=== PATIENT | female | born 1935 | race Two or more races ===

== ENCOUNTER 2019-10-18 23:26 | Inpatient (IN) | payer MEDICARE, MEDICAID ==
[~2019-10-18] VITALS: Ht 162.6 cm; Wt 63.2 kg
[2019-10-18 23:45] VITALS: BP 70/42
[2019-10-18] MEDS ORDERED: Sodium Chloride 1,400 ML IVLG ONE (23:45)
[2019-10-18] MEDS ORDERED: Atropine Inj 1mg/10ml Syr IVP ONE (23:45)
--- NOTE | 2019-10-18 23:45 | NUR ---
ED Nurse Note: Patient was BIBA from [facility] due to hypotension, hypoglycemia, and bradycardia. Patient's BP 70/32, BS 67, HR 32 at bed side. Patient presented unresponsive, with flat affect, AAO x0, VS unstable. ER MD at bed side.
[2019-10-18] MEDS ORDERED: Atropine Inj 1mg/10ml Syr ONE (23:47)
[2019-10-18 23:58] LABS: HEMATOCRIT 34.3 % (37.0-47.0); HEMOGLOBIN 11.5 G/DL (12.0-16.0); MEAN CORPUSCULAR VOLUME 87 FL (80-99); PLATELET COUNT 442 K/UL (150-450); RED BLOOD COUNT 3.94 M/UL (4.20-5.40); RED CELL DISTRIBUTION WIDTH 13.4 % (11.6-14.8)
[2019-10-19] VITALS (48 sets, daily range): BP systolic 65–120; BP diastolic 26–94
[2019-10-19 00:13] LABS: WHITE BLOOD COUNT 23.9 K/UL (4.8-10.8)
--- NOTE | 2019-10-19 00:31 | Diagnostic Imaging Report ---
EXAM: CT Head Without Intravenous Contrast CLINICAL HISTORY: AMS TECHNIQUE: Axial computed tomography images of the head/brain without intravenous contrast. CTDI is 53 mGy and DLP is 1179 mGy-cm. One or more of the following dose reduction techniques were used: automated exposure control, adjustment of the mA and/or kV according to patient size, use of iterative reconstruction technique. COMPARISON: No relevant prior studies available. FINDINGS: Limitations: Limited due to metallic artifact. Brain: No acute intracranial hemorrhage or cortical ischemia. Chronic small vessel ischemic changes. Cannot exclude [id number] ischemia on CT. Followup as clinically indicated. Ventricles: Unremarkable. Bones/joints: Unremarkable. No acute fracture. Soft tissues: See above. Sinuses: Unremarkable as visualized. Mastoid air cells: Unremarkable as visualized. IMPRESSION: No acute intracranial hemorrhage or cortical ischemia. Chronic small vessel ischemic changes. Cannot exclude [id number] ischemia on CT. Followup as clinically indicated.
[2019-10-19 00:36] LABS: APPEARANCE,URINE CLOUDY; BILIRUBIN, URINE NEGATIVE (NEGATIVE); GLUCOSE, URINE (UA) NEGATIVE (NEGATIVE); KETONES,URINE NEGATIVE (NEGATIVE); LEUKOCYTE ESTERASE ,URINE 3+ (NEGATIVE); NITRITE,URINE NEGATIVE (NEGATIVE); PH,URINE 8 (4.5-8.0); PROTEIN,URINE 3+ (NEGATIVE); UROBILINOGEN,URINE NORMAL MG/DL (0.0-1.0)
[2019-10-19 00:37] LABS: COLOR,URINE YELLOW
[2019-10-19] MEDS ORDERED: Cefepime HCl 1 GM in D5W 55 ML IVPB ONE (00:45)
[2019-10-19] MEDS ORDERED: Sodium Bicarbonate 50ml Carp IV ONE (00:45)
[2019-10-19] MEDS ORDERED: Insulin Human Regular 100units/ml 3ml IV ONE (00:45)
[2019-10-19] MEDS ORDERED: Calcium Gluconate 1gm/10ml vial IVP ONE (00:45)
[2019-10-19] MEDS ORDERED: Sodium Bicarbonate 50ml Carp ONE (02:39)
[2019-10-19] MEDS ORDERED: Levophed 4mg/4mL Inj IV ONE ×2 (02:40→02:43)
[2019-10-19 05:57] LABS: ALANINE AMINOTRANSFERASE 26 U/L (12-78); ALBUMIN 1.9 G/DL (3.4-5.0); ALBUMIN/GLOBULIN RATIO 0.6 (1.0-2.7); ALKALINE PHOSPHATASE 150 U/L (46-116); ANION GAP 6 mmol/L (5-15); ASPARTATE AMINO TRANSFERASE 90 U/L (15-37); BILIRUBIN,TOTAL 0.3 MG/DL (0.2-1.0); BLOOD UREA NITROGEN 69 mg/dL (7-18); CALCIUM 8.3 MG/DL (8.5-10.1); CARBON DIOXIDE 26 MMOL/L (21-32); CHLORIDE 94 MMOL/L (98-107); CKMB 1.1 NG/ML (0.0-3.6); CREATINE KINASE 130 U/L (26-308); CREATININE 1.4 MG/DL (0.55-1.30); SODIUM 127 MMOL/L (136-145)
[2019-10-19 05:58] LABS: POTASSIUM 7.1 MMOL/L (3.5-5.1)
[2019-10-19 06:19] LABS: ALANINE AMINOTRANSFERASE 22 U/L (12-78); ALBUMIN 1.6 G/DL (3.4-5.0); ALBUMIN/GLOBULIN RATIO 0.6 (1.0-2.7); ALKALINE PHOSPHATASE 128 U/L (46-116); ANION GAP 6 mmol/L (5-15); ASPARTATE AMINO TRANSFERASE 61 U/L (15-37); BILIRUBIN,TOTAL 0.3 MG/DL (0.2-1.0); BLOOD UREA NITROGEN 63 mg/dL (7-18); CALCIUM 7.3 MG/DL (8.5-10.1); CARBON DIOXIDE 27 MMOL/L (21-32); CHLORIDE 102 MMOL/L (98-107); CREATININE 1.1 MG/DL (0.55-1.30); POTASSIUM 4.7 MMOL/L (3.5-5.1); SODIUM 135 MMOL/L (136-145)
[2019-10-19] MEDS ORDERED: LOVENOX10 M4 SUBQ (06:31)
[2019-10-19] MEDS ORDERED: MORPHINE S10 MG/0.5 PO (06:31)
[2019-10-19] MEDS ORDERED: HYDRALAZINE HCL10 MG GT (06:31)
[2019-10-19] MEDS ORDERED: HUMALOG100 UNIT/4 SUBQ (06:31)
[2019-10-19] MEDS ORDERED: DESYREL50 MG GT (06:31)
[2019-10-19] MEDS ORDERED: GABAPENTIN300 MG GT (06:31)
[2019-10-19] MEDS ORDERED: FAMOTIDINE20 MG GT (06:31)
[2019-10-19] MEDS ORDERED: PRINIVIL10 MG ORAL (06:31)
--- NOTE | 2019-10-19 06:41 | NUR ---
ED Nurse Note: Patient was admited to ICU due to septic shok. Patient was transfered to the unit via gurney, by ACLS protocol. Patient was transfered with Levafed running at rate 16 mcg.
--- NOTE | 2019-10-19 07:00 | NUR ---
NURSE NOTES: Pt received from [facility] [employer]. Pt is awake in bed, opens eyes spontaneously, pupils are equal and round 2mm and sluggish to light reaction. Pt is SR to cardiac/vascular sonographer, afebrile. radial pulses palpable 2+ bilaterally and dorsalis pedis pulses 1+ bilaterally. cap refill< 3 sec, extremities cool to touch. Pt noted with non-rebreather mask at 100% FiO2 15 L.Bilateral upper lungs and right lower lung noted with expiratory rhonchi. Left lower lung noted diminished upon auscultation. GT noted with dry and intact dressing, clamped. Abd is round, soft, with active bowel sounds to all quadrants. Weiner from [facility] noted draining yellow urine. Skin alterations noted. Pt has right femoral TLC running levophed at 16 mcg/min (from ER). VS noted stable at this time and charted. Bilat lower extremities noted contracted. Per Merly, overlay mattress has been ordered from central supply, awaiting mattress. Pt also has a RFA 20g and LFA 18g IV saline locked. Bed in lowest position, alarm on, side rails up x 2 , call light within reach, will continue to monitor.
--- NOTE | 2019-10-19 07:01 | Emergency Room Report ---
History of Present Illness General Chief Complaint: Dyspnea/Respdistress Source: Medical Record, EMS Present Illness HPI This is an 84-year-old female from a custodial. She has a history of CVA, hypertension, diabetes and sepsis. She presents with altered mental status with hypotension. Supposedly onset was tonight. Said that custodial called because she was unresponsive and she was hypotensive. Heart rate was in the 30s. Any history from the patient because of her condition. On arrival, she was unresponsive. She was moaning to painful stimuli. Blood pressure was systolic in the 60s. Heart rate was in the 30s. She was also hypoxic. Allergies: Coded Allergies: No Known Allergies (Unverified , 10/18/19) Patient History Past Medical History: see triage record, old chart reviewed, DM, HTN Past Surgical History: other Pertinent Family History: none Social History: Denies: smoking Now: No Immunizations: other Reviewed Nursing Documentation: PMH: Agreed; PSxH: Agreed Nursing Documentation-PMH Hx Hypertension: Yes Hx Diabetes: Yes - TYPE 2 Hx Neurological Problems: Yes - DEMENTIA Review of Systems All Other Systems: limited - Secondary to her condition Physical Exam Vital Signs Date Time Temp Pulse Resp B/P (MAP) Pulse Ox O2 Delivery O2 Flow Rate FiO2 10/18/19 23:31 96.1 150 26 75/59 (64) 94 Non-Rebreather 15.0 Vitals with bradycardia, not tachycardia Sp02 EP Interpretation: abnormal General Appearance: severe distress, Chronically Ill, Stupor Head: normocephalic, atraumatic Eyes: bilateral eye PERRL ENT: dry mucus membranes Neck: full range of motion, supple, no meningismus Respiratory: chest non-tender, decreased breath sounds, accessory muscle use Cardiovascular #1: no murmur, bradycardia Gastrointestinal: normal bowel sounds, non tender, no mass, no organomegaly, no bruit, non-distended, other - gtube Rectal: other - Sacral ulcer, large Musculoskeletal: no lower extremity edema Neurologic: other - Contracted Lymphatic: no adenopathy Procedures Critical Care Time Critical Care Time Critical care is mandated in this patient who presented with severe bradycardia , hyperkalemia, septic shock. Patient require my urgent intervention to attenuate the risks of metabolic collapse which may lead to cardiovascular collapse and . Critical care time is 75 minutes excluding any reportable procedure. Critical care time included evaluation, multiple reevaluation, looking at old charts, interpreting laboratory and diagnostic data, discussing case with patient and family and consultants, and charting. Central Line Central Line : Consent: Emergent Central Line Lumen: triple Maximal Sterile Barrier Tech: yes cap, yes mask, yes sterile gown, yes sterile gloves, yes large sterile sheet, yes hand hygiene, yes chlorhexidine prep Central Line Postion: femoral (R) Anesthesia: Lidocaine cc's of anesthesia: 5 Complications: none Central Line Post Position: sutured, good blood return Attempts: One Patient Tolerated: Well Complications: None Progress Initially I attempted to do a left IJ central line because she is so contracted and looking toward the right side. Even with the ultrasound machine, her vein was very small and it would not give blood back. Because of this, I switch it to the right femoral vein. Central line was placed without any difficulty with ultrasound guidance. Medical Decision Making Diagnostic Impression: Primary Impression: Septic shock Additional Impressions: UTI (urinary tract infection) Qualified Codes: N30.00 - Acute cystitis without hematuria Hyperkalemia ODALYS (acute kidney injury) Anemia Qualified Codes: D64.9 - Anemia, unspecified Proteinuria Qualified Codes: R80.9 - Proteinuria, unspecified Toxic metabolic encephalopathy ER Course Patient presents with altered mental status. Initially she was very bradycardic and hypotensive. I gave her a dose of atropine and heart rate went up to the 50s and 60s. She actually became more responsive. She open her eyes when I call her name. She also open her eyes when asked to open it. She was protecting her airway so I did not intubate her. Her hypoxia resolved when her heart rate and blood pressure improved. I suspect that this is more metabolic response with poor perfusion rather than a pulmonary issue. Her bradycardia is also probably second to her hyperkalemia. I gave her medication to treat her hyperkalemia and heart rate actually improved. Is been staying in the 70 to the 80s. Blood pressure improved with Levophed. Her mental status improved. Blood pressure improved. Wide spectrum antibiotic started. Because of her insurance with [employer], I discussed the case with the [facility] doctor initially. He approved patient for admission here. I then discussed the case with Dr. Grayson accepted the patient for admission. Lab Results Impression Labs with severe leukocytosis EKG Diagnostic Results Rate: normal Rhythm: NSR ST Segments: other - NSST changes Rhythm Strip Diag. Results EP Interpretation: yes Rate: 70 Rhythm: NSR, no PVC's Chest X-Ray Diagnostic Results Chest X-Ray Diagnostic Results : Chest X-Ray Ordered: Yes # of Views/Limited/Complete: 1 View Indication: Shortness of Breath Interpretation: no effusion, no pneumothorax, other - Elevated right hemidiaphragm with lung volume loss. Atelectasis with questionable infiltrate. Impression: Other - Elevated right hemidiaphragm with volume loss and atelectasis Electronically Signed by: Alex Correa MD CT/MRI/US Diagnostic Results CT/MRI/US Diagnostic Results : Imaging Test Ordered: CT head Impression Read by radiologist. Atrophy. Negative. Last Vital Signs Date Time Temp Pulse Resp B/P (MAP) Pulse Ox O2 Delivery O2 Flow Rate FiO2 10/18/19 23:31 96.1 150 26 75/59 (64) 94 Non-Rebreather 15.0 Status: improved Disposition: ADMITTED INPATIENT Condition: Critical Referrals: Opal Patton MD (PCP) Alex Correa MD Oct 19, 2019 07:01
--- NOTE | 2019-10-19 07:13 | Emergency Room Report ---
Sepsis Event Note Evaluation Current Stage of Sepsis: Septic Shock Possible Source: Genitourinary Focused Exam Allergies: Coded Allergies: No Known Allergies (Unverified , 10/18/19) Date Exam Occurred: Oct 19, 2019 Time Exam Occurred: 07:13 Laboratory Studies Laboratory Tests Test 10/18/19 23:40 10/19/19 00:25 10/19/19 00:37 10/19/19 02:55 White Blood Count 23.9 K/UL (4.8-10.8) *H Red Blood Count 3.94 M/UL (4.20-5.40) L Hemoglobin 11.5 G/DL (12.0-16.0) L Hematocrit 34.3 % (37.0-47.0) L Mean Corpuscular Volume 87 FL (80-99) Mean Corpuscular Hemoglobin 29.1 PG (27.0-31.0) Mean Corpuscular Hemoglobin Concent 33.5 G/DL (32.0-36.0) Red Cell Distribution Width 13.4 % (11.6-14.8) Platelet Count 442 K/UL (150-450) Mean Platelet Volume 7.3 FL (6.5-10.1) Neutrophils (%) (Auto) % (45.0-75.0) Lymphocytes (%) (Auto) % (20.0-45.0) Monocytes (%) (Auto) % (1.0-10.0) Eosinophils (%) (Auto) % (0.0-3.0) Basophils (%) (Auto) % (0.0-2.0) Differential Total Cells Counted 100 Neutrophils % (Manual) 86 % (45-75) H Lymphocytes % (Manual) 9 % (20-45) L Monocytes % (Manual) 4 % (1-10) Eosinophils % (Manual) 1 % (0-3) Basophils % (Manual) 0 % (0-2) Band Neutrophils 0 % (0-8) Platelet Estimate Adequate Platelet Morphology Normal Prothrombin Time 10.8 SEC (9.30-11.50) Prothromb Time International Ratio 1.0 (0.9-1.1) Activated Partial Thromboplast Time 31 SEC (23-33) Lactic Acid Level 5.60 mmol/L (0.4-2.0) H 2.40 mmol/L (0.66-2.22) H Troponin I 0.000 ng/mL (0.000-0.056) Urine Color Yellow Urine Appearance Cloudy Urine pH 8 (4.5-8.0) Urine Specific [place] 1.010 (1.005-1.035) Urine Protein 3+ (NEGATIVE) H Urine Glucose (UA) Negative (NEGATIVE) Urine Ketones Negative (NEGATIVE) Urine Blood 4+ (NEGATIVE) H Urine Nitrite Negative (NEGATIVE) Urine Bilirubin Negative (NEGATIVE) Urine Urobilinogen Normal MG/DL (0.0-1.0) Urine Leukocyte Esterase 3+ (NEGATIVE) H Urine RBC 20-30 /HPF (0 - 2) H Urine WBC Tntc /HPF (0 - 2) H Urine Squamous Epithelial Cells Few /LPF (NONE/OCC) Urine Amorphous Sediment Moderate /LPF (NONE) H Urine Bacteria Many /HPF (NONE) H Urine Yeast Moderate /HPF (NONE) H Sodium Level 127 MMOL/L (136-145) L 135 MMOL/L (136-145) L Potassium Level 7.1 MMOL/L (3.5-5.1) *H 4.7 MMOL/L (3.5-5.1) Chloride Level 94 MMOL/L (98-107) L 102 MMOL/L (98-107) Carbon Dioxide Level 26 MMOL/L (21-32) 27 MMOL/L (21-32) Anion Gap 6 mmol/L (5-15) 6 mmol/L (5-15) Blood Urea Nitrogen 69 mg/dL (7-18) H 63 mg/dL (7-18) H Creatinine 1.4 MG/DL (0.55-1.30) H 1.1 MG/DL (0.55-1.30) Estimat Glomerular Filtration Rate 35.9 mL/min (>60) 47.4 mL/min (>60) Glucose Level 201 MG/DL (74-106) H 182 MG/DL (74-106) H Calcium Level 8.3 MG/DL (8.5-10.1) L 7.3 MG/DL (8.5-10.1) L Total Bilirubin 0.3 MG/DL (0.2-1.0) 0.3 MG/DL (0.2-1.0) Aspartate Amino Transf (AST/SGOT) 90 U/L (15-37) H 61 U/L (15-37) H Alanine Aminotransferase (ALT/SGPT) 26 U/L (12-78) 22 U/L (12-78) Alkaline Phosphatase 150 U/L (46-116) H 128 U/L (46-116) H Total Creatine Kinase 130 U/L (26-308) Creatine Kinase MB 1.1 NG/ML (0.0-3.6) Creatine Kinase MB Relative Index 0.8 Total Protein 5.2 G/DL (6.4-8.2) L 4.3 G/DL (6.4-8.2) L Albumin 1.9 G/DL (3.4-5.0) L 1.6 G/DL (3.4-5.0) L Globulin 3.3 g/dL 2.7 g/dL Albumin/Globulin Ratio 0.6 (1.0-2.7) L 0.6 (1.0-2.7) L Vital Signs Last 24 Hour Vital Signs Date Time Temp Pulse Resp B/P (MAP) Pulse Ox O2 Delivery O2 Flow Rate FiO2 10/18/19 23:45 96.1 32 34 70/42 94 Non-Rebreather 15.0 10/18/19 23:45 150 26 Non-Rebreather 15.0 10/18/19 23:31 96.1 150 26 75/59 (64) 94 Non-Rebreather 15.0 Respiratory Exam: No Rales Cardiovascular Exam: RRR Capillary Refill: Less Than 2 Seconds Peripheral Pulse: Strong Pulse Location: Radial Skin Exam: Normal Turgor Alex Main MD Oct 19, 2019 07:13
[2019-10-19] MEDS ORDERED: AMLODIPINE BESYL5 MG GT (07:45)
[2019-10-19] MEDS ORDERED: ASPIRIN EC81 MG GT (07:45)
[2019-10-19] MEDS ORDERED: DONEPEZIL HCL10 MG GT (07:45)
[2019-10-19] MEDS ORDERED: CARVEDILOL12.5 MG GT (07:45)
[2019-10-19] MEDS ORDERED: ATORVASTATIN CA40 MG GT (07:45)
--- NOTE | 2019-10-19 07:58 | NUR ---
NURSE NOTES: Left message for Dr Grayson for admission orders. Awaiting call back.
--- NOTE | 2019-10-19 08:00 | NUR ---
NURSE NOTES: Levophed remains at 16 mcg/mi at this time per ER until call back from Dr Grayson is received for orders.
--- NOTE | 2019-10-19 08:19 | NUR ---
NURSE NOTES: Charge nurse (Vasquez Briceno) received call back from Dr Grayson for Levophed order. Per Candace, Dr Grayson will come see pt in [address] additional orders.
--- NOTE | 2019-10-19 09:30 | NUR ---
NURSE NOTES: Dr Grayson at bedside assessing pt and placing orders. Pt's family at bedside at this time. Advance directive provided and copied into chart.
--- NOTE | 2019-10-19 10:00 | NUR ---
NURSE NOTES: Pt repositioned, oral care provided, no acute distress noted.
[2019-10-19] MEDS ORDERED: Heparin 5000 units/ml inj SUBQ SCH (11:00)
[2019-10-19] MEDS ORDERED: Ertapenem 1 GM in NS 55 ML IVPB SCH (11:15)
[2019-10-19] MEDS ORDERED: NovoLOG Insulin Flexpen SUBQ SCH (11:30)
[2019-10-19 11:41] LABS: CHOLESTEROL 78 MG/DL (< 200); HDL CHOLESTEROL 34 MG/DL (40-60); PHOSPHORUS 3.6 MG/DL (2.5-4.9); TRIGLYCERIDES 47 MG/DL (30-150)
[2019-10-19] MEDS ORDERED: D5NS 1,000 ML IV SCH (11:46)
[2019-10-19] MEDS ORDERED: Ertapenem 0.5 GM in NS 55 ML IVPB SCH ×6 (12:00)
[2019-10-19] MEDS ORDERED: Atropine Inj 1mg/10ml Syr ONE (12:29)
[2019-10-19] MEDS ORDERED: Amikacin Rx to dose MISC PRN (12:45)
[2019-10-19] MEDS ORDERED: Albuterol/Ipratropium 3ml neb HHN PRN (12:45)
--- NOTE | 2019-10-19 12:46 | Infectious Diseases Prog Note ---
Assessment/Plan Assessment/Plan Full consult dictated: A) 1) sepsis, shock, uti, leukocytosis, ? pna, ? sacral wound infection, leukocytosis, hypothermia, sob, hypoxia 2) pmh noted 3) allergies - nkda 4) hx esbl P) 1) vancomycin, meropenem, amikacin 2) check cultures, labs and chest x-ray 3) wound care per protocol, consider surgery evaluation of wound 4) critical condition 5) thank you Subjective Allergies: Coded Allergies: No Known Allergies (Unverified , 10/18/19) Objective Vital Signs Last 24 Hour Vital Signs Date Time Temp Pulse Resp B/P (MAP) Pulse Ox O2 Delivery O2 Flow Rate FiO2 10/19/19 11:30 73 15 105/34 (57) 100 10/19/19 11:00 105/34 10/19/19 11:00 73 14 107/32 (57) 100 10/19/19 10:30 73 20 108/35 (59) 100 10/19/19 10:00 107/46 10/19/19 10:00 76 20 113/40 (64) 99 10/19/19 09:45 78 14 111/42 (65) 100 10/19/19 09:30 77 15 118/40 (66) 100 10/19/19 09:00 77 23 120/41 (67) 100 10/19/19 09:00 100/74 10/19/19 09:00 15.0 10/19/19 08:54 75 20 100/74 (83) 100 10/19/19 08:51 80/38 10/19/19 08:45 75 20 80/38 (52) 100 10/19/19 08:30 74 19 84/31 (48) 100 10/19/19 08:17 72 19 98/32 (54) 100 10/19/19 08:08 75 21 113/94 (100) 100 10/19/19 08:06 75 20 90/71 (77) 99 10/19/19 08:05 76 21 74/54 (61) 100 10/19/19 08:00 76 10/19/19 08:00 Non-Rebreather 15.0 Non-Rebreather 15.0 Non-Rebreather 15.0 10/19/19 08:00 76 20 109/84 (92) 100 10/19/19 07:45 75 17 101/44 (63) 100 10/19/19 07:30 73 14 94/34 (54) 100 10/19/19 07:15 73 11 95/31 (52) 10/19/19 07:06 70 12 90/31 (50) 100 10/19/19 07:00 98.1 73 14 90/32 (51) 100 10/19/19 07:00 76 10/19/19 07:00 Non-Rebreather 15.0 Non-Rebreather 15.0 Non-Rebreather 15.0 10/19/19 06:41 97.9 70 20 89/49 100 Non-Rebreather 10.0 10/19/19 06:41 98.1 7 18 114/56 100 Non-Rebreather 5.0 10/19/19 04:40 97.9 70 20 89/49 100 Non-Rebreather 10.0 10/19/19 03:05 96.1 50 20 105/36 94 Non-Rebreather 15.0 10/19/19 01:45 97.2 47 24 65/26 94 Non-Rebreather 15.0 10/18/19 23:45 96.1 32 34 70/42 94 Non-Rebreather 15.0 10/18/19 23:45 150 26 Non-Rebreather 15.0 10/18/19 23:31 96.1 150 26 75/59 (64) 94 Non-Rebreather 15.0 Height (Feet): 5 Height (Inches): 4.00 Weight (Pounds): 105 Laboratory Tests Test 10/18/19 23:40 10/19/19 00:25 10/19/19 00:37 10/19/19 02:55 White Blood Count 23.9 K/UL (4.8-10.8) *H Red Blood Count 3.94 M/UL (4.20-5.40) L Hemoglobin 11.5 G/DL (12.0-16.0) L Hematocrit 34.3 % (37.0-47.0) L Mean Corpuscular Volume 87 FL (80-99) Mean Corpuscular Hemoglobin 29.1 PG (27.0-31.0) Mean Corpuscular Hemoglobin Concent 33.5 G/DL (32.0-36.0) Red Cell Distribution Width 13.4 % (11.6-14.8) Platelet Count 442 K/UL (150-450) Mean Platelet Volume 7.3 FL (6.5-10.1) Neutrophils (%) (Auto) % (45.0-75.0) Lymphocytes (%) (Auto) % (20.0-45.0) Monocytes (%) (Auto) % (1.0-10.0) Eosinophils (%) (Auto) % (0.0-3.0) Basophils (%) (Auto) % (0.0-2.0) Differential Total Cells Counted 100 Neutrophils % (Manual) 86 % (45-75) H Lymphocytes % (Manual) 9 % (20-45) L Monocytes % (Manual) 4 % (1-10) Eosinophils % (Manual) 1 % (0-3) Basophils % (Manual) 0 % (0-2) Band Neutrophils 0 % (0-8) Platelet Estimate Adequate Platelet Morphology Normal Prothrombin Time 10.8 SEC (9.30-11.50) Prothromb Time International Ratio 1.0 (0.9-1.1) Activated Partial Thromboplast Time 31 SEC (23-33) Lactic Acid Level 5.60 mmol/L (0.4-2.0) H 2.40 mmol/L (0.66-2.22) H Troponin I 0.000 ng/mL (0.000-0.056) Urine Color Yellow Urine Appearance Cloudy Urine pH 8 (4.5-8.0) Urine Specific [place] 1.010 (1.005-1.035) Urine Protein 3+ (NEGATIVE) H Urine Glucose (UA) Negative (NEGATIVE) Urine Ketones Negative (NEGATIVE) Urine Blood 4+ (NEGATIVE) H Urine Nitrite Negative (NEGATIVE) Urine Bilirubin Negative (NEGATIVE) Urine Urobilinogen Normal MG/DL (0.0-1.0) Urine Leukocyte Esterase 3+ (NEGATIVE) H Urine RBC 20-30 /HPF (0 - 2) H Urine WBC Tntc /HPF (0 - 2) H Urine Squamous Epithelial Cells Few /LPF (NONE/OCC) Urine Amorphous Sediment Moderate /LPF (NONE) H Urine Bacteria Many /HPF (NONE) H Urine Yeast Moderate /HPF (NONE) H Sodium Level 127 MMOL/L (136-145) L 135 MMOL/L (136-145) L Potassium Level 7.1 MMOL/L (3.5-5.1) *H 4.7 MMOL/L (3.5-5.1) Chloride Level 94 MMOL/L (98-107) L 102 MMOL/L (98-107) Carbon Dioxide Level 26 MMOL/L (21-32) 27 MMOL/L (21-32) Anion Gap 6 mmol/L (5-15) 6 mmol/L (5-15) Blood Urea Nitrogen 69 mg/dL (7-18) H 63 mg/dL (7-18) H Creatinine 1.4 MG/DL (0.55-1.30) H 1.1 MG/DL (0.55-1.30) Estimat Glomerular Filtration Rate 35.9 mL/min (>60) 47.4 mL/min (>60) Glucose Level 201 MG/DL (74-106) H 182 MG/DL (74-106) H Calcium Level 8.3 MG/DL (8.5-10.1) L 7.3 MG/DL (8.5-10.1) L Total Bilirubin 0.3 MG/DL (0.2-1.0) 0.3 MG/DL (0.2-1.0) Aspartate Amino Transf (AST/SGOT) 90 U/L (15-37) H 61 U/L (15-37) H Alanine Aminotransferase (ALT/SGPT) 26 U/L (12-78) 22 U/L (12-78) Alkaline Phosphatase 150 U/L (46-116) H 128 U/L (46-116) H Total Creatine Kinase 130 U/L (26-308) Creatine Kinase MB 1.1 NG/ML (0.0-3.6) Creatine Kinase MB Relative Index 0.8 Total Protein 5.2 G/DL (6.4-8.2) L 4.3 G/DL (6.4-8.2) L Albumin 1.9 G/DL (3.4-5.0) L 1.6 G/DL (3.4-5.0) L Globulin 3.3 g/dL 2.7 g/dL Albumin/Globulin Ratio 0.6 (1.0-2.7) L 0.6 (1.0-2.7) L Test 10/19/19 09:00 Osmolality 308 mOsm/kg (297-317) Lactic Acid Level 1.70 mmol/L (0.4-2.0) Phosphorus Level 3.6 MG/DL (2.5-4.9) Magnesium Level 2.5 MG/DL (1.8-2.4) H Triglycerides Level 47 MG/DL (30-150) Cholesterol Level 78 MG/DL (< 200) LDL Cholesterol 39 mg/dL (<100) HDL Cholesterol 34 MG/DL (40-60) L Cholesterol/HDL Ratio 2.3 (3.3-4.4) L Thyroid Stimulating Hormone (TSH) 2.520 uiU/mL (0.358-3.740) Current Medications Medications (Trade) Dose Ordered Sig/Nitish Route PRN Reason Start Time Stop Time Status Last Admin Dose Admin Acetaminophen (Tylenol) 650 mg Q4H PRN ORAL Mild Pain (Pain Scale 1-3) 10/19/19 11:00 11/18/19 10:59 Chlorhexidine Gluconate (Marisela-Hex 2%) 1 applic DAILY@2000 TOPIC 10/19/19 20:00 11/18/19 19:59 Dextrose (Dextrose 50%) 25 ml Q30M PRN IV Hypoglycemia 10/19/19 10:30 11/18/19 10:29 Dextrose (Dextrose 50%) 50 ml Q30M PRN IV Hypoglycemia 10/19/19 10:30 11/18/19 10:29 Dextrose/Sodium Chloride 1,000 ml @ 50 mls/hr Q20H IV 10/19/19 13:00 11/18/19 11:45 Ertapenem 0.5 gm/ Sodium Chloride 55 ml @ 110 mls/hr Q24H IVPB 10/19/19 12:00 10/20/19 23:59 10/19/19 12:23 Heparin Sodium (Porcine) (Heparin 5000 units/ml) 5,000 units EVERY 12 HOURS SUBQ 10/19/19 21:00 11/18/19 10:59 Insulin Aspart (NovoLOG) Q6HR SUBQ 10/19/19 12:00 11/18/19 11:59 Norepinephrine Bitartrate 4 mg/ Dextrose 250 ml @ 0 mls/hr Q24H IV 10/19/19 08:30 11/18/19 08:29 10/19/19 08:51 Pantoprazole (Protonix) 40 mg DAILY IV 10/20/19 09:00 11/19/19 08:59 Bao Stevens MD Oct 19, 2019 12:46
--- NOTE | 2019-10-19 12:49 | NUR ---
NURSE NOTES: Dr. Vergara at bedside assessing pt.
[2019-10-19] MEDS: D5NS 1,000 ML IV SCH (12:52)
[2019-10-19] MEDS: NovoLOG Insulin Flexpen SUBQ SCH ×2 (12:56→17:43)
--- NOTE | 2019-10-19 13:00 | NUR ---
NURSE NOTES: Dr Shepherd at bedside assessing pt's wounds.
[2019-10-19] MEDS ORDERED: Vancomycin 1gm/D5W 275ml IVPB ONE ×2 (15:00)
--- NOTE | 2019-10-19 15:00 | NUR ---
NURSE NOTES: Dr Pryor at bedside assessing pt.
--- NOTE | 2019-10-19 15:00 | NUR ---
RESPIRATORY NOTE: ABG drawn. Results posted.
--- NOTE | 2019-10-19 15:05 | NUR ---
NURSE NOTES: Oxygen titrated down to FiO2 40% 8L via non-rebreather mask per RT Rossy.
--- NOTE | 2019-10-19 15:05 | Diagnostic Imaging Report ---
EXAM: XR Chest, 1 View CLINICAL HISTORY: SOB TECHNIQUE: Frontal view of the chest. COMPARISON: No relevant prior studies available. FINDINGS: Limitations: Rotated position limit evaluation. Lungs: Mild streaky density in the left lung base. Pleural space: Dense opacity in the right lower half of the expected right hemithorax. This may reflect elevated right hemidiaphragm. Note that right pleural effusion/pleural abnormality and/or lower lung airspace disease can give this appearance. No pneumothorax. Heart: Cardiovascular silhouette obscured by the dense opacity in the right lower hemithorax. Mediastinum: Tortuous thoracic aorta accentuated by rotated position. Bones/joints: Degenerative changes in the thoracic spine Vasculature: Tortuous calcified thoracic aorta accentuated by rotated position. Other findings: Low lung volume limit evaluation IMPRESSION: 1. Limited study due to rotated position and low lung volume. 2. Finding in the right lower hemithorax which may reflect elevated right hemidiaphragm. This can alternatively represent combination of pleural effusion and/or airspace disease. Follow-up recommended. 3. Left basilar atelectasis versus infiltrate.
--- NOTE | 2019-10-19 15:06 | Diagnostic Imaging Report ---
EXAM: US Duplex Bilateral Lower Extremity Veins CLINICAL HISTORY: DVT TECHNIQUE: Real-time duplex ultrasound scan of the bilateral lower extremity veins integrating B-mode two-dimensional vascular structure, Doppler spectral analysis, color flow Doppler imaging and compression. COMPARISON: No relevant prior studies available. FINDINGS: Right deep veins: Unremarkable. No DVT in the right common femoral, femoral, proximal deep femoral or popliteal veins. The veins demonstrate normal color flow, are normally compressible, with normal phasic flow and/or augmentation response. Right superficial veins: Unremarkable. Left deep veins: Unremarkable. No DVT in the left common femoral, femoral, proximal deep femoral or popliteal veins. The veins demonstrate normal color flow, are normally compressible, with normal phasic flow and/or augmentation response. Left superficial veins: Unremarkable. Soft tissues: No popliteal cyst. IMPRESSION: Unremarkable bilateral lower extremity duplex venous ultrasound.
[2019-10-19] MEDS: Amikacin 700 MG in NS 110 ML IV SCH (15:15)
[2019-10-19] MEDS: Vancomycin 750mg/NS 275ml IVPB SCH ×2 (15:17)
--- NOTE | 2019-10-19 15:22 | Consultation ---
History of Present Illness General Date patient seen: Oct 19, 2019 Chief Complaint: Dyspnea/Respdistress Present Illness HPI 84 year old female with multiple medical comorbidities presented to [facility] for respiratory insufficiency admitted to the intensive care unit for further care and management. Abnormal labs. Abnormal imaging. On examination had potentially infected foul-smelling abnormal sacral decubitus ulcer. Surgery called to evaluate and assist with care. Patient septic in the ICU. No nausea vomiting fever chills. Unable to obtain history from patient given current medical condition. Patient on support. Allergies: Coded Allergies: No Known Allergies (Unverified , 10/18/19) Medication History Scheduled Amlodipine Besylate* (Amlodipine Besylate*), 5 MG GT DAILY, (Reported) Aspirin Ec* (Aspirin Ec*), 81 MG GT DAILY, (Reported) Atorvastatin Calcium* (Atorvastatin Calcium*), 40 MG GT BEDTIME, (Reported) Carvedilol* (Carvedilol*), 12.5 MG GT EVERY 12 HOURS, (Reported) Donepezil Hcl* (Donepezil Hcl*), 10 MG GT BEDTIME, (Reported) Enoxaparin* (Lovenox*), 40 MG SUBQ DAILY, (Reported) Famotidine* (Pepcid 20mg tablet*), 20 MG ORAL DAILY, (Reported) Gabapentin* (Gabapentin*), 300 MG ORAL BEDTIME, (Reported) Hydralazine Hcl* (Hydralazine Hcl*), 10 MG ORAL EVERY 6 HOURS, (Reported) Lisinopril* (Prinivil*), 10 MG ORAL DAILY, (Reported) Miscellaneous Medications Insulin Lispro (Humalog), 0 SUBQ, (Reported) Morphine Sulfate (Morphine Sulfate), 10 MG PO, (Reported) Trazodone Hcl (Desyrel), 50 MG PO, (Reported) Patient History Limited by: medical condition History Provided By: Medical Record, PMD Healthcare decision maker Shey Degroot Resuscitation status Do Not Intubate Advanced Directive on File Yes Past Medical/Surgical History Past Medical/Surgical History: (1) Anemia (2) Proteinuria (3) Toxic metabolic encephalopathy (4) Septic shock (5) Hyperkalemia (6) UTI (urinary tract infection) (7) ODALYS (acute kidney injury) Review of Systems ROS Narrative Unable to obtain given patient's current medical condition Physical Exam General Appearance: mild distress Lines, tubes and drains: other HEENT: normocephalic, atraumatic, anicteric Neck: supple, normal inspection Respiratory/Chest: decreased breath sounds, other Cardiovascular/Chest: regularly irregular, tachycardia Abdomen: soft, no organomegaly, no mass Extremities: normal inspection Skin Exam: warm/dry Neurologic: other Last 24 Hour Vital Signs Date Time Temp Pulse Resp B/P (MAP) Pulse Ox O2 Delivery O2 Flow Rate FiO2 10/19/19 15:08 8.0 40 10/19/19 15:00 64 12 105/32 (56) 100 10/19/19 14:30 64 11 102/32 (55) 100 10/19/19 14:11 102/83 10/19/19 14:00 102/83 10/19/19 14:00 76 18 102/83 (89) 100 10/19/19 13:30 79 18 105/38 (60) 100 10/19/19 13:24 76 21 100 Non-Rebreather 15.0 100 75 19 100 10/19/19 13:00 113/38 10/19/19 13:00 76 16 113/38 (63) 100 10/19/19 12:30 72 21 116/45 (68) 100 10/19/19 12:00 67 10/19/19 12:00 15.0 100 10/19/19 12:00 101/38 10/19/19 12:00 Non-Rebreather 15.0 Non-Rebreather 15.0 Non-Rebreather 15.0 10/19/19 12:00 98.9 72 17 101/38 (59) 100 10/19/19 11:30 73 15 105/34 (57) 100 10/19/19 11:00 105/34 10/19/19 11:00 73 14 107/32 (57) 100 10/19/19 10:30 73 20 108/35 (59) 100 10/19/19 10:00 107/46 10/19/19 10:00 76 20 113/40 (64) 99 10/19/19 09:45 78 14 111/42 (65) 100 10/19/19 09:30 77 15 118/40 (66) 100 10/19/19 09:00 77 23 120/41 (67) 100 10/19/19 09:00 100/74 10/19/19 09:00 15.0 100 10/19/19 08:54 75 20 100/74 (83) 100 10/19/19 08:51 80/38 10/19/19 08:45 75 20 80/38 (52) 100 10/19/19 08:30 74 19 84/31 (48) 100 10/19/19 08:17 72 19 98/32 (54) 100 10/19/19 08:08 75 21 113/94 (100) 100 10/19/19 08:06 75 20 90/71 (77) 99 10/19/19 08:05 76 21 74/54 (61) 100 10/19/19 08:00 76 10/19/19 08:00 Non-Rebreather 15.0 Non-Rebreather 15.0 Non-Rebreather 15.0 10/19/19 08:00 76 20 109/84 (92) 100 10/19/19 07:45 75 17 101/44 (63) 100 10/19/19 07:30 73 14 94/34 (54) 100 10/19/19 07:15 73 11 95/31 (52) 10/19/19 07:06 70 12 90/31 (50) 100 10/19/19 07:00 98.1 73 14 90/32 (51) 100 10/19/19 07:00 76 10/19/19 07:00 Non-Rebreather 15.0 Non-Rebreather 15.0 Non-Rebreather 15.0 10/19/19 06:41 97.9 70 20 89/49 100 Non-Rebreather 10.0 10/19/19 06:41 98.1 7 18 114/56 100 Non-Rebreather 5.0 10/19/19 04:40 97.9 70 20 89/49 100 Non-Rebreather 10.0 10/19/19 03:05 96.1 50 20 105/36 94 Non-Rebreather 15.0 10/19/19 01:45 97.2 47 24 65/26 94 Non-Rebreather 15.0 10/18/19 23:45 96.1 32 34 70/42 94 Non-Rebreather 15.0 10/18/19 23:45 150 26 Non-Rebreather 15.0 10/18/19 23:31 96.1 150 26 75/59 (64) 94 Non-Rebreather 15.0 Intake and Output 10/18/19 10/19/19 19:00 07:00 Intake Total 0 ml Output Total 750 ml Balance -750 ml Intake Oral 0 ml Output Urine Total 750 ml Laboratory Tests Test 10/18/19 23:40 10/19/19 00:25 10/19/19 00:37 10/19/19 02:55 White Blood Count 23.9 K/UL (4.8-10.8) *H Red Blood Count 3.94 M/UL (4.20-5.40) L Hemoglobin 11.5 G/DL (12.0-16.0) L Hematocrit 34.3 % (37.0-47.0) L Mean Corpuscular Volume 87 FL (80-99) Mean Corpuscular Hemoglobin 29.1 PG (27.0-31.0) Mean Corpuscular Hemoglobin Concent 33.5 G/DL (32.0-36.0) Red Cell Distribution Width 13.4 % (11.6-14.8) Platelet Count 442 K/UL (150-450) Mean Platelet Volume 7.3 FL (6.5-10.1) Neutrophils (%) (Auto) % (45.0-75.0) Lymphocytes (%) (Auto) % (20.0-45.0) Monocytes (%) (Auto) % (1.0-10.0) Eosinophils (%) (Auto) % (0.0-3.0) Basophils (%) (Auto) % (0.0-2.0) Differential Total Cells Counted 100 Neutrophils % (Manual) 86 % (45-75) H Lymphocytes % (Manual) 9 % (20-45) L Monocytes % (Manual) 4 % (1-10) Eosinophils % (Manual) 1 % (0-3) Basophils % (Manual) 0 % (0-2) Band Neutrophils 0 % (0-8) Platelet Estimate Adequate Platelet Morphology Normal Prothrombin Time 10.8 SEC (9.30-11.50) Prothromb Time International Ratio 1.0 (0.9-1.1) Activated Partial Thromboplast Time 31 SEC (23-33) Lactic Acid Level 5.60 mmol/L (0.4-2.0) H 2.40 mmol/L (0.66-2.22) H Troponin I 0.000 ng/mL (0.000-0.056) Urine Color Yellow Urine Appearance Cloudy Urine pH 8 (4.5-8.0) Urine Specific [place] 1.010 (1.005-1.035) Urine Protein 3+ (NEGATIVE) H Urine Glucose (UA) Negative (NEGATIVE) Urine Ketones Negative (NEGATIVE) Urine Blood 4+ (NEGATIVE) H Urine Nitrite Negative (NEGATIVE) Urine Bilirubin Negative (NEGATIVE) Urine Urobilinogen Normal MG/DL (0.0-1.0) Urine Leukocyte Esterase 3+ (NEGATIVE) H Urine RBC 20-30 /HPF (0 - 2) H Urine WBC Tntc /HPF (0 - 2) H Urine Squamous Epithelial Cells Few /LPF (NONE/OCC) Urine Amorphous Sediment Moderate /LPF (NONE) H Urine Bacteria Many /HPF (NONE) H Urine Yeast Moderate /HPF (NONE) H Sodium Level 127 MMOL/L (136-145) L 135 MMOL/L (136-145) L Potassium Level 7.1 MMOL/L (3.5-5.1) *H 4.7 MMOL/L (3.5-5.1) Chloride Level 94 MMOL/L (98-107) L 102 MMOL/L (98-107) Carbon Dioxide Level 26 MMOL/L (21-32) 27 MMOL/L (21-32) Anion Gap 6 mmol/L (5-15) 6 mmol/L (5-15) Blood Urea Nitrogen 69 mg/dL (7-18) H 63 mg/dL (7-18) H Creatinine 1.4 MG/DL (0.55-1.30) H 1.1 MG/DL (0.55-1.30) Estimat Glomerular Filtration Rate 35.9 mL/min (>60) 47.4 mL/min (>60) Glucose Level 201 MG/DL (74-106) H 182 MG/DL (74-106) H Calcium Level 8.3 MG/DL (8.5-10.1) L 7.3 MG/DL (8.5-10.1) L Total Bilirubin 0.3 MG/DL (0.2-1.0) 0.3 MG/DL (0.2-1.0) Aspartate Amino Transf (AST/SGOT) 90 U/L (15-37) H 61 U/L (15-37) H Alanine Aminotransferase (ALT/SGPT) 26 U/L (12-78) 22 U/L (12-78) Alkaline Phosphatase 150 U/L (46-116) H 128 U/L (46-116) H Total Creatine Kinase 130 U/L (26-308) Creatine Kinase MB 1.1 NG/ML (0.0-3.6) Creatine Kinase MB Relative Index 0.8 Total Protein 5.2 G/DL (6.4-8.2) L 4.3 G/DL (6.4-8.2) L Albumin 1.9 G/DL (3.4-5.0) L 1.6 G/DL (3.4-5.0) L Globulin 3.3 g/dL 2.7 g/dL Albumin/Globulin Ratio 0.6 (1.0-2.7) L 0.6 (1.0-2.7) L Test 10/19/19 09:00 10/19/19 14:47 Osmolality 308 mOsm/kg (297-317) Lactic Acid Level 1.70 mmol/L (0.4-2.0) Phosphorus Level 3.6 MG/DL (2.5-4.9) Magnesium Level 2.5 MG/DL (1.8-2.4) H Triglycerides Level 47 MG/DL (30-150) Cholesterol Level 78 MG/DL (< 200) LDL Cholesterol 39 mg/dL (<100) HDL Cholesterol 34 MG/DL (40-60) L Cholesterol/HDL Ratio 2.3 (3.3-4.4) L Thyroid Stimulating Hormone (TSH) 2.520 uiU/mL (0.358-3.740) Arterial Blood pH 7.380 (7.350-7.450) Arterial Blood Partial Pressure CO2 40.5 mmHg (35.0-45.0) Arterial Blood Partial Pressure O2 436.1 mmHg (75.0-100.0) H Arterial Blood HCO3 23.4 mmol/L (22.0-26.0) Arterial Blood Oxygen Saturation 99.3 % (95-100) Arterial Blood Base Excess -1.6 (-2-2) Gerald Test Positive Height (Feet): 5 Height (Inches): 4.00 Weight (Pounds): 105 Medications Current Medications Medications (Trade) Dose Ordered Sig/Nitish Route PRN Reason Start Time Stop Time Status Last Admin Dose Admin Acetaminophen (Tylenol) 650 mg Q4H PRN ORAL Mild Pain (Pain Scale 1-3) 10/19/19 11:00 11/18/19 10:59 Albuterol/ Ipratropium (Albuterol/ Ipratropium) 3 ml Q4H PRN HHN Shortness of Breath 10/19/19 12:45 10/24/19 12:44 10/19/19 13:24 Amikacin Protocol (Amikacin pharmacy to dose) 1 ea DAILY PRN MISC Per rx protocol 10/19/19 12:45 11/18/19 12:44 Amikacin Sulfate 700 mg/Sodium Chloride 112.8 ml @ 112.8 mls/ hr Q36H IV 10/19/19 16:00 10/26/19 15:59 10/19/19 15:15 Chlorhexidine Gluconate (Marisela-Hex 2%) 1 applic DAILY@2000 TOPIC 10/19/19 20:00 11/18/19 19:59 Dextrose (Dextrose 50%) 25 ml Q30M PRN IV Hypoglycemia 10/19/19 10:30 11/18/19 10:29 Dextrose (Dextrose 50%) 50 ml Q30M PRN IV Hypoglycemia 10/19/19 10:30 11/18/19 10:29 Dextrose/Sodium Chloride 1,000 ml @ 50 mls/hr Q20H IV 10/19/19 13:00 11/18/19 11:45 10/19/19 12:52 Heparin Sodium (Porcine) (Heparin 5000 units/ml) 5,000 units EVERY 12 HOURS SUBQ 10/19/19 21:00 11/18/19 10:59 Insulin Aspart (NovoLOG) Q6HR SUBQ 10/19/19 12:00 11/18/19 11:59 10/19/19 12:56 Meropenem 1 gm/ Sodium Chloride 100 ml @ 200 mls/hr Q12HR@0200,1400 IVPB 10/19/19 14:00 10/24/19 13:59 10/19/19 14:14 Norepinephrine Bitartrate 4 mg/ Dextrose 250 ml @ 0 mls/hr Q24H IV 10/19/19 08:30 11/18/19 08:29 10/19/19 14:11 Pantoprazole (Protonix) 40 mg DAILY IV 10/20/19 09:00 11/19/19 08:59 Vancomycin HCl (Vanco rx to dose) 1 ea DAILY PRN MISC Per rx protocol 10/19/19 12:45 11/18/19 12:44 Vancomycin HCl 750 mg/Sodium Chloride 275 ml @ 183.333 mls/hr Q24H IVPB 10/20/19 15:00 10/25/19 14:59 10/19/19 15:17 Vancomycin HCl 1 gm/Dextrose 275 ml @ 183.708 mls/hr ONCE ONCE IVPB 10/19/19 15:00 10/19/19 16:29 Assessment/Plan Problem List: (1) Decubitus ulcer of sacral region, stage 4 Assessment & Plan: Stage IV sacral decubitus ulcer with necrosis, slough, mild drainage, foul odor. Patient presented with this on admission. Seems grossly uncapped. Leukocytosis , abnormal labs Sepsis unlikely due to wound likely pneumonia wound does need local supportive care. Patient also noted to have other areas of skin concerns. Full evaluation at bedside with nursing staff Orders placed We will follow with recommendations Nutritional optimization thank you will follow with recommendations ICD Codes: L89.154 - Pressure ulcer of sacral region, stage 4 SNOMED: 517129310, 611580534 (2) Anemia ICD Codes: D64.9 - Anemia, unspecified SNOMED: 787689909 Qualifiers: Qualified Codes: D64.9 - Anemia, unspecified (3) Proteinuria ICD Codes: R80.9 - Proteinuria, unspecified SNOMED: 38928893 Qualifiers: Qualified Codes: R80.9 - Proteinuria, unspecified (4) Toxic metabolic encephalopathy ICD Codes: G92 - Toxic encephalopathy SNOMED: 574408658 (5) Septic shock Assessment & Plan: Patient needs intensive care unit, leukocytosis, abnormal labs, septic. Full physical examination performed an area of concern identified. Unlikely etiology of patient's sepsis. Likely septic from pneumonia versus potential UTI IV antibiotics per infectious disease We will follow with recommendations ICD Codes: A41.9 - Sepsis, unspecified organism; R65.21 - Severe sepsis with septic shock SNOMED: 07902391 (6) Hyperkalemia ICD Codes: E87.5 - Hyperkalemia SNOMED: 35832807, 9832435 (7) UTI (urinary tract infection) ICD Codes: N39.0 - Urinary tract infection, site not specified SNOMED: 59772966 Qualifiers: Qualified Codes: N30.00 - Acute cystitis without hematuria (8) ODALYS (acute kidney injury) ICD Codes: N17.9 - Acute kidney failure, unspecified SNOMED: 40843195, 2554195 Mikael Shepherd Oct 19, 2019 15:22
[2019-10-19] MEDS ORDERED: NS 500ML ONE (15:54)
[2019-10-19] MEDS ORDERED: Tubing IV Secondary IV ONE (15:54)
--- NOTE | 2019-10-19 16:00 | NUR ---
NURSE NOTES: Pt repositioned, no acute distress noted at this time. Will continue to monitor.
[2019-10-19] MEDS ORDERED: Atropine Inj 1mg/10ml Syr IVP PRN (17:00)
--- NOTE | 2019-10-19 17:00 | NUR ---
NURSE NOTES: Spoke to Dr. Grayson regarding pt's episodes of bradycardia, received order for atropine 0.5 mg IVP Q5min with max dose of 3 mg for HR less than 50 bpm, consult also placed with Dr. Carranza who will come see pt this evening.
--- NOTE | 2019-10-19 19:30 | NUR ---
HAND-OFF: Report given to Farzana. Pt is in table condition, noted Sinus marely to sinus rhythm on registered nurse cardiac telemetry (57-65 bpm). Endorsed to Farzana that Dr Carranza is to see pt tonight and PRN atropine order is available if HR drops below 50. No acute distress noted. Addendum: 10/19/19 at 1945 by Marizol Stack RN Also endorsed to Farzana that I was unable to collected sputum today, pt's cough is non-productive, Rossy RT is also aware. Central line dressing kit placed at bedside for dressing change tonight.
--- NOTE | 2019-10-19 20:00 | NUR ---
NURSE NOTES: received report from brock pulliam pt FLAT AFFECT AND LETHARGIC MOVING UPPER EXTREMITIES AND LOWER EXTREMITIES CONTRACTED HR 58-78 SB-SR SBP 76-106 ON LEVO DRIP AT 16MCG/MIN ON NRM 40 O/O FIO2 WITH 95%O2 SAT REPOSITION AND SUCTION
[2019-10-19] MEDS: Dyna-Hex 2% Top Sol 2oz TOPIC SCH (20:12)
[2019-10-19] MEDS: Heparin 5000 units/ml inj SUBQ SCH (21:26)
--- NOTE | 2019-10-19 22:00 | NUR ---
NURSE NOTES: UNABLE TITRATE LEVO DRIP SBP <7O
[2019-10-20] VITALS (60 sets, daily range): BP systolic 79–126; BP diastolic 26–63
--- NOTE | 2019-10-20 | NUR ---
NURSE NOTES: CONDITION UN CHANGE
[2019-10-20] MEDS: NovoLOG Insulin Flexpen SUBQ SCH ×4 (00:52→17:20)
--- NOTE | 2019-10-20 02:00 | NUR ---
NURSE NOTES: REPOSITION AND SUCTION
--- NOTE | 2019-10-20 04:00 | NUR ---
NURSE NOTES: complete bed bath oral care back care done
[2019-10-20 04:49] LABS: BASOPHILS % (AUTO) 0.6 % (0.0-2.0); EOSINOPHILS % (AUTO) 0.2 % (0.0-3.0); HEMOGLOBIN 9.1 G/DL (12.0-16.0); LYMPHOCYTES % (AUTO) 10.2 % (20.0-45.0); MEAN CORPUSCULAR VOLUME 87 FL (80-99); MONOCYTES % (AUTO) 6.4 % (1.0-10.0); NEUTROPHILS % (AUTO) 82.6 % (45.0-75.0); PLATELET COUNT 380 K/UL (150-450); RED BLOOD COUNT 3.11 M/UL (4.20-5.40); RED CELL DISTRIBUTION WIDTH 13.5 % (11.6-14.8); WHITE BLOOD COUNT 14.6 K/UL (4.8-10.8)
[2019-10-20 05:26] LABS: ANION GAP 7 mmol/L (5-15); BLOOD UREA NITROGEN 57 mg/dL (7-18); CALCIUM 8.3 MG/DL (8.5-10.1); CARBON DIOXIDE 28 MMOL/L (21-32); CHLORIDE 98 MMOL/L (98-107); CREATININE 1.3 MG/DL (0.55-1.30); POTASSIUM 4.9 MMOL/L (3.5-5.1); SODIUM 132 MMOL/L (136-145)
--- NOTE | 2019-10-20 06:00 | NUR ---
NURSE NOTES: levo drip at 10 mcg /min bp 109/34
--- NOTE | 2019-10-20 07:09 | NUR ---
HAND-OFF: Report given to .brock martin sent to lab using sbar
--- NOTE | 2019-10-20 07:10 | NUR ---
NURSE NOTES: Pt received from LIAT Yanes. Pt is asleep in bed, opens eyes when called by name, pupils are equal and round 2mm and sluggish to light reaction. Pt is SR to quality assurance monitor final, afebrile. radial pulses palpable 3+ bilaterally and dorsalis pedis pulses 1+ bilaterally. cap refill< 3 sec, bilat lower extremities cool to touch. Pt noted with non-rebreather mask at 40% FiO2 8 L.Bilateral lower lungs and right upper lung noted diminished upon auscultation. Left upper lung noted with rhonchi upon auscultation. GT noted with dry and intact dressing, clamped. Abd is round, soft, with active bowel sounds to all quadrants. Weiner noted draining yellow urine. Skin alterations noted. Pt has right femoral TLC running levophed at 10 mcg/min and D5NS at 50cc/hr. Bilat lower extremities noted contracted. Followed up with Sean from [employer] regarding overlay mattress- he states the company has not delivered it yet- awaiting mattress. Pt also has a RFA 20g and LFA 18g IV saline locked. Bed in lowest position, alarm on, side rails up x 2 , call light within reach, will continue to monitor. Addendum: 10/20/19 at 0851 by Marizol Stack RN Amendment: pt noted with venturi mask 40% 8 L (not non-rebreather)
[2019-10-20] MEDS: Heparin 5000 units/ml inj SUBQ SCH ×2 (08:40→21:10)
[2019-10-20] MEDS: D5NS 1,000 ML IV SCH (08:44)
[2019-10-20] MEDS ORDERED: Pantoprazole Inj IV SCH (09:00)
[2019-10-20 09:25] LABS: ALANINE AMINOTRANSFERASE 25 U/L (12-78); ALBUMIN 1.7 G/DL (3.4-5.0); ALKALINE PHOSPHATASE 149 U/L (46-116); ASPARTATE AMINO TRANSFERASE 44 U/L (15-37); BILIRUBIN,TOTAL 0.2 MG/DL (0.2-1.0); PHOSPHORUS 3.2 MG/DL (2.5-4.9)
[2019-10-20 09:39] LABS: BILIRUBIN,DIRECT < 0.1 MG/DL (0.0-0.3)
--- NOTE | 2019-10-20 09:51 | NUR ---
RD ASSESSMENT & RECOMMENDATIONS SEE CARE ACTIVITY FOR COMPLETE ASSESSMENT DAILY ESTIMATED NEEDS: Needs based on Wounds, sepsis, TF SOFTWARE SPECIALIST 60.9kg 25-30 kcals/kg 9595-8920 total kcals 1.25-2 g protein/kg 76-122 g total protein 25-30 mL/kg 8868-6791 total fluid mLs NUTRITION DIAGNOSIS: Increased kcal and pro needs r/t wound healing and sepsis as evidenced by pt hypotensive, critically elev WBC on adm, stage 4 sacral wound. CURRENT TF:NPO ENTERAL NUTRITION RECOMMENDATIONS: NEPRO @40ml/hr x24 hrs + Prosource x1 pack daily to provide 960ml, 1728 kcal, 78g + 11g pro, 698ml free H20 - WHEN MEDICALLY APPROPRIATE, rec to initiate low K formula NEPRO @20ml/hr for 6 hrs. - Advance as tolerated 5ml/hr q4-6 hrs to goal - Flush per MD, HOB over 30 degrees - Add PROSOURCE 1 pack daily to better meet est pro needs -->>Should pt remain hemodynamically unstable (currently on levo @10), rec trophic feeds of NEPRO @5-10ml/hr to maintain gut integrity. ADDITIONAL RECOMMENDATIONS: 1) Monitor for hemodynamic stability, ability to feed at goal 2) Wound care: w/ active TF order-add ALFREDO BID + Vit C 250mg BID ZnSO4 220mg daily x10 days 3) Maintain calibrated bed scale wts 4) Continue D5 w/ NPO status
[2019-10-20] MEDS ORDERED: D5NS 1000ml IV ONE (10:22)
[2019-10-20] MEDS ORDERED: NS 275ml ONE (10:22)
--- NOTE | 2019-10-20 10:30 | Consultation ---
Consult Note Consult Note Asked to eval at the request of Dr Grayson Seen in ICU discussed with RN EMERALD This is an 84-year-old female from a care home. She has a history of CVA, hypertension, diabetes and sepsis. She presents with altered mental status with hypotension. Supposedly onset was tonight. Said that care home called because she was unresponsive and she was hypotensive. Heart rate was in the 30s. Any history from the patient because of her condition. On arrival, she was unresponsive. She was moaning to painful stimuli. Blood pressure was systolic in the 60s. Heart rate was in the 30s. She was also hypoxic. No Known Allergies (Unverified , 10/18/19) Past Medical History: see triage record, old chart reviewed, DM, HTN Hx Hypertension: Yes Hx Diabetes: Yes - TYPE 2 Hx Neurological Problems: Yes - DEMENTIA examined data reviewed Assessment/Plan HyperKalemia HypoNatremia Renal failure Sepsis UTI DM Anemia HypoAlbuminemia Start GT feeding antibiotics Avoid nephrotoxics monitor renal parameters Anemia jimenez per order Ayo Pryor MD Oct 20, 2019 10:30
--- NOTE | 2019-10-20 11:45 | NUR ---
NURSE NOTES: Dr Grayson came in to see pt, made aware that pt was not seen by Dr Carranza yet however no instances of bradycardia noted this shift. Per Dr Grayson, start pt on tube feeding per RD recommendation at this time. Pt started on Nepro at 5 cc/hr while hemodynamically unstable (currently on Levophed drip). Addendum: 10/20/19 at 1303 by Marizol Stack RN Late entry: Dr Grayson also made aware of preliminary blood culture results (gram variable rods in first bottle).
--- NOTE | 2019-10-20 12:00 | NUR ---
NURSE NOTES: Pt started on tube feeding with Nepro at 5 cc/hr. 6 units insulin given for BG 292. Levophed currently being titrated renée, now at 8 mcg/min. Pt in no acute distress.
--- NOTE | 2019-10-20 12:11 | Diagnostic Imaging Report ---
EXAM: XR Chest, 1 View CLINICAL HISTORY: INFECT TECHNIQUE: Frontal view of the chest. COMPARISON: Chest x-ray dated 10/19/19 FINDINGS: Lungs: No significant change in mildly increased interstitial markings bilaterally. Unchanged atelectasis versus infiltrate in the medial left lung base. No new focal consolidation. Pleural space: Unremarkable. The costophrenic angles are sharp. No visible pneumothorax. Heart: Unremarkable. No cardiomegaly. Mediastinum: Unremarkable. Bones/joints: Unremarkable. Vasculature: Atherosclerotic calcifications are noted within the aortic arch. Tubes, lines and devices: Telemetry leads overlie the thorax. Upper abdomen: Persistent elevation of the right hemidiaphragm. IMPRESSION: No significant interval change from the prior exam.
--- NOTE | 2019-10-20 12:11 | NUR ---
NURSE NOTES: [employer] mattress just arrived. Pt now on mattress.
--- NOTE | 2019-10-20 12:16 | Pulmonology Progress Note ---
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 Patient presented with this on admission. Sepsis unlikely due to wound likely pneumonia wound does need local supportive care. (2) Anemia (3) Proteinuria (4) Toxic metabolic encephalopathy (5) Septic shock Patient needs intensive care unit, leukocytosis, abnormal labs, septic. IV antibiotics per infectious disease (6) Hyperkalemia (7) UTI (urinary tract infection) (8) ODALYS (acute kidney injury) PLAN Continue pressors IV abx O2 Pulmonary hygiene Subjective Interval Events: Remains on pressors Constitutional: Reports: no symptoms HEENT: Repors: no symptoms Respiratory: Reports: no symptoms Cardiovascular: Reports: no symptoms Gastrointestinal/Abdominal: Reports: no symptoms Allergies: Coded Allergies: No Known Allergies (Unverified , 10/18/19) Objective Last 24 Hour Vital Signs Date Time Temp Pulse Resp B/P (MAP) Pulse Ox O2 Delivery O2 Flow Rate FiO2 10/20/19 10:00 76 17 114/35 (61) 99 10/20/19 09:30 74 13 112/33 (59) 100 10/20/19 09:00 106/37 10/20/19 09:00 75 15 106/34 (58) 97 10/20/19 08:51 6.0 35 10/20/19 08:30 76 20 113/33 (59) 100 10/20/19 08:00 98.2 81 23 117/37 (63) 98 10/20/19 08:00 Venturi Mask 8.0 Venturi Mask 8.0 Venturi Mask 8.0 10/20/19 08:00 8.0 40 10/20/19 08:00 75 10/20/19 08:00 117/37 10/20/19 07:30 80 14 122/39 (66) 100 10/20/19 07:00 74 15 108/36 (60) 100 10/20/19 07:00 108/36 10/20/19 06:50 91/30 10/20/19 06:30 77 17 109/34 (59) 100 10/20/19 06:00 109/34 10/20/19 06:00 74 14 102/49 (66) 100 10/20/19 05:45 78 14 108/34 (58) 100 10/20/19 05:30 74 15 100/36 (57) 100 10/20/19 05:00 110/33 10/20/19 05:00 73 14 113/34 (60) 100 10/20/19 04:30 78 15 100/39 (59) 100 10/20/19 04:00 98.3 80 18 113/40 (64) 96 10/20/19 04:00 105/38 10/20/19 04:00 Non-Rebreather 15.0 Non-Rebreather 15.0 Non-Rebreather 15.0 10/20/19 04:00 76 10/20/19 04:00 8.0 40 10/20/19 03:30 73 16 110/34 (59) 100 10/20/19 03:00 74 15 116/42 (66) 100 10/20/19 03:00 116/42 10/20/19 02:30 73 17 113/40 (64) 100 10/20/19 02:00 105/64 10/20/19 02:00 66 19 111/32 (58) 100 10/20/19 01:45 61/31 10/20/19 01:30 74 18 79/26 (43) 97 10/20/19 01:00 73 19 116/34 (61) 98 10/20/19 01:00 112/35 10/20/19 00:30 73 18 113/35 (61) 97 10/20/19 00:15 75 17 118/32 (60) 10/20/19 00:00 Non-Rebreather 15.0 Non-Rebreather 15.0 Non-Rebreather 15.0 10/20/19 00:00 74 10/20/19 00:00 8.0 40 10/20/19 00:00 98.4 75 22 116/36 (62) 100 10/20/19 00:00 118/32 10/20/19 00:00 75 22 116/36 (62) 10/19/19 23:30 74 18 116/34 (61) 99 10/19/19 23:00 116/34 10/19/19 23:00 74 18 116/34 (61) 100 10/19/19 22:30 67 19 109/28 (55) 100 10/19/19 22:00 62 17 96/62 (73) 100 10/19/19 22:00 108/35 10/19/19 21:30 58 16 109/39 (62) 100 10/19/19 21:23 96/48 10/19/19 21:00 61 16 103/34 (57) 100 10/19/19 21:00 103/34 10/19/19 20:30 59 15 103/33 (56) 100 10/19/19 20:00 98.4 69 15 97/44 (61) 100 10/19/19 20:00 8.0 40 10/19/19 20:00 Non-Rebreather 15.0 Non-Rebreather 15.0 Non-Rebreather 15.0 10/19/19 20:00 94/40 10/19/19 20:00 70 10/19/19 19:30 68 13 101/49 (66) 100 10/19/19 19:00 59 16 95/49 (64) 100 10/19/19 19:00 95/49 10/19/19 18:30 63 15 93/36 (55) 100 10/19/19 18:00 99/38 10/19/19 18:00 69 13 99/38 (58) 100 10/19/19 17:44 115/35 10/19/19 17:30 72 15 115/35 (61) 100 10/19/19 17:00 72 14 105/38 (60) 100 10/19/19 17:00 105/38 10/19/19 16:30 70 15 105/34 (57) 100 10/19/19 16:00 8.0 40 10/19/19 16:00 98.2 63 15 106/30 (55) 100 10/19/19 16:00 68 10/19/19 16:00 106/30 10/19/19 16:00 Non-Rebreather 15.0 Non-Rebreather 15.0 Non-Rebreather 15.0 10/19/19 15:30 68 13 103/34 (57) 100 10/19/19 15:08 8.0 40 10/19/19 15:00 105/32 10/19/19 15:00 64 12 105/32 (56) 100 10/19/19 14:30 64 11 102/32 (55) 100 10/19/19 14:11 102/83 10/19/19 14:00 102/83 10/19/19 14:00 76 18 102/83 (89) 100 10/19/19 13:30 79 18 105/38 (60) 100 10/19/19 13:24 76 21 100 Non-Rebreather 15.0 100 75 19 100 10/19/19 13:24 75 19 100 Non-Rebreather 15.0 100 10/19/19 13:00 113/38 10/19/19 13:00 76 16 113/38 (63) 100 10/19/19 12:30 72 21 116/45 (68) 100 Intake and Output 10/19/19 10/20/19 19:00 07:00 Intake Total 1647.38508 ml 1337.0 ml Output Total 1770 ml 1290 ml Balance -122.01520 ml 47.0 ml IV Total 1647.82110 ml 1337.0 ml Output Urine Total 1770 ml 1290 ml General Appearance: no acute distress HEENT: normocephalic Respiratory/Chest: chest wall non-tender, lungs clear Cardiovascular: normal peripheral pulses Abdomen: normal bowel sounds Microbiology Date/Time Source Procedure Growth Status 10/18/19 23:40 Blood Blood Culture - Preliminary NO GROWTH AFTER 24 HOURS Resulted 10/18/19 23:40 Blood Blood Culture - Preliminary Resulted 10/19/19 00:25 Urine,Clean Catch Urine Culture - Preliminary Pseudomonas Species Resulted 10/19/19 02:05 Rectum Received Laboratory Tests 10/19/19 14:47: Arterial Blood pH 7.380, Arterial Blood Partial Pressure CO2 40.5, Arterial Blood Partial Pressure O2 436.1H, Arterial Blood HCO3 23.4, Arterial Blood Oxygen Saturation 99.3, Arterial Blood Base Excess -1.6, Gerald Test Positive 10/20/19 04:21: White Blood Count 14.6H, Red Blood Count 3.11L, Hemoglobin 9.1L, Hematocrit 27.0L, Mean Corpuscular Volume 87, Mean Corpuscular Hemoglobin 29.4, Mean Corpuscular Hemoglobin Concent 33.8, Red Cell Distribution Width 13.5, Platelet Count 380, Mean Platelet Volume 6.5, Neutrophils (%) (Auto) 82.6H, Lymphocytes ( %) (Auto) 10.2L, Monocytes (%) (Auto) 6.4, Eosinophils (%) (Auto) 0.2, Basophils (%) (Auto) 0.6, Sodium Level 132L, Potassium Level 4.9, Chloride Level 98, Carbon Dioxide Level 28, Anion Gap 7, Blood Urea Nitrogen 57H, Creatinine 1.3, Estimat Glomerular Filtration Rate 39.1, Glucose Level 256H, Uric Acid 6.0, Calcium Level 8.3L, Phosphorus Level 3.2, Magnesium Level 2.3, Total Bilirubin 0.2, Direct Bilirubin < 0.1, Aspartate Amino Transf (AST/SGOT) 44H, Alanine Aminotransferase (ALT/SGPT) 25, Alkaline Phosphatase 149H, Total Protein 5.3L, Albumin 1.7L, Random Amikacin Level [Pending] Current Medications Medications (Trade) Dose Ordered Sig/Nitish Route PRN Reason Start Time Stop Time Status Last Admin Dose Admin Acetaminophen (Tylenol) 650 mg Q4H PRN ORAL Mild Pain (Pain Scale 1-3) 10/19/19 11:00 11/18/19 10:59 Albuterol/ Ipratropium (Albuterol/ Ipratropium) 3 ml Q4H PRN HHN Shortness of Breath 10/19/19 12:45 10/24/19 12:44 10/19/19 13:24 Amikacin Protocol (Amikacin pharmacy to dose) 1 ea DAILY PRN MISC Per rx protocol 10/19/19 12:45 11/18/19 12:44 Amikacin Sulfate 700 mg/Sodium Chloride 112.8 ml @ 112.8 mls/ hr Q36H IV 10/19/19 16:00 10/26/19 15:59 10/19/19 15:15 Atropine Sulfate (Atropine) 0.5 mg Q5M PRN IVP BRADYCARDIA 10/19/19 17:00 11/18/19 16:59 Chlorhexidine Gluconate (Marisela-Hex 2%) 1 applic DAILY@2000 TOPIC 10/19/19 20:00 11/18/19 19:59 10/19/19 20:12 Dextrose (Dextrose 50%) 25 ml Q30M PRN IV Hypoglycemia 10/19/19 10:30 11/18/19 10:29 Dextrose (Dextrose 50%) 50 ml Q30M PRN IV Hypoglycemia 10/19/19 10:30 11/18/19 10:29 Heparin Sodium (Porcine) (Heparin 5000 units/ml) 5,000 units EVERY 12 HOURS SUBQ 10/19/19 21:00 11/18/19 10:59 10/20/19 08:40 Insulin Aspart (NovoLOG) Q6HR SUBQ 10/19/19 12:00 11/18/19 11:59 10/20/19 11:48 Meropenem 1 gm/ Sodium Chloride 100 ml @ 200 mls/hr Q12HR@0200,1400 IVPB 10/19/19 14:00 10/24/19 13:59 10/20/19 01:54 Norepinephrine Bitartrate 4 mg/ Dextrose 250 ml @ 0 mls/hr Q24H IV 10/19/19 08:30 11/18/19 08:29 10/20/19 06:50 Pantoprazole (Protonix) 40 mg Q12HR IV 10/20/19 21:00 11/19/19 08:59 Vancomycin HCl (Vanco rx to dose) 1 ea DAILY PRN MISC Per rx protocol 10/19/19 12:45 11/18/19 12:44 Vancomycin HCl 750 mg/Sodium Chloride 275 ml @ 183.333 mls/hr Q24H IVPB 10/20/19 15:00 10/25/19 14:59 Kam Grayson MD Oct 20, 2019 12:16
--- NOTE | 2019-10-20 12:30 | NUR ---
NURSE NOTES: Per Deena from lab, Dr Vergara was contacted regarding preliminary blood culture results (gram variable rods in first bottle). Left another mesasge for Dr Moyer at this time. Awaiting call back.
--- NOTE | 2019-10-20 12:44 | Surgery Progress Note ---
Surgery Progress Note Subjective Additional Comments wbc improving labs improved ill appearing in ICU Objective Last 24 Hour Vital Signs Date Time Temp Pulse Resp B/P (MAP) Pulse Ox O2 Delivery O2 Flow Rate FiO2 10/20/19 12:15 78 14 106/33 (57) 94 10/20/19 12:00 6.0 35 10/20/19 12:00 Venturi Mask 8.0 Venturi Mask 8.0 Venturi Mask 8.0 10/20/19 12:00 79 10/20/19 12:00 97.9 78 16 116/37 (63) 100 10/20/19 11:30 76 15 121/36 (64) 100 10/20/19 11:00 79 17 110/43 (65) 94 10/20/19 10:30 77 18 113/41 (65) 95 10/20/19 10:00 76 17 114/35 (61) 99 10/20/19 09:30 74 13 112/33 (59) 100 10/20/19 09:00 106/37 10/20/19 09:00 75 15 106/34 (58) 97 10/20/19 08:51 6.0 35 10/20/19 08:30 76 20 113/33 (59) 100 10/20/19 08:00 98.2 81 23 117/37 (63) 98 10/20/19 08:00 Venturi Mask 8.0 Venturi Mask 8.0 Venturi Mask 8.0 10/20/19 08:00 8.0 40 10/20/19 08:00 75 10/20/19 08:00 117/37 10/20/19 07:30 80 14 122/39 (66) 100 10/20/19 07:00 74 15 108/36 (60) 100 10/20/19 07:00 108/36 10/20/19 06:50 91/30 10/20/19 06:30 77 17 109/34 (59) 100 10/20/19 06:00 109/34 10/20/19 06:00 74 14 102/49 (66) 100 10/20/19 05:45 78 14 108/34 (58) 100 10/20/19 05:30 74 15 100/36 (57) 100 10/20/19 05:00 110/33 10/20/19 05:00 73 14 113/34 (60) 100 10/20/19 04:30 78 15 100/39 (59) 100 10/20/19 04:00 98.3 80 18 113/40 (64) 96 10/20/19 04:00 105/38 10/20/19 04:00 Non-Rebreather 15.0 Non-Rebreather 15.0 Non-Rebreather 15.0 10/20/19 04:00 76 10/20/19 04:00 8.0 40 10/20/19 03:30 73 16 110/34 (59) 100 10/20/19 03:00 74 15 116/42 (66) 100 10/20/19 03:00 116/42 10/20/19 02:30 73 17 113/40 (64) 100 10/20/19 02:00 105/64 10/20/19 02:00 66 19 111/32 (58) 100 10/20/19 01:45 61/31 10/20/19 01:30 74 18 79/26 (43) 97 10/20/19 01:00 73 19 116/34 (61) 98 10/20/19 01:00 112/35 10/20/19 00:30 73 18 113/35 (61) 97 10/20/19 00:15 75 17 118/32 (60) 10/20/19 00:00 Non-Rebreather 15.0 Non-Rebreather 15.0 Non-Rebreather 15.0 10/20/19 00:00 74 10/20/19 00:00 8.0 40 10/20/19 00:00 98.4 75 22 116/36 (62) 100 10/20/19 00:00 118/32 10/20/19 00:00 75 22 116/36 (62) 10/19/19 23:30 74 18 116/34 (61) 99 10/19/19 23:00 116/34 10/19/19 23:00 74 18 116/34 (61) 100 10/19/19 22:30 67 19 109/28 (55) 100 10/19/19 22:00 62 17 96/62 (73) 100 10/19/19 22:00 108/35 10/19/19 21:30 58 16 109/39 (62) 100 10/19/19 21:23 96/48 10/19/19 21:00 61 16 103/34 (57) 100 10/19/19 21:00 103/34 10/19/19 20:30 59 15 103/33 (56) 100 10/19/19 20:00 98.4 69 15 97/44 (61) 100 10/19/19 20:00 8.0 40 10/19/19 20:00 Non-Rebreather 15.0 Non-Rebreather 15.0 Non-Rebreather 15.0 10/19/19 20:00 94/40 10/19/19 20:00 70 10/19/19 19:30 68 13 101/49 (66) 100 10/19/19 19:00 59 16 95/49 (64) 100 10/19/19 19:00 95/49 10/19/19 18:30 63 15 93/36 (55) 100 10/19/19 18:00 99/38 10/19/19 18:00 69 13 99/38 (58) 100 10/19/19 17:44 115/35 10/19/19 17:30 72 15 115/35 (61) 100 10/19/19 17:00 72 14 105/38 (60) 100 10/19/19 17:00 105/38 10/19/19 16:30 70 15 105/34 (57) 100 10/19/19 16:00 8.0 40 10/19/19 16:00 98.2 63 15 106/30 (55) 100 10/19/19 16:00 68 10/19/19 16:00 106/30 10/19/19 16:00 Non-Rebreather 15.0 Non-Rebreather 15.0 Non-Rebreather 15.0 10/19/19 15:30 68 13 103/34 (57) 100 10/19/19 15:08 8.0 40 10/19/19 15:00 105/32 10/19/19 15:00 64 12 105/32 (56) 100 10/19/19 14:30 64 11 102/32 (55) 100 10/19/19 14:11 102/83 10/19/19 14:00 102/83 10/19/19 14:00 76 18 102/83 (89) 100 10/19/19 13:30 79 18 105/38 (60) 100 10/19/19 13:24 76 21 100 Non-Rebreather 15.0 100 75 19 100 10/19/19 13:24 75 19 100 Non-Rebreather 15.0 100 10/19/19 13:00 113/38 10/19/19 13:00 76 16 113/38 (63) 100 I&O Intake and Output 10/19/19 10/20/19 19:00 07:00 Intake Total 1647.06499 ml 1337.0 ml Output Total 1770 ml 1290 ml Balance -122.49856 ml 47.0 ml IV Total 1647.76672 ml 1337.0 ml Output Urine Total 1770 ml 1290 ml Dressing: other Wound: other Drains: other Cardiovascular: RSR Respiratory: decreased breath sounds Abdomen: soft, non-distended, decreased bowel sounds Extremities: no cyanosis Laboratory Tests Test 10/19/19 14:47 10/20/19 04:21 Arterial Blood pH 7.380 (7.350-7.450) Arterial Blood Partial Pressure CO2 40.5 mmHg (35.0-45.0) Arterial Blood Partial Pressure O2 436.1 mmHg (75.0-100.0) H Arterial Blood HCO3 23.4 mmol/L (22.0-26.0) Arterial Blood Oxygen Saturation 99.3 % (95-100) Arterial Blood Base Excess -1.6 (-2-2) Gerald Test Positive White Blood Count 14.6 K/UL (4.8-10.8) H Red Blood Count 3.11 M/UL (4.20-5.40) L Hemoglobin 9.1 G/DL (12.0-16.0) L Hematocrit 27.0 % (37.0-47.0) L Mean Corpuscular Volume 87 FL (80-99) Mean Corpuscular Hemoglobin 29.4 PG (27.0-31.0) Mean Corpuscular Hemoglobin Concent 33.8 G/DL (32.0-36.0) Red Cell Distribution Width 13.5 % (11.6-14.8) Platelet Count 380 K/UL (150-450) Mean Platelet Volume 6.5 FL (6.5-10.1) Neutrophils (%) (Auto) 82.6 % (45.0-75.0) H Lymphocytes (%) (Auto) 10.2 % (20.0-45.0) L Monocytes (%) (Auto) 6.4 % (1.0-10.0) Eosinophils (%) (Auto) 0.2 % (0.0-3.0) Basophils (%) (Auto) 0.6 % (0.0-2.0) Sodium Level 132 MMOL/L (136-145) L Potassium Level 4.9 MMOL/L (3.5-5.1) Chloride Level 98 MMOL/L (98-107) Carbon Dioxide Level 28 MMOL/L (21-32) Anion Gap 7 mmol/L (5-15) Blood Urea Nitrogen 57 mg/dL (7-18) H Creatinine 1.3 MG/DL (0.55-1.30) Estimat Glomerular Filtration Rate 39.1 mL/min (>60) Glucose Level 256 MG/DL (74-106) H Uric Acid 6.0 MG/DL (2.6-7.2) Calcium Level 8.3 MG/DL (8.5-10.1) L Phosphorus Level 3.2 MG/DL (2.5-4.9) Magnesium Level 2.3 MG/DL (1.8-2.4) Total Bilirubin 0.2 MG/DL (0.2-1.0) Direct Bilirubin < 0.1 MG/DL (0.0-0.3) Aspartate Amino Transf (AST/SGOT) 44 U/L (15-37) H Alanine Aminotransferase (ALT/SGPT) 25 U/L (12-78) Alkaline Phosphatase 149 U/L (46-116) H Total Protein 5.3 G/DL (6.4-8.2) L Albumin 1.7 G/DL (3.4-5.0) L Random Amikacin Level Pending Plan Problems: (1) Decubitus ulcer of sacral region, stage 4 Assessment & Plan: Stage IV sacral decubitus ulcer with necrosis, slough, mild drainage, foul odor. Patient presented with this on admission. Seems grossly uncapped. Leukocytosis , abnormal labs Sepsis unlikely due to wound likely pneumonia wound does need local supportive care. Patient also noted to have other areas of skin concerns. Full evaluation at bedside with nursing staff Orders placed We will follow with recommendations Nutritional optimization thank you will follow with recommendations (2) Anemia (3) Proteinuria (4) Toxic metabolic encephalopathy (5) Septic shock Assessment & Plan: Patient needs intensive care unit, leukocytosis, abnormal labs, septic. Full physical examination performed an area of concern identified. Unlikely etiology of patient's sepsis. Likely septic from pneumonia versus potential UTI IV antibiotics per infectious disease We will follow with recommendations (6) Hyperkalemia (7) UTI (urinary tract infection) (8) ODALYS (acute kidney injury) Mikael Shepherd Oct 20, 2019 12:44
--- NOTE | 2019-10-20 13:18 | NUR ---
NURSE NOTES: Pt BP noted 88/40, levophed drip increased to 10 mcg/min.
--- NOTE | 2019-10-20 14:00 | NUR ---
NURSE NOTES: Pt repositioned, no acute distress noted. Still awaiting call back from Dr Miles. TF advanced to 10 cc/hr, no gastric residuals noted. Will continue to monitor.
[2019-10-20] MEDS: Vancomycin 750mg/NS 275ml IVPB SCH ×2 (14:12)
--- NOTE | 2019-10-20 14:29 | NUR ---
NURSE NOTES: Received call back from Dr Stevens with no new orders at this time, he is aware of blood culture results.
--- NOTE | 2019-10-20 16:00 | NUR ---
NURSE NOTES: Pt is afebrile and in no acute distress at this time. Levophed remains at 10 mcg/min. Pt repositioned and oral care provided. No acute distress noted. Will continue to monitor.
--- NOTE | 2019-10-20 16:57 | NUR ---
NURSE NOTES: Dr Carranza came in to assess pt. He is aware of episodes of bradycardia yesterday, no new orders received at this time. Pt in no acute distress. Will continue to monitor.
[2019-10-20] MEDS: Gabapentin 300 MG/6 ML Soln GT SCH (17:19)
--- NOTE | 2019-10-20 17:57 | NUR ---
NURSE NOTES: 1 soft brown medium BM noted, pt cleaned and repositioned, wound care performed again. Pt in no acute distress.
--- NOTE | 2019-10-20 17:57 | Infectious Diseases Prog Note ---
Assessment/Plan Assessment/Plan Full consult dictated: A) 1) sepsis, shock, pseudomonas uti, leukocytosis, pna, sacral wound infection , leukocytosis, hypothermia, sob, hypoxia 2) pmh noted 3) allergies - nkda 4) hx esbl P) 1) vancomycin, meropenem, amikacin 2) check cultures, labs and chest x-ray 3) wound care per protocol, consider surgery evaluation of wound 4) critical condition 5) will f/u Subjective Constitutional: Denies: fever HEENT: Reports: congestion Respiratory: Reports: shortness of breath Cardiovascular: Reports: other - + pressors Gastrointestinal/Abdominal: Denies: nausea, vomiting, diarrhea Allergies: Coded Allergies: No Known Allergies (Unverified , 10/18/19) Objective Vital Signs Last 24 Hour Vital Signs Date Time Temp Pulse Resp B/P (MAP) Pulse Ox O2 Delivery O2 Flow Rate FiO2 10/20/19 17:15 73 19 113/46 (68) 100 10/20/19 17:00 112/35 10/20/19 17:00 74 14 112/35 (60) 100 10/20/19 16:45 73 17 107/36 (59) 100 10/20/19 16:30 72 18 110/40 (63) 100 10/20/19 16:15 72 17 114/39 (64) 100 10/20/19 16:00 Venturi Mask 8.0 Venturi Mask 8.0 Venturi Mask 8.0 10/20/19 16:00 100/55 10/20/19 16:00 6.0 35 10/20/19 16:00 98.6 71 15 100/55 (70) 100 10/20/19 16:00 71 10/20/19 15:45 71 15 110/42 (64) 100 10/20/19 15:30 72 15 114/40 (64) 100 10/20/19 15:15 70 16 113/40 (64) 100 10/20/19 15:00 70 16 110/37 (61) 100 10/20/19 15:00 110/37 10/20/19 14:45 71 18 113/36 (61) 100 10/20/19 14:32 112/35 10/20/19 14:30 73 15 102/31 (54) 100 10/20/19 14:15 71 17 112/35 (60) 100 10/20/19 14:00 77 16 88/30 (49) 100 10/20/19 14:00 88/30 10/20/19 13:45 70 13 100/44 (62) 100 10/20/19 13:30 71 14 105/39 (61) 100 10/20/19 13:18 88/40 10/20/19 13:15 71 14 102/38 (59) 100 10/20/19 13:00 72 13 97/36 (56) 100 10/20/19 13:00 97/36 10/20/19 12:45 73 14 100/37 (58) 100 10/20/19 12:30 73 14 96/36 (56) 100 10/20/19 12:15 78 14 106/33 (57) 94 10/20/19 12:00 6.0 35 10/20/19 12:00 Venturi Mask 8.0 Venturi Mask 8.0 Venturi Mask 8.0 10/20/19 12:00 116/37 10/20/19 12:00 79 10/20/19 12:00 97.9 78 16 116/37 (63) 100 10/20/19 11:30 76 15 121/36 (64) 100 10/20/19 11:00 79 17 110/43 (65) 94 10/20/19 11:00 110/43 10/20/19 10:30 77 18 113/41 (65) 95 10/20/19 10:00 76 17 114/35 (61) 99 10/20/19 10:00 114/35 10/20/19 09:30 74 13 112/33 (59) 100 10/20/19 09:00 106/37 10/20/19 09:00 75 15 106/34 (58) 97 10/20/19 08:51 6.0 35 10/20/19 08:30 76 20 113/33 (59) 100 10/20/19 08:00 98.2 81 23 117/37 (63) 98 10/20/19 08:00 Venturi Mask 8.0 Venturi Mask 8.0 Venturi Mask 8.0 10/20/19 08:00 8.0 40 10/20/19 08:00 75 10/20/19 08:00 117/37 10/20/19 07:30 80 14 122/39 (66) 100 10/20/19 07:00 74 15 108/36 (60) 100 10/20/19 07:00 108/36 10/20/19 06:50 91/30 10/20/19 06:30 77 17 109/34 (59) 100 10/20/19 06:00 109/34 10/20/19 06:00 74 14 102/49 (66) 100 10/20/19 05:45 78 14 108/34 (58) 100 10/20/19 05:30 74 15 100/36 (57) 100 10/20/19 05:00 110/33 10/20/19 05:00 73 14 113/34 (60) 100 10/20/19 04:30 78 15 100/39 (59) 100 10/20/19 04:00 98.3 80 18 113/40 (64) 96 10/20/19 04:00 105/38 10/20/19 04:00 Non-Rebreather 15.0 Non-Rebreather 15.0 Non-Rebreather 15.0 10/20/19 04:00 76 10/20/19 04:00 8.0 40 10/20/19 03:30 73 16 110/34 (59) 100 10/20/19 03:00 74 15 116/42 (66) 100 10/20/19 03:00 116/42 10/20/19 02:30 73 17 113/40 (64) 100 10/20/19 02:00 105/64 10/20/19 02:00 66 19 111/32 (58) 100 10/20/19 01:45 61/31 10/20/19 01:30 74 18 79/26 (43) 97 10/20/19 01:00 73 19 116/34 (61) 98 10/20/19 01:00 112/35 10/20/19 00:30 73 18 113/35 (61) 97 10/20/19 00:15 75 17 118/32 (60) 10/20/19 00:00 Non-Rebreather 15.0 Non-Rebreather 15.0 Non-Rebreather 15.0 10/20/19 00:00 74 10/20/19 00:00 8.0 40 10/20/19 00:00 98.4 75 22 116/36 (62) 100 10/20/19 00:00 118/32 10/20/19 00:00 75 22 116/36 (62) 10/19/19 23:30 74 18 116/34 (61) 99 10/19/19 23:00 116/34 10/19/19 23:00 74 18 116/34 (61) 100 10/19/19 22:30 67 19 109/28 (55) 100 10/19/19 22:00 62 17 96/62 (73) 100 10/19/19 22:00 108/35 10/19/19 21:30 58 16 109/39 (62) 100 10/19/19 21:23 96/48 10/19/19 21:00 61 16 103/34 (57) 100 10/19/19 21:00 103/34 10/19/19 20:30 59 15 103/33 (56) 100 10/19/19 20:00 98.4 69 15 97/44 (61) 100 10/19/19 20:00 8.0 40 10/19/19 20:00 Non-Rebreather 15.0 Non-Rebreather 15.0 Non-Rebreather 15.0 10/19/19 20:00 94/40 10/19/19 20:00 70 10/19/19 19:30 68 13 101/49 (66) 100 10/19/19 19:00 59 16 95/49 (64) 100 10/19/19 19:00 95/49 10/19/19 18:30 63 15 93/36 (55) 100 10/19/19 18:00 99/38 10/19/19 18:00 69 13 99/38 (58) 100 Height (Feet): 5 Height (Inches): 4.00 Weight (Pounds): 134 General Appearance: no acute distress HEENT: normocephalic, atraumatic, anicteric Respiratory/Chest: crackles/rales, rhonchi - bilaterally Cardiovascular: normal rate, regular rhythm Abdomen: normal bowel sounds, soft, non tender, no organomegaly Genitourinary: other - + beard Microbiology Date/Time Source Procedure Growth Status 10/18/19 23:40 Blood Blood Culture - Preliminary NO GROWTH AFTER 24 HOURS Resulted 10/18/19 23:40 Blood Blood Culture - Preliminary Resulted 10/19/19 00:25 Urine,Clean Catch Urine Culture - Preliminary Pseudomonas Species Resulted 10/19/19 02:05 Rectum Received Laboratory Tests Test 10/20/19 04:21 White Blood Count 14.6 K/UL (4.8-10.8) H Red Blood Count 3.11 M/UL (4.20-5.40) L Hemoglobin 9.1 G/DL (12.0-16.0) L Hematocrit 27.0 % (37.0-47.0) L Mean Corpuscular Volume 87 FL (80-99) Mean Corpuscular Hemoglobin 29.4 PG (27.0-31.0) Mean Corpuscular Hemoglobin Concent 33.8 G/DL (32.0-36.0) Red Cell Distribution Width 13.5 % (11.6-14.8) Platelet Count 380 K/UL (150-450) Mean Platelet Volume 6.5 FL (6.5-10.1) Neutrophils (%) (Auto) 82.6 % (45.0-75.0) H Lymphocytes (%) (Auto) 10.2 % (20.0-45.0) L Monocytes (%) (Auto) 6.4 % (1.0-10.0) Eosinophils (%) (Auto) 0.2 % (0.0-3.0) Basophils (%) (Auto) 0.6 % (0.0-2.0) Sodium Level 132 MMOL/L (136-145) L Potassium Level 4.9 MMOL/L (3.5-5.1) Chloride Level 98 MMOL/L (98-107) Carbon Dioxide Level 28 MMOL/L (21-32) Anion Gap 7 mmol/L (5-15) Blood Urea Nitrogen 57 mg/dL (7-18) H Creatinine 1.3 MG/DL (0.55-1.30) Estimat Glomerular Filtration Rate 39.1 mL/min (>60) Glucose Level 256 MG/DL (74-106) H Uric Acid 6.0 MG/DL (2.6-7.2) Calcium Level 8.3 MG/DL (8.5-10.1) L Phosphorus Level 3.2 MG/DL (2.5-4.9) Magnesium Level 2.3 MG/DL (1.8-2.4) Total Bilirubin 0.2 MG/DL (0.2-1.0) Direct Bilirubin < 0.1 MG/DL (0.0-0.3) Aspartate Amino Transf (AST/SGOT) 44 U/L (15-37) H Alanine Aminotransferase (ALT/SGPT) 25 U/L (12-78) Alkaline Phosphatase 149 U/L (46-116) H Total Protein 5.3 G/DL (6.4-8.2) L Albumin 1.7 G/DL (3.4-5.0) L Random Amikacin Level Pending Current Medications Medications (Trade) Dose Ordered Sig/Nitish Route PRN Reason Start Time Stop Time Status Last Admin Dose Admin Acetaminophen (Tylenol) 650 mg Q4H PRN ORAL Mild Pain (Pain Scale 1-3) 10/19/19 11:00 11/18/19 10:59 10/20/19 12:13 Albuterol/ Ipratropium (Albuterol/ Ipratropium) 3 ml Q4H PRN HHN Shortness of Breath 10/19/19 12:45 10/24/19 12:44 10/19/19 13:24 Amikacin Protocol (Amikacin pharmacy to dose) 1 ea DAILY PRN MISC Per rx protocol 10/19/19 12:45 11/18/19 12:44 Amikacin Sulfate 700 mg/Sodium Chloride 112.8 ml @ 112.8 mls/ hr Q36H IV 10/19/19 16:00 10/26/19 15:59 10/19/19 15:15 Atropine Sulfate (Atropine) 0.5 mg Q5M PRN IVP BRADYCARDIA 10/19/19 17:00 11/18/19 16:59 Chlorhexidine Gluconate (Marisela-Hex 2%) 1 applic DAILY@2000 TOPIC 10/19/19 20:00 11/18/19 19:59 10/19/19 20:12 Dextrose (Dextrose 50%) 25 ml Q30M PRN IV Hypoglycemia 10/19/19 10:30 11/18/19 10:29 Dextrose (Dextrose 50%) 50 ml Q30M PRN IV Hypoglycemia 10/19/19 10:30 11/18/19 10:29 Gabapentin (Neurontin) 100 mg Q8HR GT 10/20/19 18:00 11/19/19 17:59 10/20/19 17:19 Heparin Sodium (Porcine) (Heparin 5000 units/ml) 5,000 units EVERY 12 HOURS SUBQ 10/19/19 21:00 11/18/19 10:59 10/20/19 08:40 Insulin Aspart (NovoLOG) Q6HR SUBQ 10/19/19 12:00 11/18/19 11:59 10/20/19 17:20 Meropenem 1 gm/ Sodium Chloride 100 ml @ 200 mls/hr Q12HR@0200,1400 IVPB 10/19/19 14:00 10/24/19 13:59 10/20/19 13:10 Norepinephrine Bitartrate 4 mg/ Dextrose 250 ml @ 0 mls/hr Q24H IV 10/19/19 08:30 11/18/19 08:29 10/20/19 14:32 Pantoprazole (Protonix) 40 mg Q12HR IV 10/20/19 21:00 11/19/19 08:59 Vancomycin HCl (Vanco rx to dose) 1 ea DAILY PRN MISC Per rx protocol 10/19/19 12:45 11/18/19 12:44 Vancomycin HCl 750 mg/Sodium Chloride 275 ml @ 183.333 mls/hr Q24H IVPB 10/20/19 15:00 10/25/19 14:59 10/20/19 14:12 Bao Stevens MD Oct 20, 2019 17:57
--- NOTE | 2019-10-20 18:08 | NUR ---
NURSE NOTES: Dr Stevens at bedside assessing pt at this time.
--- NOTE | 2019-10-20 19:19 | NUR ---
NURSE NOTES: Report given to LIAT Fitch.
--- NOTE | 2019-10-20 19:30 | NUR ---
NURSE NOTES: Received pt with eyes close but easily arousable to tactile stimulation. On 35% ventimask 02 sat 100%. Pts lower extremities contracted , upper extremities weak,On Levophed drip at 10mcg/min at this time BP 114/42, afebrile. Pt tolerating Gt fdg Nepro at 10ml/hr, no residual,HOB kept elevated, on aspiration precaution. Weiner to gravity with lg amt of yellowish urine. Monitor I and O. Monitor lytes. Pt on SR on the monitor. Will continue to monitor.
[2019-10-20] MEDS: Dyna-Hex 2% Top Sol 2oz TOPIC SCH (20:12)
[2019-10-20] MEDS: Pantoprazole Inj IV SCH (21:08)
--- NOTE | 2019-10-20 21:19 | NUR ---
NURSE NOTES: Pt had lg soft to watery yellowish stools- cleaned up pt. Collected c diff and sent to lab.
--- NOTE | 2019-10-20 23:00 | NUR ---
NURSE NOTES: Turned off Levophed drip SBP 124/36
[2019-10-21] VITALS (33 sets, daily range): BP systolic 71–137; BP diastolic 28–59
[2019-10-21] MEDS: NovoLOG Insulin Flexpen SUBQ SCH ×4 (00:29→17:29)
[2019-10-21] MEDS: Morphine Sulfate 10mg/5ml Oral Soln ud ORAL PRN ×2 (01:15→08:34)
--- NOTE | 2019-10-21 01:15 | NUR ---
NURSE NOTES: Morphine 5 mg po was given due to pain on her abdomen and legs scale of 8
--- NOTE | 2019-10-21 02:00 | NUR ---
NURSE NOTES: Sleeping well at this time. No c/o of pain noted.
--- NOTE | 2019-10-21 04:00 | NUR ---
NURSE NOTES: Complete bath with bed changed done. sacral dersg was changed.
[2019-10-21] MEDS: Amikacin 700 MG in NS 110 ML IV SCH (04:13)
[2019-10-21 05:24] LABS: EOSINOPHILS % (AUTO) 1.3 % (0.0-3.0); HEMATOCRIT 24.5 % (37.0-47.0); HEMOGLOBIN 8.3 G/DL (12.0-16.0); LYMPHOCYTES % (AUTO) 18.9 % (20.0-45.0); MEAN CORPUSCULAR VOLUME 87 FL (80-99); MONOCYTES % (AUTO) 7.7 % (1.0-10.0); NEUTROPHILS % (AUTO) 71.1 % (45.0-75.0); PLATELET COUNT 302 K/UL (150-450); RED BLOOD COUNT 2.82 M/UL (4.20-5.40); RED CELL DISTRIBUTION WIDTH 13.7 % (11.6-14.8); WHITE BLOOD COUNT 6.8 K/UL (4.8-10.8)
[2019-10-21 05:50] LABS: ALANINE AMINOTRANSFERASE 20 U/L (12-78); ALBUMIN 1.6 G/DL (3.4-5.0); ALBUMIN/GLOBULIN RATIO 0.5 (1.0-2.7); ALKALINE PHOSPHATASE 118 U/L (46-116); ANION GAP 5 mmol/L (5-15); ASPARTATE AMINO TRANSFERASE 24 U/L (15-37); BILIRUBIN,TOTAL 0.2 MG/DL (0.2-1.0); BLOOD UREA NITROGEN 35 mg/dL (7-18); CALCIUM 8.3 MG/DL (8.5-10.1); CARBON DIOXIDE 29 MMOL/L (21-32); CHLORIDE 104 MMOL/L (98-107); FERRITIN 640 NG/ML (8-388); GAMMA GLUTAMYL TRANSPEPTIDASE 13 U/L (5-85); PHOSPHORUS 2.4 MG/DL (2.5-4.9); POTASSIUM 4.3 MMOL/L (3.5-5.1); SODIUM 138 MMOL/L (136-145)
[2019-10-21] MEDS: Gabapentin 300 MG/6 ML Soln GT SCH ×3 (05:58→22:10)
[2019-10-21 06:00] LABS: % IRON SATURATION 11 % (15-50); IRON 10 ug/dL (50-175); TOTAL IRON BINDING CAPACITY 90 ug/dL (250-450)
--- NOTE | 2019-10-21 06:00 | NUR ---
NURSE NOTES: Bp remained stable. Levophed drip not resumed.
--- NOTE | 2019-10-21 07:20 | NUR ---
NURSE NOTES: Pt received from LIAT Fitch. Pt is asleep in bed, opens eyes when called by name and obeys commands, pupils are equal and round 2mm and sluggish to light reaction. Pt is SR to alarm security or surveillance monitor, afebrile. radial pulses palpable 2+ bilaterally and dorsalis pedis pulses 1+ bilaterally. cap refill< 3 sec. Pt noted with venturi mask at 35% FiO2 6 L. Bilateral lower lungs and right upper lung noted diminished upon auscultation. Left upper lung is CTA. GT noted with dry and intact dressing running Nepro at 10 cc/hr. Abd is round, soft, with active bowel sounds to all quadrants. Weiner noted draining yellow urine with sedimentation. Skin alterations noted, pt on AUGUSTINE mattress. Pt has right femoral TLC running NS TKO at 5 cc/hr. Pt also has a RFA 20g and LFA 18g IV saline locked. Bilat lower extremities noted contracted. Bed in lowest position, alarm on, side rails up x 2 , call light within reach, will continue to monitor.
--- NOTE | 2019-10-21 07:20 | NUR ---
HAND-OFF: Report given to Marizol JOSUE.
[2019-10-21] MEDS: Pantoprazole Inj IV SCH ×2 (08:09→20:50)
[2019-10-21] MEDS: Heparin 5000 units/ml inj SUBQ SCH ×2 (08:11→20:52)
--- NOTE | 2019-10-21 08:23 | NUR ---
NURSE NOTES: Received call from UNA Zamudio with positive MRSA nares results. Message left for Dr Stevens.Contact Isolation precaution updated accordingly.
--- NOTE | 2019-10-21 08:41 | NUR ---
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 Message left for Dr Stevens. Contact Isolation precaution updated accordingly.
--- NOTE | 2019-10-21 08:59 | NUR ---
NURSE NOTES: Pt now switched to Glucerna 1.5 at 10 cc/hr per Dr Pryor. Pt also taken off venturi mask and placed on 4L O2 via NC. No acute distress noted. SpO2 100% RR 18.
--- NOTE | 2019-10-21 09:04 | NUR ---
RD ASSESSMENT & RECOMMENDATIONS SEE CARE ACTIVITY FOR COMPLETE ASSESSMENT DAILY ESTIMATED NEEDS: Needs based on Wounds, sepsis, TF [employer] 60.9kg 25-30 kcals/kg 0011-2757 total kcals 1.25-2 g protein/kg 76-122 g total protein 25-30 mL/kg 3041-7887 total fluid mLs NUTRITION DIAGNOSIS: Increased kcal and pro needs r/t wound healing and sepsis as evidenced by pt hypotensive, critically elev WBC on adm, stage 4 sacral wound. ENTERAL NUTRITION RECOMMENDATIONS: Glucerna 1.5 @45ml/hr x24 hrs to provide 1080ml, 1620 kcal, 89g pro, 820ml free H20 - Currently orders for Glucerna 1.5 goal of 10ml/hr. With current hemodynamic stability (now off levo), and able to tolerate feeds at goal, rec goal of 45ml/hr to meet est kcal and pro needs. - Advance as tolerated 10ml/hr q4-6 hrs to goal - Flush per MD, HOB over 30 degrees Trophic feeds of 5-10ml/hr w/ hemodynamic instability. Pt previously on Nepro, will monitor K and need for low K formula. ADDITIONAL RECOMMENDATIONS: 1) Monitor for hemodynamic stability, ability to feed at goal 2) Wound care: w/ active TF order-add ALFREDO BID + Vit C 250mg BID ZnSO4 220mg daily x10 days 3) Maintain calibrated bed scale wts .
--- NOTE | 2019-10-21 09:53 | NUR ---
NURSE NOTES: Dr Pryor came in to see pt. New order placed for tube feeding advancement to 45 cc/hr as tolerated- per RD recommendation.
[2019-10-21] MEDS ORDERED: Sodium Phosphate 10 MM in NS 275 ML IVPB SCH (10:00)
--- NOTE | 2019-10-21 10:12 | Nephrology Progress Note ---
Assessment/Plan Problem List: (1) Hyperkalemia (2) ODALYS (acute kidney injury) (3) UTI (urinary tract infection) (4) Anemia Assessment HyperKalemia resolved HypoNatremia resolved Renal failure resolving Sepsis UTI DM Anemia HypoAlbuminemia Plan GT feeding antibiotics Avoid nephrotoxics: On Vanco and Amikacin now monitor renal parameters Anemia jimenez per order Subjective ROS Limited/Unobtainable: No Constitutional: Reports: malaise, weakness Objective Objective Last 24 Hour Vital Signs Date Time Temp Pulse Resp B/P (MAP) Pulse Ox O2 Delivery O2 Flow Rate FiO2 10/21/19 09:00 81 12 99/34 (55) 100 10/21/19 09:00 4.0 10/21/19 08:00 6.0 35 10/21/19 08:00 85 10/21/19 08:00 Venturi Mask 6.0 Venturi Mask 6.0 Venturi Mask 6.0 10/21/19 08:00 98.2 82 13 110/43 (65) 100 10/21/19 07:00 84 14 114/38 (63) 97 10/21/19 06:00 94 24 95/37 (56) 98 10/21/19 05:00 102 25 126/59 (81) 98 10/21/19 04:30 87 17 104/32 (56) 95 10/21/19 04:00 84 10/21/19 04:00 Venturi Mask 6.0 Venturi Mask 6.0 Venturi Mask 6.0 10/21/19 04:00 97.4 86 19 101/45 (63) 92 10/21/19 04:00 6.0 35 10/21/19 03:30 84 18 100/44 (62) 96 10/21/19 03:00 81 16 102/39 (60) 100 10/21/19 02:30 83 15 111/43 (65) 100 10/21/19 02:00 81 19 109/35 (59) 100 10/21/19 01:30 79 15 103/46 (65) 100 10/21/19 01:15 82 15 108/40 (62) 99 10/21/19 01:00 81 16 100/36 (57) 100 10/21/19 00:45 80 14 110/32 (58) 100 10/21/19 00:30 83 20 106/35 (58) 100 10/21/19 00:00 Venturi Mask 6.0 Venturi Mask 6.0 Venturi Mask 6.0 10/21/19 00:00 6.0 35 10/21/19 00:00 97.6 79 14 124/36 (65) 100 10/21/19 00:00 82 10/20/19 23:00 78 14 126/36 (66) 100 10/20/19 23:00 124/36 10/20/19 22:30 80 14 126/40 (68) 100 10/20/19 22:00 114/50 10/20/19 22:00 76 16 121/39 (66) 100 10/20/19 21:30 72 12 124/63 (83) 100 10/20/19 21:00 115/36 10/20/19 21:00 70 12 115/36 (62) 100 10/20/19 20:30 67 16 104/36 (58) 100 10/20/19 20:00 6.0 35 10/20/19 20:00 106/38 10/20/19 20:00 81 10/20/19 20:00 Venturi Mask 6.0 Venturi Mask 6.0 Venturi Mask 6.0 10/20/19 20:00 97.4 67 11 106/38 (60) 100 10/20/19 19:00 102/39 10/20/19 19:00 66 13 102/39 (60) 100 10/20/19 18:30 66 14 102/38 (59) 100 10/20/19 18:00 98/34 10/20/19 18:00 68 14 98/34 (55) 100 10/20/19 17:56 Venturi Mask 8.0 Venturi Mask 8.0 Venturi Mask 8.0 10/20/19 17:45 80 15 105/55 (72) 99 10/20/19 17:30 73 16 111/38 (62) 100 10/20/19 17:15 73 19 113/46 (68) 100 10/20/19 17:00 112/35 10/20/19 17:00 74 14 112/35 (60) 100 10/20/19 16:45 73 17 107/36 (59) 100 10/20/19 16:30 72 18 110/40 (63) 100 10/20/19 16:15 72 17 114/39 (64) 100 10/20/19 16:00 Venturi Mask 8.0 Venturi Mask 8.0 Venturi Mask 8.0 10/20/19 16:00 100/55 10/20/19 16:00 6.0 35 10/20/19 16:00 98.6 71 15 100/55 (70) 100 10/20/19 16:00 71 10/20/19 15:45 71 15 110/42 (64) 100 10/20/19 15:30 72 15 114/40 (64) 100 10/20/19 15:15 70 16 113/40 (64) 100 10/20/19 15:00 70 16 110/37 (61) 100 10/20/19 15:00 110/37 10/20/19 14:45 71 18 113/36 (61) 100 10/20/19 14:32 112/35 10/20/19 14:30 73 15 102/31 (54) 100 10/20/19 14:15 71 17 112/35 (60) 100 10/20/19 14:00 77 16 88/30 (49) 100 10/20/19 14:00 88/30 10/20/19 13:45 70 13 100/44 (62) 100 10/20/19 13:30 71 14 105/39 (61) 100 10/20/19 13:18 88/40 10/20/19 13:15 71 14 102/38 (59) 100 10/20/19 13:00 72 13 97/36 (56) 100 10/20/19 13:00 97/36 10/20/19 12:45 73 14 100/37 (58) 100 10/20/19 12:30 73 14 96/36 (56) 100 10/20/19 12:15 78 14 106/33 (57) 94 10/20/19 12:00 6.0 35 10/20/19 12:00 Venturi Mask 8.0 Venturi Mask 8.0 Venturi Mask 8.0 10/20/19 12:00 116/37 10/20/19 12:00 79 10/20/19 12:00 97.9 78 16 116/37 (63) 100 10/20/19 11:30 76 15 121/36 (64) 100 10/20/19 11:00 79 17 110/43 (65) 94 10/20/19 11:00 110/43 10/20/19 10:30 77 18 113/41 (65) 95 Intake and Output 10/20/19 10/21/19 19:00 07:00 Intake Total 1369.15846 ml 505.3 ml Output Total 2195 ml 1590 ml Balance -825.22292 ml -1084.7 ml Free Water 40 ml 60 ml IV Total 1259.01690 ml 325.3 ml Tube Feeding 70 ml 120 ml Output Urine Total 2195 ml 1590 ml # Bowel Movements 2 1 Laboratory Tests 10/21/19 04:27: White Blood Count 6.8#, Red Blood Count 2.82L, Hemoglobin 8.3L, Hematocrit 24.5L , Mean Corpuscular Volume 87, Mean Corpuscular Hemoglobin 29.4, Mean Corpuscular Hemoglobin Concent 33.8, Red Cell Distribution Width 13.7, Platelet Count 302, Mean Platelet Volume 6.2L, Neutrophils (%) (Auto) 71.1, Lymphocytes ( %) (Auto) 18.9L, Monocytes (%) (Auto) 7.7, Eosinophils (%) (Auto) 1.3, Basophils (%) (Auto) 1.0, Sodium Level 138, Potassium Level 4.3, Chloride Level 104, Carbon Dioxide Level 29, Anion Gap 5, Blood Urea Nitrogen 35H, Creatinine 1.0, Estimat Glomerular Filtration Rate 53.0, Glucose Level 174H, Hemoglobin A1c 7.8H, Osmolality 290L, Uric Acid 5.2, Calcium Level 8.3L, Phosphorus Level 2.4L, Magnesium Level 1.9, Iron Level 10L, Total Iron Binding Capacity 90L, Percent Iron Saturation 11L, Unsaturated Iron Binding 80L, Ferritin 640H, Total Bilirubin 0.2, Gamma Glutamyl Transpeptidase 13, Aspartate Amino Transf (AST/ SGOT) 24, Alanine Aminotransferase (ALT/SGPT) 20, Alkaline Phosphatase 118H, Total Protein 4.8L, Albumin 1.6L, Globulin 3.2, Albumin/Globulin Ratio 0.5L, Vitamin B12 Level 1201H, Folate 33.8 10/21/19 06:00: Urine Random Sodium 86 Height (Feet): 5 Height (Inches): 4.00 Weight (Pounds): 138 General Appearance: no apparent distress, lethargic Cardiovascular: tachycardia Respiratory/Chest: decreased breath sounds Abdomen: soft Ayo Pryor MD Oct 21, 2019 10:12
--- NOTE | 2019-10-21 10:18 | NUR ---
NURSE NOTES: Dr Grayson at bedside assessing pt, aware pt is off levophed drip, states OK to transfer pt to [facility].
--- NOTE | 2019-10-21 10:56 | Pulmonology Progress Note ---
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 Patient presented with this on admission. Sepsis unlikely due to wound likely pneumonia wound does need local supportive care. (2) Anemia (3) Proteinuria (4) Toxic metabolic encephalopathy (5) Septic shock Patient needs intensive care unit, leukocytosis, abnormal labs, septic. IV antibiotics per infectious disease Off pressors now (6) Hyperkalemia (7) UTI (urinary tract infection) (8) ODALYS (acute kidney injury) PLAN Continue pressors as needed; currently off IV abx O2 Pulmonary hygiene To MIKE BAck on pain medications Subjective Interval Events: None new; back on pain medications; off pressors Constitutional: Reports: no symptoms HEENT: Repors: no symptoms Respiratory: Reports: no symptoms Cardiovascular: Reports: no symptoms Gastrointestinal/Abdominal: Reports: no symptoms Allergies: Coded Allergies: No Known Allergies (Unverified , 10/18/19) Objective Last 24 Hour Vital Signs Date Time Temp Pulse Resp B/P (MAP) Pulse Ox O2 Delivery O2 Flow Rate FiO2 10/21/19 10:00 87 13 121/41 (67) 99 10/21/19 09:00 81 12 99/34 (55) 100 10/21/19 09:00 4.0 10/21/19 08:00 6.0 35 10/21/19 08:00 85 10/21/19 08:00 Venturi Mask 6.0 Venturi Mask 6.0 Venturi Mask 6.0 10/21/19 08:00 98.2 82 13 110/43 (65) 100 10/21/19 07:00 84 14 114/38 (63) 97 10/21/19 06:00 94 24 95/37 (56) 98 10/21/19 05:00 102 25 126/59 (81) 98 10/21/19 04:30 87 17 104/32 (56) 95 10/21/19 04:00 84 10/21/19 04:00 Venturi Mask 6.0 Venturi Mask 6.0 Venturi Mask 6.0 10/21/19 04:00 97.4 86 19 101/45 (63) 92 10/21/19 04:00 6.0 35 10/21/19 03:30 84 18 100/44 (62) 96 10/21/19 03:00 81 16 102/39 (60) 100 10/21/19 02:30 83 15 111/43 (65) 100 10/21/19 02:00 81 19 109/35 (59) 100 10/21/19 01:30 79 15 103/46 (65) 100 10/21/19 01:15 82 15 108/40 (62) 99 10/21/19 01:00 81 16 100/36 (57) 100 10/21/19 00:45 80 14 110/32 (58) 100 10/21/19 00:30 83 20 106/35 (58) 100 10/21/19 00:00 Venturi Mask 6.0 Venturi Mask 6.0 Venturi Mask 6.0 10/21/19 00:00 6.0 35 10/21/19 00:00 97.6 79 14 124/36 (65) 100 10/21/19 00:00 82 10/20/19 23:00 78 14 126/36 (66) 100 10/20/19 23:00 124/36 10/20/19 22:30 80 14 126/40 (68) 100 10/20/19 22:00 114/50 10/20/19 22:00 76 16 121/39 (66) 100 10/20/19 21:30 72 12 124/63 (83) 100 10/20/19 21:00 115/36 10/20/19 21:00 70 12 115/36 (62) 100 10/20/19 20:30 67 16 104/36 (58) 100 10/20/19 20:00 6.0 35 10/20/19 20:00 106/38 10/20/19 20:00 81 10/20/19 20:00 Venturi Mask 6.0 Venturi Mask 6.0 Venturi Mask 6.0 10/20/19 20:00 97.4 67 11 106/38 (60) 100 10/20/19 19:00 102/39 10/20/19 19:00 66 13 102/39 (60) 100 10/20/19 18:30 66 14 102/38 (59) 100 10/20/19 18:00 98/34 10/20/19 18:00 68 14 98/34 (55) 100 10/20/19 17:56 Venturi Mask 8.0 Venturi Mask 8.0 Venturi Mask 8.0 10/20/19 17:45 80 15 105/55 (72) 99 10/20/19 17:30 73 16 111/38 (62) 100 10/20/19 17:15 73 19 113/46 (68) 100 10/20/19 17:00 112/35 10/20/19 17:00 74 14 112/35 (60) 100 10/20/19 16:45 73 17 107/36 (59) 100 10/20/19 16:30 72 18 110/40 (63) 100 10/20/19 16:15 72 17 114/39 (64) 100 10/20/19 16:00 Venturi Mask 8.0 Venturi Mask 8.0 Venturi Mask 8.0 10/20/19 16:00 100/55 10/20/19 16:00 6.0 35 10/20/19 16:00 98.6 71 15 100/55 (70) 100 10/20/19 16:00 71 10/20/19 15:45 71 15 110/42 (64) 100 10/20/19 15:30 72 15 114/40 (64) 100 10/20/19 15:15 70 16 113/40 (64) 100 10/20/19 15:00 70 16 110/37 (61) 100 10/20/19 15:00 110/37 10/20/19 14:45 71 18 113/36 (61) 100 10/20/19 14:32 112/35 10/20/19 14:30 73 15 102/31 (54) 100 10/20/19 14:15 71 17 112/35 (60) 100 10/20/19 14:00 77 16 88/30 (49) 100 10/20/19 14:00 88/30 10/20/19 13:45 70 13 100/44 (62) 100 10/20/19 13:30 71 14 105/39 (61) 100 10/20/19 13:18 88/40 10/20/19 13:15 71 14 102/38 (59) 100 10/20/19 13:00 72 13 97/36 (56) 100 10/20/19 13:00 97/36 10/20/19 12:45 73 14 100/37 (58) 100 10/20/19 12:30 73 14 96/36 (56) 100 10/20/19 12:15 78 14 106/33 (57) 94 10/20/19 12:00 6.0 35 10/20/19 12:00 Venturi Mask 8.0 Venturi Mask 8.0 Venturi Mask 8.0 10/20/19 12:00 116/37 10/20/19 12:00 79 10/20/19 12:00 97.9 78 16 116/37 (63) 100 10/20/19 11:30 76 15 121/36 (64) 100 10/20/19 11:00 79 17 110/43 (65) 94 10/20/19 11:00 110/43 Intake and Output 10/20/19 10/21/19 19:00 07:00 Intake Total 1369.21332 ml 505.3 ml Output Total 2195 ml 1590 ml Balance -825.05178 ml -1084.7 ml Free Water 40 ml 60 ml IV Total 1259.85804 ml 325.3 ml Tube Feeding 70 ml 120 ml Output Urine Total 2195 ml 1590 ml # Bowel Movements 2 1 General Appearance: no acute distress HEENT: normocephalic Respiratory/Chest: chest wall non-tender, lungs clear Cardiovascular: normal peripheral pulses Abdomen: normal bowel sounds Microbiology Date/Time Source Procedure Growth Status 10/18/19 23:40 Blood Blood Culture - Preliminary NO GROWTH AFTER 48 HOURS Resulted 10/18/19 23:40 Blood Blood Culture - Preliminary Resulted 10/19/19 02:05 Nasal Nares MRSA Culture - Final Staphylococcus Aureus - Mrsa Complete 10/20/19 21:20 Stool Clostridium difficile Toxin Assay - Final Complete 10/19/19 00:25 Urine,Clean Catch Urine Culture - Final Pseudomonas Aeruginosa Complete 10/19/19 02:05 Rectum VRE Culture - Final Enterococcus Faecalis - Vre Complete 10/19/19 02:05 Rectum - Final NO CARBAPENEM-RESISTANT ENTEROBACTERI... Complete Laboratory Tests 10/21/19 04:27: White Blood Count 6.8#, Red Blood Count 2.82L, Hemoglobin 8.3L, Hematocrit 24.5L , Mean Corpuscular Volume 87, Mean Corpuscular Hemoglobin 29.4, Mean Corpuscular Hemoglobin Concent 33.8, Red Cell Distribution Width 13.7, Platelet Count 302, Mean Platelet Volume 6.2L, Neutrophils (%) (Auto) 71.1, Lymphocytes ( %) (Auto) 18.9L, Monocytes (%) (Auto) 7.7, Eosinophils (%) (Auto) 1.3, Basophils (%) (Auto) 1.0, Sodium Level 138, Potassium Level 4.3, Chloride Level 104, Carbon Dioxide Level 29, Anion Gap 5, Blood Urea Nitrogen 35H, Creatinine 1.0, Estimat Glomerular Filtration Rate 53.0, Glucose Level 174H, Hemoglobin A1c 7.8H, Osmolality 290L, Uric Acid 5.2, Calcium Level 8.3L, Phosphorus Level 2.4L, Magnesium Level 1.9, Iron Level 10L, Total Iron Binding Capacity 90L, Percent Iron Saturation 11L, Unsaturated Iron Binding 80L, Ferritin 640H, Total Bilirubin 0.2, Gamma Glutamyl Transpeptidase 13, Aspartate Amino Transf (AST/ SGOT) 24, Alanine Aminotransferase (ALT/SGPT) 20, Alkaline Phosphatase 118H, Total Protein 4.8L, Albumin 1.6L, Globulin 3.2, Albumin/Globulin Ratio 0.5L, Vitamin B12 Level 1201H, Folate 33.8 10/21/19 06:00: Urine Random Sodium 86 Current Medications Medications (Trade) Dose Ordered Sig/Nitish Route PRN Reason Start Time Stop Time Status Last Admin Dose Admin Acetaminophen (Tylenol) 650 mg Q4H PRN ORAL Mild Pain (Pain Scale 1-3) 10/19/19 11:00 11/18/19 10:59 10/20/19 23:00 Albuterol/ Ipratropium (Albuterol/ Ipratropium) 3 ml Q4H PRN HHN Shortness of Breath 10/19/19 12:45 10/24/19 12:44 10/19/19 13:24 Amikacin Protocol (Amikacin pharmacy to dose) 1 ea DAILY PRN MISC Per rx protocol 10/19/19 12:45 11/18/19 12:44 Amikacin Sulfate 700 mg/Sodium Chloride 112.8 ml @ 112.8 mls/ hr Q36H IV 10/19/19 16:00 10/26/19 15:59 10/21/19 04:13 Atropine Sulfate (Atropine) 0.5 mg Q5M PRN IVP BRADYCARDIA 10/19/19 17:00 11/18/19 16:59 Chlorhexidine Gluconate (Marisela-Hex 2%) 1 applic DAILY@2000 TOPIC 10/19/19 20:00 11/18/19 19:59 10/20/19 20:12 Dextrose (Dextrose 50%) 25 ml Q30M PRN IV Hypoglycemia 10/19/19 10:30 11/18/19 10:29 Dextrose (Dextrose 50%) 50 ml Q30M PRN IV Hypoglycemia 10/19/19 10:30 11/18/19 10:29 Gabapentin (Neurontin) 100 mg Q8HR GT 10/20/19 18:00 11/19/19 17:59 10/21/19 05:58 Heparin Sodium (Porcine) (Heparin 5000 units/ml) 5,000 units EVERY 12 HOURS SUBQ 10/19/19 21:00 11/18/19 10:59 10/21/19 08:11 Insulin Aspart (NovoLOG) Q6HR SUBQ 10/19/19 12:00 11/18/19 11:59 10/21/19 00:29 Meropenem 1 gm/ Sodium Chloride 100 ml @ 200 mls/hr Q12HR@0200,1400 IVPB 10/19/19 14:00 10/24/19 13:59 10/21/19 01:30 Morphine Sulfate (Morphine 10mg/ 5ml Oral Soln) 5 mg EVERY 6 HOURS PRN ORAL For Pain 10/21/19 00:45 10/28/19 00:44 10/21/19 08:34 Norepinephrine Bitartrate 4 mg/ Dextrose 250 ml @ 0 mls/hr Q24H IV 10/19/19 08:30 11/18/19 08:29 10/20/19 14:32 Pantoprazole (Protonix) 40 mg Q12HR IV 10/20/19 21:00 11/19/19 08:59 10/21/19 08:09 Sodium Phosphate 10 mm/Sodium Chloride 278.3333 ml @ 92.778 m... ONCE IVPB 10/21/19 10:00 10/21/19 11:00 10/21/19 09:39 Vancomycin HCl (Vanco rx to dose) 1 ea DAILY PRN MISC Per rx protocol 10/19/19 12:45 11/18/19 12:44 Vancomycin HCl 750 mg/Sodium Chloride 275 ml @ 183.333 mls/hr Q24H IVPB 10/20/19 15:00 10/25/19 14:59 10/20/19 14:12 Kam Grayson MD Oct 21, 2019 10:56
--- NOTE | 2019-10-21 11:30 | Consultation ---
DATE OF CONSULTATION: 10/20/2019 INFECTIOUS DISEASE CONSULTATION CONSULTING PHYSICIAN: Bao Stevens M.D. ATTENDING PHYSICIAN: Kam Grayson M.D. REFERRING PHYSICIAN: Kam Grayson M.D. REASON FOR CONSULTATION: Sepsis shock, Pseudomonas UTI, pneumonia, sacral wound infection, leukocytosis, possible bacteremia. CHIEF COMPLAINT: The patient's chief complaint coming in to the hospital is sepsis shock. HISTORY OF PRESENT ILLNESS: This is an 84-year-old female who has history of previous hospitalizations including treatment for sacral wound. The patient presented to [facility] and is in septic shock. She is on a Venturi mask, short of breath, congested with secretions. She also was in septic shock requiring pressors and elevated white count. I believe she had an elevated lactic acid. Workup shows that she has Pseudomonas UTI, possible bacteremia with gram variable rods, and pneumonia. The patient is currently on meropenem, amikacin, Vanco, which I started on the patient yesterday when I saw her. Infectious Disease consultation is requested for antibiotic management. REVIEW OF SYSTEMS: CONSTITUTIONAL: She is overall more alert today than yesterday. She is still short of breath, on a Venturi mask. She is on pressors. She is weak, but responsive. HEAD AND NECK: No head pain or neck pain. CARDIAC: She is on pressors. GASTROINTESTINAL: No nausea, vomiting, or diarrhea. GENITOURINARY: She has a Weiner. PULMONARY: She is on a breathing mask. SKIN: She has a sacral wound. NEUROLOGIC: No seizures. PAST MEDICAL HISTORY: The patient has a past medical history of sacral wound, hypertension, diabetes. She has proteinuria, encephalopathy, anemia. She has acute kidney injury, dementia. ALLERGIES: No known drug allergies. No antibiotic allergies. SOCIAL HISTORY: Negative for smoking, alcohol, or drug abuse. FAMILY HISTORY: Noncontributory. MEDICATIONS: Upon reviewing the MAR, she is on following medications. She is on pantoprazole, gabapentin, vancomycin, meropenem, amikacin, chlorhexidine, atropine, albuterol, insulin, acetaminophen, norepinephrine. Outside medications noted and reconciliated. PHYSICAL EXAMINATION: VITAL SIGNS: Temperature is 98.6, pulse 71, respiratory rate 15, blood pressure 100/55, saturation 100% on Venturi mask. Blood pressure on admission was 65/26. She is currently on pressors. GENERAL: More responsive today. She is on a breathing mask and a Venturi mask. HEAD AND NECK: Oral exam, no thrush. Eye exam, no icterus. Normocephalic. HEART: Regular. No gallop or murmur. ABDOMEN: Soft. Positive bowel sounds. Does not seem to be tender. LUNGS: Bilateral rhonchi, rales, and crackles. SKIN: Sacral wound is reviewed. It is necrotic. MUSCULOSKELETAL: No effusion. Legs are without cellulitis. PERIPHERAL VASCULAR: No cyanosis. She has no new rash. GENITOURINARY: She has a Weiner. Urine is slightly cloudy. LINES: Line sites without phlebitis. NEUROLOGIC: Generalized weakness. Alert and responsive. More alert today. LABORATORY DATA: Creatinine 1.3. White count on admission 23.9, hemoglobin 11.5. White count today 14.6, hemoglobin 9.1. LFTs were noted. Urinalysis had 3+ leukocyte esterase, too many to count white blood cells. Cultures, urine culture with Pseudomonas species greater than 100,000. Identification and sensitivities pending. Blood cultures, 1 bottle gram variable rods. IMAGING STUDIES: Chest x-ray shows atelectasis and infiltrate in the left lung base. ASSESSMENT AND PLAN: 1. The patient has sepsis shock likely secondary to Pseudomonas UTI and sacral wound infection and also likely aspiration, healthcare-acquired pneumonia versus community-acquired pneumonia. She has leukocytosis, hypothermia on admission, shortness of breath, hypoxia requiring pressors. Continue Vanco and meropenem and amikacin for MRSA gram-negative coverage. Also cover Pseudomonas. Continue Vanco, meropenem, amikacin for sepsis, shock, Pseudomonas UTI, pneumonia, leukocytosis, sacral wound infection. She could have a bacteremia versus contaminant gram variable rods in the blood with 1 bottle. Surgery is following for possible debridement of the sacral wound. Continue antibiotics. Check cultures, laboratories, chest x-ray. 2. Diabetes. 3. Hypertension. 4. Blood pressure and blood sugar treatment per primary care team for diabetes and hypertension. 5. Wound care per protocol and Surgery. The patient may need debridement of the sacral wound. 6. History of dementia. 7. Anemia. 8. Proteinuria. 9. Encephalopathy. 10. Acute kidney injury and hyperkalemia. 11. No known drug allergies. 12. Social history is negative. 13. Family history is noncontributory. 14. MAR is noted. 15. Case was discussed with RN. 16. ICU care. 17. Orders were noted and entered. 18. Continue treatment per primary consultants. Bao Stevesn M.D. DR: SOLITARIO JOB#: [id number] CC:
--- NOTE | 2019-10-21 11:30 | Progress Note ---
DATE: 10/20/2019 CARDIOLOGY PROGRESS NOTE SUBJECTIVE: The patient remains in the intensive care unit. Condition remains critical with guarded prognosis. The patient continues to require pressor support. Blood pressure parameters are tenuous. Cardiac monitoring has been reviewed personally by me. The patient remains in sinus rhythm. No bradyarrhythmias or junctional rhythms noted since yesterday's admission. PHYSICAL EXAMINATION: VITAL SIGNS: Blood pressure 80/50, pulse 80, respiratory rate 20, and afebrile. CARDIAC: Bilateral breath sounds, diminished at bases. Regular rhythm and rate. Normal S1 and S2 with no appreciable murmur. ABDOMEN: Soft and nontender. EXTREMITIES: No edema. LABORATORY DATA: Sodium 132, potassium 4.9, bicarb 28, BUN 57, and creatinine 1.3. Glucose 256. Albumin is 1.7. White count is 14.6 and hemoglobin 9.1. Lactic acid levels have not normalized. Chest x-ray today reveals no interval change with possible left basilar infiltrate versus atelectasis. Urine culture is positive for Pseudomonas. TSH is normal. IMPRESSION: 1. Junctional bradyarrhythmia likely precipitated by severe sepsis and lactic acidosis, now recovering. 2. Severe sepsis with shock, on pressors. 3. Pseudomonas urinary tract infection, resolved. 4. Lactic acidosis. 5. Hypovolemia and prerenal azotemia. 6. Type 2 diabetes mellitus with hyperglycemia. 7. Severe protein-calorie malnutrition. PLAN: 1. Volume support. 2. Taper pressors. 3. IV fluids. 4. Broad-spectrum antimicrobials. 5. DVT prophylaxis. 6. Insulin coverage by sliding scale. 7. Cardiac monitoring. 8. No role for pacemaker at this time. Ronak Carranza M.D. DR: [place] JOB#: [id number] CC: HENRIETTA
--- NOTE | 2019-10-21 11:45 | Consultation ---
DATE OF CONSULTATION: 10/19/2019 NOTE: "POOR AUDIO QUALITY" CARDIOLOGY CONSULTATION CONSULTING PHYSICIAN: Ronak Carranza M.D. REQUESTING PHYSICIAN: Kam Grayson M.D. REASON FOR CONSULTATION: Shock and bradyarrhythmia HISTORY OF PRESENT ILLNESS: This is an 84-year-old female. She resides at a assisted facility. She is debilitated as a result of prior stroke. The patient was transferred to the emergency room with low blood pressure readings and lethargy with altered mentation on the night prior to this evaluation. In the emergency room, her blood pressure was recorded at 75/59 with heart rates in the 50's and respiratory rate of 26. She was placed on a non-rebreather mask. She was given fluid challenges, pancultured, and started on empiric antimicrobials. She required initiation of pressor support and I have been asked to assist with further cardiovascular care. PAST MEDICAL HISTORY: Hypertension, diabetes mellitus type 2, cerebrovascular disease with history of cerebrovascular accident, and dementia. ALLERGIES: None known. MEDICATIONS: Medications prior to admission, reviewed and reconciled. FAMILY HISTORY: Not known. SOCIAL HISTORY: Presently not obtainable. REVIEW OF SYSTEMS: Not obtainable. PHYSICAL EXAMINATION: VITAL SIGNS: Blood pressure 80/60, heart rate 120, respirations 24, and presently afebrile. HEENT: Temporal wasting. Dry mucous membranes. LUNGS: Bilateral breath sounds. Central line in right femoral vein. HEART: Regular rhythm. Rapid rate. Normal S1, S2. EXTREMITIES: with decreased capillary refill. No edema. NEUROLOGIC: The patient is presently noncommunicative, but withdraws to pain. She does open her eyes to name. EKG: junctional bradycardia LABORATORY DATA: Laboratories, white count 23.9, hemoglobin 11.5. Troponin zero. Lactic acid 5.6, repeated 2.4. Urinalysis with too numerous to count white cells. Sodium 127, repeated 135. Potassium 7.1, repeated 4.7. Bicarb 27, BUN 63, creatinine 1.1. Albumin 1.9. IMPRESSION: 1. Urinary tract infection with sepsis and shock. 2. Severe sepsis and shock. 3. Lactic acidosis. 4. Hypovolemia. 5. Prerenal azotemia. 6. Cerebrovascular disease with dementia. 7. Bradyarrhythmia due to elevated potassium and acidosis. 8. Hyperkalemia now corrected. 9. Metabolic and toxic encephalopathy. 10. Hx of type 2 diabetes mellitus. 11. Hx of hypertension. PLAN: Pressor support with dopamine; taper off as BP parameters stabilize. Cardiac monitoring. Volume resuscitation with isotonic IVF. Broad spectrum anti-microbials. Serial electrolytes and lactic acid levels. Atropine at bedside. Check thyroid function. Ronak Carranza M.D. DR: TRUDY JOB#: [id number] CC: HENRIETTA
--- NOTE | 2019-10-21 12:00 | NUR ---
NURSE NOTES: Pt now undergoing 2D echo examination, no acute distress noted.
--- NOTE | 2019-10-21 13:40 | NUR ---
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 96.1 HR 150 RR 26 B/P 75/59 NRM FIO2 15L LACTID ACID 5.60 WBC 23.9 NA 127 BUN 69 [address] 1[address]= NEGATIVE CXR= LEFT BASILAR ATELECTASIS VS INFILTRATE IS: VANCO IV AMIKACIN IV ERTAPENEM IV REGULAR INSULIN IV NA PHOS IV ATROPINE IV D50 IV ADMITTED TO ICU @ 0641 ICU STATUS DCP PENDING HOSPITAL STAY
--- NOTE | 2019-10-21 13:51 | NUR ---
NURSE NOTES: Pt seen by Hermes and Dr Shepherd. 1 additional wound photo uploaded (left trochanter area) that was present upon admission after clarifying with Hermes that it is a DTI rather than a simple scab.
--- NOTE | 2019-10-21 14:01 | Surgery Progress Note ---
Surgery Progress Note Subjective Additional Comments no acute events labs improving comfortable dressings changed Objective Last 24 Hour Vital Signs Date Time Temp Pulse Resp B/P (MAP) Pulse Ox O2 Delivery O2 Flow Rate FiO2 10/21/19 13:00 87 14 108/50 (69) 100 10/21/19 12:04 82 17 103/37 (59) 99 10/21/19 12:00 99.5 81 18 71/50 (57) 99 10/21/19 12:00 78 10/21/19 12:00 Nasal Cannula 4.0 Nasal Cannula 4.0 Nasal Cannula 4.0 10/21/19 11:14 81 17 96/29 (51) 98 10/21/19 11:00 79 15 79/28 (45) 99 10/21/19 10:00 87 13 121/41 (67) 99 10/21/19 09:00 81 12 99/34 (55) 100 10/21/19 09:00 4.0 10/21/19 08:00 6.0 35 10/21/19 08:00 85 10/21/19 08:00 Venturi Mask 6.0 Venturi Mask 6.0 Venturi Mask 6.0 10/21/19 08:00 98.2 82 13 110/43 (65) 100 10/21/19 07:00 84 14 114/38 (63) 97 10/21/19 06:00 94 24 95/37 (56) 98 10/21/19 05:00 102 25 126/59 (81) 98 10/21/19 04:30 87 17 104/32 (56) 95 10/21/19 04:00 84 10/21/19 04:00 Venturi Mask 6.0 Venturi Mask 6.0 Venturi Mask 6.0 10/21/19 04:00 97.4 86 19 101/45 (63) 92 10/21/19 04:00 6.0 35 10/21/19 03:30 84 18 100/44 (62) 96 10/21/19 03:00 81 16 102/39 (60) 100 10/21/19 02:30 83 15 111/43 (65) 100 10/21/19 02:00 81 19 109/35 (59) 100 10/21/19 01:30 79 15 103/46 (65) 100 10/21/19 01:15 82 15 108/40 (62) 99 10/21/19 01:00 81 16 100/36 (57) 100 10/21/19 00:45 80 14 110/32 (58) 100 10/21/19 00:30 83 20 106/35 (58) 100 10/21/19 00:00 Venturi Mask 6.0 Venturi Mask 6.0 Venturi Mask 6.0 10/21/19 00:00 6.0 35 10/21/19 00:00 97.6 79 14 124/36 (65) 100 10/21/19 00:00 82 10/20/19 23:00 78 14 126/36 (66) 100 10/20/19 23:00 124/36 10/20/19 22:30 80 14 126/40 (68) 100 10/20/19 22:00 114/50 10/20/19 22:00 76 16 121/39 (66) 100 10/20/19 21:30 72 12 124/63 (83) 100 10/20/19 21:00 115/36 10/20/19 21:00 70 12 115/36 (62) 100 10/20/19 20:30 67 16 104/36 (58) 100 10/20/19 20:00 6.0 35 10/20/19 20:00 106/38 10/20/19 20:00 81 10/20/19 20:00 Venturi Mask 6.0 Venturi Mask 6.0 Venturi Mask 6.0 10/20/19 20:00 97.4 67 11 106/38 (60) 100 10/20/19 19:00 102/39 10/20/19 19:00 66 13 102/39 (60) 100 10/20/19 18:30 66 14 102/38 (59) 100 10/20/19 18:00 98/34 10/20/19 18:00 68 14 98/34 (55) 100 10/20/19 17:56 Venturi Mask 8.0 Venturi Mask 8.0 Venturi Mask 8.0 10/20/19 17:45 80 15 105/55 (72) 99 10/20/19 17:30 73 16 111/38 (62) 100 10/20/19 17:15 73 19 113/46 (68) 100 10/20/19 17:00 112/35 10/20/19 17:00 74 14 112/35 (60) 100 10/20/19 16:45 73 17 107/36 (59) 100 10/20/19 16:30 72 18 110/40 (63) 100 10/20/19 16:15 72 17 114/39 (64) 100 10/20/19 16:00 Venturi Mask 8.0 Venturi Mask 8.0 Venturi Mask 8.0 10/20/19 16:00 100/55 10/20/19 16:00 6.0 35 10/20/19 16:00 98.6 71 15 100/55 (70) 100 10/20/19 16:00 71 10/20/19 15:45 71 15 110/42 (64) 100 10/20/19 15:30 72 15 114/40 (64) 100 10/20/19 15:15 70 16 113/40 (64) 100 10/20/19 15:00 70 16 110/37 (61) 100 10/20/19 15:00 110/37 10/20/19 14:45 71 18 113/36 (61) 100 10/20/19 14:32 112/35 10/20/19 14:30 73 15 102/31 (54) 100 10/20/19 14:15 71 17 112/35 (60) 100 I&O Intake and Output 10/20/19 10/21/19 19:00 07:00 Intake Total 1369.56365 ml 505.3 ml Output Total 2195 ml 1590 ml Balance -825.55373 ml -1084.7 ml Free Water 40 ml 60 ml IV Total 1259.19496 ml 325.3 ml Tube Feeding 70 ml 120 ml Output Urine Total 2195 ml 1590 ml # Bowel Movements 2 1 Dressing: other Wound: other Drains: other Cardiovascular: RSR Respiratory: decreased breath sounds Abdomen: soft, present bowel sounds Extremities: no cyanosis Laboratory Tests Test 10/21/19 04:27 10/21/19 06:00 White Blood Count 6.8 K/UL (4.8-10.8) # Red Blood Count 2.82 M/UL (4.20-5.40) L Hemoglobin 8.3 G/DL (12.0-16.0) L Hematocrit 24.5 % (37.0-47.0) L Mean Corpuscular Volume 87 FL (80-99) Mean Corpuscular Hemoglobin 29.4 PG (27.0-31.0) Mean Corpuscular Hemoglobin Concent 33.8 G/DL (32.0-36.0) Red Cell Distribution Width 13.7 % (11.6-14.8) Platelet Count 302 K/UL (150-450) Mean Platelet Volume 6.2 FL (6.5-10.1) L Neutrophils (%) (Auto) 71.1 % (45.0-75.0) Lymphocytes (%) (Auto) 18.9 % (20.0-45.0) L Monocytes (%) (Auto) 7.7 % (1.0-10.0) Eosinophils (%) (Auto) 1.3 % (0.0-3.0) Basophils (%) (Auto) 1.0 % (0.0-2.0) Sodium Level 138 MMOL/L (136-145) Potassium Level 4.3 MMOL/L (3.5-5.1) Chloride Level 104 MMOL/L (98-107) Carbon Dioxide Level 29 MMOL/L (21-32) Anion Gap 5 mmol/L (5-15) Blood Urea Nitrogen 35 mg/dL (7-18) H Creatinine 1.0 MG/DL (0.55-1.30) Estimat Glomerular Filtration Rate 53.0 mL/min (>60) Glucose Level 174 MG/DL (74-106) H Hemoglobin A1c 7.8 % (4.3-6.0) H Osmolality 290 mOsm/kg (297-317) L Uric Acid 5.2 MG/DL (2.6-7.2) Calcium Level 8.3 MG/DL (8.5-10.1) L Phosphorus Level 2.4 MG/DL (2.5-4.9) L Magnesium Level 1.9 MG/DL (1.8-2.4) Iron Level 10 ug/dL (50-175) L Total Iron Binding Capacity 90 ug/dL (250-450) L Percent Iron Saturation 11 % (15-50) L Unsaturated Iron Binding 80 ug/dL (112-346) L Ferritin 640 NG/ML (8-388) H Total Bilirubin 0.2 MG/DL (0.2-1.0) Gamma Glutamyl Transpeptidase 13 U/L (5-85) Aspartate Amino Transf (AST/SGOT) 24 U/L (15-37) Alanine Aminotransferase (ALT/SGPT) 20 U/L (12-78) Alkaline Phosphatase 118 U/L (46-116) H Total Protein 4.8 G/DL (6.4-8.2) L Albumin 1.6 G/DL (3.4-5.0) L Globulin 3.2 g/dL Albumin/Globulin Ratio 0.5 (1.0-2.7) L Vitamin B12 Level 1201 PG/ML (193-986) H Folate 33.8 NG/ML (8.6-58.9) Urine Random Sodium 86 mmol/L (20-110) Plan Problems: (1) Decubitus ulcer of sacral region, stage 4 Assessment & Plan: Stage IV sacral decubitus ulcer with necrosis, slough, mild drainage, foul odor. Patient presented with this on admission. Seems grossly uncapped. Leukocytosis , abnormal labs Sepsis unlikely due to wound likely pneumonia wound does need local supportive care. Patient also noted to have other areas of skin concerns. Full evaluation at bedside with nursing staff Orders placed We will follow with recommendations Nutritional optimization thank you will follow with recommendations (2) Anemia (3) Proteinuria (4) Toxic metabolic encephalopathy (5) Septic shock Assessment & Plan: Patient needs intensive care unit, leukocytosis, abnormal labs, septic. Full physical examination performed an area of concern identified. Unlikely etiology of patient's sepsis. Likely septic from pneumonia versus potential UTI IV antibiotics per infectious disease We will follow with recommendations (6) Hyperkalemia (7) UTI (urinary tract infection) (8) ODALYS (acute kidney injury) Mikael Shepherd Oct 21, 2019 14:01
[2019-10-21] MEDS: Vancomycin 750mg/NS 275ml IVPB SCH ×2 (14:16)
--- NOTE | 2019-10-21 15:01 | NUR ---
Social Work This Sw met with patient, currently in the ICU, who appears alert/oriented to name and place only. Patient currrently saying "No" to CPR and Intubation (niece informed), but it questionable whether patient is able to comprehend the conversation with this SW at this time. This Sw identified POLST and AD in chart, requesting CPR, with no intubation. This Sw spoke with Shey FIGUEREDO ([phone]) who confirmed patients wishes for Full Code, DNI in the past. This Sw provided education to family regarding intubation after CPR has been provided. Niece showing understanding to this and will readdress with patient for possible DNR/DNI vs Full Code, Full Treatment (niece aware to come in an sign a new POLST). Patient was on Hospice at home, prior to going to SNF (was at [facility]). This SW recommended home with Hospice with niece. Niece stating she will make a decision prior to discharge, but is currently requesting SNF placement and does not want patient to return to [facility], requesting [facility] in [place] ([facility] Fam CM aware). Patient has [employer] who will determine which SNF can accept patient upon discharge (niece aware). If patient discharges to home, niece to ensure 24 hour care at home. Niece expressing concerns that here are problems with care at home, along with plumbing problems and stating patient will most likely need to return to SNF upon discharge. SW to follow further, as needed, regarding new POLST and code status.
--- NOTE | 2019-10-21 16:00 | NUR ---
NURSE NOTES: Pt repositioned, no acute distress noted, pt now calm and asleep in bed. Will continue to monitor.
--- NOTE | 2019-10-21 16:47 | NUR ---
NURSE NOTES:WOUND CARE NOTES:Pt presented on admission with multiple pressure injuries and contractures. Partial thickness pressure injury secondary to open serous blister noted to R thoracic(L)2cm x(W)9cm. Base of wound is moist and pink. Edges moist but adherent to base of wound. Periwound without erythema or evidence of further skin breakdown. Full thickness Unstageable Pressure Injury Sacrum(L)9cm x (W)15cm. Base of wound has 80% semi-detached necrotic cap with surrounding mixed erythema and slough. Edges adherent to base of wound. Wound is malodorous Scattered areas of non-blanching erythema and areas of hyperpigmentation noted periwound. DTPI noted to L trochanter(L)2cm x (W01cm. Base of wound is maroon and indurated. Periwound without erythema or fluctuance.An area of non-blanching erythema without induration noted to L hip.(L)3cm x (W)3.5cm. Non-blanching erythema without fluctuance or induration noted to L hallux(L)1.5cm x (W)2.5cm.No evidence of skin breakdown periwound. L heel boggy with non-blanching erythema.Tender when minimally palpated. Areas of non-blanching erythema noted to medial and distal lateral aspects of L foot. Non-blanching erythema with dry peeling skin noted to R achilles(L)1cm x (W)1cm. R heel is boggy with an area of non-blanching erythema medially (L)3cm x (W)2cm. Areas of non-blanching erythema noted to medial and distal aspects of R foot. Tx.Plan:Cleanse sacral wound with Dakin's yessenia 0.125%. Apply Dakin's moistened 4x4 gauze to wound. Apply Triad Paste periwound. Cover with Optifoam drsg Daily and prn. Cleanse wound R thoracic. Cover with Optifoam drsg. Change every 3 days and prn. Apply Cavilon Skin Barrier to areas of erythema R and L feet. Cover each area with Optifoam drsg. Change every 7 days and prn. APM/AUGUSTINE Mattress overlay. Reposition at least every 2hours or as tolerated. Place pillow between knees. Off-load heels with pillow.
--- NOTE | 2019-10-21 19:13 | NUR ---
NURSE NOTES: Report given to LIAT Fitch.
--- NOTE | 2019-10-21 19:30 | NUR ---
NURSE NOTES: Received pt with eyes close but easily arousable to verbal stimuli. pt been off pressors NSR on trhe monitor, bp stable afebrile. Pt with multiple pressure sores covered with optifoam dry and intact. On p200 mattress. Turned q 2hrs with good skin care done.. Pt on4L/nc resp even and spont . 02 at > 95%. Suctioned tn tk light yellowish secretions. Moderate in amt. Weiner to gravity with lg amt of yellowish cloudy urine. Monitor I and O. monitor lytes, will continue to monitor.
[2019-10-21] MEDS: Dyna-Hex 2% Top Sol 2oz TOPIC SCH (20:20)
--- NOTE | 2019-10-21 21:01 | History and Physical Report ---
HISTORY OF PRESENT ILLNESS: This is an 84-year-old female admitted to the ICU in septic shock. She is on a non-rebreather mask as well as Levophed. The patient was sent in from nursing facility with history of previous CVA and hypertension, and was presented in sepsis. She was admitted with altered mental status. She was hypotensive. She was unresponsive with bradycardia. She was also found to be hyperkalemic and required medications for control. Her heart rate improved and currently, heart rate is about 80, on Levophed. Her laboratories from earlier today showed sodium 127, creatinine of 1.35, and glucose 200. A head CT was negative except for chronic changes. Laboratories from outside hospital show history of ESBL E. coli, sensitive to ertapenem and imipenem. Blood cultures have been negative so far from outside facility. The patient was noted to have a Full Code status. PAST MEDICAL HISTORY: Notable for previous CVA, chronic dysphagia, diabetes mellitus, hypertension, hyperlipidemia, dementia, decubiti, and history of ESBL. HOME MEDICATIONS: Her list of home medications includes Tylenol, amlodipine, Aricept, Lovenox, hydralazine, Neurontin, Lipitor, aspirin, Coreg, lisinopril, morphine p.r.n., Pepcid, and trazodone. REVIEW OF SYSTEMS: Not obtainable. PHYSICAL EXAMINATION: GENERAL: Reveals an elderly female. HEENT: Unremarkable. LUNGS: clear breath sounds bilaterally. HEART: Normal heart sounds. ABDOMEN: Soft. EXTREMITIES: There is no edema. LABORATORY DATA: Lab testing shows white count 24,000 and hemoglobin 11. Chemistry notable for creatinine of 1.1 now, potassium now 4.7. Lactic acid decreased from 5.6 to 2.4. Coags are negative. Urinalysis shows too numerous to count wbc. IMPRESSION: 1. Urosepsis. 2. Septic shock. 3. Hypoxemia. 4. CVA. 5. Diabetes mellitus. 6. Hypertension. DISCUSSION: Admit to the hospital. We will start broad-spectrum antibiotics, insulin sliding scale, IV fluids, Levophed. Consult ID and Nephrology. We will follow carefully. Kam Grayson M.D. DR: Kelsie JOB#: [id number] CC:
--- NOTE | 2019-10-21 21:30 | NUR ---
NURSE NOTES: Suctioned lg amt of tn tk yellow secretions nasally. Oral care done.
--- NOTE | 2019-10-21 23:00 | NUR ---
NURSE NOTES: GT noted to be clogged, de clogged Gt with warm cranberry jiuice,
[2019-10-22] VITALS (20 sets, daily range): BP systolic 100–161; BP diastolic 32–63
--- NOTE | 2019-10-22 | Progress Note ---
DATE: 10/21/2019 CARDIOLOGY PROGRESS NOTE SUBJECTIVE: The patient remains in intensive care unit. Cardiac monitoring reviewed by me. No bradyarrhythmias. Maintain sinus rhythm with first-degree AV block. OBJECTIVE: VITAL SIGNS: Blood pressure 99/34, pulse 81, and respirations 12. Continues with pressors being tapered off. LUNGS: Bilateral breath sounds. CARDIAC: Regular rhythm and rate. Normal S1, S2. ABDOMEN: Soft. EXTREMITIES: No edema. LABORATORY DATA: White count 6.8, hemoglobin 8.3. Sodium 138, potassium 4.3, bicarb 29, BUN 35, and creatinine 1. Iron 10, iron saturation 11. Albumin 1.6. B12 and folate normal. IMPRESSION: 1. Sepsis with shock. 2. 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 3. Bradyarrhythmia with junctional rhythm likely due to acidosis and hyperkalemia on admission, now resolved. 4. Iron deficiency anemia. 5. Hypophosphatemia. 6. Acute renal failure, improving with hydration. 7. Type 2 diabetes mellitus with hyperglycemia. PLAN: 1. Volume support. 2. Taper pressors. 3. Off antimicrobials. 4. Respiratory hygiene. 5. DVT prophylaxis. 6. Phosphorus replacement. 7. Iron replacement. 8. Stool occult blood testing. 9. Continue ICU care 10. Remains critical and guarded. 11. Insulin coverage by sliding scale. Ronak Carranza M.D. DR: BELKIS JOB#: [id number] CC:
[2019-10-22] MEDS: NovoLOG Insulin Flexpen SUBQ SCH ×4 (00:09→17:56)
[2019-10-22] MEDS: Morphine Sulfate 10mg/5ml Oral Soln ud ORAL PRN ×3 (00:21→15:52)
--- NOTE | 2019-10-22 00:22 | NUR ---
NURSE NOTES: Morphine 5mg through GT was given due to shaRP ABDL PAIN RADIATING to her legs scale of 8
--- NOTE | 2019-10-22 02:04 | NUR ---
NURSE NOTES: Sleeping well at this time with vss
--- NOTE | 2019-10-22 04:00 | NUR ---
NURSE NOTES: Complete bed bath with bed changed done. Rt femoral TLC soiled with blood stained. drsg was changed.
[2019-10-22] MEDS: Gabapentin 300 MG/6 ML Soln GT SCH ×3 (05:43→22:01)
--- NOTE | 2019-10-22 06:33 | NUR ---
NURSE NOTES: Morphine 5 mg Gt was given due to leg pain scale of 8
--- NOTE | 2019-10-22 07:00 | NUR ---
NURSE NOTES: pain free at this time. after pain meds was given
--- NOTE | 2019-10-22 07:00 | NUR ---
HAND-OFF: Report given to Mesha JOSUE.
--- NOTE | 2019-10-22 07:01 | NUR ---
NURSE NOTES: Report received from LIAT Berrios. Pt is awake and alert in bed. Able to verbalize needs. Denies pain at this time. 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 On 4L N/C. G-tube in place, receiving Glucerna 1.5 at 45cc/hr. No residual noted. Weiner in place draining cloudy yellow urine to gravity. Right femoral TLC patent and asymptomatic. IV to right FA G20 and left FA G18 both leaking. Will try peripheral IVs. Bed in lowest position. Side rails up x3. Will resume plan of care.
--- NOTE | 2019-10-22 08:00 | NUR ---
NURSE NOTES: Feeding pump keeps beeping. G-tube patent. Changed Glucerna 1.5, the feeding tube, and the pump. Pump is still beeping. Held for now. Will notify the primary.
[2019-10-22] MEDS: Pantoprazole Inj IV SCH ×2 (08:43→20:40)
[2019-10-22] MEDS: Heparin 5000 units/ml inj SUBQ SCH ×2 (08:44→20:41)
[2019-10-22] MEDS ORDERED: Dakin's 0.125% Soln (Quarter Strength) 16oz TOPIC SCH (09:00)
--- NOTE | 2019-10-22 09:41 | NUR ---
RADIOLOGY DEPT., CHEST X-RAY DONE.-P.DYE
--- NOTE | 2019-10-22 10:00 | NUR ---
NURSE NOTES: Inserted new IVs. Pt tolerated well. Removed old IV's since they are both leaking.
--- NOTE | 2019-10-22 10:44 | Diagnostic Imaging Report ---
Indication: Shortness of breath Technique: One view of the chest Comparison: 10/20/2019 Findings: There is persistent elevation right hemidiaphragm. There may be significant atelectatic changes at the right lung base. Subsegmental atelectasis is seen at the left lung base.. There is retrocardiac consolidation again demonstrated. The upper lungs are clear. The heart size is normal. Impression: Elevated right hemidiaphragm with possible right basilar atelectasis Retrocardiac consolidation and left basilar atelectasis again demonstrated
--- NOTE | 2019-10-22 11:12 | NUR ---
NURSE NOTES: Dr Grayson here to see the patient. Notified him that G tube is not working. Dr Grayson will call Dr Marquez. Turned and repositioned pt.
--- NOTE | 2019-10-22 12:34 | General Progress Note ---
Assessment/Plan Problem List: (1) UTI (urinary tract infection) ICD Codes: N39.0 - Urinary tract infection, site not specified SNOMED: 00495520 Qualifiers: Qualified Codes: N30.00 - Acute cystitis without hematuria (2) Septic shock ICD Codes: A41.9 - Sepsis, unspecified organism; R65.21 - Severe sepsis with septic shock SNOMED: 39106588 (3) Anemia ICD Codes: D64.9 - Anemia, unspecified SNOMED: 906907349 Qualifiers: Qualified Codes: D64.9 - Anemia, unspecified (4) Iron (Fe) deficiency anemia ICD Codes: D50.9 - Iron deficiency anemia, unspecified SNOMED: 84924205 (5) Dysphagia ICD Codes: R13.10 - Dysphagia, unspecified SNOMED: 11425927, 948483394 (6) Gt dependent (7) DM Assessment/Plan: plan to change the GT at the bedside iv iron ppi fu stool ob abx per ID GI procedures when more stable Subjective ROS Limited/Unobtainable: No Allergies: Coded Allergies: No Known Allergies (Unverified , 10/18/19) Objective Last 24 Hour Vital Signs Date Time Temp Pulse Resp B/P (MAP) Pulse Ox O2 Delivery O2 Flow Rate FiO2 10/22/19 12:00 Nasal Cannula 4.0 Nasal Cannula 4.0 Nasal Cannula 4.0 10/22/19 12:00 98.8 91 17 156/53 (87) 99 10/22/19 11:00 99.3 87 19 139/43 (75) 100 10/22/19 11:00 85 15 139/43 (75) 100 10/22/19 10:00 84 18 141/45 (77) 100 10/22/19 09:04 94 21 100 Nasal Cannula 4.0 36 10/22/19 09:04 100 Nasal Cannula 3.0 32 10/22/19 09:00 86 16 144/45 (78) 100 10/22/19 08:00 Nasal Cannula 4.0 Nasal Cannula 4.0 Nasal Cannula 4.0 10/22/19 08:00 85 10/22/19 08:00 100.1 92 18 145/52 (83) 100 10/22/19 07:00 91 16 140/60 (86) 100 10/22/19 06:00 95 17 153/63 (93) 100 10/22/19 05:00 91 13 138/48 (78) 100 10/22/19 04:00 Nasal Cannula 4.0 Nasal Cannula 4.0 Nasal Cannula 4.0 10/22/19 04:00 80 17 112/38 (62) 95 10/22/19 04:00 84 10/22/19 03:00 98.0 75 16 115/32 (59) 96 10/22/19 02:00 78 16 114/36 (62) 94 10/22/19 01:00 77 16 100/34 (56) 98 10/22/19 00:00 98.2 85 16 127/44 (71) 86 10/22/19 00:00 97 10/22/19 00:00 Nasal Cannula 4.0 Nasal Cannula 4.0 Nasal Cannula 4.0 10/21/19 23:00 90 19 137/48 (77) 96 10/21/19 22:00 85 16 131/47 (75) 91 10/21/19 21:00 82 17 103/40 (61) 95 10/21/19 20:30 85 19 97 Nasal Cannula 4.0 36 10/21/19 20:30 97 Nasal Cannula 4.0 36 10/21/19 20:00 87 13 119/38 (65) 98 10/21/19 20:00 Nasal Cannula 4.0 Nasal Cannula 4.0 Nasal Cannula 4.0 10/21/19 20:00 98.0 83 15 115/41 (65) 94 10/21/19 19:00 83 15 115/41 (65) 94 10/21/19 18:00 83 16 124/43 (70) 97 10/21/19 17:00 91 24 113/44 (67) 96 10/21/19 16:00 87 10/21/19 16:00 Nasal Cannula 4.0 Nasal Cannula 4.0 Nasal Cannula 4.0 10/21/19 16:00 4.0 10/21/19 16:00 98.1 88 9 100/39 (59) 100 10/21/19 15:00 92 17 106/33 (57) 10/21/19 14:00 81 18 90/29 (49) 100 10/21/19 13:00 87 14 108/50 (69) 100 Intake and Output 10/21/19 10/22/19 19:00 07:00 Intake Total 1074.997 ml 510 ml Output Total 1025 ml 830 ml Balance 49.997 ml -320 ml Free Water 70 ml 90 ml IV Total 744.997 ml Tube Feeding 260 ml 420 ml Output Urine Total 1025 ml 830 ml Laboratory Tests 10/21/19 14:50: Vancomycin Level Trough 16.8H Height (Feet): 5 Height (Inches): 4.00 Weight (Pounds): 136 General Appearance: confused EENT: normal ENT inspection, pale conjunctivae Neck: supple Cardiovascular: normal rate Respiratory/Chest: decreased breath sounds Abdomen: normal bowel sounds, non tender, soft Extremities: non-tender Ming Marquez MD Oct 22, 2019 12:34
--- NOTE | 2019-10-22 12:44 | Surgery Progress Note ---
Surgery Progress Note Subjective Additional Comments stable Objective Last 24 Hour Vital Signs Date Time Temp Pulse Resp B/P (MAP) Pulse Ox O2 Delivery O2 Flow Rate FiO2 10/22/19 12:00 Nasal Cannula 4.0 Nasal Cannula 4.0 Nasal Cannula 4.0 10/22/19 12:00 98.8 91 17 156/53 (87) 99 10/22/19 11:00 99.3 87 19 139/43 (75) 100 10/22/19 11:00 85 15 139/43 (75) 100 10/22/19 10:00 84 18 141/45 (77) 100 10/22/19 09:04 94 21 100 Nasal Cannula 4.0 36 10/22/19 09:04 100 Nasal Cannula 3.0 32 10/22/19 09:00 86 16 144/45 (78) 100 10/22/19 08:00 Nasal Cannula 4.0 Nasal Cannula 4.0 Nasal Cannula 4.0 10/22/19 08:00 85 10/22/19 08:00 100.1 92 18 145/52 (83) 100 10/22/19 07:00 91 16 140/60 (86) 100 10/22/19 06:00 95 17 153/63 (93) 100 10/22/19 05:00 91 13 138/48 (78) 100 10/22/19 04:00 Nasal Cannula 4.0 Nasal Cannula 4.0 Nasal Cannula 4.0 10/22/19 04:00 80 17 112/38 (62) 95 10/22/19 04:00 84 10/22/19 03:00 98.0 75 16 115/32 (59) 96 10/22/19 02:00 78 16 114/36 (62) 94 10/22/19 01:00 77 16 100/34 (56) 98 10/22/19 00:00 98.2 85 16 127/44 (71) 86 10/22/19 00:00 97 10/22/19 00:00 Nasal Cannula 4.0 Nasal Cannula 4.0 Nasal Cannula 4.0 10/21/19 23:00 90 19 137/48 (77) 96 10/21/19 22:00 85 16 131/47 (75) 91 10/21/19 21:00 82 17 103/40 (61) 95 10/21/19 20:30 85 19 97 Nasal Cannula 4.0 36 10/21/19 20:30 97 Nasal Cannula 4.0 36 10/21/19 20:00 87 13 119/38 (65) 98 10/21/19 20:00 Nasal Cannula 4.0 Nasal Cannula 4.0 Nasal Cannula 4.0 10/21/19 20:00 98.0 83 15 115/41 (65) 94 10/21/19 19:00 83 15 115/41 (65) 94 10/21/19 18:00 83 16 124/43 (70) 97 10/21/19 17:00 91 24 113/44 (67) 96 10/21/19 16:00 87 10/21/19 16:00 Nasal Cannula 4.0 Nasal Cannula 4.0 Nasal Cannula 4.0 10/21/19 16:00 4.0 10/21/19 16:00 98.1 88 9 100/39 (59) 100 10/21/19 15:00 92 17 106/33 (57) 10/21/19 14:00 81 18 90/29 (49) 100 10/21/19 13:00 87 14 108/50 (69) 100 I&O Intake and Output 10/21/19 10/22/19 19:00 07:00 Intake Total 1074.997 ml 510 ml Output Total 1025 ml 830 ml Balance 49.997 ml -320 ml Free Water 70 ml 90 ml IV Total 744.997 ml Tube Feeding 260 ml 420 ml Output Urine Total 1025 ml 830 ml Dressing: other Wound: other Cardiovascular: RSR Respiratory: clear, decreased breath sounds Abdomen: soft, present bowel sounds, non-distended Extremities: no cyanosis Laboratory Tests Test 10/21/19 14:50 Vancomycin Level Trough 16.8 ug/mL (5.0-12.0) H Plan Problems: (1) Decubitus ulcer of sacral region, stage 4 Assessment & Plan: Pt presented on admission with multiple pressure injuries and contractures. Partial thickness pressure injury secondary to open serous blister noted to R thoracic(L)2cm x(W)9cm. Base of wound is moist and pink. Edges moist but adherent to base of wound. Periwound without erythema or evidence of further skin breakdown. Full stage 4 thickness Unstageable Pressure Injury Sacrum(L)9cm x (W)15cm. Base of wound has 80% semi-detached necrotic cap with surrounding mixed erythema and slough. Edges adherent to base of wound. Wound is malodorous Scattered areas of non-blanching erythema and areas of hyperpigmentation noted periwound. DTPI noted to L trochanter(L)2cm x (W01cm. Base of wound is maroon and indurated. Periwound without erythema or fluctuance.An area of non-blanching erythema without induration noted to L hip.(L)3cm x (W)3.5cm. Non-blanching erythema without fluctuance or induration noted to L hallux(L) 1.5cm x (W)2.5cm.No evidence of skin breakdown periwound. L heel boggy with non-blanching erythema.Tender when minimally palpated. Areas of non-blanching erythema noted to medial and distal lateral aspects of L foot. Non-blanching erythema with dry peeling skin noted to R achilles(L)1cm x (W)1cm. R heel is boggy with an area of non-blanching erythema medially (L)3cm x (W) 2cm. Areas of non-blanching erythema noted to medial and distal aspects of R foot. Tx.Plan: Cleanse sacral wound with Dakin's yessenia 0.125%. Apply Dakin's moistened 4x4 gauze to wound. Apply Triad Paste periwound. Cover with Optifoam drsg Daily and prn. Cleanse wound R thoracic. Cover with Optifoam drsg. Change every 3 days and prn. Apply Cavilon Skin Barrier to areas of erythema R and L feet. Cover each area with Optifoam drsg. Change every 7 days and prn. APM/AUGUSTINE Mattress overlay. Reposition at least every 2hours or as tolerated. Place pillow between knees. Off-load heels with pillow. We will follow with recommendations Nutritional optimization thank you will follow with recommendations (2) Anemia (3) Proteinuria (4) Toxic metabolic encephalopathy (5) Septic shock Assessment & Plan: Patient needs intensive care unit, leukocytosis, abnormal labs, septic. Full physical examination performed an area of concern identified. Unlikely etiology of patient's sepsis. Likely septic from pneumonia versus potential UTI IV antibiotics per infectious disease We will follow with recommendations (6) Hyperkalemia (7) UTI (urinary tract infection) (8) ODALYS (acute kidney injury) Mikael Shepherd Oct 22, 2019 12:44
--- NOTE | 2019-10-22 13:40 | NUR ---
NURSE NOTES: Dr Marquez here to see the patient. G tube was replaced to new one [address] Marquez at bedside. Pt tolerated well. Will order STAT KUB to check placement. Niece also here to see the patient.
--- NOTE | 2019-10-22 13:41 | Nephrology Progress Note ---
Assessment/Plan Problem List: (1) Hyperkalemia (2) ODALYS (acute kidney injury) (3) UTI (urinary tract infection) (4) Anemia Assessment HyperKalemia resolved HypoNatremia resolved Renal failure resolving Sepsis UTI DM Anemia HypoAlbuminemia Plan no labs today GT feeding antibiotics Avoid nephrotoxics: On Vanco and Amikacin now monitor renal parameters Anemia jimenez per order Subjective ROS Limited/Unobtainable: No Constitutional: Reports: malaise, weakness Objective Objective Last 24 Hour Vital Signs Date Time Temp Pulse Resp B/P (MAP) Pulse Ox O2 Delivery O2 Flow Rate FiO2 10/22/19 13:00 88 16 139/52 (81) 100 10/22/19 12:00 88 10/22/19 12:00 Nasal Cannula 4.0 Nasal Cannula 4.0 Nasal Cannula 4.0 10/22/19 12:00 98.8 91 17 156/53 (87) 99 10/22/19 11:00 99.3 87 19 139/43 (75) 100 10/22/19 11:00 85 15 139/43 (75) 100 10/22/19 10:00 84 18 141/45 (77) 100 10/22/19 09:04 94 21 100 Nasal Cannula 4.0 36 10/22/19 09:04 100 Nasal Cannula 3.0 32 10/22/19 09:00 86 16 144/45 (78) 100 10/22/19 08:00 Nasal Cannula 4.0 Nasal Cannula 4.0 Nasal Cannula 4.0 10/22/19 08:00 85 10/22/19 08:00 100.1 92 18 145/52 (83) 100 10/22/19 07:00 91 16 140/60 (86) 100 10/22/19 06:00 95 17 153/63 (93) 100 10/22/19 05:00 91 13 138/48 (78) 100 10/22/19 04:00 Nasal Cannula 4.0 Nasal Cannula 4.0 Nasal Cannula 4.0 10/22/19 04:00 80 17 112/38 (62) 95 10/22/19 04:00 84 10/22/19 03:00 98.0 75 16 115/32 (59) 96 10/22/19 02:00 78 16 114/36 (62) 94 10/22/19 01:00 77 16 100/34 (56) 98 10/22/19 00:00 98.2 85 16 127/44 (71) 86 10/22/19 00:00 97 10/22/19 00:00 Nasal Cannula 4.0 Nasal Cannula 4.0 Nasal Cannula 4.0 10/21/19 23:00 90 19 137/48 (77) 96 10/21/19 22:00 85 16 131/47 (75) 91 10/21/19 21:00 82 17 103/40 (61) 95 10/21/19 20:30 85 19 97 Nasal Cannula 4.0 36 10/21/19 20:30 97 Nasal Cannula 4.0 36 10/21/19 20:00 87 13 119/38 (65) 98 10/21/19 20:00 Nasal Cannula 4.0 Nasal Cannula 4.0 Nasal Cannula 4.0 10/21/19 20:00 98.0 83 15 115/41 (65) 94 10/21/19 19:00 83 15 115/41 (65) 94 10/21/19 18:00 83 16 124/43 (70) 97 10/21/19 17:00 91 24 113/44 (67) 96 10/21/19 16:00 87 10/21/19 16:00 Nasal Cannula 4.0 Nasal Cannula 4.0 Nasal Cannula 4.0 10/21/19 16:00 4.0 10/21/19 16:00 98.1 88 9 100/39 (59) 100 10/21/19 15:00 92 17 106/33 (57) 10/21/19 14:00 81 18 90/29 (49) 100 Intake and Output 10/21/19 10/22/19 19:00 07:00 Intake Total 1074.997 ml 510 ml Output Total 1025 ml 830 ml Balance 49.997 ml -320 ml Free Water 70 ml 90 ml IV Total 744.997 ml Tube Feeding 260 ml 420 ml Output Urine Total 1025 ml 830 ml Current Medications Medications (Trade) Dose Ordered Sig/Nitish Route PRN Reason Start Time Stop Time Status Last Admin Dose Admin Acetaminophen (Tylenol) 650 mg Q4H PRN ORAL Mild Pain (Pain Scale 1-3) 10/19/19 11:00 11/18/19 10:59 10/20/19 23:00 Albuterol/ Ipratropium (Albuterol/ Ipratropium) 3 ml Q4H PRN HHN Shortness of Breath 10/19/19 12:45 10/24/19 12:44 10/19/19 13:24 Amikacin Protocol (Amikacin pharmacy to dose) 1 ea DAILY PRN MISC Per rx protocol 10/19/19 12:45 11/18/19 12:44 Amikacin Sulfate 700 mg/Sodium Chloride 112.8 ml @ 112.8 mls/ hr Q48H IV 10/23/19 04:00 10/30/19 03:59 Atropine Sulfate (Atropine) 0.5 mg Q5M PRN IVP BRADYCARDIA 10/19/19 17:00 11/18/19 16:59 Chlorhexidine Gluconate (Marisela-Hex 2%) 1 applic DAILY@2000 TOPIC 10/19/19 20:00 11/18/19 19:59 10/21/19 20:20 Dextrose (Dextrose 50%) 25 ml Q30M PRN IV Hypoglycemia 10/19/19 10:30 11/18/19 10:29 Dextrose (Dextrose 50%) 50 ml Q30M PRN IV Hypoglycemia 10/19/19 10:30 11/18/19 10:29 Gabapentin (Neurontin) 100 mg Q8HR GT 10/20/19 18:00 11/19/19 17:59 10/22/19 05:43 Heparin Sodium (Porcine) (Heparin 5000 units/ml) 5,000 units EVERY 12 HOURS SUBQ 10/19/19 21:00 11/18/19 10:59 10/22/19 08:44 Insulin Aspart (NovoLOG) Q6HR SUBQ 10/19/19 12:00 11/18/19 11:59 10/22/19 12:21 Iron Sucrose 100 mg/Sodium Chloride 60 ml @ 240 mls/hr BEDTIME IV 10/22/19 21:00 10/26/19 21:14 Meropenem 1 gm/ Sodium Chloride 100 ml @ 200 mls/hr Q12HR@0200,1400 IVPB 10/19/19 14:00 10/24/19 13:59 10/22/19 01:45 Morphine Sulfate (Morphine 10mg/ 5ml Oral Soln) 5 mg EVERY 6 HOURS PRN ORAL For Pain 10/21/19 00:45 10/28/19 00:44 10/22/19 06:30 Norepinephrine Bitartrate 4 mg/ Dextrose 250 ml @ 0 mls/hr Q24H IV 10/19/19 08:30 11/18/19 08:29 10/20/19 14:32 Pantoprazole (Protonix) 40 mg Q12HR IV 10/20/19 21:00 11/19/19 08:59 10/22/19 08:43 Sodium Hypochlorite (Dakin's Quarter Strength) 1 applic DAILY TOPIC 10/22/19 09:00 11/21/19 08:59 10/22/19 09:27 Vancomycin HCl (Vanco rx to dose) 1 ea DAILY PRN MISC Per rx protocol 10/19/19 12:45 11/18/19 12:44 Vancomycin HCl 750 mg/Sodium Chloride 275 ml @ 183.333 mls/hr Q24H IVPB 10/20/19 15:00 10/25/19 14:59 10/21/19 14:16 Laboratory Tests 10/21/19 14:50: Vancomycin Level Trough 16.8H Height (Feet): 5 Height (Inches): 4.00 Weight (Pounds): 136 Neck: limited range of motion Cardiovascular: tachycardia Respiratory/Chest: decreased breath sounds Abdomen: soft, other - GT feeding on Ayo Pryor MD Oct 22, 2019 13:41
--- NOTE | 2019-10-22 14:00 | NUR ---
NURSE NOTES: Will hold all oral medications until G tube placement is confirmed.
[2019-10-22] MEDS ORDERED: NS 275ml ONE ×2 (15:28→18:50)
--- NOTE | 2019-10-22 15:32 | NUR ---
RADIOLOGY DEPT., ABDOMEN X-RAY FOR G-TUBE PLACEMENT DONE.-P.DYE
--- NOTE | 2019-10-22 15:34 | Diagnostic Imaging Report ---
Indication: Post gastrostomy placement or replacement Technique: Supine view of the abdomen after injection of water-soluble contrast into gastrostomy Comparison: none Findings: Contrast opacifies the stomach and proximal small bowel. No contrast extravasation is demonstrated. The bowel gas pattern is unremarkable. Impression: Satisfactory position of gastrostomy tube
--- NOTE | 2019-10-22 15:52 | NUR ---
NURSE NOTES: G tube placement is confirmed by X-ray. PRN Morphine 5 mg oral solution given for leg pain. Will continue tube feeding and give other oral medication.
[2019-10-22] MEDS ORDERED: Vancomycin 1 GM in NS 275 ML IVPB SCH (16:00)
--- NOTE | 2019-10-22 16:07 | NUR ---
*-* INSURANCE *-* ALL AVAILABLE CLINICALS AND REVIEWS HAVE BEEN FAXED TO: [employer] Vas[facility] AUTH TRACKING#: [id number] CM: ANUJ TEL: [phone] FAX CLINICALS: [phone]
--- NOTE | 2019-10-22 16:57 | Infectious Diseases Prog Note ---
Assessment/Plan Assessment/Plan ASSESSMENT AND PLAN: 1. sepsis, shock, pseudomonas uti, gram neg bacteremia, gram neg sepsis, pneumonia, sacral wound infection, vre and mrsa colonization, leukocytosis, fevers, sirs - change antibiotics to zosyn and vancomycin - day # 3 abx - check final blood cultures, labs and chest x-ray - debridement per surgery - clinically improved 2. Diabetes. 3. Hypertension. 4. Blood pressure and blood sugar treatment per primary care team for diabetes and hypertension. 5. Wound care per protocol and Surgery. The patient may need debridement of the sacral wound. 6. History of dementia. 7. Anemia. 8. Proteinuria. 9. Encephalopathy. 10. Acute kidney injury and hyperkalemia. 11. No known drug allergies. 12. Social history is negative. 13. Family history is noncontributory. 14. MAR is noted. 15. Case was discussed with RN. 16. ICU care. 17. Orders were noted and entered. 18. Continue treatment per primary consultants. Subjective Constitutional: Reports: fatigue, other - fever x 1, more alert ; Denies: fever HEENT: Reports: congestion - less Respiratory: Reports: shortness of breath - less Cardiovascular: Denies: chest pain Gastrointestinal/Abdominal: Denies: nausea, vomiting, diarrhea Genitourinary: Reports: other - + beard Neurologic: Denies: headache Psychiatric: Reports: other - NA Skin: Reports: other - wounds - covered ; Denies: rash Hematologic: Denies: bleeding Musculoskeletal: Reports: other - NA Allergies: Coded Allergies: No Known Allergies (Unverified , 10/18/19) Objective Vital Signs Last 24 Hour Vital Signs Date Time Temp Pulse Resp B/P (MAP) Pulse Ox O2 Delivery O2 Flow Rate FiO2 10/22/19 16:00 92 17 161/55 (90) 100 10/22/19 16:00 Nasal Cannula 4.0 Nasal Cannula 4.0 Nasal Cannula 4.0 10/22/19 15:20 91 10/22/19 15:00 86 17 154/50 (84) 100 10/22/19 14:00 85 17 143/53 (83) 99 10/22/19 13:00 88 16 139/52 (81) 100 10/22/19 12:00 88 10/22/19 12:00 Nasal Cannula 4.0 Nasal Cannula 4.0 Nasal Cannula 4.0 10/22/19 12:00 98.8 91 17 156/53 (87) 99 10/22/19 11:00 99.3 87 19 139/43 (75) 100 10/22/19 11:00 85 15 139/43 (75) 100 10/22/19 10:00 84 18 141/45 (77) 100 10/22/19 09:04 94 21 100 Nasal Cannula 4.0 36 10/22/19 09:04 100 Nasal Cannula 3.0 32 10/22/19 09:00 86 16 144/45 (78) 100 10/22/19 08:00 Nasal Cannula 4.0 Nasal Cannula 4.0 Nasal Cannula 4.0 10/22/19 08:00 85 10/22/19 08:00 100.1 92 18 145/52 (83) 100 10/22/19 07:00 91 16 140/60 (86) 100 10/22/19 06:00 95 17 153/63 (93) 100 10/22/19 05:00 91 13 138/48 (78) 100 10/22/19 04:00 Nasal Cannula 4.0 Nasal Cannula 4.0 Nasal Cannula 4.0 10/22/19 04:00 80 17 112/38 (62) 95 10/22/19 04:00 84 10/22/19 03:00 98.0 75 16 115/32 (59) 96 10/22/19 02:00 78 16 114/36 (62) 94 10/22/19 01:00 77 16 100/34 (56) 98 10/22/19 00:00 98.2 85 16 127/44 (71) 86 10/22/19 00:00 97 10/22/19 00:00 Nasal Cannula 4.0 Nasal Cannula 4.0 Nasal Cannula 4.0 10/21/19 23:00 90 19 137/48 (77) 96 10/21/19 22:00 85 16 131/47 (75) 91 10/21/19 21:00 82 17 103/40 (61) 95 10/21/19 20:30 85 19 97 Nasal Cannula 4.0 36 10/21/19 20:30 97 Nasal Cannula 4.0 36 10/21/19 20:00 87 13 119/38 (65) 98 10/21/19 20:00 Nasal Cannula 4.0 Nasal Cannula 4.0 Nasal Cannula 4.0 10/21/19 20:00 98.0 83 15 115/41 (65) 94 10/21/19 19:00 83 15 115/41 (65) 94 10/21/19 18:00 83 16 124/43 (70) 97 10/21/19 17:00 91 24 113/44 (67) 96 Height (Feet): 5 Height (Inches): 4.00 Weight (Pounds): 136 General Appearance: no acute distress, other - + fatigue, more alert HEENT: normocephalic, atraumatic, anicteric, mucous membranes moist Respiratory/Chest: crackles/rales, rhonchi - bilaterally Cardiovascular: normal rate, regular rhythm, no gallop/murmur Abdomen: normal bowel sounds, soft, non tender, no organomegaly, non distended Genitourinary: other - + beard - urine cloudy Extremities: no cyanosis Skin: no rash, other - wounds covered Neurologic/Psychiatric: counter manager II-XII grossly normal, alert, responsive Lymphatic: no neck adenopathy Musculoskeletal: no effusion Objective Procedure: XRAY Chest 1v Indication: Shortness of breath Chest x-ray - 10/22/19 - Technique: One view of the chest Comparison: 10/20/2019 Findings: There is persistent elevation right hemidiaphragm. There may be significant atelectatic changes at the right lung base. Subsegmental atelectasis is seen at the left lung base.. There is retrocardiac consolidation again demonstrated. The upper lungs are clear. The heart size is normal. Impression: Elevated right hemidiaphragm with possible right basilar atelectasis Retrocardiac consolidation and left basilar atelectasis again demonstrated Microbiology Date/Time Source Procedure Growth Status 10/18/19 23:40 Blood Blood Culture - Preliminary NO GROWTH AFTER 72 HOURS Resulted 10/19/19 02:40 Sputum Induced Gram Stain - Final Complete 10/19/19 02:40 Sputum Induced Sputum Culture - Final NORMAL UPPER RESPIRATORY ANDRÉS PRESENT Complete 10/20/19 21:20 Stool Clostridium difficile Toxin Assay - Final Complete 10/19/19 00:25 Urine,Clean Catch Urine Culture - Final Pseudomonas Aeruginosa Complete 10/19/19 02:05 Rectum VRE Culture - Final Enterococcus Faecalis - Vre Complete Microbiology Date/Time Source Procedure Growth Status 2/16/20 21:20 Stool Clostridium difficile Toxin Assay - Final Complete Labs Test 10/20/19 04:21 10/21/19 04:27 10/21/19 06:00 10/21/19 14:50 White Blood Count 14.6 K/UL (4.8-10.8) 6.8 K/UL (4.8-10.8) Red Blood Count 3.11 M/UL (4.20-5.40) 2.82 M/UL (4.20-5.40) Hemoglobin 9.1 G/DL (12.0-16.0) 8.3 G/DL (12.0-16.0) Hematocrit 27.0 % (37.0-47.0) 24.5 % (37.0-47.0) Mean Corpuscular Volume 87 FL (80-99) 87 FL (80-99) Mean Corpuscular Hemoglobin 29.4 PG (27.0-31.0) 29.4 PG (27.0-31.0) Mean Corpuscular Hemoglobin Concent 33.8 G/DL (32.0-36.0) 33.8 G/DL (32.0-36.0) Red Cell Distribution Width 13.5 % (11.6-14.8) 13.7 % (11.6-14.8) Platelet Count 380 K/UL (150-450) 302 K/UL (150-450) Mean Platelet Volume 6.5 FL (6.5-10.1) 6.2 FL (6.5-10.1) Neutrophils (%) (Auto) 82.6 % (45.0-75.0) 71.1 % (45.0-75.0) Lymphocytes (%) (Auto) 10.2 % (20.0-45.0) 18.9 % (20.0-45.0) Monocytes (%) (Auto) 6.4 % (1.0-10.0) 7.7 % (1.0-10.0) Eosinophils (%) (Auto) 0.2 % (0.0-3.0) 1.3 % (0.0-3.0) Basophils (%) (Auto) 0.6 % (0.0-2.0) 1.0 % (0.0-2.0) Sodium Level 132 MMOL/L (136-145) 138 MMOL/L (136-145) Potassium Level 4.9 MMOL/L (3.5-5.1) 4.3 MMOL/L (3.5-5.1) Chloride Level 98 MMOL/L (98-107) 104 MMOL/L (98-107) Carbon Dioxide Level 28 MMOL/L (21-32) 29 MMOL/L (21-32) Anion Gap 7 mmol/L (5-15) 5 mmol/L (5-15) Blood Urea Nitrogen 57 mg/dL (7-18) 35 mg/dL (7-18) Creatinine 1.3 MG/DL (0.55-1.30) 1.0 MG/DL (0.55-1.30) Estimat Glomerular Filtration Rate 39.1 mL/min (>60) 53.0 mL/min (>60) Glucose Level 256 MG/DL (74-106) 174 MG/DL (74-106) Uric Acid 6.0 MG/DL (2.6-7.2) 5.2 MG/DL (2.6-7.2) Calcium Level 8.3 MG/DL (8.5-10.1) 8.3 MG/DL (8.5-10.1) Phosphorus Level 3.2 MG/DL (2.5-4.9) 2.4 MG/DL (2.5-4.9) Magnesium Level 2.3 MG/DL (1.8-2.4) 1.9 MG/DL (1.8-2.4) Total Bilirubin 0.2 MG/DL (0.2-1.0) 0.2 MG/DL (0.2-1.0) Direct Bilirubin < 0.1 MG/DL (0.0-0.3) Aspartate Amino Transf (AST/SGOT) 44 U/L (15-37) 24 U/L (15-37) Alanine Aminotransferase (ALT/SGPT) 25 U/L (12-78) 20 U/L (12-78) Alkaline Phosphatase 149 U/L (46-116) 118 U/L (46-116) Total Protein 5.3 G/DL (6.4-8.2) 4.8 G/DL (6.4-8.2) Albumin 1.7 G/DL (3.4-5.0) 1.6 G/DL (3.4-5.0) Random Amikacin Level 16.6 MG/L Hemoglobin A1c 7.8 % (4.3-6.0) Osmolality 290 mOsm/kg (297-317) Iron Level 10 ug/dL (50-175) Total Iron Binding Capacity 90 ug/dL (250-450) Percent Iron Saturation 11 % (15-50) Unsaturated Iron Binding 80 ug/dL (112-346) Ferritin 640 NG/ML (8-388) Gamma Glutamyl Transpeptidase 13 U/L (5-85) Globulin 3.2 g/dL Albumin/Globulin Ratio 0.5 (1.0-2.7) Vitamin B12 Level 1201 PG/ML (193-986) Folate 33.8 NG/ML (8.6-58.9) Urine Random Sodium 86 mmol/L (20-110) Vancomycin Level Trough 16.8 ug/mL (5.0-12.0) Test 10/22/19 13:30 Vancomycin Level Trough 13.5 ug/mL (5.0-12.0) Laboratory Tests Test 10/22/19 13:30 Vancomycin Level Trough 13.5 ug/mL (5.0-12.0) H Current Medications Medications (Trade) Dose Ordered Sig/Nitish Route PRN Reason Start Time Stop Time Status Last Admin Dose Admin Acetaminophen (Tylenol) 650 mg Q4H PRN ORAL Mild Pain (Pain Scale 1-3) 10/19/19 11:00 11/18/19 10:59 10/20/19 23:00 Albuterol/ Ipratropium (Albuterol/ Ipratropium) 3 ml Q4H PRN HHN Shortness of Breath 10/19/19 12:45 10/24/19 12:44 10/19/19 13:24 Amikacin Protocol (Amikacin pharmacy to dose) 1 ea DAILY PRN MISC Per rx protocol 10/19/19 12:45 11/18/19 12:44 Amikacin Sulfate 700 mg/Sodium Chloride 112.8 ml @ 112.8 mls/ hr Q48H IV 10/23/19 04:00 10/30/19 03:59 Atropine Sulfate (Atropine) 0.5 mg Q5M PRN IVP BRADYCARDIA 10/19/19 17:00 11/18/19 16:59 Chlorhexidine Gluconate (Marisela-Hex 2%) 1 applic DAILY@2000 TOPIC 10/19/19 20:00 11/18/19 19:59 10/21/19 20:20 Dextrose (Dextrose 50%) 25 ml Q30M PRN IV Hypoglycemia 10/19/19 10:30 11/18/19 10:29 Dextrose (Dextrose 50%) 50 ml Q30M PRN IV Hypoglycemia 10/19/19 10:30 11/18/19 10:29 Gabapentin (Neurontin) 100 mg Q8HR GT 10/20/19 18:00 11/19/19 17:59 10/22/19 15:52 Heparin Sodium (Porcine) (Heparin 5000 units/ml) 5,000 units EVERY 12 HOURS SUBQ 10/19/19 21:00 11/18/19 10:59 10/22/19 08:44 Insulin Aspart (NovoLOG) Q6HR SUBQ 10/19/19 12:00 11/18/19 11:59 10/22/19 12:21 Iron Sucrose 100 mg/Sodium Chloride 60 ml @ 240 mls/hr BEDTIME IV 10/22/19 21:00 10/26/19 21:14 Meropenem 1 gm/ Sodium Chloride 100 ml @ 200 mls/hr Q12HR@0200,1400 IVPB 10/19/19 14:00 10/24/19 13:59 10/22/19 15:00 Morphine Sulfate (Morphine 10mg/ 5ml Oral Soln) 5 mg EVERY 6 HOURS PRN ORAL For Pain 10/21/19 00:45 10/28/19 00:44 10/22/19 15:52 Norepinephrine Bitartrate 4 mg/ Dextrose 250 ml @ 0 mls/hr Q24H IV 10/19/19 08:30 11/18/19 08:29 10/20/19 14:32 Pantoprazole (Protonix) 40 mg Q12HR IV 10/20/19 21:00 11/19/19 08:59 10/22/19 08:43 Sodium Hypochlorite (Dakin's Quarter Strength) 1 applic DAILY TOPIC 10/22/19 09:00 11/21/19 08:59 10/22/19 09:27 Vancomycin HCl (Vanco rx to dose) 1 ea DAILY PRN MISC Per rx protocol 10/19/19 12:45 11/18/19 12:44 Vancomycin HCl 1 gm/Sodium Chloride 275 ml @ 183.708 mls/hr Q24H IVPB 10/22/19 16:00 10/27/19 15:59 10/22/19 15:51 Bao Stevens MD Oct 22, 2019 16:57
--- NOTE | 2019-10-22 17:30 | NUR ---
NURSE NOTES: Cleaned and repositioned pt. Education regarding the importance of turning and repositioning given in regards to preventing pressure injuries. Pt is tolerating tune feeding Glucerna 1.5 at 20cc/hr.
--- NOTE | 2019-10-22 18:17 | Pulmonology Progress Note ---
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 Patient presented with this on admission. Sepsis unlikely due to wound likely pneumonia wound does need local supportive care. (2) Anemia (3) Proteinuria (4) Toxic metabolic encephalopathy (5) Septic shock Patient needs intensive care unit, leukocytosis, abnormal labs, septic. IV antibiotics per infectious disease Off pressors now (6) Hyperkalemia (7) UTI (urinary tract infection) (8) ODALYS (acute kidney injury) PLAN Continue pressors as needed; currently off IV abx O2 Pulmonary hygiene To MIKE Back on pain medications Subjective Interval Events: None new Constitutional: Reports: no symptoms HEENT: Repors: no symptoms Respiratory: Reports: no symptoms Cardiovascular: Reports: no symptoms Allergies: Coded Allergies: No Known Allergies (Unverified , 10/18/19) Objective Last 24 Hour Vital Signs Date Time Temp Pulse Resp B/P (MAP) Pulse Ox O2 Delivery O2 Flow Rate FiO2 10/22/19 17:00 84 20 137/44 (75) 100 10/22/19 16:00 92 17 161/55 (90) 100 10/22/19 16:00 Nasal Cannula 4.0 Nasal Cannula 4.0 Nasal Cannula 4.0 10/22/19 15:20 91 10/22/19 15:00 86 17 154/50 (84) 100 10/22/19 14:00 85 17 143/53 (83) 99 10/22/19 13:00 88 16 139/52 (81) 100 10/22/19 12:00 88 10/22/19 12:00 Nasal Cannula 4.0 Nasal Cannula 4.0 Nasal Cannula 4.0 10/22/19 12:00 98.8 91 17 156/53 (87) 99 10/22/19 11:00 99.3 87 19 139/43 (75) 100 10/22/19 11:00 85 15 139/43 (75) 100 10/22/19 10:00 84 18 141/45 (77) 100 10/22/19 09:04 94 21 100 Nasal Cannula 4.0 36 10/22/19 09:04 100 Nasal Cannula 3.0 32 10/22/19 09:00 86 16 144/45 (78) 100 10/22/19 08:00 Nasal Cannula 4.0 Nasal Cannula 4.0 Nasal Cannula 4.0 10/22/19 08:00 85 10/22/19 08:00 100.1 92 18 145/52 (83) 100 10/22/19 07:00 91 16 140/60 (86) 100 10/22/19 06:00 95 17 153/63 (93) 100 10/22/19 05:00 91 13 138/48 (78) 100 10/22/19 04:00 Nasal Cannula 4.0 Nasal Cannula 4.0 Nasal Cannula 4.0 10/22/19 04:00 80 17 112/38 (62) 95 10/22/19 04:00 84 10/22/19 03:00 98.0 75 16 115/32 (59) 96 10/22/19 02:00 78 16 114/36 (62) 94 10/22/19 01:00 77 16 100/34 (56) 98 10/22/19 00:00 98.2 85 16 127/44 (71) 86 10/22/19 00:00 97 10/22/19 00:00 Nasal Cannula 4.0 Nasal Cannula 4.0 Nasal Cannula 4.0 10/21/19 23:00 90 19 137/48 (77) 96 10/21/19 22:00 85 16 131/47 (75) 91 10/21/19 21:00 82 17 103/40 (61) 95 10/21/19 20:30 85 19 97 Nasal Cannula 4.0 36 10/21/19 20:30 97 Nasal Cannula 4.0 36 10/21/19 20:00 87 13 119/38 (65) 98 10/21/19 20:00 Nasal Cannula 4.0 Nasal Cannula 4.0 Nasal Cannula 4.0 10/21/19 20:00 98.0 83 15 115/41 (65) 94 10/21/19 19:00 83 15 115/41 (65) 94 Intake and Output 10/21/19 10/22/19 19:00 07:00 Intake Total 1074.997 ml 510 ml Output Total 1025 ml 830 ml Balance 49.997 ml -320 ml Free Water 70 ml 90 ml IV Total 744.997 ml Tube Feeding 260 ml 420 ml Output Urine Total 1025 ml 830 ml General Appearance: no acute distress HEENT: normocephalic Respiratory/Chest: chest wall non-tender, lungs clear Cardiovascular: normal peripheral pulses Abdomen: normal bowel sounds Microbiology Date/Time Source Procedure Growth Status 10/20/19 21:20 Stool Clostridium difficile Toxin Assay - Final Complete Laboratory Tests 10/22/19 13:30: Vancomycin Level Trough 13.5H Current Medications Medications (Trade) Dose Ordered Sig/Nitish Route PRN Reason Start Time Stop Time Status Last Admin Dose Admin Acetaminophen (Tylenol) 650 mg Q4H PRN ORAL Mild Pain (Pain Scale 1-3) 10/19/19 11:00 11/18/19 10:59 10/20/19 23:00 Albuterol/ Ipratropium (Albuterol/ Ipratropium) 3 ml Q4H PRN HHN Shortness of Breath 10/19/19 12:45 10/24/19 12:44 10/19/19 13:24 Atropine Sulfate (Atropine) 0.5 mg Q5M PRN IVP BRADYCARDIA 10/19/19 17:00 11/18/19 16:59 Chlorhexidine Gluconate (Marisela-Hex 2%) 1 applic DAILY@2000 TOPIC 10/19/19 20:00 11/18/19 19:59 10/21/19 20:20 Dextrose (Dextrose 50%) 25 ml Q30M PRN IV Hypoglycemia 10/19/19 10:30 11/18/19 10:29 Dextrose (Dextrose 50%) 50 ml Q30M PRN IV Hypoglycemia 10/19/19 10:30 11/18/19 10:29 Gabapentin (Neurontin) 100 mg Q8HR GT 10/20/19 18:00 11/19/19 17:59 10/22/19 15:52 Heparin Sodium (Porcine) (Heparin 5000 units/ml) 5,000 units EVERY 12 HOURS SUBQ 10/19/19 21:00 11/18/19 10:59 10/22/19 08:44 Insulin Aspart (NovoLOG) Q6HR SUBQ 10/19/19 12:00 11/18/19 11:59 10/22/19 12:21 Iron Sucrose 100 mg/Sodium Chloride 60 ml @ 240 mls/hr BEDTIME IV 10/22/19 21:00 10/26/19 21:14 Morphine Sulfate (Morphine 10mg/ 5ml Oral Soln) 5 mg EVERY 6 HOURS PRN ORAL For Pain 10/21/19 00:45 10/28/19 00:44 10/22/19 15:52 Norepinephrine Bitartrate 4 mg/ Dextrose 250 ml @ 0 mls/hr Q24H IV 10/19/19 08:30 11/18/19 08:29 10/20/19 14:32 Pantoprazole (Protonix) 40 mg Q12HR IV 10/20/19 21:00 11/19/19 08:59 10/22/19 08:43 Piperacillin Sod/ Tazobactam Sod 3.375 gm/Sodium Chloride 110 ml @ 27.5 mls/hr EVERY 8 HOURS IVPB 10/22/19 22:00 10/27/19 21:59 Sodium Hypochlorite (Dakin's Quarter Strength) 1 applic DAILY TOPIC 10/22/19 09:00 11/21/19 08:59 10/22/19 09:27 Vancomycin HCl (Vanco rx to dose) 1 ea DAILY PRN MISC Per rx protocol 10/22/19 17:00 11/21/19 16:59 Vancomycin HCl 750 mg/Sodium Chloride 275 ml @ 183.333 mls/hr Q24H IVPB 10/23/19 16:00 10/28/19 15:59 Kam Grayson MD Oct 22, 2019 18:17
[2019-10-22] MEDS ORDERED: Albuterol/Ipratropium 3ml neb HHN PRN (18:44)
[2019-10-22] MEDS ORDERED: Morphine Sulfate 10mg/5ml Oral Soln ud ORAL PRN (18:44)
[2019-10-22] MEDS ORDERED: Acetaminophen 650mg/20.3ml GT PRN (19:00)
--- NOTE | 2019-10-22 19:20 | NUR ---
TRANSFER TO FLOOR: Patient transferred to [facility], SDU. Report given to Ean Loera RN. No belongings noted. Medications given to Ean. Pt is alert and understands why she is getting transferred to Step Down.
--- NOTE | 2019-10-22 19:21 | NUR ---
HAND-OFF: Report given to Ean Loera RN.
--- NOTE | 2019-10-22 19:25 | NUR ---
NURSE NOTES: Report received from LIAT Garber. Observed pt lying in the bed, sleeping, calm and comfortable. SR on cardiac monitor technician. On 4L NC, no sob. GT intact, running Glucerna 1.5 at 20cc/hr, goal is 40cc/hr noted. F/C intact, draining well. Multiple wounds noted, picture will be taken and uploaded. (sacral-unstageable, R trochanter-redness, L medial and lateral foot-redness, L heel- redness, R lateral and medial-redness, R heel -redness, R mid back- redness) IV on R FA 20G, asymptomatic, SL. R W 20 G, intact, TKO. Bed in the lowest position. Side rails up x3. Will continue to monitor.
[2019-10-22] MEDS ORDERED: Atropine Inj 1mg/10ml Syr IVP PRN (19:32)
[2019-10-22] MEDS ORDERED: Dyna-Hex 2% Top Sol 2oz TOPIC SCH (20:00)
[2019-10-22] MEDS ORDERED: MORPHINE S10 MG/1 M3 GT (20:33)
[2019-10-22] MEDS: Iron Sucrose 100 MG in NS 55 ML IV SCH (20:39)
[2019-10-22] MEDS ORDERED: Iron Sucrose 100 MG in NS 55 ML IV SCH (21:00)
[2019-10-22] MEDS ORDERED: Piperacillin/Tazobactam 3.375 GM in NS 110 ML IVPB SCH (22:00)
[2019-10-22] MEDS: Piperacillin/Tazobactam 3.375 GM in NS 110 ML IVPB SCH (22:01)
[2019-10-23] VITALS: BP 115/43
[2019-10-23] MEDS: NovoLOG Insulin Flexpen SUBQ SCH ×5 (00:08→23:13)
--- NOTE | 2019-10-23 01:00 | Progress Note ---
DATE: 10/22/2019 CARDIOLOGY PROGRESS NOTE SUBJECTIVE: Condition improved. Off pressors. Transferring to step-down unit. OBJECTIVE: VITAL SIGNS: Blood pressure 137/44, pulse 84, and respirations 20. Monitored rhythm, reviewed by me, now sinus rhythm with first-degree AV block. LUNGS: Coarse breath sounds. Scattered rhonchi. CARDIAC: Regular rhythm and rate. Normal S1, S2. ABDOMEN: Soft. EXTREMITIES: No edema. IMPRESSION: 1. Sepsis with recovering shock. 2. Bradyarrhythmias with junctional rhythm, resolved. 3. 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 4. Iron deficiency anemia. 5. Acute renal failure, recovering with hydration. 6. Diabetes mellitus with hyperglycemia, improved. 7. Wounds with cellulitis and associated sepsis. On wound care and antimicrobials. PLAN: 1. Antimicrobials. 2. Respiratory hygiene. 3. Cardiac monitoring. 4. Volume support. 5. Avoid resumption of pressors. 6. Replace electrolytes as needed. 7. Serial hemoglobin. 8. Await stool occult blood testing. Ronak Carranza M.D. DR: CARLITO JOB#: [id number] CC: HENRIETTA
--- NOTE | 2019-10-23 01:00 | NUR ---
NURSE NOTES: No acute distress noted at this time. SR on logging supervisor. On 4L, no sob noted. VS WNL. Bed bath given. Reposition done q2hr. pt sleeping in the bed. Will continue to monitor.
[2019-10-23 04:00] VITALS: BP 111/51
[2019-10-23] MEDS ORDERED: Amikacin 700 MG in NS 110 ML IV SCH (04:00)
[2019-10-23] MEDS: Gabapentin 300 MG/6 ML Soln GT SCH ×3 (05:35→22:13)
[2019-10-23] MEDS: Piperacillin/Tazobactam 3.375 GM in NS 110 ML IVPB SCH ×3 (05:38→23:56)
[2019-10-23 05:43] LABS: BASOPHILS % (AUTO) 1.4 % (0.0-2.0); HEMATOCRIT 25.6 % (37.0-47.0); HEMOGLOBIN 8.5 G/DL (12.0-16.0); LYMPHOCYTES % (AUTO) 16.7 % (20.0-45.0); MEAN CORPUSCULAR VOLUME 88 FL (80-99); MONOCYTES % (AUTO) 6.3 % (1.0-10.0); NEUTROPHILS % (AUTO) 74.5 % (45.0-75.0); PLATELET COUNT 307 K/UL (150-450); RED BLOOD COUNT 2.92 M/UL (4.20-5.40); RED CELL DISTRIBUTION WIDTH 13.5 % (11.6-14.8); WHITE BLOOD COUNT 10.5 K/UL (4.8-10.8)
[2019-10-23 05:59] LABS: INR 1.1 (0.9-1.1)
[2019-10-23 06:05] LABS: ALANINE AMINOTRANSFERASE 12 U/L (12-78); ALBUMIN 1.7 G/DL (3.4-5.0); ALBUMIN/GLOBULIN RATIO 0.5 (1.0-2.7); ALKALINE PHOSPHATASE 123 U/L (46-116); ANION GAP 3 mmol/L (5-15); ASPARTATE AMINO TRANSFERASE 18 U/L (15-37); BILIRUBIN,TOTAL 0.2 MG/DL (0.2-1.0); BLOOD UREA NITROGEN 25 mg/dL (7-18); CALCIUM 8.3 MG/DL (8.5-10.1); CARBON DIOXIDE 32 MMOL/L (21-32); CHLORIDE 106 MMOL/L (98-107); CREATININE 0.7 MG/DL (0.55-1.30); SODIUM 141 MMOL/L (136-145)
[2019-10-23 06:13] LABS: PHOSPHORUS 1.7 MG/DL (2.5-4.9)
--- NOTE | 2019-10-23 07:15 | NUR ---
NURSE NOTES: RECEIVED BED SIDE REPORT FROM MIRNA CARPET INSTALLER HELPER OF NIGHT SHIFTH. RECEIVED PT WITH HOB ELEVATED 45 DEGREE AWAKE AND ALERT DENIES PAIN OR SOB AT THIS TIME.PT ABLE TO FALLOWS SIMPLE COMMANDS. PT RECEIVING GTF GLUCERNA 1.5 @ 45CC/HRS ,TOLERATING WELL, NO RESIDUAL NOTED AT THIS TIME. FULL BODY ASSESSMENT DONE.PT REPOSITIONED Q2HRS TO PROVIDE COMFORT AND TO PREVENT FURTHER SKIN BREAK DOWN. DR MARK CAME TO SEE THE PT AND MADE AWARE & NOTIFIED REGARDING PT MAGNESIUM LEVEL 1.6. M.D ORDER TO GIVE MAGNESIUM 4G,S IVPB AND POTASSIUM PHOSPHATE 30MMLS. ALL NEW ORDERS NOTED AND CARRIED OUT .WILL CONT TO MONITOR.
--- NOTE | 2019-10-23 07:26 | NUR ---
HAND-OFF: Report given to LIAT Mcgrath. No distress noted at this time.
--- NOTE | 2019-10-23 07:39 | Pulmonology Progress Note ---
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 Patient presented with this on admission. Sepsis unlikely due to wound likely pneumonia wound does need local supportive care. (2) Anemia (3) Proteinuria (4) Toxic metabolic encephalopathy (5) Septic shock Much improved; off pressors IV antibiotics per infectious disease (6) Hyperkalemia (7) UTI (urinary tract infection) (8) ODALYS (acute kidney injury) PLAN Continue pressors as needed; currently off IV abx O2 Pulmonary hygiene Seen in MIKE Back on pain medications Subjective Interval Events: Looking and feeling bettr; more verbal Constitutional: Reports: no symptoms HEENT: Repors: no symptoms Respiratory: Reports: no symptoms Cardiovascular: Reports: no symptoms Gastrointestinal/Abdominal: Reports: no symptoms Allergies: Coded Allergies: No Known Allergies (Unverified , 10/18/19) Objective Last 24 Hour Vital Signs Date Time Temp Pulse Resp B/P (MAP) Pulse Ox O2 Delivery O2 Flow Rate FiO2 10/23/19 04:00 97.7 87 20 111/51 (71) 100 10/23/19 04:00 80 10/23/19 04:00 Nasal Cannula 4.0 Nasal Cannula 4.0 Nasal Cannula 4.0 10/23/19 00:00 86 10/23/19 00:00 Nasal Cannula 4.0 Nasal Cannula 4.0 Nasal Cannula 4.0 10/23/19 00:00 97.9 92 20 115/43 (67) 100 10/22/19 20:00 82 10/22/19 20:00 Nasal Cannula 4.0 Nasal Cannula 4.0 Nasal Cannula 4.0 10/22/19 20:00 98.1 90 17 130/55 (80) 100 10/22/19 19:57 100 Nasal Cannula 3.0 32 10/22/19 19:57 89 19 100 Nasal Cannula 3.0 32 10/22/19 18:00 98.5 85 17 122/39 (66) 100 10/22/19 17:00 84 20 137/44 (75) 100 10/22/19 16:00 92 17 161/55 (90) 100 10/22/19 16:00 Nasal Cannula 4.0 Nasal Cannula 4.0 Nasal Cannula 4.0 10/22/19 15:20 91 10/22/19 15:00 86 17 154/50 (84) 100 10/22/19 14:00 85 17 143/53 (83) 99 10/22/19 13:00 88 16 139/52 (81) 100 10/22/19 12:00 88 10/22/19 12:00 Nasal Cannula 4.0 Nasal Cannula 4.0 Nasal Cannula 4.0 10/22/19 12:00 98.8 91 17 156/53 (87) 99 10/22/19 11:00 99.3 87 19 139/43 (75) 100 10/22/19 11:00 85 15 139/43 (75) 100 10/22/19 10:00 84 18 141/45 (77) 100 10/22/19 09:04 94 21 100 Nasal Cannula 4.0 36 10/22/19 09:04 100 Nasal Cannula 3.0 32 10/22/19 09:00 86 16 144/45 (78) 100 10/22/19 08:00 Nasal Cannula 4.0 Nasal Cannula 4.0 Nasal Cannula 4.0 10/22/19 08:00 85 10/22/19 08:00 100.1 92 18 145/52 (83) 100 Intake and Output 10/22/19 10/23/19 19:00 07:00 Intake Total 545.000 ml 560 ml Output Total 1110 ml 860 ml Balance -565.000 ml -300 ml Free Water 60 ml 90 ml IV Total 375.000 ml 60 ml Tube Feeding 110 ml 410 ml Output Urine Total 1110 ml 860 ml General Appearance: no acute distress HEENT: normocephalic Respiratory/Chest: chest wall non-tender, lungs clear Cardiovascular: normal peripheral pulses Abdomen: normal bowel sounds Microbiology Date/Time Source Procedure Growth Status 10/20/19 21:20 Stool Clostridium difficile Toxin Assay - Final Complete Laboratory Tests 10/22/19 13:30: Vancomycin Level Trough 13.5H 10/23/19 04:00: White Blood Count 10.5, Red Blood Count 2.92L, Hemoglobin 8.5L, Hematocrit 25.6L , Mean Corpuscular Volume 88, Mean Corpuscular Hemoglobin 29.0, Mean Corpuscular Hemoglobin Concent 33.0, Red Cell Distribution Width 13.5, Platelet Count 307, Mean Platelet Volume 5.3L, Neutrophils (%) (Auto) 74.5, Lymphocytes ( %) (Auto) 16.7L, Monocytes (%) (Auto) 6.3, Eosinophils (%) (Auto) 1.0, Basophils (%) (Auto) 1.4, Prothrombin Time 11.3, Prothromb Time International Ratio 1.1, Sodium Level 141, Potassium Level 4.0, Chloride Level 106, Carbon Dioxide Level 32, Anion Gap 3L, Blood Urea Nitrogen 25H, Creatinine 0.7, Estimat Glomerular Filtration Rate > 60, Glucose Level 167H, Calcium Level 8.3L , Phosphorus Level 1.7L, Magnesium Level 1.6L, Total Bilirubin 0.2, Aspartate Amino Transf (AST/SGOT) 18, Alanine Aminotransferase (ALT/SGPT) 12, Alkaline Phosphatase 123H, C-Reactive Protein, Quantitative 7.5H, Pro-B-Type Natriuretic Peptide 5529H, Total Protein 4.9L, Albumin 1.7L, Globulin 3.2, Albumin/Globulin Ratio 0.5L Current Medications Medications (Trade) Dose Ordered Sig/Nitish Route PRN Reason Start Time Stop Time Status Last Admin Dose Admin Acetaminophen (Tylenol) 650 mg Q4H PRN GT Mild Pain (Pain Scale 1-3) 10/22/19 19:00 11/21/19 18:42 Albuterol/ Ipratropium (Albuterol/ Ipratropium) 3 ml Q4H PRN HHN Shortness of Breath 10/22/19 18:44 10/27/19 18:43 Atropine Sulfate (Atropine) 0.5 mg Q5M PRN IVP BRADYCARDIA 10/22/19 19:32 11/21/19 19:31 Dextrose (Dextrose 50%) 25 ml Q30M PRN IV Hypoglycemia 10/22/19 19:00 11/18/19 10:29 Dextrose (Dextrose 50%) 50 ml Q30M PRN IV Hypoglycemia 10/22/19 19:00 11/18/19 10:29 Gabapentin (Neurontin) 100 mg Q8HR GT 10/22/19 22:00 11/19/19 17:59 10/23/19 05:35 Heparin Sodium (Porcine) (Heparin 5000 units/ml) 5,000 units EVERY 12 HOURS SUBQ 10/22/19 21:00 11/18/19 10:59 2/18/20 20:41 Insulin Aspart (NovoLOG) Q6HR SUBQ 10/23/19 00:00 11/18/19 11:59 10/23/19 05:38 Iron Sucrose 100 mg/Sodium Chloride 60 ml @ 240 mls/hr BEDTIME IV 10/22/19 21:00 10/26/19 21:14 10/22/19 20:39 Morphine Sulfate (Morphine 10mg/ 5ml Oral Soln) 5 mg Q6H PRN GT For Pain 10/22/19 19:00 10/29/19 18:43 Pantoprazole (Protonix) 40 mg Q12HR IV 10/22/19 21:00 11/19/19 08:59 10/22/19 20:40 Piperacillin Sod/ Tazobactam Sod 3.375 gm/Sodium Chloride 110 ml @ 27.5 mls/hr EVERY 8 HOURS IVPB 10/22/19 22:00 10/27/19 21:59 10/23/19 05:38 Sodium Hypochlorite (Dakin's Quarter Strength) 1 applic DAILY TOPIC 10/23/19 09:00 11/21/19 08:59 Vancomycin HCl (Vanco rx to dose) 1 ea DAILY PRN MISC Per rx protocol 10/23/19 09:00 11/21/19 16:59 Vancomycin HCl 750 mg/Sodium Chloride 275 ml @ 183.333 mls/hr Q24H IVPB 10/23/19 16:00 10/28/19 15:59 Kam Grayson MD Oct 23, 2019 07:39
[2019-10-23 07:45] VITALS: BP 121/54
[2019-10-23] MEDS ORDERED: Dakin's 0.125% Soln (Quarter Strength) 16oz TOPIC SCH (09:00)
--- NOTE | 2019-10-23 09:02 | NUR ---
RADIOLOGY DEPT., CHEST X-RAY DONE.-P.DYE
[2019-10-23] MEDS: Heparin 5000 units/ml inj SUBQ SCH ×2 (09:22→21:23)
[2019-10-23] MEDS: Pantoprazole Inj IV SCH ×2 (09:23→21:23)
[2019-10-23] MEDS: Potassium Phosphate 15mm/250ml 250 ML IVPB SCH ×2 (09:23→15:57)
--- NOTE | 2019-10-23 09:36 | Diagnostic Imaging Report ---
Indication: Cough Technique: One view of the chest Comparison: 10/22/2019 Findings: Apparent elevation of the right hemidiaphragm and obscuration of the right heart border suggests right lower lobe atelectasis, unchanged. There is increasing interstitial edema. There is interim development of left-sided pleural effusion Impression: Suspect right lower lobe atelectasis, also previously demonstrated Increasing interstitial edema Suspect developing left pleural effusion
--- NOTE | 2019-10-23 10:53 | General Progress Note ---
Assessment/Plan Problem List: (1) UTI (urinary tract infection) ICD Codes: N39.0 - Urinary tract infection, site not specified SNOMED: 12940435 Qualifiers: Qualified Codes: N30.00 - Acute cystitis without hematuria (2) Septic shock ICD Codes: A41.9 - Sepsis, unspecified organism; R65.21 - Severe sepsis with septic shock SNOMED: 43229946 (3) Anemia ICD Codes: D64.9 - Anemia, unspecified SNOMED: 787092292 Qualifiers: Qualified Codes: D64.9 - Anemia, unspecified (4) Iron (Fe) deficiency anemia ICD Codes: D50.9 - Iron deficiency anemia, unspecified SNOMED: 11228765 (5) Dysphagia ICD Codes: R13.10 - Dysphagia, unspecified SNOMED: 81234879, 804233948 (6) Gt dependent (7) DM Assessment/Plan: GT has been changed at the bedside GTF GT care monitor for residuals iv iron ppi fu stool ob abx per ID GI procedures when more stable Subjective ROS Limited/Unobtainable: No Allergies: Coded Allergies: No Known Allergies (Unverified , 10/18/19) Objective Last 24 Hour Vital Signs Date Time Temp Pulse Resp B/P (MAP) Pulse Ox O2 Delivery O2 Flow Rate FiO2 10/23/19 08:00 Nasal Cannula 4.0 Nasal Cannula 4.0 Nasal Cannula 4.0 10/23/19 08:00 77 10/23/19 07:45 99.2 85 20 121/54 (76) 100 10/23/19 04:00 97.7 87 20 111/51 (71) 100 10/23/19 04:00 80 10/23/19 04:00 Nasal Cannula 4.0 Nasal Cannula 4.0 Nasal Cannula 4.0 10/23/19 00:00 86 10/23/19 00:00 Nasal Cannula 4.0 Nasal Cannula 4.0 Nasal Cannula 4.0 10/23/19 00:00 97.9 92 20 115/43 (67) 100 10/22/19 20:00 82 10/22/19 20:00 Nasal Cannula 4.0 Nasal Cannula 4.0 Nasal Cannula 4.0 10/22/19 20:00 98.1 90 17 130/55 (80) 100 10/22/19 19:57 100 Nasal Cannula 3.0 32 10/22/19 19:57 89 19 100 Nasal Cannula 3.0 32 10/22/19 18:00 98.5 85 17 122/39 (66) 100 10/22/19 17:00 84 20 137/44 (75) 100 10/22/19 16:00 92 17 161/55 (90) 100 10/22/19 16:00 Nasal Cannula 4.0 Nasal Cannula 4.0 Nasal Cannula 4.0 10/22/19 15:20 91 10/22/19 15:00 86 17 154/50 (84) 100 10/22/19 14:00 85 17 143/53 (83) 99 10/22/19 13:00 88 16 139/52 (81) 100 10/22/19 12:00 88 10/22/19 12:00 Nasal Cannula 4.0 Nasal Cannula 4.0 Nasal Cannula 4.0 10/22/19 12:00 98.8 91 17 156/53 (87) 99 10/22/19 11:00 99.3 87 19 139/43 (75) 100 10/22/19 11:00 85 15 139/43 (75) 100 Intake and Output 10/22/19 10/23/19 19:00 07:00 Intake Total 545.000 ml 560 ml Output Total 1110 ml 860 ml Balance -565.000 ml -300 ml Free Water 60 ml 90 ml IV Total 375.000 ml 60 ml Tube Feeding 110 ml 410 ml Output Urine Total 1110 ml 860 ml Laboratory Tests 10/22/19 13:30: Vancomycin Level Trough 13.5H 10/23/19 04:00: White Blood Count 10.5, Red Blood Count 2.92L, Hemoglobin 8.5L, Hematocrit 25.6L , Mean Corpuscular Volume 88, Mean Corpuscular Hemoglobin 29.0, Mean Corpuscular Hemoglobin Concent 33.0, Red Cell Distribution Width 13.5, Platelet Count 307, Mean Platelet Volume 5.3L, Neutrophils (%) (Auto) 74.5, Lymphocytes ( %) (Auto) 16.7L, Monocytes (%) (Auto) 6.3, Eosinophils (%) (Auto) 1.0, Basophils (%) (Auto) 1.4, Prothrombin Time 11.3, Prothromb Time International Ratio 1.1, Sodium Level 141, Potassium Level 4.0, Chloride Level 106, Carbon Dioxide Level 32, Anion Gap 3L, Blood Urea Nitrogen 25H, Creatinine 0.7, Estimat Glomerular Filtration Rate > 60, Glucose Level 167H, Calcium Level 8.3L , Phosphorus Level 1.7L, Magnesium Level 1.6L, Total Bilirubin 0.2, Aspartate Amino Transf (AST/SGOT) 18, Alanine Aminotransferase (ALT/SGPT) 12, Alkaline Phosphatase 123H, C-Reactive Protein, Quantitative 7.5H, Pro-B-Type Natriuretic Peptide 5529H, Total Protein 4.9L, Albumin 1.7L, Globulin 3.2, Albumin/Globulin Ratio 0.5L Height (Feet): 5 Height (Inches): 4.00 Weight (Pounds): 136 General Appearance: lethargic EENT: normal ENT inspection Neck: supple Cardiovascular: normal rate Respiratory/Chest: decreased breath sounds Abdomen: normal bowel sounds, non tender, soft Extremities: non-tender Ming Marquez MD Oct 23, 2019 10:53
[2019-10-23] MEDS ORDERED: Sodium Phosphate 15 MM in NS 275 ML IVPB ONE (11:00)
[2019-10-23 12:00] VITALS: BP 128/57
--- NOTE | 2019-10-23 13:44 | NUR ---
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 CURRENT TF:Glucerna 1.5 @ 45ml/hr x 24 hrs ENTERAL NUTRITION RECOMMENDATIONS: Glucerna 1.5 @ 45ml/hr x 24 hrs to provide 1080ml, 1620 kcal, 89g pro, 820ml free H20 - Maintain current TF - Flush per , HOB over 30 degrees ADDITIONAL RECOMMENDATIONS: 1) Monitor lytes closely: K elev upon adm, now wnl 2) Wound care: Continue ALFREDO BID + Vit C 250mg BID add ZnSO4 220mg daily x10 days 3) Maintain calibrated bed scale wts .
--- NOTE | 2019-10-23 13:45 | NUR ---
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 97.7 HR 85 RR 20 B/P 121/54 BUN MG 1.6BNP 5526 CXR= SUSPECT LEFT PLEURAL EFFUSION IS: VANCO IV NAPHOS IV MAGNESIUM IV ZOSYN IV PROTONIX IV STEP DOWN STATUS
--- NOTE | 2019-10-23 13:49 | NUR ---
TOLL GATE KEEPER NOTES PLACED A CALL TO ANUJ DERAS FROM [employer] [facility] [employer], NO ANSWER. MESSAGE LEFT.
--- NOTE | 2019-10-23 14:05 | NUR ---
*-* INSURANCE *-* ALL AVAILABLE CLINICALS AND REVIEWS HAVE BEEN FAXED TO: OTTO Vasquez AUTH TRACKING#: [id number] CM: ANUJ TEL: [phone] FAX CLINICALS: [phone]
--- NOTE | 2019-10-23 14:22 | Nephrology Progress Note ---
Assessment/Plan Problem List: (1) Hyperkalemia (2) ODALYS (acute kidney injury) (3) UTI (urinary tract infection) (4) Anemia Assessment HyperKalemia resolved HypoNatremia resolved Renal failure resolving Sepsis UTI DM Anemia HypoAlbuminemia Plan K and Phos and Mag supplement as needed GT feeding antibiotics Avoid nephrotoxics: monitor renal parameters Anemia jimenez per order Subjective ROS Limited/Unobtainable: No Constitutional: Reports: malaise, weakness Objective Objective Last 24 Hour Vital Signs Date Time Temp Pulse Resp B/P (MAP) Pulse Ox O2 Delivery O2 Flow Rate FiO2 10/23/19 12:00 Nasal Cannula 4.0 10/23/19 12:00 99.3 87 20 128/57 (80) 100 10/23/19 11:37 83 10/23/19 08:00 Nasal Cannula 4.0 Nasal Cannula 4.0 Nasal Cannula 4.0 10/23/19 08:00 77 10/23/19 07:45 99.2 85 20 121/54 (76) 100 10/23/19 04:00 97.7 87 20 111/51 (71) 100 10/23/19 04:00 80 10/23/19 04:00 Nasal Cannula 4.0 Nasal Cannula 4.0 Nasal Cannula 4.0 10/23/19 00:00 86 10/23/19 00:00 Nasal Cannula 4.0 Nasal Cannula 4.0 Nasal Cannula 4.0 10/23/19 00:00 97.9 92 20 115/43 (67) 100 10/22/19 20:00 82 10/22/19 20:00 Nasal Cannula 4.0 Nasal Cannula 4.0 Nasal Cannula 4.0 10/22/19 20:00 98.1 90 17 130/55 (80) 100 10/22/19 19:57 100 Nasal Cannula 3.0 32 10/22/19 19:57 89 19 100 Nasal Cannula 3.0 32 10/22/19 18:00 98.5 85 17 122/39 (66) 100 10/22/19 17:00 84 20 137/44 (75) 100 10/22/19 16:00 92 17 161/55 (90) 100 10/22/19 16:00 Nasal Cannula 4.0 Nasal Cannula 4.0 Nasal Cannula 4.0 10/22/19 15:20 91 10/22/19 15:00 86 17 154/50 (84) 100 Intake and Output 10/22/19 10/23/19 19:00 07:00 Intake Total 545.000 ml 560 ml Output Total 1110 ml 860 ml Balance -565.000 ml -300 ml Free Water 60 ml 90 ml IV Total 375.000 ml 60 ml Tube Feeding 110 ml 410 ml Output Urine Total 1110 ml 860 ml Current Medications Medications (Trade) Dose Ordered Sig/Nitish Route PRN Reason Start Time Stop Time Status Last Admin Dose Admin Acetaminophen (Tylenol) 650 mg Q4H PRN GT Mild Pain (Pain Scale 1-3) 10/22/19 19:00 11/21/19 18:42 Albuterol/ Ipratropium (Albuterol/ Ipratropium) 3 ml Q4H PRN HHN Shortness of Breath 10/22/19 18:44 10/27/19 18:43 Atropine Sulfate (Atropine) 0.5 mg Q5M PRN IVP BRADYCARDIA 10/22/19 19:32 11/21/19 19:31 Dextrose (Dextrose 50%) 25 ml Q30M PRN IV Hypoglycemia 10/22/19 19:00 11/18/19 10:29 Dextrose (Dextrose 50%) 50 ml Q30M PRN IV Hypoglycemia 10/22/19 19:00 11/18/19 10:29 Gabapentin (Neurontin) 100 mg Q8HR GT 10/22/19 22:00 11/19/19 17:59 10/23/19 05:35 Heparin Sodium (Porcine) (Heparin 5000 units/ml) 5,000 units EVERY 12 HOURS SUBQ 10/22/19 21:00 11/18/19 10:59 10/23/19 09:22 Insulin Aspart (NovoLOG) Q6HR SUBQ 10/23/19 00:00 11/18/19 11:59 10/23/19 12:42 Iron Sucrose 100 mg/Sodium Chloride 60 ml @ 240 mls/hr BEDTIME IV 10/22/19 21:00 10/26/19 21:14 10/22/19 20:39 Morphine Sulfate (Morphine 10mg/ 5ml Oral Soln) 5 mg Q6H PRN GT For Pain 10/22/19 19:00 10/29/19 18:43 Pantoprazole (Protonix) 40 mg Q12HR IV 10/22/19 21:00 11/19/19 08:59 10/23/19 09:23 Piperacillin Sod/ Tazobactam Sod 3.375 gm/Sodium Chloride 110 ml @ 27.5 mls/hr EVERY 8 HOURS IVPB 10/22/19 22:00 10/27/19 21:59 10/23/19 05:38 Potassium Phosphate 250 ml @ 83.333 mls/ hr Q3H IVPB 10/23/19 09:00 10/23/19 14:59 10/23/19 09:23 Sodium Hypochlorite (Dakin's Quarter Strength) 1 applic BEDTIME TOPIC 10/23/19 21:00 11/21/19 08:59 Vancomycin HCl (Vanco rx to dose) 1 ea DAILY PRN MISC Per rx protocol 10/23/19 09:00 11/21/19 16:59 Vancomycin HCl 750 mg/Sodium Chloride 275 ml @ 183.333 mls/hr Q24H IVPB 10/23/19 16:00 10/28/19 15:59 Laboratory Tests 10/23/19 04:00: White Blood Count 10.5, Red Blood Count 2.92L, Hemoglobin 8.5L, Hematocrit 25.6L , Mean Corpuscular Volume 88, Mean Corpuscular Hemoglobin 29.0, Mean Corpuscular Hemoglobin Concent 33.0, Red Cell Distribution Width 13.5, Platelet Count 307, Mean Platelet Volume 5.3L, Neutrophils (%) (Auto) 74.5, Lymphocytes ( %) (Auto) 16.7L, Monocytes (%) (Auto) 6.3, Eosinophils (%) (Auto) 1.0, Basophils (%) (Auto) 1.4, Prothrombin Time 11.3, Prothromb Time International Ratio 1.1, Sodium Level 141, Potassium Level 4.0, Chloride Level 106, Carbon Dioxide Level 32, Anion Gap 3L, Blood Urea Nitrogen 25H, Creatinine 0.7, Estimat Glomerular Filtration Rate > 60, Glucose Level 167H, Calcium Level 8.3L , Phosphorus Level 1.7L, Magnesium Level 1.6L, Total Bilirubin 0.2, Aspartate Amino Transf (AST/SGOT) 18, Alanine Aminotransferase (ALT/SGPT) 12, Alkaline Phosphatase 123H, C-Reactive Protein, Quantitative 7.5H, Pro-B-Type Natriuretic Peptide 5529H, Total Protein 4.9L, Albumin 1.7L, Globulin 3.2, Albumin/Globulin Ratio 0.5L Height (Feet): 5 Height (Inches): 4.00 Weight (Pounds): 136 General Appearance: no apparent distress Cardiovascular: normal rate Respiratory/Chest: decreased breath sounds Abdomen: soft Ayo Pryor MD Oct 23, 2019 14:22
[2019-10-23 16:00] VITALS: BP 130/61
[2019-10-23] MEDS ORDERED: Vancomycin 750mg/NS 275ml IVPB SCH ×2 (16:00)
[2019-10-23] MEDS ORDERED: Vancomycin 750 MG in NS 275 ML IVPB SCH ×2 (16:00→20:30)
--- NOTE | 2019-10-23 19:10 | NUR ---
NURSE NOTES: pt report received from [facility] JOSUE SDU. pt remains stable. pt is alert and oriented times 3. pt is on panel monitor showing NSR, no acute signs symptoms of acute cardiac distress noted. pt is on 4 L NC able to sat at 98%, no acute signs symptoms of resp distress. pt bed is low, locked, armed, bed rails times 3, call light within reach. will follow plan of care.
--- NOTE | 2019-10-23 19:25 | NUR ---
HAND-OFF: Report given to .MENG JOSUE.
[2019-10-23 20:00] VITALS: BP 153/72
[2019-10-23] MEDS: Iron Sucrose 100 MG in NS 55 ML IV SCH (21:18)
[2019-10-23] MEDS: Dakin's 0.125% Soln (Quarter Strength) 16oz TOPIC SCH (21:19)
--- NOTE | 2019-10-23 22:55 | NUR ---
NURSE NOTES: Called [facility]. spoke to radha from [facility]. stated pt has only one IV access and is a hard stick. additionally, pt is on vanco IV running as of now. asked if pts zosyn IV can be rescheduled for later, after vanco IV is done. radha stated she will relay to pharmacist [facility].
[2019-10-24] VITALS: BP 150/63
--- NOTE | 2019-10-24 02:30 | Progress Note ---
DATE: 10/23/2019 CARDIOLOGY PROGRESS NOTE SUBJECTIVE: This patient remains off pressors. Monitored rhythm, sinus. No pauses or bradyarrhythmias. OBJECTIVE: VITAL SIGNS: Blood pressure 111/51, pulse 87, respirations 20. LUNGS: Bilateral breath sounds. CARDIAC: Regular rhythm and rate. Normal S1, S2. ABDOMEN: Soft. EXTREMITIES: Trace edema. IMPRESSION: 1. Sepsis with shock, recovering. 2. Toxic and metabolic encephalopathies, improving. 3. Anemia. 4. Hyperkalemia, corrected. 5. Urinary tract infection. 6. Hypovolemia. 7. Dehydration. 8. Acute kidney injury, improved. PLAN: 1. Replace electrolytes. 2. Continue antimicrobials. 3. Respiratory hygiene. 4. Volume support. 5. Avoid pressors. 6. Transfer to a lower level of care. Ronak Carranza M.D. DR: BELKIS JOB#: [id number] CC:
[2019-10-24 04:00] VITALS: BP 141/61
[2019-10-24 04:45] LABS: BASOPHILS % (AUTO) 0.5 % (0.0-2.0); EOSINOPHILS % (AUTO) 1.8 % (0.0-3.0); HEMATOCRIT 26.4 % (37.0-47.0); HEMOGLOBIN 8.8 G/DL (12.0-16.0); LYMPHOCYTES % (AUTO) 18.2 % (20.0-45.0); MEAN CORPUSCULAR VOLUME 88 FL (80-99); MONOCYTES % (AUTO) 5.6 % (1.0-10.0); NEUTROPHILS % (AUTO) 73.9 % (45.0-75.0); PLATELET COUNT 311 K/UL (150-450); RED BLOOD COUNT 3.01 M/UL (4.20-5.40); RED CELL DISTRIBUTION WIDTH 13.4 % (11.6-14.8); WHITE BLOOD COUNT 11.7 K/UL (4.8-10.8)
[2019-10-24 04:55] LABS: ANION GAP 6 mmol/L (5-15); BLOOD UREA NITROGEN 31 mg/dL (7-18); CALCIUM 8.1 MG/DL (8.5-10.1); CARBON DIOXIDE 31 MMOL/L (21-32); CHLORIDE 106 MMOL/L (98-107); CREATININE 0.6 MG/DL (0.55-1.30); POTASSIUM 4.6 MMOL/L (3.5-5.1); SODIUM 142 MMOL/L (136-145)
[2019-10-24 05:21] LABS: PHOSPHORUS 2.8 MG/DL (2.5-4.9)
[2019-10-24] MEDS: Gabapentin 300 MG/6 ML Soln GT SCH ×3 (06:04→21:35)
[2019-10-24] MEDS: NovoLOG Insulin Flexpen SUBQ SCH ×4 (06:06→23:37)
--- NOTE | 2019-10-24 07:18 | NUR ---
NURSE NOTES: RECEIVED BED SIDE REPORT FROM MENG LODGING FACILITIES MANAGER OF [employer]. RECEIVED PT WITH HOB ELEVATED 45 DEGREE EYES OPENS WITH VERBAL AND TACTILE STIMULI.PT ALERT TO NAME BUT CONFUSED AT UL/MINTS VIA N/C TIMES.PT USING O2 @ 4L/MINTS VIA N/C,O2 SAT 99%,RENDERED ORAL HYGIENE AND SX,D MOD AMT OF WHITE TICK SECRETIONS.PT RECEIVING GLUCERNA 1.5 2 45cc/hrs, TOLERATING WELL ,NO RESIDUAL NOTED AT THIS TIME.FULL BODY ASSESSMENT DONE .PT REPOSITIONED Q2HRS TO PROVIDE COMFORT AND TO PREVENT FURTHER SKIN BREAK DOWN. NO ACUTE DISTRESS NOTED AT THIS TIME. WILL CONT TO MONITOR.
--- NOTE | 2019-10-24 07:24 | NUR ---
HAND-OFF: Report given to RUBIA JOSUE. Pt remains stable.
[2019-10-24] MEDS: Piperacillin/Tazobactam 3.375 GM in NS 110 ML IVPB SCH (07:51)
[2019-10-24 08:08] VITALS: BP 126/57
[2019-10-24] MEDS: Pantoprazole Inj IV SCH ×2 (08:51→20:08)
[2019-10-24] MEDS: Heparin 5000 units/ml inj SUBQ SCH ×2 (08:53→20:03)
--- NOTE | 2019-10-24 09:04 | Nephrology Progress Note ---
Assessment/Plan Problem List: (1) Hyperkalemia (2) ODALYS (acute kidney injury) (3) UTI (urinary tract infection) (4) Anemia Assessment HyperKalemia resolved HypoNatremia resolved Renal failure resolving Sepsis UTI DM Anemia HypoAlbuminemia Plan K and Phos and Mag supplement as needed GT feeding antibiotics Avoid nephrotoxics: monitor renal parameters Anemia jimenez per order Subjective ROS Limited/Unobtainable: No Constitutional: Reports: malaise Objective Objective Last 24 Hour Vital Signs Date Time Temp Pulse Resp B/P (MAP) Pulse Ox O2 Delivery O2 Flow Rate FiO2 10/24/19 07:27 98 Nasal Cannula 3.0 32 10/24/19 07:27 86 18 97 Nasal Cannula 3.0 32 10/24/19 04:00 98.2 86 21 141/61 (87) 99 10/24/19 04:00 87 10/24/19 04:00 Nasal Cannula 4.0 10/24/19 00:00 90 10/24/19 00:00 97.4 84 20 150/63 (92) 99 10/24/19 00:00 Nasal Cannula 4.0 10/23/19 20:00 Nasal Cannula 4.0 10/23/19 20:00 95 10/23/19 20:00 99.0 88 21 153/72 (99) 99 10/23/19 19:04 87 19 100 Nasal Cannula 3.0 32 10/23/19 19:04 100 Nasal Cannula 3.0 32 10/23/19 16:00 Nasal Cannula 4.0 10/23/19 16:00 99.8 85 21 130/61 (84) 100 10/23/19 15:31 90 10/23/19 12:00 Nasal Cannula 4.0 10/23/19 12:00 99.3 87 20 128/57 (80) 100 10/23/19 11:37 83 Intake and Output 10/23/19 10/24/19 19:00 07:00 Intake Total 822.5 ml 1270.000 ml Output Total 1001 ml Balance -178.5 ml 1270.000 ml Free Water 200 ml 150 ml IV Total 82.5 ml 625.000 ml Tube Feeding 540 ml 495 ml Output Urine Total 1000 ml Stool Total 1 ml Laboratory Tests 10/24/19 04:10: White Blood Count 11.7H, Red Blood Count 3.01L, Hemoglobin 8.8L, Hematocrit 26.4L, Mean Corpuscular Volume 88, Mean Corpuscular Hemoglobin 29.3, Mean Corpuscular Hemoglobin Concent 33.4, Red Cell Distribution Width 13.4, Platelet Count 311, Mean Platelet Volume 5.4L, Neutrophils (%) (Auto) 73.9, Lymphocytes ( %) (Auto) 18.2L, Monocytes (%) (Auto) 5.6, Eosinophils (%) (Auto) 1.8, Basophils (%) (Auto) 0.5, Sodium Level 142, Potassium Level 4.6, Chloride Level 106, Carbon Dioxide Level 31, Anion Gap 6, Blood Urea Nitrogen 31H, Creatinine 0.6, Estimat Glomerular Filtration Rate > 60, Glucose Level 194H, Calcium Level 8.1L, Phosphorus Level 2.8, Magnesium Level 2.2 Height (Feet): 5 Height (Inches): 4.00 Weight (Pounds): 131 General Appearance: no apparent distress Cardiovascular: normal rate Respiratory/Chest: decreased breath sounds Abdomen: soft Objective no change Ayo Pryor MD Oct 24, 2019 09:04
[2019-10-24 12:00] VITALS: BP 129/55
--- NOTE | 2019-10-24 12:10 | General Progress Note ---
Assessment/Plan Problem List: (1) UTI (urinary tract infection) ICD Codes: N39.0 - Urinary tract infection, site not specified SNOMED: 84882309 Qualifiers: Qualified Codes: N30.00 - Acute cystitis without hematuria (2) Septic shock ICD Codes: A41.9 - Sepsis, unspecified organism; R65.21 - Severe sepsis with septic shock SNOMED: 77137422 (3) Anemia ICD Codes: D64.9 - Anemia, unspecified SNOMED: 301431105 Qualifiers: Qualified Codes: D64.9 - Anemia, unspecified (4) Iron (Fe) deficiency anemia ICD Codes: D50.9 - Iron deficiency anemia, unspecified SNOMED: 88913794 (5) Dysphagia ICD Codes: R13.10 - Dysphagia, unspecified SNOMED: 63417028, 179137095 (6) Gt dependent (7) DM Assessment/Plan: GT has been changed at the bedside GTF GT care monitor for residuals iv iron ppi fu stool ob abx per ID GI procedures when more stable Subjective ROS Limited/Unobtainable: No Allergies: Coded Allergies: No Known Allergies (Unverified , 10/18/19) Objective Last 24 Hour Vital Signs Date Time Temp Pulse Resp B/P (MAP) Pulse Ox O2 Delivery O2 Flow Rate FiO2 10/24/19 12:00 Nasal Cannula 4.0 10/24/19 08:08 97.9 85 22 126/57 (80) 100 10/24/19 08:00 75 10/24/19 08:00 Nasal Cannula 4.0 10/24/19 07:27 98 Nasal Cannula 3.0 32 10/24/19 07:27 86 18 97 Nasal Cannula 3.0 32 10/24/19 04:00 98.2 86 21 141/61 (87) 99 10/24/19 04:00 87 10/24/19 04:00 Nasal Cannula 4.0 10/24/19 00:00 90 10/24/19 00:00 97.4 84 20 150/63 (92) 99 10/24/19 00:00 Nasal Cannula 4.0 10/23/19 20:00 Nasal Cannula 4.0 10/23/19 20:00 95 10/23/19 20:00 99.0 88 21 153/72 (99) 99 10/23/19 19:04 87 19 100 Nasal Cannula 3.0 32 10/23/19 19:04 100 Nasal Cannula 3.0 32 10/23/19 16:00 Nasal Cannula 4.0 10/23/19 16:00 99.8 85 21 130/61 (84) 100 10/23/19 15:31 90 Intake and Output 10/23/19 10/24/19 19:00 07:00 Intake Total 822.5 ml 1315.000 ml Output Total 1001 ml Balance -178.5 ml 1315.000 ml Free Water 200 ml 150 ml IV Total 82.5 ml 625.000 ml Tube Feeding 540 ml 540 ml Output Urine Total 1000 ml Stool Total 1 ml Laboratory Tests 10/24/19 04:10: White Blood Count 11.7H, Red Blood Count 3.01L, Hemoglobin 8.8L, Hematocrit 26.4L, Mean Corpuscular Volume 88, Mean Corpuscular Hemoglobin 29.3, Mean Corpuscular Hemoglobin Concent 33.4, Red Cell Distribution Width 13.4, Platelet Count 311, Mean Platelet Volume 5.4L, Neutrophils (%) (Auto) 73.9, Lymphocytes ( %) (Auto) 18.2L, Monocytes (%) (Auto) 5.6, Eosinophils (%) (Auto) 1.8, Basophils (%) (Auto) 0.5, Sodium Level 142, Potassium Level 4.6, Chloride Level 106, Carbon Dioxide Level 31, Anion Gap 6, Blood Urea Nitrogen 31H, Creatinine 0.6, Estimat Glomerular Filtration Rate > 60, Glucose Level 194H, Calcium Level 8.1L, Phosphorus Level 2.8, Magnesium Level 2.2 Height (Feet): 5 Height (Inches): 4.00 Weight (Pounds): 131 General Appearance: lethargic EENT: normal ENT inspection Neck: normal alignment Cardiovascular: regular rhythm Respiratory/Chest: decreased breath sounds Abdomen: normal bowel sounds, non tender, soft Extremities: non-tender Ming Marquez MD Oct 24, 2019 12:10
--- NOTE | 2019-10-24 12:57 | Surgery Progress Note ---
Surgery Progress Note Subjective Symptoms: improved, tolerating diet, passing flatus, BM Objective Last 24 Hour Vital Signs Date Time Temp Pulse Resp B/P (MAP) Pulse Ox O2 Delivery O2 Flow Rate FiO2 10/24/19 12:00 Nasal Cannula 4.0 10/24/19 12:00 99.0 81 18 129/55 (79) 100 10/24/19 08:08 97.9 85 22 126/57 (80) 100 10/24/19 08:00 75 10/24/19 08:00 Nasal Cannula 4.0 10/24/19 07:27 98 Nasal Cannula 3.0 32 10/24/19 07:27 86 18 97 Nasal Cannula 3.0 32 10/24/19 04:00 98.2 86 21 141/61 (87) 99 10/24/19 04:00 87 10/24/19 04:00 Nasal Cannula 4.0 10/24/19 00:00 90 10/24/19 00:00 97.4 84 20 150/63 (92) 99 10/24/19 00:00 Nasal Cannula 4.0 10/23/19 20:00 Nasal Cannula 4.0 10/23/19 20:00 95 10/23/19 20:00 99.0 88 21 153/72 (99) 99 10/23/19 19:04 87 19 100 Nasal Cannula 3.0 32 10/23/19 19:04 100 Nasal Cannula 3.0 32 10/23/19 16:00 Nasal Cannula 4.0 10/23/19 16:00 99.8 85 21 130/61 (84) 100 10/23/19 15:31 90 I&O Intake and Output 10/23/19 10/24/19 19:00 07:00 Intake Total 822.5 ml 1315.000 ml Output Total 1001 ml Balance -178.5 ml 1315.000 ml Free Water 200 ml 150 ml IV Total 82.5 ml 625.000 ml Tube Feeding 540 ml 540 ml Output Urine Total 1000 ml Stool Total 1 ml Dressing: saturated Wound: other Drains: other Cardiovascular: RSR Respiratory: decreased breath sounds Abdomen: soft, present bowel sounds Extremities: no cyanosis Laboratory Tests Test 10/24/19 04:10 White Blood Count 11.7 K/UL (4.8-10.8) H Red Blood Count 3.01 M/UL (4.20-5.40) L Hemoglobin 8.8 G/DL (12.0-16.0) L Hematocrit 26.4 % (37.0-47.0) L Mean Corpuscular Volume 88 FL (80-99) Mean Corpuscular Hemoglobin 29.3 PG (27.0-31.0) Mean Corpuscular Hemoglobin Concent 33.4 G/DL (32.0-36.0) Red Cell Distribution Width 13.4 % (11.6-14.8) Platelet Count 311 K/UL (150-450) Mean Platelet Volume 5.4 FL (6.5-10.1) L Neutrophils (%) (Auto) 73.9 % (45.0-75.0) Lymphocytes (%) (Auto) 18.2 % (20.0-45.0) L Monocytes (%) (Auto) 5.6 % (1.0-10.0) Eosinophils (%) (Auto) 1.8 % (0.0-3.0) Basophils (%) (Auto) 0.5 % (0.0-2.0) Sodium Level 142 MMOL/L (136-145) Potassium Level 4.6 MMOL/L (3.5-5.1) Chloride Level 106 MMOL/L (98-107) Carbon Dioxide Level 31 MMOL/L (21-32) Anion Gap 6 mmol/L (5-15) Blood Urea Nitrogen 31 mg/dL (7-18) H Creatinine 0.6 MG/DL (0.55-1.30) Estimat Glomerular Filtration Rate > 60 mL/min (>60) Glucose Level 194 MG/DL (74-106) H Calcium Level 8.1 MG/DL (8.5-10.1) L Phosphorus Level 2.8 MG/DL (2.5-4.9) Magnesium Level 2.2 MG/DL (1.8-2.4) Plan Problems: (1) Decubitus ulcer of sacral region, stage 4 Assessment & Plan: Pt presented on admission with multiple pressure injuries and contractures. Partial thickness pressure injury secondary to open serous blister noted to R thoracic(L)2cm x(W)9cm. Base of wound is moist and pink. Edges moist but adherent to base of wound. Periwound without erythema or evidence of further skin breakdown. Full stage 4 thickness Unstageable Pressure Injury Sacrum(L)9cm x (W)15cm. Base of wound has 80% semi-detached necrotic cap with surrounding mixed erythema and slough. Edges adherent to base of wound. Wound is malodorous Scattered areas of non-blanching erythema and areas of hyperpigmentation noted periwound. DTPI noted to L trochanter(L)2cm x (W01cm. Base of wound is maroon and indurated. Periwound without erythema or fluctuance.An area of non-blanching erythema without induration noted to L hip.(L)3cm x (W)3.5cm. Non-blanching erythema without fluctuance or induration noted to L hallux(L) 1.5cm x (W)2.5cm.No evidence of skin breakdown periwound. L heel boggy with non-blanching erythema.Tender when minimally palpated. Areas of non-blanching erythema noted to medial and distal lateral aspects of L foot. Non-blanching erythema with dry peeling skin noted to R achilles(L)1cm x (W)1cm. R heel is boggy with an area of non-blanching erythema medially (L)3cm x (W) 2cm. Areas of non-blanching erythema noted to medial and distal aspects of R foot. Tx.Plan: Cleanse sacral wound with Dakin's yessenia 0.125%. Apply Dakin's moistened 4x4 gauze to wound. Apply Triad Paste periwound. Cover with Optifoam drsg Daily and prn. Cleanse wound R thoracic. Cover with Optifoam drsg. Change every 3 days and prn. Apply Cavilon Skin Barrier to areas of erythema R and L feet. Cover each area with Optifoam drsg. Change every 7 days and prn. APM/AUGUSTINE Mattress overlay. Reposition at least every 2hours or as tolerated. Place pillow between knees. Off-load heels with pillow. We will follow with recommendations Nutritional optimization thank you will follow with recommendations (2) Anemia (3) Proteinuria (4) Toxic metabolic encephalopathy (5) Septic shock Assessment & Plan: Patient needs intensive care unit, leukocytosis, abnormal labs, septic. Full physical examination performed an area of concern identified. Unlikely etiology of patient's sepsis. Likely septic from pneumonia versus potential UTI IV antibiotics per infectious disease We will follow with recommendations (6) Hyperkalemia (7) UTI (urinary tract infection) (8) ODALYS (acute kidney injury) Additional Comments This is a late entry for October 23, 2019. Patient was seen and examined at bedside and had been improving. Unfortunately I was called to the emergency department following to the operating room and was unable to complete my notes. Mikael Shepherd Oct 24, 2019 12:57
--- NOTE | 2019-10-24 14:05 | NUR ---
CASE MANAGEMENT: REVIEW 10/24/2019 SI:Decubitus ulcer of sacral region, stage 4 T 99 HR 81 SATS 129/55 SATS 100% ON 4L/NC WBC 11.7 HGB 8.8 HCT 26.4 BUN 31 GLU 194 CA 8.1 IS:VENOFER IV QHS VANCO IV Q24H ZOSYN IV Q8H INSULIN ASPART SUBQ Q6H SDU PLAN OF CARE: GI procedures when more stable Replace electrolytes. Continue antimicrobials. Respiratory hygiene. Volume support. Avoid pressors DOWNGRADE
--- NOTE | 2019-10-24 14:18 | NUR ---
INSURANCE REVIEW FAXED TO [facility] A AUTH TRACKING#: [id number] CM: [email or web address] TEL: [phone] FAX CLINICALS: [phone]
[2019-10-24 16:00] VITALS: BP 139/66
--- NOTE | 2019-10-24 17:28 | Infectious Diseases Prog Note ---
Assessment/Plan Assessment/Plan ASSESSMENT AND PLAN: 1. 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 Diabetes. 3. Hypertension. 4. Blood pressure and blood sugar treatment per primary care team for diabetes and hypertension. 5. Wound care per protocol and Surgery. The patient may need debridement of the sacral wound. 6. History of dementia. 7. Anemia. 8. Proteinuria. 9. Encephalopathy. 10. Acute kidney injury and hyperkalemia. 11. No known drug allergies. 12. Social history is negative. 13. Family history is noncontributory. 14. MAR is noted. 15. Case was discussed with RN. 16. ICU care. 17. Orders were noted and entered. 18. Continue treatment per primary consultants. Subjective Constitutional: Reports: fatigue; Denies: fever HEENT: Reports: congestion - less Respiratory: Reports: shortness of breath - less Cardiovascular: Denies: chest pain Gastrointestinal/Abdominal: Reports: diarrhea; Denies: nausea, vomiting Genitourinary: Reports: other - + beard Neurologic: Reports: weakness, other - responsive Psychiatric: Reports: other - NA Skin: Reports: ulcer - covered ; Denies: rash Hematologic: Denies: bleeding Musculoskeletal: Reports: other - NA Allergies: Coded Allergies: No Known Allergies (Unverified , 10/18/19) Objective Vital Signs Last 24 Hour Vital Signs Date Time Temp Pulse Resp B/P (MAP) Pulse Ox O2 Delivery O2 Flow Rate FiO2 10/24/19 12:00 Nasal Cannula 4.0 10/24/19 12:00 69 10/24/19 12:00 99.0 81 18 129/55 (79) 100 10/24/19 08:08 97.9 85 22 126/57 (80) 100 10/24/19 08:00 75 10/24/19 08:00 Nasal Cannula 4.0 10/24/19 07:27 98 Nasal Cannula 3.0 32 10/24/19 07:27 86 18 97 Nasal Cannula 3.0 32 2/20/20 04:00 98.2 86 21 141/61 (87) 99 10/24/19 04:00 87 10/24/19 04:00 Nasal Cannula 4.0 10/24/19 00:00 90 10/24/19 00:00 97.4 84 20 150/63 (92) 99 10/24/19 00:00 Nasal Cannula 4.0 10/23/19 20:00 Nasal Cannula 4.0 10/23/19 20:00 95 10/23/19 20:00 99.0 88 21 153/72 (99) 99 10/23/19 19:04 87 19 100 Nasal Cannula 3.0 32 10/23/19 19:04 100 Nasal Cannula 3.0 32 Height (Feet): 5 Height (Inches): 4.00 Weight (Pounds): 131 General Appearance: no acute distress HEENT: normocephalic, atraumatic, anicteric Respiratory/Chest: crackles/rales, rhonchi - bilaterally Cardiovascular: normal rate, regular rhythm, no gallop/murmur, no JVD Abdomen: normal bowel sounds, soft, non tender, no organomegaly, non distended Genitourinary: other - + beard - urine slt cloudy Extremities: no cyanosis Skin: no rash 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 There may be significant atelectatic changes at the right lung base. Subsegmental atelectasis is seen at the left lung base.. There is retrocardiac consolidation again demonstrated. The upper lungs are clear. The heart size is normal. Impression: Elevated right hemidiaphragm with possible right basilar atelectasis Retrocardiac consolidation and left basilar atelectasis again demonstrated Chest x-ray - 10/23/19 - Procedure: XRAY Chest 1v Indication: Cough Technique: One view of the chest Comparison: 10/22/2019 Findings: Apparent elevation of the right hemidiaphragm and obscuration of the right heart border suggests right lower lobe atelectasis, unchanged. There is increasing interstitial edema. There is interim development of left-sided pleural effusion Impression: Suspect right lower lobe atelectasis, also previously demonstrated Increasing interstitial edema Suspect developing left pleural effusion Microbiology Date/Time Source Procedure Growth Status 10/23/19 04:05 Blood Blood Culture - Preliminary NO GROWTH AFTER 24 HOURS Resulted 10/19/19 02:40 Sputum Induced Gram Stain - Final Complete 10/19/19 02:40 Sputum Induced Sputum Culture - Final NORMAL UPPER RESPIRATORY ANDRÉS PRESENT Complete 10/20/19 21:20 Stool Clostridium difficile Toxin Assay - Final Complete 10/19/19 00:25 Urine,Clean Catch Urine Culture - Final Pseudomonas Aeruginosa Complete 10/19/19 02:05 Rectum VRE Culture - Final Enterococcus Faecalis - Vre Complete Microbiology Date/Time Source Procedure Growth Status 10/23/19 04:05 Blood Blood Culture - Preliminary NO GROWTH AFTER 24 HOURS Resulted 10/23/19 04:00 Blood Blood Culture - Preliminary NO GROWTH AFTER 24 HOURS Resulted Laboratory Tests Test 10/24/19 04:10 White Blood Count 11.7 K/UL (4.8-10.8) H Red Blood Count 3.01 M/UL (4.20-5.40) L Hemoglobin 8.8 G/DL (12.0-16.0) L Hematocrit 26.4 % (37.0-47.0) L Mean Corpuscular Volume 88 FL (80-99) Mean Corpuscular Hemoglobin 29.3 PG (27.0-31.0) Mean Corpuscular Hemoglobin Concent 33.4 G/DL (32.0-36.0) Red Cell Distribution Width 13.4 % (11.6-14.8) Platelet Count 311 K/UL (150-450) Mean Platelet Volume 5.4 FL (6.5-10.1) L Neutrophils (%) (Auto) 73.9 % (45.0-75.0) Lymphocytes (%) (Auto) 18.2 % (20.0-45.0) L Monocytes (%) (Auto) 5.6 % (1.0-10.0) Eosinophils (%) (Auto) 1.8 % (0.0-3.0) Basophils (%) (Auto) 0.5 % (0.0-2.0) Sodium Level 142 MMOL/L (136-145) Potassium Level 4.6 MMOL/L (3.5-5.1) Chloride Level 106 MMOL/L (98-107) Carbon Dioxide Level 31 MMOL/L (21-32) Anion Gap 6 mmol/L (5-15) Blood Urea Nitrogen 31 mg/dL (7-18) H Creatinine 0.6 MG/DL (0.55-1.30) Estimat Glomerular Filtration Rate > 60 mL/min (>60) Glucose Level 194 MG/DL (74-106) H Calcium Level 8.1 MG/DL (8.5-10.1) L Phosphorus Level 2.8 MG/DL (2.5-4.9) Magnesium Level 2.2 MG/DL (1.8-2.4) Current Medications Medications (Trade) Dose Ordered Sig/Nitish Route PRN Reason Start Time Stop Time Status Last Admin Dose Admin Acetaminophen (Tylenol) 650 mg Q4H PRN GT Mild Pain (Pain Scale 1-3) 10/22/19 19:00 11/21/19 18:42 Albuterol/ Ipratropium (Albuterol/ Ipratropium) 3 ml Q4H PRN HHN Shortness of Breath 10/22/19 18:44 10/27/19 18:43 Atropine Sulfate (Atropine) 0.5 mg Q5M PRN IVP BRADYCARDIA 10/22/19 19:32 11/21/19 19:31 Dextrose (Dextrose 50%) 25 ml Q30M PRN IV Hypoglycemia 10/22/19 19:00 11/18/19 10:29 Dextrose (Dextrose 50%) 50 ml Q30M PRN IV Hypoglycemia 10/22/19 19:00 11/18/19 10:29 Gabapentin (Neurontin) 100 mg Q8HR GT 10/22/19 22:00 11/19/19 17:59 10/24/19 15:07 Heparin Sodium (Porcine) (Heparin 5000 units/ml) 5,000 units EVERY 12 HOURS SUBQ 10/22/19 21:00 11/18/19 10:59 10/24/19 08:53 Insulin Aspart (NovoLOG) Q6HR SUBQ 10/23/19 00:00 11/18/19 11:59 10/24/19 12:51 Iron Sucrose 100 mg/Sodium Chloride 60 ml @ 240 mls/hr BEDTIME IV 10/22/19 21:00 10/26/19 21:14 10/23/19 21:18 Meropenem 1 gm/ Sodium Chloride 100 ml @ 200 mls/hr Q8HR IVPB 10/24/19 18:30 10/29/19 18:29 Morphine Sulfate (Morphine 10mg/ 5ml Oral Soln) 5 mg Q6H PRN GT For Pain 10/22/19 19:00 10/29/19 18:43 Pantoprazole (Protonix) 40 mg Q12HR IV 10/22/19 21:00 11/19/19 08:59 10/24/19 08:51 Sodium Hypochlorite (Dakin's Quarter Strength) 1 applic BEDTIME TOPIC 10/23/19 21:00 11/21/19 08:59 10/23/19 21:19 Vancomycin HCl (Vanco rx to dose) 1 ea DAILY PRN MISC Per rx protocol 10/24/19 17:15 11/23/19 17:14 Vancomycin HCl 750 mg/Sodium Chloride 275 ml @ 183.333 mls/hr Q24H IVPB 10/24/19 20:30 10/29/19 20:29 Bao Stevens MD Oct 24, 2019 17:28
--- NOTE | 2019-10-24 18:30 | Pulmonology Progress Note ---
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 Patient presented with this on admission. Sepsis unlikely due to wound likely pneumonia wound does need local supportive care. plans noted for surgical debridement (2) Anemia (3) Proteinuria (4) Toxic metabolic encephalopathy (5) Septic shock Much improved; off pressors IV antibiotics per infectious disease (6) Hyperkalemia (7) UTI (urinary tract infection); has Pseudomonas (8) ODALYS (acute kidney injury) PLAN Continue pressors as needed; currently off IV abx O2 Pulmonary hygiene Seen in [facility] Back on pain medications discussed with surgery. Plans noted for decubitus debridement Subjective Interval Events: looking and feeling better. Seen in [facility] Constitutional: Reports: no symptoms HEENT: Repors: no symptoms Respiratory: Reports: no symptoms Cardiovascular: Reports: no symptoms Gastrointestinal/Abdominal: Reports: no symptoms Allergies: Coded Allergies: No Known Allergies (Unverified , 10/18/19) Objective Last 24 Hour Vital Signs Date Time Temp Pulse Resp B/P (MAP) Pulse Ox O2 Delivery O2 Flow Rate FiO2 10/24/19 16:00 98.2 84 20 139/66 (90) 100 10/24/19 16:00 Nasal Cannula 4.0 10/24/19 12:00 Nasal Cannula 4.0 10/24/19 12:00 69 10/24/19 12:00 99.0 81 18 129/55 (79) 100 10/24/19 08:08 97.9 85 22 126/57 (80) 100 10/24/19 08:00 75 10/24/19 08:00 Nasal Cannula 4.0 10/24/19 07:27 98 Nasal Cannula 3.0 32 10/24/19 07:27 86 18 97 Nasal Cannula 3.0 32 10/24/19 04:00 98.2 86 21 141/61 (87) 99 10/24/19 04:00 87 10/24/19 04:00 Nasal Cannula 4.0 10/24/19 00:00 90 10/24/19 00:00 97.4 84 20 150/63 (92) 99 10/24/19 00:00 Nasal Cannula 4.0 10/23/19 20:00 Nasal Cannula 4.0 2/19/20 20:00 95 10/23/19 20:00 99.0 88 21 153/72 (99) 99 10/23/19 19:04 87 19 100 Nasal Cannula 3.0 32 10/23/19 19:04 100 Nasal Cannula 3.0 32 Intake and Output 10/23/19 10/24/19 19:00 07:00 Intake Total 822.5 ml 1315.000 ml Output Total 1001 ml Balance -178.5 ml 1315.000 ml Free Water 200 ml 150 ml IV Total 82.5 ml 625.000 ml Tube Feeding 540 ml 540 ml Output Urine Total 1000 ml Stool Total 1 ml General Appearance: no acute distress HEENT: normocephalic Respiratory/Chest: chest wall non-tender, lungs clear Cardiovascular: normal peripheral pulses Abdomen: normal bowel sounds Microbiology Date/Time Source Procedure Growth Status 10/23/19 04:05 Blood Blood Culture - Preliminary NO GROWTH AFTER 24 HOURS Resulted 10/23/19 04:00 Blood Blood Culture - Preliminary NO GROWTH AFTER 24 HOURS Resulted Laboratory Tests 10/24/19 04:10: White Blood Count 11.7H, Red Blood Count 3.01L, Hemoglobin 8.8L, Hematocrit 26.4L, Mean Corpuscular Volume 88, Mean Corpuscular Hemoglobin 29.3, Mean Corpuscular Hemoglobin Concent 33.4, Red Cell Distribution Width 13.4, Platelet Count 311, Mean Platelet Volume 5.4L, Neutrophils (%) (Auto) 73.9, Lymphocytes ( %) (Auto) 18.2L, Monocytes (%) (Auto) 5.6, Eosinophils (%) (Auto) 1.8, Basophils (%) (Auto) 0.5, Sodium Level 142, Potassium Level 4.6, Chloride Level 106, Carbon Dioxide Level 31, Anion Gap 6, Blood Urea Nitrogen 31H, Creatinine 0.6, Estimat Glomerular Filtration Rate > 60, Glucose Level 194H, Calcium Level 8.1L, Phosphorus Level 2.8, Magnesium Level 2.2 Current Medications Medications (Trade) Dose Ordered Sig/Nitish Route PRN Reason Start Time Stop Time Status Last Admin Dose Admin Acetaminophen (Tylenol) 650 mg Q4H PRN GT Mild Pain (Pain Scale 1-3) 10/22/19 19:00 11/21/19 18:42 Albuterol/ Ipratropium (Albuterol/ Ipratropium) 3 ml Q4H PRN HHN Shortness of Breath 10/22/19 18:44 10/27/19 18:43 Atropine Sulfate (Atropine) 0.5 mg Q5M PRN IVP BRADYCARDIA 10/22/19 19:32 11/21/19 19:31 Dextrose (Dextrose 50%) 25 ml Q30M PRN IV Hypoglycemia 10/22/19 19:00 11/18/19 10:29 Dextrose (Dextrose 50%) 50 ml Q30M PRN IV Hypoglycemia 10/22/19 19:00 11/18/19 10:29 Gabapentin (Neurontin) 100 mg Q8HR GT 10/22/19 22:00 11/19/19 17:59 10/24/19 15:07 Heparin Sodium (Porcine) (Heparin 5000 units/ml) 5,000 units EVERY 12 HOURS SUBQ 10/22/19 21:00 11/18/19 10:59 10/24/19 08:53 Insulin Aspart (NovoLOG) Q6HR SUBQ 10/23/19 00:00 11/18/19 11:59 10/24/19 17:34 Iron Sucrose 100 mg/Sodium Chloride 60 ml @ 240 mls/hr BEDTIME IV 10/22/19 21:00 10/26/19 21:14 10/23/19 21:18 Lansoprazole (Prevacid) 30 mg Q12HR GT 10/24/19 21:00 11/23/19 20:59 Meropenem 1 gm/ Sodium Chloride 100 ml @ 200 mls/hr Q8HR IVPB 10/24/19 18:30 10/29/19 18:29 10/24/19 18:11 Morphine Sulfate (Morphine 10mg/ 5ml Oral Soln) 5 mg Q6H PRN GT For Pain 10/22/19 19:00 10/29/19 18:43 Pantoprazole (Protonix) 40 mg Q12HR IV 10/22/19 21:00 11/19/19 08:59 10/24/19 08:51 Sodium Hypochlorite (Dakin's Quarter Strength) 1 applic BEDTIME TOPIC 10/23/19 21:00 11/21/19 08:59 10/23/19 21:19 Vancomycin HCl (Vanco rx to dose) 1 ea DAILY PRN MISC Per rx protocol 2/20/20 17:15 11/23/19 17:14 Vancomycin HCl 750 mg/Sodium Chloride 275 ml @ 183.333 mls/hr Q24H IVPB 10/24/19 20:30 10/29/19 20:29 Kam Grayson MD Oct 24, 2019 18:30
--- NOTE | 2019-10-24 19:10 | NUR ---
HAND-OFF: Report given to .MENG JOSUE.
--- NOTE | 2019-10-24 19:20 | NUR ---
NURSE NOTES: Pt report received from RUBIA JOSUE SDU. pt remains stable. pt is alert and oriented times 2. pt is able to follow simple commands. pt is on 3 L NC able to sat well at 99%, no signs symptoms of acute resp distress noted. pt is on cardiac care nurse showing NSR, no signs symptoms of acute cardiac distress noted. pt bed is low, locked, armed, call light within reach, bed rails up times 3. will follow plan of care.
[2019-10-24] MEDS: Vancomycin 750 MG in NS 275 ML IVPB SCH (19:41)
[2019-10-24 20:00] VITALS: BP 143/71
[2019-10-24] MEDS: Iron Sucrose 100 MG in NS 55 ML IV SCH (20:09)
[2019-10-24] MEDS: Dakin's 0.125% Soln (Quarter Strength) 16oz TOPIC SCH (20:10)
--- NOTE | 2019-10-24 23:15 | Progress Note ---
DATE: 10/24/2019 CARDIOLOGY PROGRESS NOTE SUBJECTIVE: The patient is with stable blood pressure parameters. Monitored rhythm sinus. No bradyarrhythmic episodes. Continues on wound care and antimicrobials. OBJECTIVE: VITAL SIGNS: Blood pressure 139/66, pulse 84, respiratory rate 20. LUNGS: Bilateral breath sounds. No wheezing. HEART: Regular rhythm and rate. Normal S1, S2. ABDOMEN: Soft. EXTREMITIES: No edema. IMPRESSION: 1. Decubitus. 2. Sepsis. 3. Shock recovered. 4. Anemia. 5. Bradycardia, recovered with resolution of acidosis. 6. Hypomagnesemia, corrected. 7. Hypophosphatemia, corrected. 8. Acute on chronic diastolic congestive heart failure clinically compensated. PLAN: 1. Iron replacement. 2. Antimicrobials. 3. Skin care debridement planned. 4. Continue antimicrobials per Infectious Diseases family consultant. 5. Trend natriuretic peptide assay. 6. Diuresis based on clinical parameters. Ronak Carranza M.D. DR: Tricia JOB#: [id number] CC: HENRIETTA
[2019-10-25] VITALS: BP 155/78
[2019-10-25] MEDS: Morphine Sulfate 10mg/5ml Oral Soln ud GT PRN ×3 (01:22→21:01)
[2019-10-25 04:00] VITALS: BP 113/60
[2019-10-25] MEDS: Gabapentin 300 MG/6 ML Soln GT SCH ×3 (05:14→22:58)
[2019-10-25] MEDS: NovoLOG Insulin Flexpen SUBQ SCH ×3 (05:17→17:41)
[2019-10-25 05:40] LABS: HEMATOCRIT 28.1 % (37.0-47.0); HEMOGLOBIN 9.5 G/DL (12.0-16.0); MEAN CORPUSCULAR VOLUME 87 FL (80-99); PLATELET COUNT 363 K/UL (150-450); RED BLOOD COUNT 3.22 M/UL (4.20-5.40); RED CELL DISTRIBUTION WIDTH 13.5 % (11.6-14.8); WHITE BLOOD COUNT 21.3 K/UL (4.8-10.8)
[2019-10-25 06:01] LABS: ANION GAP 10 mmol/L (5-15); BLOOD UREA NITROGEN 31 mg/dL (7-18); CALCIUM 8.5 MG/DL (8.5-10.1); CARBON DIOXIDE 26 MMOL/L (21-32); CHLORIDE 108 MMOL/L (98-107); CREATININE 0.7 MG/DL (0.55-1.30); POTASSIUM 4.1 MMOL/L (3.5-5.1); SODIUM 143 MMOL/L (136-145)
--- NOTE | 2019-10-25 07:15 | NUR ---
HAND-OFF: Report given to [ЕКАТЕРИНА Vasquez RN]. Pt remains stable.
--- NOTE | 2019-10-25 07:20 | NUR ---
NURSE NOTES: Report received from Shad Mendez RN.pt resting in bed asleep noted no resp distress ,no signs of pain or discomfort,S-R on the monitor ,GTF Glucerna 1.5 at 45 ml/hr,no residual noted,skin warm and dry, with heplock to RH ,IV site intact,SR up x2 HOB elevated,bed lock in lowest position,will continue with plans of care.
[2019-10-25 08:00] VITALS: BP 125/58
[2019-10-25] MEDS: Heparin 5000 units/ml inj SUBQ SCH ×2 (09:00→21:00)
[2019-10-25] MEDS: Pantoprazole Inj IV SCH (09:04)
--- NOTE | 2019-10-25 10:19 | General Progress Note ---
Assessment/Plan Problem List: (1) UTI (urinary tract infection) ICD Codes: N39.0 - Urinary tract infection, site not specified SNOMED: 90897597 Qualifiers: Qualified Codes: N30.00 - Acute cystitis without hematuria (2) Septic shock ICD Codes: A41.9 - Sepsis, unspecified organism; R65.21 - Severe sepsis with septic shock SNOMED: 89074085 (3) Anemia ICD Codes: D64.9 - Anemia, unspecified SNOMED: 270897759 Qualifiers: Qualified Codes: D64.9 - Anemia, unspecified (4) Iron (Fe) deficiency anemia ICD Codes: D50.9 - Iron deficiency anemia, unspecified SNOMED: 36116489 (5) Dysphagia ICD Codes: R13.10 - Dysphagia, unspecified SNOMED: 26501285, 507391221 (6) Gt dependent (7) DM Assessment/Plan: GT has been changed at the bedside GTF GT care monitor for residuals iv iron ppi fu stool ob abx per ID GI procedures when more stable Subjective ROS Limited/Unobtainable: No Allergies: Coded Allergies: No Known Allergies (Unverified , 10/18/19) Objective Last 24 Hour Vital Signs Date Time Temp Pulse Resp B/P (MAP) Pulse Ox O2 Delivery O2 Flow Rate FiO2 10/25/19 08:00 98.0 98 21 125/58 (80) 98 10/25/19 08:00 100 10/25/19 04:00 Nasal Cannula 4.0 10/25/19 04:00 98.9 101 18 113/60 (77) 99 10/25/19 04:00 130 10/25/19 00:00 Nasal Cannula 4.0 10/25/19 00:00 98.2 125 18 155/78 (103) 100 10/25/19 00:00 126 10/24/19 20:00 98.9 93 21 143/71 (95) 100 10/24/19 20:00 Nasal Cannula 4.0 10/24/19 20:00 86 10/24/19 19:36 80 18 98 Nasal Cannula 3.0 32 10/24/19 18:59 94 Bi-Pap 45 10/24/19 16:00 72 10/24/19 16:00 98.2 84 20 139/66 (90) 100 10/24/19 16:00 Nasal Cannula 4.0 10/24/19 12:00 Nasal Cannula 4.0 10/24/19 12:00 69 10/24/19 12:00 99.0 81 18 129/55 (79) 100 Intake and Output 10/24/19 10/25/19 19:00 07:00 Intake Total 900.0 ml 1355.000 ml Output Total 800 ml 900 ml Balance 100.0 ml 455.000 ml Free Water 150 ml 150 ml IV Total 210.0 ml 710.000 ml Tube Feeding 540 ml 495 ml Output Urine Total 800 ml 900 ml # Bowel Movements 2 1 Laboratory Tests 10/24/19 20:00: Stool Occult Blood [Pending] 10/25/19 04:00: White Blood Count 21.3#H, Red Blood Count 3.22L, Hemoglobin 9.5L, Hematocrit 28.1L, Mean Corpuscular Volume 87, Mean Corpuscular Hemoglobin 29.5, Mean Corpuscular Hemoglobin Concent 33.7, Red Cell Distribution Width 13.5, Platelet Count 363, Mean Platelet Volume 5.5L, Neutrophils (%) (Auto) , Lymphocytes (%) ( Auto) , Monocytes (%) (Auto) , Eosinophils (%) (Auto) , Basophils (%) (Auto) , Differential Total Cells Counted 100, Neutrophils % (Manual) 95H, Lymphocytes % (Manual) 3L, Monocytes % (Manual) 2, Eosinophils % (Manual) 0, Basophils % ( Manual) 0, Band Neutrophils 0, Platelet Estimate Adequate, Platelet Morphology Normal, Hypochromasia 1+, Sodium Level 143, Potassium Level 4.1, Chloride Level 108H, Carbon Dioxide Level 26, Anion Gap 10, Blood Urea Nitrogen 31H, Creatinine 0.7, Estimat Glomerular Filtration Rate > 60, Glucose Level 288H, Calcium Level 8.5, Pro-B-Type Natriuretic Peptide 6328H Height (Feet): 5 Height (Inches): 4.00 Weight (Pounds): 133 General Appearance: alert EENT: normal ENT inspection Neck: supple Cardiovascular: normal rate Respiratory/Chest: decreased breath sounds Abdomen: normal bowel sounds, non tender, soft Extremities: non-tender Ming Marquez MD Oct 25, 2019 10:19
--- NOTE | 2019-10-25 11:14 | NUR ---
RD ASSESSMENT & RECOMMENDATIONS SEE CARE ACTIVITY FOR COMPLETE ASSESSMENT DAILY ESTIMATED NEEDS: Needs based on Wounds, sepsis, TF [employer] WORK[employer] 60.9kg 25-30 kcals/kg 3089-5716 total kcals 1.25-2 g protein/kg 76-122 g total protein 25-30 mL/kg 5909-8649 total fluid mLs NUTRITION DIAGNOSIS: Increased kcal and pro needs r/t wound healing and sepsis as evidenced by pt hypotensive, critically elev WBC on adm-> now wnl, admitted w/ wounds including stage 4 sacral wound. ENTERAL NUTRITION RECOMMENDATIONS: Glucerna 1.5 @ 45ml/hr x 24 hrs to provide 1080ml, 1620 kcal, 89g pro, 820ml free H20 - Maintain current TF - Flush per MD, HOB over 30 degrees ADDITIONAL RECOMMENDATIONS: 1) Monitor lytes closely: K elev upon adm, now wnl 2) Wound care: add ALFREDO BID + Vit C 250mg BID add ZnSO4 220mg daily x10 days 3) Maintain calibrated bed scale wts .
[2019-10-25 12:00] VITALS: BP 130/52
--- NOTE | 2019-10-25 12:56 | NUR ---
CASE MANAGEMENT: REVIEW 10/25/2019 SI:Decubitus ulcer of sacral region, stage 4 T 97.3 HR 94 RR 20 B/P 130/52 SATS 99% ON 4L/NC LABS: WBC 21.3 CL 108 BUN 31 GLU 288 BNP 6328 IS:VENOFER IV QHS VANCO IV Q24H ZOSYN IV Q8H INSULIN ASPART SUBQ Q6H SDU PLAN OF CARE: EXCISIONAL DEBRIDEMENT OF SACRAL ULCER GI procedures when more stable Replace electrolytes. Continue antimicrobials. Respiratory hygiene.
--- NOTE | 2019-10-25 13:00 | NUR ---
INSURANCE REVIEW FAXED TO [facility] A AUTH TRACKING#: [id number] CM: ANUJ TEL: [phone] FAX CLINICALS: [phone]
--- NOTE | 2019-10-25 13:43 | Nephrology Progress Note ---
Assessment/Plan Problem List: (1) Hyperkalemia (2) ODALYS (acute kidney injury) (3) UTI (urinary tract infection) (4) Anemia (5) Leukocytosis Assessment: today 21.3 K Assessment HyperKalemia resolved HypoNatremia resolved Renal failure resolving Sepsis UTI DM Anemia HypoAlbuminemia Plan K and Phos and Mag supplement as needed GT feeding antibiotics- per ID Avoid nephrotoxics: monitor renal parameters Anemia jimenez per order Subjective ROS Limited/Unobtainable: No Constitutional: Reports: malaise, weakness Objective Objective Last 24 Hour Vital Signs Date Time Temp Pulse Resp B/P (MAP) Pulse Ox O2 Delivery O2 Flow Rate FiO2 10/25/19 12:00 97.3 94 20 130/52 (78) 99 10/25/19 12:00 82 10/25/19 12:00 Nasal Cannula 4.0 10/25/19 08:00 Nasal Cannula 4.0 10/25/19 08:00 98.0 98 21 125/58 (80) 98 10/25/19 08:00 100 10/25/19 04:00 Nasal Cannula 4.0 10/25/19 04:00 98.9 101 18 113/60 (77) 99 10/25/19 04:00 130 10/25/19 00:00 Nasal Cannula 4.0 10/25/19 00:00 98.2 125 18 155/78 (103) 100 10/25/19 00:00 126 10/24/19 20:00 98.9 93 21 143/71 (95) 100 10/24/19 20:00 Nasal Cannula 4.0 10/24/19 20:00 86 10/24/19 19:36 80 18 98 Nasal Cannula 3.0 32 10/24/19 18:59 94 Bi-Pap 45 10/24/19 16:00 72 10/24/19 16:00 98.2 84 20 139/66 (90) 100 10/24/19 16:00 Nasal Cannula 4.0 Intake and Output 10/24/19 10/25/19 19:00 07:00 Intake Total 900.0 ml 1355.000 ml Output Total 800 ml 900 ml Balance 100.0 ml 455.000 ml Free Water 150 ml 150 ml IV Total 210.0 ml 710.000 ml Tube Feeding 540 ml 495 ml Output Urine Total 800 ml 900 ml # Bowel Movements 2 1 Laboratory Tests 2/20/20 20:00: Stool Occult Blood Negative 10/25/19 04:00: White Blood Count 21.3#H, Red Blood Count 3.22L, Hemoglobin 9.5L, Hematocrit 28.1L, Mean Corpuscular Volume 87, Mean Corpuscular Hemoglobin 29.5, Mean Corpuscular Hemoglobin Concent 33.7, Red Cell Distribution Width 13.5, Platelet Count 363, Mean Platelet Volume 5.5L, Neutrophils (%) (Auto) , Lymphocytes (%) ( Auto) , Monocytes (%) (Auto) , Eosinophils (%) (Auto) , Basophils (%) (Auto) , Differential Total Cells Counted 100, Neutrophils % (Manual) 95H, Lymphocytes % (Manual) 3L, Monocytes % (Manual) 2, Eosinophils % (Manual) 0, Basophils % ( Manual) 0, Band Neutrophils 0, Platelet Estimate Adequate, Platelet Morphology Normal, Hypochromasia 1+, Sodium Level 143, Potassium Level 4.1, Chloride Level 108H, Carbon Dioxide Level 26, Anion Gap 10, Blood Urea Nitrogen 31H, Creatinine 0.7, Estimat Glomerular Filtration Rate > 60, Glucose Level 288H, Calcium Level 8.5, Pro-B-Type Natriuretic Peptide 6328H Height (Feet): 5 Height (Inches): 4.00 Weight (Pounds): 133 General Appearance: no apparent distress, lethargic Cardiovascular: tachycardia Respiratory/Chest: decreased breath sounds Abdomen: distended Objective no change Ayo Pryor MD Oct 25, 2019 13:43
--- NOTE | 2019-10-25 14:00 | NUR ---
NURSE NOTES: Pt resting quietly in bed ,noted no resp distress,S/P sacral debridement by Dr Shepherd done at bedside.
--- NOTE | 2019-10-25 14:00 | NUR ---
NURSE NOTES:WOUND CARE FOLLOW-UP NOTES: Sharp debridement of Sacral and R buttocks pressure injuries done by at bedside. Small amt bleeding noted.Base of both wounds beefy red. Wounds packed with gauze, covered with Abd pad and secured with paper tape. Pt tolerated procedure.
--- NOTE | 2019-10-25 14:20 | NUR ---
NURSE NOTES: Pt c/o pain to sacral area,Morphine 5mg/2.5 ml given per GT,will continue to monitor pt's pain threshold.Dr Grayson at bedside,updated on pt's status.
--- NOTE | 2019-10-25 14:39 | Surgery Progress Note ---
Surgery Progress Note Subjective Additional Comments see procedure note Objective Last 24 Hour Vital Signs Date Time Temp Pulse Resp B/P (MAP) Pulse Ox O2 Delivery O2 Flow Rate FiO2 10/25/19 12:00 97.3 94 20 130/52 (78) 99 10/25/19 12:00 82 10/25/19 12:00 Nasal Cannula 4.0 10/25/19 08:00 Nasal Cannula 4.0 10/25/19 08:00 98.0 98 21 125/58 (80) 98 10/25/19 08:00 100 10/25/19 04:00 Nasal Cannula 4.0 10/25/19 04:00 98.9 101 18 113/60 (77) 99 10/25/19 04:00 130 10/25/19 00:00 Nasal Cannula 4.0 10/25/19 00:00 98.2 125 18 155/78 (103) 100 10/25/19 00:00 126 10/24/19 20:00 98.9 93 21 143/71 (95) 100 10/24/19 20:00 Nasal Cannula 4.0 10/24/19 20:00 86 10/24/19 19:36 80 18 98 Nasal Cannula 3.0 32 10/24/19 18:59 94 Bi-Pap 45 10/24/19 16:00 72 10/24/19 16:00 98.2 84 20 139/66 (90) 100 10/24/19 16:00 Nasal Cannula 4.0 I&O Intake and Output 10/24/19 10/25/19 19:00 07:00 Intake Total 900.0 ml 1355.000 ml Output Total 800 ml 900 ml Balance 100.0 ml 455.000 ml Free Water 150 ml 150 ml IV Total 210.0 ml 710.000 ml Tube Feeding 540 ml 495 ml Output Urine Total 800 ml 900 ml # Bowel Movements 2 1 Dressing: other Wound: other Drains: other Cardiovascular: RSR Respiratory: decreased breath sounds Abdomen: soft, present bowel sounds Extremities: no cyanosis Laboratory Tests Test 10/24/19 20:00 10/25/19 04:00 Stool Occult Blood Negative (NEGATIVE) White Blood Count 21.3 K/UL (4.8-10.8) #H Red Blood Count 3.22 M/UL (4.20-5.40) L Hemoglobin 9.5 G/DL (12.0-16.0) L Hematocrit 28.1 % (37.0-47.0) L Mean Corpuscular Volume 87 FL (80-99) Mean Corpuscular Hemoglobin 29.5 PG (27.0-31.0) Mean Corpuscular Hemoglobin Concent 33.7 G/DL (32.0-36.0) Red Cell Distribution Width 13.5 % (11.6-14.8) Platelet Count 363 K/UL (150-450) Mean Platelet Volume 5.5 FL (6.5-10.1) L Neutrophils (%) (Auto) % (45.0-75.0) Lymphocytes (%) (Auto) % (20.0-45.0) Monocytes (%) (Auto) % (1.0-10.0) Eosinophils (%) (Auto) % (0.0-3.0) Basophils (%) (Auto) % (0.0-2.0) Differential Total Cells Counted 100 Neutrophils % (Manual) 95 % (45-75) H Lymphocytes % (Manual) 3 % (20-45) L Monocytes % (Manual) 2 % (1-10) Eosinophils % (Manual) 0 % (0-3) Basophils % (Manual) 0 % (0-2) Band Neutrophils 0 % (0-8) Platelet Estimate Adequate Platelet Morphology Normal Hypochromasia 1+ Sodium Level 143 MMOL/L (136-145) Potassium Level 4.1 MMOL/L (3.5-5.1) Chloride Level 108 MMOL/L (98-107) H Carbon Dioxide Level 26 MMOL/L (21-32) Anion Gap 10 mmol/L (5-15) Blood Urea Nitrogen 31 mg/dL (7-18) H Creatinine 0.7 MG/DL (0.55-1.30) Estimat Glomerular Filtration Rate > 60 mL/min (>60) Glucose Level 288 MG/DL (74-106) H Calcium Level 8.5 MG/DL (8.5-10.1) Pro-B-Type Natriuretic Peptide 6328 pg/mL (0-125) H Plan Problems: (1) Decubitus ulcer of sacral region, stage 4 Assessment & Plan: Pt presented on admission with multiple pressure injuries and contractures. Partial thickness pressure injury secondary to open serous blister noted to R thoracic(L)2cm x(W)9cm. Base of wound is moist and pink. Edges moist but adherent to base of wound. Periwound without erythema or evidence of further skin breakdown. Full stage 4 thickness Unstageable Pressure Injury Sacrum(L)9cm x (W)15cm. Base of wound has 80% semi-detached necrotic cap with surrounding mixed erythema and slough. Edges adherent to base of wound. Wound is malodorous Scattered areas of non-blanching erythema and areas of hyperpigmentation noted periwound. DTPI noted to L trochanter(L)2cm x (W01cm. Base of wound is maroon and indurated. Periwound without erythema or fluctuance.An area of non-blanching erythema without induration noted to L hip.(L)3cm x (W)3.5cm. Non-blanching erythema without fluctuance or induration noted to L hallux(L) 1.5cm x (W)2.5cm.No evidence of skin breakdown periwound. L heel boggy with non-blanching erythema.Tender when minimally palpated. Areas of non-blanching erythema noted to medial and distal lateral aspects of L foot. Non-blanching erythema with dry peeling skin noted to R achilles(L)1cm x (W)1cm. R heel is boggy with an area of non-blanching erythema medially (L)3cm x (W) 2cm. Areas of non-blanching erythema noted to medial and distal aspects of R foot. Tx.Plan: Cleanse sacral wound with Dakin's yessenia 0.125%. Apply Dakin's moistened 4x4 gauze to wound. Apply Triad Paste periwound. Cover with Optifoam drsg Daily and prn. Cleanse wound R thoracic. Cover with Optifoam drsg. Change every 3 days and prn. Apply Cavilon Skin Barrier to areas of erythema R and L feet. Cover each area with Optifoam drsg. Change every 7 days and prn. APM/AUGUSTINE Mattress overlay. Reposition at least every 2hours or as tolerated. Place pillow between knees. Off-load heels with pillow. We will follow with recommendations Nutritional optimization thank you will follow with recommendations (2) Anemia (3) Proteinuria (4) Toxic metabolic encephalopathy (5) Septic shock Assessment & Plan: Patient needs intensive care unit, leukocytosis, abnormal labs, septic. Full physical examination performed an area of concern identified. Unlikely etiology of patient's sepsis. Likely septic from pneumonia versus potential UTI IV antibiotics per infectious disease We will follow with recommendations (6) Hyperkalemia (7) UTI (urinary tract infection) (8) ODALYS (acute kidney injury) Mikael Shepherd Oct 25, 2019 14:39
--- NOTE | 2019-10-25 14:43 | Operative Note - PDOC ---
Operative Note Operative Note Date of Operation/Procedure: Oct 25, 2019 Pre-op Diagnosis: stage IV sacral decubitus ulcer with necrotic tissue nonviable tissue eschar slough foul-smelling Procedure: Excisional debridement of stage IV sacral decubitus ulcer 15 cm x 9 cm x 4 cm irregular shaped down to bone for potential closure primarily versus flap in future Post-op Diagnosis: same as pre-op Surgeon: Mikael Shepherd MD Anesthesia: other Specimen: yes Complications: none Condition: stable Estimated Blood Loss: minimal Drains: none Implant(s) used?: No Indications for Procedure This is a 84-year-old female who is currently admitted for sepsis was in the intensive care unit and improved and recovered was identified to have potential etiology and source of infectious process being a foul-smelling malodorousStage IV sacral decubitus ulcer with a significant amount of necrotic nonviable tissue slough and eschar. Portions unstageable. Large 15 cm x 9 cm. Once improving risk-benefit altered discussed patient's family members in regards to potential intervention. Given her age comorbidities decision was made not to go to the operating room for procedure but do perform a bedside debridement to healthy viable tissue to allow for improvement and proper wound care with anticipation that if patient continues to improve with appropriate care can potentially conceivably close wound in the future. Consent was obtained and procedure was planned for 10/25/2019 at the bedside Description of Procedure Patient was made comfortable at the bedside. She was premedicated. Prior timeout taken identifying the patient procedure staff and equipment. Patient was placed on the right lateral decubitus position. Using a fresh #10 scalpel and surgical instruments the necrotic eschar and nonviable tissue and slough were debrided down to healthy viable tissue in the sacral region and total debridement area 15 cm x 9 cm with a total depth of 4 cm down to palpable sacrum bone as well as subcutaneous tissue and muscle. Once debridement of nonviable tissue completed and whole until healthy viable tissue pressure was held until hemostasis identified. And a few portions where hemostasis was not achieved with direct pressure a cautery pen was used and hemostasis was obtained. Following this the wound was irrigated cleansed and packing and dressings were applied. Patient taught procedure well. Care orders and plan have been applied. If continues to improve with good granulation tissue can consider flap versus primary closure in the future. Continue with appropriate medical care and local wound care. Thank you Mikael Shepherd Oct 25, 2019 14:43
--- NOTE | 2019-10-25 15:00 | NUR ---
NURSE NOTES: Pt sleeping at this time,no further c/o pain presented.
[2019-10-25 16:00] VITALS: BP 132/58
--- NOTE | 2019-10-25 18:39 | Pulmonology Progress Note ---
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 Patient presented with this on admission. Sepsis unlikely due to wound likely pneumonia wound does need local supportive care. S/p surgical debridement (2) Anemia (3) Proteinuria (4) Toxic metabolic encephalopathy (5) Septic shock Much improved; off pressors IV antibiotics per infectious disease (6) Hyperkalemia (7) UTI (urinary tract infection); has Pseudomonas (8) ODALYS (acute kidney injury) PLAN Continue pressors as needed; currently off IV abx O2 Pulmonary hygiene Seen in [facility] Back on pain medications discussed with surgery. Subjective Interval Events: S/p debridement Constitutional: Reports: no symptoms HEENT: Repors: no symptoms Respiratory: Reports: no symptoms Allergies: Coded Allergies: No Known Allergies (Unverified , 10/18/19) Objective Last 24 Hour Vital Signs Date Time Temp Pulse Resp B/P (MAP) Pulse Ox O2 Delivery O2 Flow Rate FiO2 10/25/19 16:00 87 10/25/19 16:00 Nasal Cannula 4.0 10/25/19 16:00 99.4 90 21 132/58 (82) 99 10/25/19 12:00 97.3 94 20 130/52 (78) 99 10/25/19 12:00 82 10/25/19 12:00 Nasal Cannula 4.0 10/25/19 08:00 Nasal Cannula 4.0 10/25/19 08:00 98.0 98 21 125/58 (80) 98 10/25/19 08:00 100 10/25/19 04:00 Nasal Cannula 4.0 10/25/19 04:00 98.9 101 18 113/60 (77) 99 10/25/19 04:00 130 10/25/19 00:00 Nasal Cannula 4.0 10/25/19 00:00 98.2 125 18 155/78 (103) 100 10/25/19 00:00 126 10/24/19 20:00 98.9 93 21 143/71 (95) 100 10/24/19 20:00 Nasal Cannula 4.0 10/24/19 20:00 86 10/24/19 19:36 80 18 98 Nasal Cannula 3.0 32 10/24/19 18:59 94 Bi-Pap 45 Intake and Output 2/20/20 2/21/20 19:00 07:00 Intake Total 900.0 ml 1400.000 ml Output Total 800 ml 900 ml Balance 100.0 ml 500.000 ml Free Water 150 ml 150 ml IV Total 210.0 ml 710.000 ml Tube Feeding 540 ml 540 ml Output Urine Total 800 ml 900 ml # Bowel Movements 2 1 General Appearance: no acute distress HEENT: normocephalic Respiratory/Chest: chest wall non-tender Cardiovascular: normal peripheral pulses Abdomen: normal bowel sounds Microbiology Date/Time Source Procedure Growth Status 10/23/19 04:05 Blood Blood Culture - Preliminary NO GROWTH AFTER 48 HOURS Resulted 10/23/19 04:00 Blood Blood Culture - Preliminary NO GROWTH AFTER 48 HOURS Resulted Laboratory Tests 10/24/19 20:00: Stool Occult Blood Negative 10/25/19 04:00: White Blood Count 21.3#H, Red Blood Count 3.22L, Hemoglobin 9.5L, Hematocrit 28.1L, Mean Corpuscular Volume 87, Mean Corpuscular Hemoglobin 29.5, Mean Corpuscular Hemoglobin Concent 33.7, Red Cell Distribution Width 13.5, Platelet Count 363, Mean Platelet Volume 5.5L, Neutrophils (%) (Auto) , Lymphocytes (%) ( Auto) , Monocytes (%) (Auto) , Eosinophils (%) (Auto) , Basophils (%) (Auto) , Differential Total Cells Counted 100, Neutrophils % (Manual) 95H, Lymphocytes % (Manual) 3L, Monocytes % (Manual) 2, Eosinophils % (Manual) 0, Basophils % ( Manual) 0, Band Neutrophils 0, Platelet Estimate Adequate, Platelet Morphology Normal, Hypochromasia 1+, Sodium Level 143, Potassium Level 4.1, Chloride Level 108H, Carbon Dioxide Level 26, Anion Gap 10, Blood Urea Nitrogen 31H, Creatinine 0.7, Estimat Glomerular Filtration Rate > 60, Glucose Level 288H, Calcium Level 8.5, Pro-B-Type Natriuretic Peptide 6328H Current Medications Medications (Trade) Dose Ordered Sig/Nitish Route PRN Reason Start Time Stop Time Status Last Admin Dose Admin Acetaminophen (Tylenol) 650 mg Q4H PRN GT Mild Pain (Pain Scale 1-3) 10/22/19 19:00 11/21/19 18:42 10/25/19 17:51 Albuterol/ Ipratropium (Albuterol/ Ipratropium) 3 ml Q4H PRN HHN Shortness of Breath 10/22/19 18:44 10/27/19 18:43 Atropine Sulfate (Atropine) 0.5 mg Q5M PRN IVP BRADYCARDIA 10/22/19 19:32 11/21/19 19:31 Dextrose (Dextrose 50%) 25 ml Q30M PRN IV Hypoglycemia 10/22/19 19:00 11/18/19 10:29 Dextrose (Dextrose 50%) 50 ml Q30M PRN IV Hypoglycemia 10/22/19 19:00 11/18/19 10:29 Furosemide (Lasix) 40 mg ONCE IV 10/25/19 18:15 10/25/19 20:00 Gabapentin (Neurontin) 100 mg Q8HR GT 10/22/19 22:00 11/19/19 17:59 10/25/19 14:29 Heparin Sodium (Porcine) (Heparin 5000 units/ml) 5,000 units EVERY 12 HOURS SUBQ 10/22/19 21:00 11/18/19 10:59 10/24/19 08:53 Insulin Aspart (NovoLOG) Q6HR SUBQ 10/23/19 00:00 11/18/19 11:59 10/25/19 17:41 Iron Sucrose 100 mg/Sodium Chloride 60 ml @ 240 mls/hr BEDTIME IV 10/22/19 21:00 10/26/19 21:14 10/24/19 20:09 Lansoprazole (Prevacid) 30 mg Q12HR GT 10/24/19 21:00 11/23/19 20:59 10/25/19 09:04 Meropenem 1 gm/ Sodium Chloride 100 ml @ 200 mls/hr Q8HR IVPB 10/24/19 18:30 10/29/19 18:29 10/25/19 14:20 Metoprolol Tartrate (Lopressor) 25 mg Q12HR ORAL 10/25/19 21:00 11/24/19 20:59 Morphine Sulfate (Morphine 10mg/ 5ml Oral Soln) 5 mg Q6H PRN GT For Pain 10/22/19 19:00 10/29/19 18:43 10/25/19 14:21 Sodium Hypochlorite (Dakin's Quarter Strength) 1 applic BEDTIME TOPIC 10/23/19 21:00 11/21/19 08:59 10/24/19 20:10 Vancomycin HCl (Vanco rx to dose) 1 ea DAILY PRN MISC Per rx protocol 10/24/19 17:15 11/23/19 17:14 Vancomycin HCl 750 mg/Sodium Chloride 275 ml @ 183.333 mls/hr Q24H IVPB 10/24/19 20:30 10/29/19 20:29 10/24/19 19:41 Kam Grayson MD Oct 25, 2019 18:39
--- NOTE | 2019-10-25 18:45 | Progress Note ---
DATE: 10/25/2019 CARDIOLOGY PROGRESS NOTE SUBJECTIVE: The patient is comfortable, in no distress, tolerating G-tube feedings. Blood pressure parameters are stable. Monitored sinus rhythm with episodes of sinus tachycardia. PHYSICAL EXAMINATION: VITAL SIGNS: Blood pressure 130/52, pulse 94, and respirations 20. Afebrile. LUNGS: Coarse breath sounds. CARDIAC: Regular rhythm and rate. Normal S1, S2. ABDOMEN: Soft. G-tube intact. EXTREMITIES: Trace dependent edema. LABORATORY DATA: White count 21, hemoglobin 9.5. Sodium 143, potassium 4.1, bicarb 26, BUN 31, creatinine 0.7. Glucose 288. Pro-natriuretic peptide 6300. Stool occult blood negative. IMPRESSION: 1. Decubitus with sepsis, status post wound debridement. 2. Severe sepsis with shock, now recovered. 3. Anemia. 4. Chronic diastolic congestive heart failure. 5. Hypertensive heart disease. PLAN: 1. Antimicrobials. 2. Wound care. 3. Respiratory hygiene. 4. Iron and vitamin replacements. 5. Periodic diuresis. 6. May consider low-dose beta-lotus if additional antihypertensive therapy is needed. Ronak Carranza M.D. DR: BELKIS JOB#: [id number] CC:
--- NOTE | 2019-10-25 19:00 | NUR ---
HAND-OFF: Report given to Alisson Perez RN,pt stable no further discomfort noted.. Pt asleep no further c/o pain noted.
--- NOTE | 2019-10-25 19:10 | NUR ---
NURSE NOTES: Report received from ЕКАТЕРИНА JOSUE . Patient awake,oriented times 2,3.on NC 4L with no respiratory distress noted.o2 saturation 97-100%. SR on electronic device monitor. GTF continues with Glucerna 1.5 at 45cc/hr . no residual noted. Patient had wound debridement on sacral today. no bleeding noted. c/o pain 10/10. will administer pain Meds as ordered.call light in reach.bed in low position with alarm on.will continue plan of care.
[2019-10-25 20:00] VITALS: BP 137/60
[2019-10-25] MEDS: Vancomycin 750 MG in NS 275 ML IVPB SCH (20:58)
[2019-10-25] MEDS: Iron Sucrose 100 MG in NS 55 ML IV SCH (20:59)
[2019-10-25] MEDS: Dakin's 0.125% Soln (Quarter Strength) 16oz TOPIC SCH (21:00)
--- NOTE | 2019-10-25 23:45 | NUR ---
TRANSFER TO FLOOR: Patient transferred to Room 401-1. Report given to ENID JOSUE, using SBAR. No Belongings and medications given to RN. Patient is comfortable, in no distress upon transfer. Tolerating GT feedings.
--- NOTE | 2019-10-25 23:50 | NUR ---
NURSE NOTES: Received patient via hospital bed. On 3 liters via NC. GT clamped. F/c draining yellow urine. Sacral wounds with dry dressing in place. No signs of pain at this time. VSS, 1/2 side rails up, call light within reach. IV in the Right hand with no redness or swelling.
[2019-10-26] VITALS: BP 130/66
[2019-10-26] MEDS ORDERED: Atropine Inj 1mg/10ml Syr IVP PRN (00:15)
[2019-10-26] MEDS: NovoLOG Insulin Flexpen SUBQ SCH ×4 (00:15→18:34)
[2019-10-26] MEDS ORDERED: Albuterol/Ipratropium 3ml neb HHN PRN (02:45)
[2019-10-26] MEDS ORDERED: Acetaminophen 650mg/20.3ml GT PRN (03:00)
[2019-10-26 04:00] VITALS: BP 132/59
[2019-10-26] MEDS: Gabapentin 300 MG/6 ML Soln GT SCH ×3 (05:39→22:14)
--- NOTE | 2019-10-26 06:17 | General Progress Note ---
Assessment/Plan Problem List: (1) UTI (urinary tract infection) ICD Codes: N39.0 - Urinary tract infection, site not specified SNOMED: 71461925 Qualifiers: Qualified Codes: N30.00 - Acute cystitis without hematuria (2) Septic shock ICD Codes: A41.9 - Sepsis, unspecified organism; R65.21 - Severe sepsis with septic shock SNOMED: 66315557 (3) Anemia ICD Codes: D64.9 - Anemia, unspecified SNOMED: 643722486 Qualifiers: Qualified Codes: D64.9 - Anemia, unspecified (4) Iron (Fe) deficiency anemia ICD Codes: D50.9 - Iron deficiency anemia, unspecified SNOMED: 37429590 (5) Dysphagia ICD Codes: R13.10 - Dysphagia, unspecified SNOMED: 95601207, 223550026 (6) Gt dependent (7) DM Assessment/Plan: GT has been changed at the bedside GTF GT care monitor for residuals iv iron ppi fu stool ob>>> neg abx per ID Subjective ROS Limited/Unobtainable: No Allergies: Coded Allergies: No Known Allergies (Unverified , 10/18/19) Objective Last 24 Hour Vital Signs Date Time Temp Pulse Resp B/P (MAP) Pulse Ox O2 Delivery O2 Flow Rate FiO2 10/26/19 04:00 98.2 82 18 132/59 (83) 100 10/26/19 00:00 98.1 99 18 130/66 (87) 95 10/26/19 00:00 Nasal Cannula 3.0 10/25/19 20:59 95 137/60 10/25/19 20:00 97.8 95 20 137/60 (85) 100 10/25/19 20:00 87 10/25/19 20:00 Nasal Cannula 4.0 10/25/19 19:21 100 Nasal Cannula 3.0 32 10/25/19 19:21 82 18 100 Nasal Cannula 3.0 32 10/25/19 16:00 87 10/25/19 16:00 Nasal Cannula 4.0 10/25/19 16:00 99.4 90 21 132/58 (82) 99 10/25/19 12:00 97.3 94 20 130/52 (78) 99 10/25/19 12:00 82 10/25/19 12:00 Nasal Cannula 4.0 10/25/19 08:00 Nasal Cannula 4.0 10/25/19 08:00 98.0 98 21 125/58 (80) 98 10/25/19 08:00 100 Intake and Output 10/25/19 10/26/19 19:00 07:00 Intake Total 690 ml 185 ml Output Total 850 ml Balance -160 ml 185 ml Free Water 180 ml 50 ml Tube Feeding 450 ml 135 ml Other 60 ml Output Urine Total 850 ml # Bowel Movements 1 1 Height (Feet): 5 Height (Inches): 4.00 Weight (Pounds): 136 General Appearance: no apparent distress EENT: normal ENT inspection Neck: supple Cardiovascular: normal rate Respiratory/Chest: decreased breath sounds Abdomen: normal bowel sounds, non tender, soft Extremities: non-tender Ming Marquez MD Oct 26, 2019 06:17
--- NOTE | 2019-10-26 07:14 | NUR ---
HAND-OFF: Report given to David JOSUE and Jayda JOSUE.
[2019-10-26 07:46] LABS: ALANINE AMINOTRANSFERASE 23 U/L (12-78); ALBUMIN 1.8 G/DL (3.4-5.0); ALBUMIN/GLOBULIN RATIO 0.5 (1.0-2.7); ALKALINE PHOSPHATASE 135 U/L (46-116); ANION GAP 6 mmol/L (5-15); ASPARTATE AMINO TRANSFERASE 19 U/L (15-37); BILIRUBIN,TOTAL 0.2 MG/DL (0.2-1.0); BLOOD UREA NITROGEN 37 mg/dL (7-18); CALCIUM 8.3 MG/DL (8.5-10.1); CARBON DIOXIDE 31 MMOL/L (21-32); CHLORIDE 110 MMOL/L (98-107); CREATININE 0.9 MG/DL (0.55-1.30); PHOSPHORUS 2.2 MG/DL (2.5-4.9); POTASSIUM 4.2 MMOL/L (3.5-5.1); SODIUM 147 MMOL/L (136-145)
[2019-10-26 08:00] VITALS: BP 144/59
[2019-10-26 08:26] LABS: BASOPHILS % (AUTO) 0.8 % (0.0-2.0); EOSINOPHILS % (AUTO) 4.7 % (0.0-3.0); HEMATOCRIT 25.3 % (37.0-47.0); HEMOGLOBIN 8.3 G/DL (12.0-16.0); LYMPHOCYTES % (AUTO) 18.3 % (20.0-45.0); MEAN CORPUSCULAR VOLUME 89 FL (80-99); MONOCYTES % (AUTO) 5.9 % (1.0-10.0); NEUTROPHILS % (AUTO) 70.2 % (45.0-75.0); PLATELET COUNT 318 K/UL (150-450); RED BLOOD COUNT 2.85 M/UL (4.20-5.40); RED CELL DISTRIBUTION WIDTH 14.2 % (11.6-14.8); WHITE BLOOD COUNT 11.2 K/UL (4.8-10.8)
[2019-10-26] MEDS: Morphine Sulfate 10mg/5ml Oral Soln ud GT PRN ×3 (09:44→23:28)
[2019-10-26] MEDS: Heparin 5000 units/ml inj SUBQ SCH ×2 (10:00→20:31)
[2019-10-26] MEDS ORDERED: Phospha 250 Neutral tab GT ONE (10:15)
--- NOTE | 2019-10-26 10:18 | Nephrology Progress Note ---
Assessment/Plan Problem List: (1) Hyperkalemia (2) ODALYS (acute kidney injury) (3) UTI (urinary tract infection) (4) Anemia (5) Leukocytosis Assessment: today 21.3 K Assessment HyperKalemia resolved HypoNatremia resolved Renal failure resolving Sepsis UTI DM Anemia HypoAlbuminemia Plan D5 Bolus K and Phos and Mag supplement as needed GT feeding antibiotics- per ID Avoid nephrotoxics: monitor renal parameters Anemia jimenez per order Subjective ROS Limited/Unobtainable: No Constitutional: Reports: malaise, weakness Objective Objective Last 24 Hour Vital Signs Date Time Temp Pulse Resp B/P (MAP) Pulse Ox O2 Delivery O2 Flow Rate FiO2 10/26/19 08:15 99 Nasal Cannula 2.0 28 10/26/19 08:14 83 20 99 Nasal Cannula 2.0 28 10/26/19 08:00 98.5 81 19 144/59 (87) 100 10/26/19 04:00 98.2 82 18 132/59 (83) 100 10/26/19 00:00 98.1 99 18 130/66 (87) 95 10/26/19 00:00 Nasal Cannula 3.0 10/25/19 20:59 95 137/60 10/25/19 20:00 97.8 95 20 137/60 (85) 100 10/25/19 20:00 87 10/25/19 20:00 Nasal Cannula 4.0 10/25/19 19:21 100 Nasal Cannula 3.0 32 10/25/19 19:21 82 18 100 Nasal Cannula 3.0 32 10/25/19 16:00 87 10/25/19 16:00 Nasal Cannula 4.0 10/25/19 16:00 99.4 90 21 132/58 (82) 99 10/25/19 12:00 97.3 94 20 130/52 (78) 99 10/25/19 12:00 82 10/25/19 12:00 Nasal Cannula 4.0 Intake and Output 10/25/19 10/26/19 19:00 07:00 Intake Total 690 ml 500 ml Output Total 850 ml 250 ml Balance -160 ml 250 ml Free Water 180 ml 50 ml Tube Feeding 450 ml 450 ml Other 60 ml Output Urine Total 850 ml 250 ml # Bowel Movements 1 1 Current Medications Medications (Trade) Dose Ordered Sig/Nitish Route PRN Reason Start Time Stop Time Status Last Admin Dose Admin Acetaminophen (Tylenol) 650 mg Q4H PRN GT Mild Pain (Pain Scale 1-3) 10/26/19 03:00 11/21/19 18:42 Albuterol/ Ipratropium (Albuterol/ Ipratropium) 3 ml Q4H PRN HHN Shortness of Breath 10/26/19 02:45 10/27/19 18:43 Dextrose (Dextrose 50%) 25 ml Q30M PRN IV Hypoglycemia 10/26/19 00:30 11/18/19 10:29 Dextrose (Dextrose 50%) 50 ml Q30M PRN IV Hypoglycemia 10/26/19 00:30 11/18/19 10:29 Gabapentin (Neurontin) 100 mg Q8HR GT 10/26/19 06:00 11/19/19 17:59 10/26/19 05:39 Heparin Sodium (Porcine) (Heparin 5000 units/ml) 5,000 units EVERY 12 HOURS SUBQ 10/26/19 09:00 11/18/19 10:59 Insulin Aspart (NovoLOG) Q6HR SUBQ 10/26/19 00:15 11/18/19 11:59 10/26/19 00:15 Iron Sucrose 100 mg/Sodium Chloride 60 ml @ 240 mls/hr BEDTIME IV 10/26/19 21:00 10/26/19 21:14 Lansoprazole (Prevacid) 30 mg Q12HR GT 10/26/19 09:00 11/23/19 20:59 Meropenem 1 gm/ Sodium Chloride 100 ml @ 200 mls/hr Q8HR IVPB 10/26/19 06:00 10/29/19 18:29 10/26/19 05:40 Metoprolol Tartrate (Lopressor) 25 mg Q12HR ORAL 10/26/19 09:00 11/24/19 20:59 Morphine Sulfate (Morphine 10mg/ 5ml Oral Soln) 5 mg Q6H PRN GT For Pain 10/26/19 01:00 10/29/19 18:43 Sodium Hypochlorite (Dakin's Quarter Strength) 1 applic BEDTIME TOPIC 10/26/19 21:00 11/21/19 08:59 Vancomycin HCl (Vanco rx to dose) 1 ea DAILY PRN MISC Per rx protocol 10/26/19 09:00 11/23/19 17:14 Vancomycin HCl 750 mg/Sodium Chloride 275 ml @ 183.333 mls/hr Q24H IVPB 10/26/19 20:30 10/29/19 20:29 Laboratory Tests 10/26/19 06:55: White Blood Count 11.2H, Red Blood Count 2.85L, Hemoglobin 8.3L, Hematocrit 25.3L, Mean Corpuscular Volume 89, Mean Corpuscular Hemoglobin 29.1, Mean Corpuscular Hemoglobin Concent 32.7, Red Cell Distribution Width 14.2, Platelet Count 318, Mean Platelet Volume 6.0L, Neutrophils (%) (Auto) 70.2, Lymphocytes ( %) (Auto) 18.3L, Monocytes (%) (Auto) 5.9, Eosinophils (%) (Auto) 4.7H, Basophils (%) (Auto) 0.8, Sodium Level 147H, Potassium Level 4.2, Chloride Level 110H, Carbon Dioxide Level 31, Anion Gap 6, Blood Urea Nitrogen 37H, Creatinine 0.9, Estimat Glomerular Filtration Rate 59.8, Glucose Level 168#H, Calcium Level 8.3L, Phosphorus Level 2.2L, Magnesium Level 1.8, Total Bilirubin 0.2, Aspartate Amino Transf (AST/SGOT) 19, Alanine Aminotransferase (ALT/SGPT) 23, Alkaline Phosphatase 135H, C-Reactive Protein, Quantitative 4.8H, Pro-B- Type Natriuretic Peptide 6640H, Total Protein 5.4L, Albumin 1.8L, Globulin 3.6, Albumin/Globulin Ratio 0.5L Height (Feet): 5 Height (Inches): 4.00 Weight (Pounds): 136 General Appearance: no apparent distress, lethargic Cardiovascular: normal rate Respiratory/Chest: decreased breath sounds Abdomen: soft Objective no change Ayo Pryor MD Oct 26, 2019 10:18
--- NOTE | 2019-10-26 11:56 | Pulmonology Progress Note ---
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 Patient presented with this on admission. Sepsis unlikely due to wound likely pneumonia wound does need local supportive care. S/p surgical debridement (2) Anemia (3) Proteinuria (4) Toxic metabolic encephalopathy (5) Septic shock Much improved; off pressors IV antibiotics per infectious disease (6) Hyperkalemia (7) UTI (urinary tract infection); has Pseudomonas (8) ODALYS (acute kidney injury) PLAN Continue pressors as needed; currently off IV abx O2 Pulmonary hygiene Seen in [facility] Back on pain medications discussed with surgery. Subjective Interval Events: None new Constitutional: Reports: no symptoms HEENT: Repors: no symptoms Respiratory: Reports: no symptoms Cardiovascular: Reports: no symptoms Gastrointestinal/Abdominal: Reports: no symptoms Allergies: Coded Allergies: No Known Allergies (Unverified , 10/18/19) Objective Last 24 Hour Vital Signs Date Time Temp Pulse Resp B/P (MAP) Pulse Ox O2 Delivery O2 Flow Rate FiO2 10/26/19 09:43 83 144/59 10/26/19 09:00 Nasal Cannula 3.0 10/26/19 08:15 99 Nasal Cannula 2.0 28 10/26/19 08:14 83 20 99 Nasal Cannula 2.0 28 10/26/19 08:00 98.5 81 19 144/59 (87) 100 10/26/19 04:00 98.2 82 18 132/59 (83) 100 10/26/19 00:00 98.1 99 18 130/66 (87) 95 10/26/19 00:00 Nasal Cannula 3.0 10/25/19 20:59 95 137/60 10/25/19 20:00 97.8 95 20 137/60 (85) 100 10/25/19 20:00 87 10/25/19 20:00 Nasal Cannula 4.0 10/25/19 19:21 100 Nasal Cannula 3.0 32 10/25/19 19:21 82 18 100 Nasal Cannula 3.0 32 10/25/19 16:00 87 10/25/19 16:00 Nasal Cannula 4.0 10/25/19 16:00 99.4 90 21 132/58 (82) 99 10/25/19 12:00 97.3 94 20 130/52 (78) 99 10/25/19 12:00 82 10/25/19 12:00 Nasal Cannula 4.0 Intake and Output 10/25/19 10/26/19 19:00 07:00 Intake Total 690 ml 500 ml Output Total 850 ml 250 ml Balance -160 ml 250 ml Free Water 180 ml 50 ml Tube Feeding 450 ml 450 ml Other 60 ml Output Urine Total 850 ml 250 ml # Bowel Movements 1 1 General Appearance: no acute distress HEENT: normocephalic Respiratory/Chest: chest wall non-tender, lungs clear Cardiovascular: normal peripheral pulses Abdomen: normal bowel sounds Laboratory Tests 10/26/19 06:55: White Blood Count 11.2H, Red Blood Count 2.85L, Hemoglobin 8.3L, Hematocrit 25.3L, Mean Corpuscular Volume 89, Mean Corpuscular Hemoglobin 29.1, Mean Corpuscular Hemoglobin Concent 32.7, Red Cell Distribution Width 14.2, Platelet Count 318, Mean Platelet Volume 6.0L, Neutrophils (%) (Auto) 70.2, Lymphocytes ( %) (Auto) 18.3L, Monocytes (%) (Auto) 5.9, Eosinophils (%) (Auto) 4.7H, Basophils (%) (Auto) 0.8, Sodium Level 147H, Potassium Level 4.2, Chloride Level 110H, Carbon Dioxide Level 31, Anion Gap 6, Blood Urea Nitrogen 37H, Creatinine 0.9, Estimat Glomerular Filtration Rate 59.8, Glucose Level 168#H, Calcium Level 8.3L, Phosphorus Level 2.2L, Magnesium Level 1.8, Total Bilirubin 0.2, Aspartate Amino Transf (AST/SGOT) 19, Alanine Aminotransferase (ALT/SGPT) 23, Alkaline Phosphatase 135H, C-Reactive Protein, Quantitative 4.8H, Pro-B- Type Natriuretic Peptide 6640H, Total Protein 5.4L, Albumin 1.8L, Globulin 3.6, Albumin/Globulin Ratio 0.5L Current Medications Medications (Trade) Dose Ordered Sig/Nitish Route PRN Reason Start Time Stop Time Status Last Admin Dose Admin Acetaminophen (Tylenol) 650 mg Q4H PRN GT Mild Pain (Pain Scale 1-3) 10/26/19 03:00 11/21/19 18:42 Albuterol/ Ipratropium (Albuterol/ Ipratropium) 3 ml Q4H PRN HHN Shortness of Breath 10/26/19 02:45 10/27/19 18:43 Dextrose (Dextrose 50%) 25 ml Q30M PRN IV Hypoglycemia 10/26/19 00:30 11/18/19 10:29 Dextrose (Dextrose 50%) 50 ml Q30M PRN IV Hypoglycemia 10/26/19 00:30 11/18/19 10:29 Docusate Sodium (Colace) 100 mg THREE TIMES A DAY NG 10/26/19 13:00 11/25/19 12:59 Gabapentin (Neurontin) 100 mg Q8HR GT 10/26/19 06:00 11/19/19 17:59 10/26/19 05:39 Heparin Sodium (Porcine) (Heparin 5000 units/ml) 5,000 units EVERY 12 HOURS SUBQ 10/26/19 09:00 11/18/19 10:59 10/26/19 10:00 Insulin Aspart (NovoLOG) Q6HR SUBQ 10/26/19 00:15 11/18/19 11:59 10/26/19 00:15 Iron Sucrose 100 mg/Sodium Chloride 60 ml @ 240 mls/hr BEDTIME IV 10/26/19 21:00 10/26/19 21:14 Lansoprazole (Prevacid) 30 mg Q12HR GT 10/26/19 09:00 11/23/19 20:59 10/26/19 09:42 Meropenem 1 gm/ Sodium Chloride 100 ml @ 200 mls/hr Q8HR IVPB 10/26/19 06:00 10/29/19 18:29 10/26/19 05:40 Metoprolol Tartrate (Lopressor) 25 mg Q12HR ORAL 10/26/19 09:00 11/24/19 20:59 10/26/19 09:43 Morphine Sulfate (Morphine 10mg/ 5ml Oral Soln) 5 mg Q6H PRN GT For Pain 10/26/19 01:00 10/29/19 18:43 10/26/19 09:44 Sodium Hypochlorite (Dakin's Quarter Strength) 1 applic BEDTIME TOPIC 10/26/19 21:00 11/21/19 08:59 Vancomycin HCl (Vanco rx to dose) 1 ea DAILY PRN MISC Per rx protocol 10/26/19 09:00 11/23/19 17:14 Vancomycin HCl 750 mg/Sodium Chloride 275 ml @ 183.333 mls/hr Q24H IVPB 10/26/19 20:30 10/29/19 20:29 Kam Grayson MD Oct 26, 2019 11:56
[2019-10-26 12:00] VITALS: BP 146/54
--- NOTE | 2019-10-26 12:55 | Surgery Progress Note ---
Surgery Progress Note Subjective Procedure Performed Excisional debridement of stage IV sacral decubitus ulcer 15 cm x 9 cm x 4 cm irregular shaped down to bone for potential closure primarily versus flap in future Symptoms: improved Additional Comments downgraded Objective Last 24 Hour Vital Signs Date Time Temp Pulse Resp B/P (MAP) Pulse Ox O2 Delivery O2 Flow Rate FiO2 10/26/19 12:00 98.5 75 18 146/54 (84) 99 10/26/19 09:43 83 144/59 10/26/19 09:00 Nasal Cannula 3.0 10/26/19 08:15 99 Nasal Cannula 2.0 28 10/26/19 08:14 83 20 99 Nasal Cannula 2.0 28 10/26/19 08:00 98.5 81 19 144/59 (87) 100 10/26/19 04:00 98.2 82 18 132/59 (83) 100 10/26/19 00:00 98.1 99 18 130/66 (87) 95 10/26/19 00:00 Nasal Cannula 3.0 10/25/19 20:59 95 137/60 10/25/19 20:00 97.8 95 20 137/60 (85) 100 10/25/19 20:00 87 10/25/19 20:00 Nasal Cannula 4.0 10/25/19 19:21 100 Nasal Cannula 3.0 32 10/25/19 19:21 82 18 100 Nasal Cannula 3.0 32 10/25/19 16:00 87 10/25/19 16:00 Nasal Cannula 4.0 10/25/19 16:00 99.4 90 21 132/58 (82) 99 I&O Intake and Output 10/25/19 10/26/19 19:00 07:00 Intake Total 690 ml 500 ml Output Total 850 ml 250 ml Balance -160 ml 250 ml Free Water 180 ml 50 ml Tube Feeding 450 ml 450 ml Other 60 ml Output Urine Total 850 ml 250 ml # Bowel Movements 1 1 Dressing: saturated Wound: clean Cardiovascular: RSR Respiratory: clear Abdomen: soft, non-tender, present bowel sounds Extremities: no tenderness, no cyanosis Laboratory Tests Test 10/26/19 06:55 White Blood Count 11.2 K/UL (4.8-10.8) H Red Blood Count 2.85 M/UL (4.20-5.40) L Hemoglobin 8.3 G/DL (12.0-16.0) L Hematocrit 25.3 % (37.0-47.0) L Mean Corpuscular Volume 89 FL (80-99) Mean Corpuscular Hemoglobin 29.1 PG (27.0-31.0) Mean Corpuscular Hemoglobin Concent 32.7 G/DL (32.0-36.0) Red Cell Distribution Width 14.2 % (11.6-14.8) Platelet Count 318 K/UL (150-450) Mean Platelet Volume 6.0 FL (6.5-10.1) L Neutrophils (%) (Auto) 70.2 % (45.0-75.0) Lymphocytes (%) (Auto) 18.3 % (20.0-45.0) L Monocytes (%) (Auto) 5.9 % (1.0-10.0) Eosinophils (%) (Auto) 4.7 % (0.0-3.0) H Basophils (%) (Auto) 0.8 % (0.0-2.0) Sodium Level 147 MMOL/L (136-145) H Potassium Level 4.2 MMOL/L (3.5-5.1) Chloride Level 110 MMOL/L (98-107) H Carbon Dioxide Level 31 MMOL/L (21-32) Anion Gap 6 mmol/L (5-15) Blood Urea Nitrogen 37 mg/dL (7-18) H Creatinine 0.9 MG/DL (0.55-1.30) Estimat Glomerular Filtration Rate 59.8 mL/min (>60) Glucose Level 168 MG/DL (74-106) #H Calcium Level 8.3 MG/DL (8.5-10.1) L Phosphorus Level 2.2 MG/DL (2.5-4.9) L Magnesium Level 1.8 MG/DL (1.8-2.4) Total Bilirubin 0.2 MG/DL (0.2-1.0) Aspartate Amino Transf (AST/SGOT) 19 U/L (15-37) Alanine Aminotransferase (ALT/SGPT) 23 U/L (12-78) Alkaline Phosphatase 135 U/L (46-116) H C-Reactive Protein, Quantitative 4.8 mg/dL (0.00-0.90) H Pro-B-Type Natriuretic Peptide 6640 pg/mL (0-125) H Total Protein 5.4 G/DL (6.4-8.2) L Albumin 1.8 G/DL (3.4-5.0) L Globulin 3.6 g/dL Albumin/Globulin Ratio 0.5 (1.0-2.7) L Plan Problems: (1) Decubitus ulcer of sacral region, stage 4 Assessment & Plan: Pt presented on admission with multiple pressure injuries and contractures. Partial thickness pressure injury secondary to open serous blister noted to R thoracic(L)2cm x(W)9cm. Base of wound is moist and pink. Edges moist but adherent to base of wound. Periwound without erythema or evidence of further skin breakdown. Full stage 4 thickness Unstageable Pressure Injury Sacrum(L)9cm x (W)15cm. Base of wound has 80% semi-detached necrotic cap with surrounding mixed erythema and slough. Edges adherent to base of wound. Wound is malodorous Scattered areas of non-blanching erythema and areas of hyperpigmentation noted periwound. DTPI noted to L trochanter(L)2cm x (W01cm. Base of wound is maroon and indurated. Periwound without erythema or fluctuance.An area of non-blanching erythema without induration noted to L hip.(L)3cm x (W)3.5cm. Non-blanching erythema without fluctuance or induration noted to L hallux(L) 1.5cm x (W)2.5cm.No evidence of skin breakdown periwound. L heel boggy with non-blanching erythema.Tender when minimally palpated. Areas of non-blanching erythema noted to medial and distal lateral aspects of L foot. Non-blanching erythema with dry peeling skin noted to R achilles(L)1cm x (W)1cm. R heel is boggy with an area of non-blanching erythema medially (L)3cm x (W) 2cm. Areas of non-blanching erythema noted to medial and distal aspects of R foot. s/p debridement d/cplanning Tx.Plan: Cleanse sacral wound with Dakin's yessenia 0.125%. Apply Dakin's moistened 4x4 gauze to wound. Apply Triad Paste periwound. Cover with Optifoam drsg Daily and prn. Cleanse wound R thoracic. Cover with Optifoam drsg. Change every 3 days and prn. Apply Cavilon Skin Barrier to areas of erythema R and L feet. Cover each area with Optifoam drsg. Change every 7 days and prn. APM/AUGUSTINE Mattress overlay. Reposition at least every 2hours or as tolerated. Place pillow between knees. Off-load heels with pillow. We will follow with recommendations Nutritional optimization thank you will follow with recommendations (2) Anemia (3) Proteinuria (4) Toxic metabolic encephalopathy (5) Septic shock Assessment & Plan: Patient needs intensive care unit, leukocytosis, abnormal labs, septic. Full physical examination performed an area of concern identified. Unlikely etiology of patient's sepsis. Likely septic from pneumonia versus potential UTI IV antibiotics per infectious disease We will follow with recommendations (6) Hyperkalemia (7) UTI (urinary tract infection) (8) ODALYS (acute kidney injury) Mikael Shepherd Oct 26, 2019 12:55
[2019-10-26] MEDS: Docusate 100mg/10ml Liq NG SCH ×2 (13:13→18:16)
[2019-10-26] MEDS ORDERED: Tubing IV Secondary IV ONE ×3 (15:08→16:25)
[2019-10-26 16:00] VITALS: BP 121/56
[2019-10-26] MEDS ORDERED: NS 275ml ONE ×2 (16:14→16:25)
[2019-10-26] MEDS ORDERED: Sterile Water Irrig 1000ml IRRIG ONE (16:25)
--- NOTE | 2019-10-26 17:03 | Infectious Diseases Prog Note ---
Assessment/Plan Assessment/Plan ASSESSMENT AND PLAN: 1. 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 Diabetes. 3. Hypertension. 4. Blood pressure and blood sugar treatment per primary care team for diabetes and hypertension. 5. Wound care per protocol and Surgery. The patient may need debridement of the sacral wound. 6. History of dementia. 7. Anemia. 8. Proteinuria. 9. Encephalopathy. 10. Acute kidney injury and hyperkalemia. 11. No known drug allergies. 12. Social history is negative. 13. Family history is noncontributory. 14. MAR is noted. 15. Case was discussed with RN. 16. ICU care. 17. Orders were noted and entered. 18. Continue treatment per primary consultants. Subjective Constitutional: Reports: fatigue, other - more alert ; Denies: fever HEENT: Denies: congestion Respiratory: Denies: shortness of breath Cardiovascular: Denies: chest pain Gastrointestinal/Abdominal: Denies: nausea, vomiting, diarrhea Genitourinary: Reports: other - + beard Neurologic: Reports: other - more alert ; Denies: headache Skin: Denies: rash Hematologic: Denies: bleeding Musculoskeletal: Denies: pain Allergies: Coded Allergies: No Known Allergies (Unverified , 10/18/19) Objective Vital Signs Last 24 Hour Vital Signs Date Time Temp Pulse Resp B/P (MAP) Pulse Ox O2 Delivery O2 Flow Rate FiO2 10/26/19 12:00 98.5 75 18 146/54 (84) 99 10/26/19 09:43 83 144/59 10/26/19 09:00 Nasal Cannula 3.0 10/26/19 08:15 99 Nasal Cannula 2.0 28 10/26/19 08:14 83 20 99 Nasal Cannula 2.0 28 10/26/19 08:00 98.5 81 19 144/59 (87) 100 10/26/19 04:00 98.2 82 18 132/59 (83) 100 10/26/19 00:00 98.1 99 18 130/66 (87) 95 2/22/20 00:00 Nasal Cannula 3.0 10/25/19 20:59 95 137/60 10/25/19 20:00 97.8 95 20 137/60 (85) 100 10/25/19 20:00 87 10/25/19 20:00 Nasal Cannula 4.0 10/25/19 19:21 100 Nasal Cannula 3.0 32 10/25/19 19:21 82 18 100 Nasal Cannula 3.0 32 Height (Feet): 5 Height (Inches): 4.00 Weight (Pounds): 136 General Appearance: no acute distress HEENT: normocephalic, atraumatic, anicteric Respiratory/Chest: lungs clear, normal breath sounds, no respiratory distress Cardiovascular: normal rate, regular rhythm, no gallop/murmur, no JVD Abdomen: normal bowel sounds, soft, non tender, no organomegaly, non distended Genitourinary: other - + beard - urine slt cloudy Extremities: no cyanosis Skin: no rash Neurologic/Psychiatric: 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 There may be significant atelectatic changes at the right lung base. Subsegmental atelectasis is seen at the left lung base.. There is retrocardiac consolidation again demonstrated. The upper lungs are clear. The heart size is normal. Impression: Elevated right hemidiaphragm with possible right basilar atelectasis Retrocardiac consolidation and left basilar atelectasis again demonstrated Chest x-ray - 10/23/19 - Procedure: XRAY Chest 1v Indication: Cough Technique: One view of the chest Comparison: 10/22/2019 Findings: Apparent elevation of the right hemidiaphragm and obscuration of the right heart border suggests right lower lobe atelectasis, unchanged. There is increasing interstitial edema. There is interim development of left-sided pleural effusion Impression: Suspect right lower lobe atelectasis, also previously demonstrated Increasing interstitial edema Suspect developing left pleural effusion Microbiology Date/Time Source Procedure Growth Status 10/23/19 04:05 Blood Blood Culture - Preliminary NO GROWTH AFTER 48 HOURS Resulted 10/19/19 02:40 Sputum Induced Gram Stain - Final Complete 10/19/19 02:40 Sputum Induced Sputum Culture - Final NORMAL UPPER RESPIRATORY ANDRÉS PRESENT Complete 10/20/19 21:20 Stool Clostridium difficile Toxin Assay - Final Complete 10/19/19 00:25 Urine,Clean Catch Urine Culture - Final Pseudomonas Aeruginosa Complete 10/19/19 02:05 Rectum VRE Culture - Final Enterococcus Faecalis - Vre Complete Laboratory Tests Test 10/26/19 06:55 White Blood Count 11.2 K/UL (4.8-10.8) H Red Blood Count 2.85 M/UL (4.20-5.40) L Hemoglobin 8.3 G/DL (12.0-16.0) L Hematocrit 25.3 % (37.0-47.0) L Mean Corpuscular Volume 89 FL (80-99) Mean Corpuscular Hemoglobin 29.1 PG (27.0-31.0) Mean Corpuscular Hemoglobin Concent 32.7 G/DL (32.0-36.0) Red Cell Distribution Width 14.2 % (11.6-14.8) Platelet Count 318 K/UL (150-450) Mean Platelet Volume 6.0 FL (6.5-10.1) L Neutrophils (%) (Auto) 70.2 % (45.0-75.0) Lymphocytes (%) (Auto) 18.3 % (20.0-45.0) L Monocytes (%) (Auto) 5.9 % (1.0-10.0) Eosinophils (%) (Auto) 4.7 % (0.0-3.0) H Basophils (%) (Auto) 0.8 % (0.0-2.0) Sodium Level 147 MMOL/L (136-145) H Potassium Level 4.2 MMOL/L (3.5-5.1) Chloride Level 110 MMOL/L (98-107) H Carbon Dioxide Level 31 MMOL/L (21-32) Anion Gap 6 mmol/L (5-15) Blood Urea Nitrogen 37 mg/dL (7-18) H Creatinine 0.9 MG/DL (0.55-1.30) Estimat Glomerular Filtration Rate 59.8 mL/min (>60) Glucose Level 168 MG/DL (74-106) #H Calcium Level 8.3 MG/DL (8.5-10.1) L Phosphorus Level 2.2 MG/DL (2.5-4.9) L Magnesium Level 1.8 MG/DL (1.8-2.4) Total Bilirubin 0.2 MG/DL (0.2-1.0) Aspartate Amino Transf (AST/SGOT) 19 U/L (15-37) Alanine Aminotransferase (ALT/SGPT) 23 U/L (12-78) Alkaline Phosphatase 135 U/L (46-116) H C-Reactive Protein, Quantitative 4.8 mg/dL (0.00-0.90) H Pro-B-Type Natriuretic Peptide 6640 pg/mL (0-125) H Total Protein 5.4 G/DL (6.4-8.2) L Albumin 1.8 G/DL (3.4-5.0) L Globulin 3.6 g/dL Albumin/Globulin Ratio 0.5 (1.0-2.7) L Current Medications Medications (Trade) Dose Ordered Sig/Nitish Route PRN Reason Start Time Stop Time Status Last Admin Dose Admin Acetaminophen (Tylenol) 650 mg Q4H PRN GT Mild Pain (Pain Scale 1-3) 10/26/19 03:00 11/21/19 18:42 Albuterol/ Ipratropium (Albuterol/ Ipratropium) 3 ml Q4H PRN HHN Shortness of Breath 10/26/19 02:45 10/27/19 18:43 Dextrose (Dextrose 50%) 25 ml Q30M PRN IV Hypoglycemia 10/26/19 00:30 11/18/19 10:29 Dextrose (Dextrose 50%) 50 ml Q30M PRN IV Hypoglycemia 10/26/19 00:30 11/18/19 10:29 Docusate Sodium (Colace) 100 mg THREE TIMES A DAY NG 10/26/19 13:00 11/25/19 12:59 10/26/19 13:13 Gabapentin (Neurontin) 100 mg Q8HR GT 10/26/19 06:00 11/19/19 17:59 10/26/19 13:13 Heparin Sodium (Porcine) (Heparin 5000 units/ml) 5,000 units EVERY 12 HOURS SUBQ 10/26/19 09:00 11/18/19 10:59 10/26/19 10:00 Insulin Aspart (NovoLOG) Q6HR SUBQ 10/26/19 00:15 11/18/19 11:59 10/26/19 12:28 Iron Sucrose 100 mg/Sodium Chloride 60 ml @ 240 mls/hr BEDTIME IV 10/26/19 21:00 10/26/19 21:14 Lansoprazole (Prevacid) 30 mg Q12HR GT 10/26/19 09:00 11/23/19 20:59 10/26/19 09:42 Meropenem 1 gm/ Sodium Chloride 100 ml @ 200 mls/hr Q8HR IVPB 10/26/19 06:00 10/29/19 18:29 10/26/19 13:15 Metoprolol Tartrate (Lopressor) 25 mg Q12HR ORAL 10/26/19 09:00 11/24/19 20:59 10/26/19 09:43 Morphine Sulfate (Morphine 10mg/ 5ml Oral Soln) 5 mg Q6H PRN GT For Pain 10/26/19 01:00 10/29/19 18:43 10/26/19 16:17 Sodium Hypochlorite (Dakin's Quarter Strength) 1 applic BEDTIME TOPIC 10/26/19 21:00 11/21/19 08:59 Vancomycin HCl (Vanco rx to dose) 1 ea DAILY PRN MISC Per rx protocol 10/26/19 09:00 11/23/19 17:14 Vancomycin HCl 750 mg/Sodium Chloride 275 ml @ 183.333 mls/hr Q24H IVPB 10/26/19 20:30 10/29/19 20:29 Bao Stevens MD Oct 26, 2019 17:03
--- NOTE | 2019-10-26 17:30 | NUR ---
NURSE NOTES: PER DR CARVAJAL, OK TO CHANGE SACRAL DRESSING STARTING TODAY. NO CHANGE IN SACRAL DRESSING CHANGE ORDERS. PT FINISHED BOLUS D5W 500CC X1. PT TOLERATED WELL. IN NO APPARENT DISTRESS AT THIS TIME. RN LEFT MESSAGE FOR DR BROOKS REGARDING PAIN MEDICATION. PT IN SEVERE PAIN AFTER SACRAL DRESSING CHANGE. AWAITING NEW ORDERS. PI IN SEMI-GILL'S POSITION WITH HOB ELEVATED. PT WAS REPOSITIONED FOR COMFORT. BED IN LOWEST POSITION WITH BEDSIDE RAILS X3 RAISED. BED ALARM ON ZONE 1. WILL CONTINUE TO MONITOR.
--- NOTE | 2019-10-26 18:00 | NUR ---
NURSE NOTES: CASE MANAGEMENT CONSULT ORDER FOR DISCHARGE ON 10/26/[address] CARVAJAL, DUE TO DEBRIDEMENT OF SACRAL WOUND YESTERDAY, PT NEEDS TO STAY TO BE MONITORED FOR A FEW DAYS BEFORE DISCHARGE. RN MADE RENATO GRANT AWARE. PER RUDY, SHE SPOKE TO DR BROOKS AND MADE AWARE DR CARVAJAL NOT READY TO DISCHARGE PT.
--- NOTE | 2019-10-26 19:40 | NUR ---
HAND-OFF: Report given to Isabel ZIMMERMAN RN.
--- NOTE | 2019-10-26 19:41 | NUR ---
NURSE NOTES: Patient awake and verbally responsive. Breathing unlabored on 3L O2 via NC without distress. No s/s or complaints of pain noted at this time. IV noted on right hand intact and running TKO. Gtube feeding running as ordered and no residual at this time. Weiner intact draining urine to gravity. Patient on P200 mattress. Bed placed at the lowest with alarm, brake, and siderails up for safety. Call light placed within reach and encouraged to use. Will continue to monitor and provide care as ordered.
[2019-10-26 20:00] VITALS: BP 140/63
[2019-10-26] MEDS: Vancomycin 750 MG in NS 275 ML IVPB SCH (20:16)
[2019-10-26] MEDS: Dakin's 0.125% Soln (Quarter Strength) 16oz TOPIC SCH (20:30)
[2019-10-26] MEDS: Iron Sucrose 100 MG in NS 55 ML IV SCH ×2 (20:34→22:14)
--- NOTE | 2019-10-26 21:50 | NUR ---
NURSE NOTES: Provided sacral dressing change as ordered. Patient tolerated well. Will continue to monitor.
--- NOTE | 2019-10-26 22:00 | NUR ---
NURSE NOTES: Placed new 24g IV on left wrist. Previous IV site infiltrated. Previous IV removed and arm elevated. Patient tolerated the process well. New IV intact, dry, clean, and patent.
[2019-10-27] VITALS (7 sets, daily range): BP systolic 108–156; BP diastolic 55–68
[2019-10-27] MEDS: NovoLOG Insulin Flexpen SUBQ SCH ×5 (00:57→23:47)
--- NOTE | 2019-10-27 02:15 | Progress Note ---
DATE: 10/26/2019 CARDIOLOGY PROGRESS NOTE SUBJECTIVE: Blood pressure parameters stable. Pain control needed. Decubitus ongoing with wound care. OBJECTIVE: VITAL SIGNS: Blood pressure 144/59, pulse 81, respiratory rate 19, and afebrile. LUNGS: Coarse breath sounds. Rhonchi. HEART: Regular rhythm and rate. Normal S1 and S2. ABDOMEN: Soft. EXTREMITIES: No edema. LABORATORY DATA: White count 11.2 and hemoglobin 8.3. Sodium 147, potassium 4.2, bicarb 31, BUN 37, and creatinine 0.9. Phosphorus 2.2. Pro-natriuretic peptide 6600. Albumin 1.8. IMPRESSION: 1. Dehydration. 2. ____. 3. Hypophosphatemia. 4. Type 2 diabetes mellitus with hyperglycemia. 5. Acute on chronic diastolic congestive heart failure. 6. Severe protein-calorie malnutrition. 7. Hypertensive heart disease. 8. Sepsis with recovered shock. PLAN: 1. Beta-lotus added, we will titrate. 2. Respiratory hygiene. 3. Antimicrobials. 4. Iron replacement. 5. Free water replacement. 6. Hold diuresis until free water deficit corrected. 7. Phosphorus supplements. Ronak Carranza M.D. DR: HOWARD JOB#: [id number] CC:
[2019-10-27] MEDS: Gabapentin 300 MG/6 ML Soln GT SCH ×3 (05:43→22:06)
--- NOTE | 2019-10-27 05:53 | General Progress Note ---
Assessment/Plan Problem List: (1) UTI (urinary tract infection) ICD Codes: N39.0 - Urinary tract infection, site not specified SNOMED: 98146717 Qualifiers: Qualified Codes: N30.00 - Acute cystitis without hematuria (2) Septic shock ICD Codes: A41.9 - Sepsis, unspecified organism; R65.21 - Severe sepsis with septic shock SNOMED: 48332615 (3) Anemia ICD Codes: D64.9 - Anemia, unspecified SNOMED: 024932686 Qualifiers: Qualified Codes: D64.9 - Anemia, unspecified (4) Iron (Fe) deficiency anemia ICD Codes: D50.9 - Iron deficiency anemia, unspecified SNOMED: 01642215 (5) Dysphagia ICD Codes: R13.10 - Dysphagia, unspecified SNOMED: 72911945, 668067893 (6) Gt dependent (7) DM Assessment/Plan: GT has been changed at the bedside GTF GT care monitor for residuals iv iron ppi fu stool ob>>> neg abx per ID repeat labs in am Subjective Allergies: Coded Allergies: No Known Allergies (Unverified , 10/18/19) Objective Last 24 Hour Vital Signs Date Time Temp Pulse Resp B/P (MAP) Pulse Ox O2 Delivery O2 Flow Rate FiO2 10/27/19 04:00 98.9 82 20 150/59 (89) 98 10/27/19 00:00 97.5 85 19 156/59 (91) 98 10/26/19 21:00 Nasal Cannula 3.0 10/26/19 20:30 88 140/63 10/26/19 20:00 98.2 88 18 140/63 (88) 99 10/26/19 19:40 98 Nasal Cannula 2.0 28 10/26/19 19:40 86 20 98 Nasal Cannula 2.0 28 10/26/19 16:00 98.1 81 19 121/56 (77) 100 10/26/19 12:00 98.5 75 18 146/54 (84) 99 10/26/19 09:43 83 144/59 10/26/19 09:00 Nasal Cannula 3.0 10/26/19 08:15 99 Nasal Cannula 2.0 28 10/26/19 08:14 83 20 99 Nasal Cannula 2.0 28 10/26/19 08:00 98.5 81 19 144/59 (87) 100 Intake and Output 10/26/19 10/27/19 19:00 07:00 Intake Total 585 ml 435.000 ml Balance 585 ml 435.000 ml Free Water 90 ml IV Total 435.000 ml Tube Feeding 495 ml Laboratory Tests 10/26/19 06:55: White Blood Count 11.2H, Red Blood Count 2.85L, Hemoglobin 8.3L, Hematocrit 25.3L, Mean Corpuscular Volume 89, Mean Corpuscular Hemoglobin 29.1, Mean Corpuscular Hemoglobin Concent 32.7, Red Cell Distribution Width 14.2, Platelet Count 318, Mean Platelet Volume 6.0L, Neutrophils (%) (Auto) 70.2, Lymphocytes ( %) (Auto) 18.3L, Monocytes (%) (Auto) 5.9, Eosinophils (%) (Auto) 4.7H, Basophils (%) (Auto) 0.8, Sodium Level 147H, Potassium Level 4.2, Chloride Level 110H, Carbon Dioxide Level 31, Anion Gap 6, Blood Urea Nitrogen 37H, Creatinine 0.9, Estimat Glomerular Filtration Rate 59.8, Glucose Level 168#H, Calcium Level 8.3L, Phosphorus Level 2.2L, Magnesium Level 1.8, Total Bilirubin 0.2, Aspartate Amino Transf (AST/SGOT) 19, Alanine Aminotransferase (ALT/SGPT) 23, Alkaline Phosphatase 135H, C-Reactive Protein, Quantitative 4.8H, Pro-B- Type Natriuretic Peptide 6640H, Total Protein 5.4L, Albumin 1.8L, Globulin 3.6, Albumin/Globulin Ratio 0.5L Height (Feet): 5 Height (Inches): 4.00 Weight (Pounds): 136 General Appearance: no apparent distress EENT: normal ENT inspection Neck: supple Cardiovascular: normal rate Respiratory/Chest: decreased breath sounds Abdomen: normal bowel sounds, non tender, soft Extremities: non-tender Ming Marquez MD Oct 27, 2019 05:53
--- NOTE | 2019-10-27 07:20 | NUR ---
HAND-OFF: Report given to LIAT Hernandez. Plan of care endorsed.
--- NOTE | 2019-10-27 07:21 | NUR ---
NURSE NOTES: PT AXOX1, CALM, RESTING IN BED,. IN HIGH-GILL'S POSITION WITH HOB ELEVATED. IN NO APPARENT DISTRESS AT THIS TIME. BED IN LOWEST POSITION WITH BEDSIDE RAILS X3 RAISED. BED ALARM ON ZONE 1. GTF GLUCERNA 1.5 RUNNING AT 45CC/H. WILL CONTINUE TO MONITOR.
[2019-10-27 08:05] LABS: HEMOGLOBIN 7.8 G/DL (12.0-16.0); MEAN CORPUSCULAR VOLUME 88 FL (80-99); PLATELET COUNT 301 K/UL (150-450); RED BLOOD COUNT 2.73 M/UL (4.20-5.40); RED CELL DISTRIBUTION WIDTH 13.7 % (11.6-14.8)
[2019-10-27 08:13] LABS: ALANINE AMINOTRANSFERASE 24 U/L (12-78); ALBUMIN 1.7 G/DL (3.4-5.0); ALBUMIN/GLOBULIN RATIO 0.5 (1.0-2.7); ALKALINE PHOSPHATASE 126 U/L (46-116); ANION GAP 6 mmol/L (5-15); ASPARTATE AMINO TRANSFERASE 18 U/L (15-37); BILIRUBIN,TOTAL 0.3 MG/DL (0.2-1.0); BLOOD UREA NITROGEN 31 mg/dL (7-18); CALCIUM 8.1 MG/DL (8.5-10.1); CARBON DIOXIDE 32 MMOL/L (21-32); CHLORIDE 108 MMOL/L (98-107); CREATININE 0.8 MG/DL (0.55-1.30); PHOSPHORUS 2.2 MG/DL (2.5-4.9); POTASSIUM 3.9 MMOL/L (3.5-5.1); SODIUM 146 MMOL/L (136-145)
--- NOTE | 2019-10-27 08:37 | Diagnostic Imaging Report ---
EXAM: XR Chest, 1 View CLINICAL HISTORY: INFECT TECHNIQUE: Frontal view of the chest. COMPARISON: 10/23/19 FINDINGS: Lungs: There is improving mild perihilar pulmonary edema. There is increasing left basilar atelectasis with unchanged mild right basilar atelectasis. Pleural space: There are unchanged small bilateral pleural effusions. No pneumothorax. Heart: Unremarkable. No cardiomegaly. Mediastinum: Unremarkable. Bones/joints: Unremarkable. Other findings: There is unchanged cardiomegaly IMPRESSION: Improving mild pulmonary edema with increasing left basilar atelectasis and unchanged right basilar atelectasis. There are unchanged small pleural effusions
[2019-10-27] MEDS: Docusate 100mg/10ml Liq NG SCH ×3 (09:12→17:33)
[2019-10-27] MEDS: Heparin 5000 units/ml inj SUBQ SCH ×2 (09:13→22:05)
--- NOTE | 2019-10-27 10:22 | Pulmonology Progress Note ---
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 Patient presented with this on admission. Sepsis unlikely due to wound likely pneumonia wound does need local supportive care. S/p surgical debridement (2) Anemia (3) Proteinuria (4) Toxic metabolic encephalopathy (5) Septic shock Much improved; off pressors IV antibiotics per infectious disease (6) Hyperkalemia (7) UTI (urinary tract infection); has Pseudomonas (8) ODALYS (acute kidney injury) PLAN Continue pressors as needed; currently off IV abx O2 Pulmonary hygiene Back on pain medications discussed with surgery. DC to facility Subjective Interval Events: None new Constitutional: Reports: no symptoms HEENT: Repors: no symptoms Respiratory: Reports: no symptoms Cardiovascular: Reports: no symptoms Allergies: Coded Allergies: No Known Allergies (Unverified , 10/18/19) Objective Last 24 Hour Vital Signs Date Time Temp Pulse Resp B/P (MAP) Pulse Ox O2 Delivery O2 Flow Rate FiO2 10/27/19 09:00 84 108/60 10/27/19 08:00 98.5 84 20 108/60 (76) 98 10/27/19 07:15 Nasal Cannula 3.0 10/27/19 04:00 98.9 82 20 150/59 (89) 98 10/27/19 00:00 97.5 85 19 156/59 (91) 98 10/26/19 21:00 Nasal Cannula 3.0 10/26/19 20:30 88 140/63 10/26/19 20:00 98.2 88 18 140/63 (88) 99 10/26/19 19:40 98 Nasal Cannula 2.0 28 10/26/19 19:40 86 20 98 Nasal Cannula 2.0 28 10/26/19 16:00 98.1 81 19 121/56 (77) 100 10/26/19 12:00 98.5 75 18 146/54 (84) 99 Intake and Output 10/26/19 10/27/19 19:00 07:00 Intake Total 585 ml 580.000 ml Balance 585 ml 580.000 ml Free Water 90 ml IV Total 535.000 ml Tube Feeding 495 ml 45 ml General Appearance: no acute distress HEENT: atraumatic Respiratory/Chest: chest wall non-tender Cardiovascular: normal peripheral pulses Abdomen: normal bowel sounds Laboratory Tests 10/27/19 07:20: White Blood Count 10.0, Red Blood Count 2.73L, Hemoglobin 7.8L, Hematocrit 24.0L , Mean Corpuscular Volume 88, Mean Corpuscular Hemoglobin 28.6, Mean Corpuscular Hemoglobin Concent 32.5, Red Cell Distribution Width 13.7, Platelet Count 301, Mean Platelet Volume 6.4L, Neutrophils (%) (Auto) , Lymphocytes (%) ( Auto) , Monocytes (%) (Auto) , Eosinophils (%) (Auto) , Basophils (%) (Auto) , Neutrophils % (Manual) [Pending], Lymphocytes % (Manual) [Pending], Platelet Estimate [Pending], Platelet Morphology [Pending], Sodium Level 146H, Potassium Level 3.9, Chloride Level 108H, Carbon Dioxide Level 32, Anion Gap 6, Blood Urea Nitrogen 31H, Creatinine 0.8, Estimat Glomerular Filtration Rate > 60, Glucose Level 156H, Uric Acid 2.1L, Calcium Level 8.1L, Phosphorus Level 2.2L, Magnesium Level 1.7L, Total Bilirubin 0.3, Aspartate Amino Transf (AST/SGOT) 18 , Alanine Aminotransferase (ALT/SGPT) 24, Alkaline Phosphatase 126H, Total Protein 5.2L, Albumin 1.7L, Globulin 3.5, Albumin/Globulin Ratio 0.5L Current Medications Medications (Trade) Dose Ordered Sig/Nitish Route PRN Reason Start Time Stop Time Status Last Admin Dose Admin Acetaminophen (Tylenol) 650 mg Q4H PRN GT Mild Pain (Pain Scale 1-3) 10/26/19 03:00 11/21/19 18:42 Albuterol/ Ipratropium (Albuterol/ Ipratropium) 3 ml Q4H PRN HHN Shortness of Breath 10/26/19 02:45 10/27/19 18:43 Dextrose (Dextrose 50%) 25 ml Q30M PRN IV Hypoglycemia 10/26/19 00:30 11/18/19 10:29 Dextrose (Dextrose 50%) 50 ml Q30M PRN IV Hypoglycemia 10/26/19 00:30 11/18/19 10:29 Docusate Sodium (Colace) 100 mg THREE TIMES A DAY NG 10/26/19 13:00 11/25/19 12:59 10/27/19 09:12 Gabapentin (Neurontin) 100 mg Q8HR GT 10/26/19 06:00 11/19/19 17:59 10/27/19 05:43 Heparin Sodium (Porcine) (Heparin 5000 units/ml) 5,000 units EVERY 12 HOURS SUBQ 10/26/19 09:00 11/18/19 10:59 10/27/19 09:13 Insulin Aspart (NovoLOG) Q6HR SUBQ 10/26/19 00:15 11/18/19 11:59 10/27/19 05:45 Lansoprazole (Prevacid) 30 mg Q12HR GT 10/26/19 09:00 11/23/19 20:59 10/27/19 09:12 Meropenem 1 gm/ Sodium Chloride 100 ml @ 200 mls/hr Q8HR IVPB 10/26/19 06:00 10/29/19 18:29 10/27/19 05:44 Metoprolol Tartrate (Lopressor) 25 mg Q12HR ORAL 10/26/19 09:00 11/24/19 20:59 10/26/19 20:30 Morphine Sulfate (Morphine 10mg/ 5ml Oral Soln) 5 mg Q6H PRN GT For Pain 10/26/19 01:00 10/29/19 18:43 10/26/19 23:28 Sodium Hypochlorite (Dakin's Quarter Strength) 1 applic BEDTIME TOPIC 10/26/19 21:00 11/21/19 08:59 10/26/19 20:30 Vancomycin HCl (Vanco rx to dose) 1 ea DAILY PRN MISC Per rx protocol 10/26/19 09:00 11/23/19 17:14 Vancomycin HCl 750 mg/Sodium Chloride 275 ml @ 183.333 mls/hr Q24H IVPB 10/26/19 20:30 10/29/19 20:29 10/26/19 20:16 Kam Grayson MD Oct 27, 2019 10:22
--- NOTE | 2019-10-27 10:50 | NUR ---
CHARGE NURSE NOTE: Pt will be discharged today. H@H 7.8/24.0. was called if he wants to order a blood transfusion.
--- NOTE | 2019-10-27 10:52 | NUR ---
CHARGE NURSE NOTE: Spoke with , no blood transfusion ordered. He said it is OK to discharge her to SNF.
--- NOTE | 2019-10-27 11:22 | Nephrology Progress Note ---
Assessment/Plan Problem List: (1) Hyperkalemia (2) ODALYS (acute kidney injury) (3) UTI (urinary tract infection) (4) Anemia (5) Leukocytosis Assessment: today 21.3 K Assessment HyperKalemia resolved HypoNatremia resolved Renal failure resolving Sepsis UTI DM Anemia HypoAlbuminemia Plan D5 Bolus as needed K and Phos and Mag supplement as needed GT feeding antibiotics- per ID Avoid nephrotoxics: monitor renal parameters Anemia jimenez per order Subjective ROS Limited/Unobtainable: No Constitutional: Reports: malaise Objective Objective Last 24 Hour Vital Signs Date Time Temp Pulse Resp B/P (MAP) Pulse Ox O2 Delivery O2 Flow Rate FiO2 10/27/19 09:00 84 108/60 10/27/19 08:00 98.5 84 20 108/60 (76) 98 10/27/19 07:15 Nasal Cannula 3.0 10/27/19 04:00 98.9 82 20 150/59 (89) 98 10/27/19 00:00 97.5 85 19 156/59 (91) 98 10/26/19 21:00 Nasal Cannula 3.0 10/26/19 20:30 88 140/63 10/26/19 20:00 98.2 88 18 140/63 (88) 99 10/26/19 19:40 98 Nasal Cannula 2.0 28 10/26/19 19:40 86 20 98 Nasal Cannula 2.0 28 10/26/19 16:00 98.1 81 19 121/56 (77) 100 10/26/19 12:00 98.5 75 18 146/54 (84) 99 Intake and Output 10/26/19 10/27/19 19:00 07:00 Intake Total 585 ml 580.000 ml Balance 585 ml 580.000 ml Free Water 90 ml IV Total 535.000 ml Tube Feeding 495 ml 45 ml Current Medications Medications (Trade) Dose Ordered Sig/Nitish Route PRN Reason Start Time Stop Time Status Last Admin Dose Admin Acetaminophen (Tylenol) 650 mg Q4H PRN GT Mild Pain (Pain Scale 1-3) 10/26/19 03:00 11/21/19 18:42 Albuterol/ Ipratropium (Albuterol/ Ipratropium) 3 ml Q4H PRN HHN Shortness of Breath 10/26/19 02:45 10/27/19 18:43 Dextrose (Dextrose 50%) 25 ml Q30M PRN IV Hypoglycemia 10/26/19 00:30 11/18/19 10:29 Dextrose (Dextrose 50%) 50 ml Q30M PRN IV Hypoglycemia 10/26/19 00:30 11/18/19 10:29 Docusate Sodium (Colace) 100 mg THREE TIMES A DAY NG 10/26/19 13:00 11/25/19 12:59 10/27/19 09:12 Gabapentin (Neurontin) 100 mg Q8HR GT 10/26/19 06:00 11/19/19 17:59 10/27/19 05:43 Heparin Sodium (Porcine) (Heparin 5000 units/ml) 5,000 units EVERY 12 HOURS SUBQ 10/26/19 09:00 11/18/19 10:59 10/27/19 09:13 Insulin Aspart (NovoLOG) Q6HR SUBQ 10/26/19 00:15 11/18/19 11:59 10/27/19 05:45 Lansoprazole (Prevacid) 30 mg Q12HR GT 10/26/19 09:00 11/23/19 20:59 10/27/19 09:12 Meropenem 1 gm/ Sodium Chloride 100 ml @ 200 mls/hr Q8HR IVPB 10/26/19 06:00 10/29/19 18:29 10/27/19 05:44 Metoprolol Tartrate (Lopressor) 25 mg Q12HR ORAL 10/26/19 09:00 11/24/19 20:59 10/26/19 20:30 Morphine Sulfate (Morphine 10mg/ 5ml Oral Soln) 5 mg Q6H PRN GT For Pain 10/26/19 01:00 10/29/19 18:43 10/26/19 23:28 Sodium Hypochlorite (Dakin's Quarter Strength) 1 applic BEDTIME TOPIC 10/26/19 21:00 11/21/19 08:59 10/26/19 20:30 Vancomycin HCl (Vanco rx to dose) 1 ea DAILY PRN MISC Per rx protocol 10/26/19 09:00 11/23/19 17:14 Vancomycin HCl 750 mg/Sodium Chloride 275 ml @ 183.333 mls/hr Q24H IVPB 10/26/19 20:30 10/29/19 20:29 10/26/19 20:16 Laboratory Tests 10/27/19 07:20: White Blood Count 10.0, Red Blood Count 2.73L, Hemoglobin 7.8L, Hematocrit 24.0L , Mean Corpuscular Volume 88, Mean Corpuscular Hemoglobin 28.6, Mean Corpuscular Hemoglobin Concent 32.5, Red Cell Distribution Width 13.7, Platelet Count 301, Mean Platelet Volume 6.4L, Neutrophils (%) (Auto) , Lymphocytes (%) ( Auto) , Monocytes (%) (Auto) , Eosinophils (%) (Auto) , Basophils (%) (Auto) , Neutrophils % (Manual) [Pending], Lymphocytes % (Manual) [Pending], Platelet Estimate [Pending], Platelet Morphology [Pending], Sodium Level 146H, Potassium Level 3.9, Chloride Level 108H, Carbon Dioxide Level 32, Anion Gap 6, Blood Urea Nitrogen 31H, Creatinine 0.8, Estimat Glomerular Filtration Rate > 60, Glucose Level 156H, Uric Acid 2.1L, Calcium Level 8.1L, Phosphorus Level 2.2L, Magnesium Level 1.7L, Total Bilirubin 0.3, Aspartate Amino Transf (AST/SGOT) 18 , Alanine Aminotransferase (ALT/SGPT) 24, Alkaline Phosphatase 126H, Total Protein 5.2L, Albumin 1.7L, Globulin 3.5, Albumin/Globulin Ratio 0.5L Height (Feet): 5 Height (Inches): 4.00 Weight (Pounds): 136 General Appearance: no apparent distress Cardiovascular: normal rate Abdomen: soft Objective no change Ayo Pryor MD Oct 27, 2019 11:22
--- NOTE | 2019-10-27 11:22 | NUR ---
NURSE NOTES: RN SPOKE TO BENY AT [facility] AND FAXED PAPERWORK TO [phone]. BENY TO CALL BACK WHETHER FACILITY WILL ACCEPT PT. BENY MADE AWARE PT WILL BE DISCHARGED WITH IV MERREM 500MG Q12HR X 5 DAYS.
--- NOTE | 2019-10-27 12:00 | NUR ---
CHARGE NURSE NOTE: Spoke with Miss Lei (pt's relative). She refused to discharge patient to [facility], she is requesting [facility]. Primary RN faxed all paper work to facility, waiting for their respond. notified.
[2019-10-27] MEDS: Phospha 250 Neutral tab GT SCH ×2 (12:41→17:33)
[2019-10-27] MEDS: Morphine Sulfate 10mg/5ml Oral Soln ud GT PRN ×2 (13:13→23:35)
--- NOTE | 2019-10-27 13:45 | Surgery Progress Note ---
Surgery Progress Note Subjective Procedure Performed Excisional debridement of stage IV sacral decubitus ulcer 15 cm x 9 cm x 4 cm irregular shaped down to bone for potential closure primarily versus flap in future Additional Comments labs improved overall better cont dressing changes as ordered upon d/c Objective Last 24 Hour Vital Signs Date Time Temp Pulse Resp B/P (MAP) Pulse Ox O2 Delivery O2 Flow Rate FiO2 10/27/19 12:00 98.7 97 20 131/62 (85) 99 10/27/19 09:00 84 108/60 10/27/19 08:00 98.5 84 20 108/60 (76) 98 10/27/19 07:15 Nasal Cannula 3.0 10/27/19 04:00 98.9 82 20 150/59 (89) 98 10/27/19 00:00 97.5 85 19 156/59 (91) 98 10/26/19 21:00 Nasal Cannula 3.0 10/26/19 20:30 88 140/63 10/26/19 20:00 98.2 88 18 140/63 (88) 99 10/26/19 19:40 98 Nasal Cannula 2.0 28 10/26/19 19:40 86 20 98 Nasal Cannula 2.0 28 10/26/19 16:00 98.1 81 19 121/56 (77) 100 I&O Intake and Output 10/26/19 10/27/19 19:00 07:00 Intake Total 585 ml 580.000 ml Balance 585 ml 580.000 ml Free Water 90 ml IV Total 535.000 ml Tube Feeding 495 ml 45 ml Dressing: other Wound: other Drains: other Cardiovascular: RSR Respiratory: clear Abdomen: soft, non-tender, present bowel sounds Extremities: no cyanosis Laboratory Tests Test 10/27/19 07:20 White Blood Count 10.0 K/UL (4.8-10.8) Red Blood Count 2.73 M/UL (4.20-5.40) L Hemoglobin 7.8 G/DL (12.0-16.0) L Hematocrit 24.0 % (37.0-47.0) L Mean Corpuscular Volume 88 FL (80-99) Mean Corpuscular Hemoglobin 28.6 PG (27.0-31.0) Mean Corpuscular Hemoglobin Concent 32.5 G/DL (32.0-36.0) Red Cell Distribution Width 13.7 % (11.6-14.8) Platelet Count 301 K/UL (150-450) Mean Platelet Volume 6.4 FL (6.5-10.1) L Neutrophils (%) (Auto) % (45.0-75.0) Lymphocytes (%) (Auto) % (20.0-45.0) Monocytes (%) (Auto) % (1.0-10.0) Eosinophils (%) (Auto) % (0.0-3.0) Basophils (%) (Auto) % (0.0-2.0) Differential Total Cells Counted 100 Neutrophils % (Manual) 79 % (45-75) H Lymphocytes % (Manual) 15 % (20-45) L Monocytes % (Manual) 4 % (1-10) Eosinophils % (Manual) 2 % (0-3) Basophils % (Manual) 0 % (0-2) Band Neutrophils 0 % (0-8) Platelet Estimate Adequate Platelet Morphology Normal Hypochromasia 1+ Sodium Level 146 MMOL/L (136-145) H Potassium Level 3.9 MMOL/L (3.5-5.1) Chloride Level 108 MMOL/L (98-107) H Carbon Dioxide Level 32 MMOL/L (21-32) Anion Gap 6 mmol/L (5-15) Blood Urea Nitrogen 31 mg/dL (7-18) H Creatinine 0.8 MG/DL (0.55-1.30) Estimat Glomerular Filtration Rate > 60 mL/min (>60) Glucose Level 156 MG/DL (74-106) H Uric Acid 2.1 MG/DL (2.6-7.2) L Calcium Level 8.1 MG/DL (8.5-10.1) L Phosphorus Level 2.2 MG/DL (2.5-4.9) L Magnesium Level 1.7 MG/DL (1.8-2.4) L Total Bilirubin 0.3 MG/DL (0.2-1.0) Aspartate Amino Transf (AST/SGOT) 18 U/L (15-37) Alanine Aminotransferase (ALT/SGPT) 24 U/L (12-78) Alkaline Phosphatase 126 U/L (46-116) H Total Protein 5.2 G/DL (6.4-8.2) L Albumin 1.7 G/DL (3.4-5.0) L Globulin 3.5 g/dL Albumin/Globulin Ratio 0.5 (1.0-2.7) L Plan Problems: (1) Decubitus ulcer of sacral region, stage 4 Assessment & Plan: Pt presented on admission with multiple pressure injuries and contractures. Partial thickness pressure injury secondary to open serous blister noted to R thoracic(L)2cm x(W)9cm. Base of wound is moist and pink. Edges moist but adherent to base of wound. Periwound without erythema or evidence of further skin breakdown. Full stage 4 thickness Unstageable Pressure Injury Sacrum(L)9cm x (W)15cm. Base of wound has 80% semi-detached necrotic cap with surrounding mixed erythema and slough. Edges adherent to base of wound. Wound is malodorous Scattered areas of non-blanching erythema and areas of hyperpigmentation noted periwound. DTPI noted to L trochanter(L)2cm x (W01cm. Base of wound is maroon and indurated. Periwound without erythema or fluctuance.An area of non-blanching erythema without induration noted to L hip.(L)3cm x (W)3.5cm. Non-blanching erythema without fluctuance or induration noted to L hallux(L) 1.5cm x (W)2.5cm.No evidence of skin breakdown periwound. L heel boggy with non-blanching erythema.Tender when minimally palpated. Areas of non-blanching erythema noted to medial and distal lateral aspects of L foot. Non-blanching erythema with dry peeling skin noted to R achilles(L)1cm x (W)1cm. R heel is boggy with an area of non-blanching erythema medially (L)3cm x (W) 2cm. Areas of non-blanching erythema noted to medial and distal aspects of R foot. s/p debridement d/cplanning Tx.Plan: Cleanse sacral wound with Dakin's yessenia 0.125%. Apply Dakin's moistened 4x4 gauze to wound. Apply Triad Paste periwound. Cover with Optifoam drsg Daily and prn. Cleanse wound R thoracic. Cover with Optifoam drsg. Change every 3 days and prn. Apply Cavilon Skin Barrier to areas of erythema R and L feet. Cover each area with Optifoam drsg. Change every 7 days and prn. APM/AUGUSTINE Mattress overlay. Reposition at least every 2hours or as tolerated. Place pillow between knees. Off-load heels with pillow. We will follow with recommendations Nutritional optimization thank you will follow with recommendations (2) Anemia (3) Proteinuria (4) Toxic metabolic encephalopathy (5) Septic shock Assessment & Plan: Patient needs intensive care unit, leukocytosis, abnormal labs, septic. Full physical examination performed an area of concern identified. Unlikely etiology of patient's sepsis. Likely septic from pneumonia versus potential UTI IV antibiotics per infectious disease We will follow with recommendations (6) Hyperkalemia (7) UTI (urinary tract infection) (8) ODALYS (acute kidney injury) Mikael Shepherd Oct 27, 2019 13:45
[2019-10-27] MEDS ORDERED: NS Irrig 1000ml ONE (13:52)
[2019-10-27] MEDS ORDERED: NS 275ml ONE (13:52)
[2019-10-27] MEDS ORDERED: Tubing IV Secondary IV ONE (13:52)
--- NOTE | 2019-10-27 15:23 | NUR ---
NURSE NOTES: RN SPOKE TO BENY AT [facility], AND THEY ARE UNABLE TO ACCOMMODATE PT DUE TO NO [employer] MARSHAL BEDS AVAILABLE AT THIS TIME. RN MADE NIECE (LAVONNE DRIVER) AWARE AND PER LAVONNE, SHE DOES NOT WANT [facility] TO RETURN TO [facility]. LAVONNE IS CURRENTLY FILING A CASE AGAINST [facility] AND MADE A REPORT FOR [facility] FOR INVESTIGATION. CRN MADE AWARE.
[2019-10-27] MEDS ORDERED: MERREM MONIT1 EA IV (18:34)
--- NOTE | 2019-10-27 18:38 | NUR ---
NURSE NOTES: RN CHANGED SACRAL DRESSING TWICE DUE TO SOILAGE FROM LOOSE BM. PT IN SEVERE PAIN. RN MADE DR BROOKS AWARE, WITH ORDER TO CHANGE MORPHINE 5MG PO Q6H TO Q4H. ORDER ENTERED.
--- NOTE | 2019-10-27 19:20 | NUR ---
HAND-OFF: Report given to Virginie TEMPLE RN.
[2019-10-27] MEDS: Vancomycin 750 MG in NS 275 ML IVPB SCH (22:04)
[2019-10-27] MEDS: Dakin's 0.125% Soln (Quarter Strength) 16oz TOPIC SCH (22:06)
[2019-10-28] VITALS: BP 108/55
[2019-10-28 04:00] VITALS: BP 129/60
--- NOTE | 2019-10-28 04:30 | Progress Note ---
DATE: 10/27/2019 CARDIOLOGY PROGRESS NOTE SUBJECTIVE: The patient continues on pain medications for wound care. Blood pressure stable off pressors. OBJECTIVE: VITAL SIGNS: Blood pressure 108/60 to 150/59, heart rate 82, respiratory rate 20, and afebrile. LUNGS: Clear. CARDIAC: Regular. ABDOMEN: Soft. EXTREMITIES: No edema. LABORATORY DATA: White count 10, hemoglobin 7.8. Sodium 146, potassium 3.9, bicarb 32, BUN 31, creatinine 0.8. Magnesium 1.7. Albumin 1.7. IMPRESSION: 1. Recovered sepsis with shock. 2. Decubitus. 3. Hypomagnesemia. 4. Hypophosphatemia. 5. Dehydration. 6. Hypernatremia. PLAN: 1. Hypotonic IV fluids. 2. Replace magnesium by IV route. 3. Nutritional support. 4. Respiratory hygiene. 5. DVT prophylaxis. 6. Continue beta-lotus, titrate for optimal blood pressure control. Ronak Carranza M.D. DR: Campos JOB#: [id number] CC:
[2019-10-28] MEDS: Gabapentin 300 MG/6 ML Soln GT SCH (05:29)
[2019-10-28] MEDS: NovoLOG Insulin Flexpen SUBQ SCH ×2 (05:30→11:44)
[2019-10-28 07:48] LABS: BASOPHILS % (AUTO) 1.4 % (0.0-2.0); EOSINOPHILS % (AUTO) 3.2 % (0.0-3.0); HEMATOCRIT 26.8 % (37.0-47.0); LYMPHOCYTES % (AUTO) 19.2 % (20.0-45.0); MEAN CORPUSCULAR VOLUME 88 FL (80-99); MONOCYTES % (AUTO) 4.5 % (1.0-10.0); NEUTROPHILS % (AUTO) 71.7 % (45.0-75.0); PLATELET COUNT 326 K/UL (150-450); RED BLOOD COUNT 3.06 M/UL (4.20-5.40); RED CELL DISTRIBUTION WIDTH 14.6 % (11.6-14.8); WHITE BLOOD COUNT 9.2 K/UL (4.8-10.8)
--- NOTE | 2019-10-28 07:52 | NUR ---
NURSE NOTES: Received patient in bed asleep. O2 via NC in place. No SOB or acute distress. IV line intact and patent. Wound dressings intact. GTube intace, feeding infusing well. HOB elevated. Bed locked in lowest position, alarm on high sensitivity setting. Will continue frequent rounding and plan of care.
[2019-10-28 08:00] VITALS: BP 154/62
--- NOTE | 2019-10-28 08:00 | NUR ---
HAND-OFF: Report given to LIAT Cabezas .
[2019-10-28 08:17] LABS: ALANINE AMINOTRANSFERASE 14 U/L (12-78); ALBUMIN 1.9 G/DL (3.4-5.0); ALBUMIN/GLOBULIN RATIO 0.5 (1.0-2.7); ALKALINE PHOSPHATASE 145 U/L (46-116); ANION GAP 4 mmol/L (5-15); ASPARTATE AMINO TRANSFERASE 19 U/L (15-37); BILIRUBIN,TOTAL 0.3 MG/DL (0.2-1.0); BLOOD UREA NITROGEN 25 mg/dL (7-18); CALCIUM 8.6 MG/DL (8.5-10.1); CARBON DIOXIDE 32 MMOL/L (21-32); CHLORIDE 109 MMOL/L (98-107); CREATININE 0.7 MG/DL (0.55-1.30); PHOSPHORUS 2.4 MG/DL (2.5-4.9); POTASSIUM 4.3 MMOL/L (3.5-5.1); SODIUM 145 MMOL/L (136-145)
[2019-10-28] MEDS: Phospha 250 Neutral tab GT SCH (08:25)
[2019-10-28] MEDS: Docusate 100mg/10ml Liq NG SCH (08:26)
[2019-10-28] MEDS: Heparin 5000 units/ml inj SUBQ SCH (08:27)
--- NOTE | 2019-10-28 09:38 | General Progress Note ---
Assessment/Plan Problem List: (1) UTI (urinary tract infection) ICD Codes: N39.0 - Urinary tract infection, site not specified SNOMED: 16419088 Qualifiers: Qualified Codes: N30.00 - Acute cystitis without hematuria (2) Septic shock ICD Codes: A41.9 - Sepsis, unspecified organism; R65.21 - Severe sepsis with septic shock SNOMED: 16489718 (3) Anemia ICD Codes: D64.9 - Anemia, unspecified SNOMED: 122220026 Qualifiers: Qualified Codes: D64.9 - Anemia, unspecified (4) Iron (Fe) deficiency anemia ICD Codes: D50.9 - Iron deficiency anemia, unspecified SNOMED: 48511706 (5) Dysphagia ICD Codes: R13.10 - Dysphagia, unspecified SNOMED: 92131212, 470321883 (6) Gt dependent (7) DM Assessment/Plan: GT has been changed at the bedside GTF GT care monitor for residuals iv iron ppi fu stool ob>>> neg abx per ID repeat labs in am Subjective ROS Limited/Unobtainable: No Allergies: Coded Allergies: No Known Allergies (Unverified , 10/18/19) Objective Last 24 Hour Vital Signs Date Time Temp Pulse Resp B/P (MAP) Pulse Ox O2 Delivery O2 Flow Rate FiO2 10/28/19 08:26 95 154/62 10/28/19 08:00 98.0 95 19 154/62 (92) 98 10/28/19 04:00 97.8 80 22 129/60 (83) 95 10/28/19 00:00 98.6 84 22 108/55 (72) 95 10/27/19 22:04 82 139/68 10/27/19 21:00 Nasal Cannula 3.0 10/27/19 20:01 98.9 86 23 131/55 (80) 95 10/27/19 19:36 97 Nasal Cannula 2.0 28 10/27/19 19:36 82 18 97 Nasal Cannula 2.0 28 10/27/19 16:00 98.5 88 20 139/68 (91) 99 10/27/19 12:00 98.7 97 20 131/62 (85) 99 Intake and Output 10/27/19 10/28/19 19:00 07:00 Intake Total 895 ml Output Total 700 ml Balance 195 ml Free Water 100 ml IV Total 300 ml Tube Feeding 495 ml Output Urine Total 700 ml # Voids 2 # Bowel Movements 2 Laboratory Tests 10/28/19 06:32: White Blood Count 9.2, Red Blood Count 3.06L, Hemoglobin 9.0L, Hematocrit 26.8L , Mean Corpuscular Volume 88, Mean Corpuscular Hemoglobin 29.4, Mean Corpuscular Hemoglobin Concent 33.5, Red Cell Distribution Width 14.6, Platelet Count 326, Mean Platelet Volume 6.0L, Neutrophils (%) (Auto) 71.7, Lymphocytes ( %) (Auto) 19.2L, Monocytes (%) (Auto) 4.5, Eosinophils (%) (Auto) 3.2H, Basophils (%) (Auto) 1.4, Sodium Level 145, Potassium Level 4.3, Chloride Level 109H, Carbon Dioxide Level 32, Anion Gap 4L, Blood Urea Nitrogen 25H, Creatinine 0.7, Estimat Glomerular Filtration Rate > 60, Glucose Level 214H, Calcium Level 8.6, Phosphorus Level 2.4L, Magnesium Level 2.3, Total Bilirubin 0.3, Aspartate Amino Transf (AST/SGOT) 19, Alanine Aminotransferase (ALT/SGPT) 14, Alkaline Phosphatase 145H, Total Protein 5.5L, Albumin 1.9L, Globulin 3.6, Albumin/Globulin Ratio 0.5L Height (Feet): 5 Height (Inches): 4.00 Weight (Pounds): 139 General Appearance: lethargic EENT: normal ENT inspection Neck: supple Cardiovascular: normal rate Respiratory/Chest: decreased breath sounds Abdomen: normal bowel sounds, non tender, soft Extremities: non-tender Ming Marquez MD Oct 28, 2019 09:38
--- NOTE | 2019-10-28 10:12 | NUR ---
*-* DISCHARGE PLANNING *-* PATIENT HAS BEEN FAXED TO: [facility] P: [phone] F: [phone] Addendum: 10/28/19 at 1214 by RABIA FOLEY LVN LVN PATIENT HAS BEEN ACCEPTED TO RETURN TO [facility] PER RM [facility] SCHEDULED WITH [facility]O @ EXT [id number] WITH ETA @ 1245 PM PER MICHELE
[2019-10-28] MEDS: Morphine Sulfate 10mg/5ml Oral Soln ud GT PRN (10:19)
--- NOTE | 2019-10-28 10:21 | Pulmonology Progress Note ---
Assessment/Plan Assessment/Plan (1) Decubitus ulcer of sacral region, stage 4 Stage IV sacral decubitus ulcer; S/p surgical debridement (2) Anemia; Hgb now 9 (3) Proteinuria (4) Toxic metabolic encephalopathy (5) Septic shock Much improved; off pressors IV antibiotics per infectious disease (6) Hyperkalemia (7) UTI (urinary tract infection); has Pseudomonas (8) ODALYS (acute kidney injury) PLAN IV abx O2 Pulmonary hygiene Back on pain medications discussed with surgery. DC to facility Subjective Interval Events: Hgb 9; doing well Constitutional: Reports: no symptoms HEENT: Repors: no symptoms Respiratory: Reports: no symptoms Cardiovascular: Reports: no symptoms Gastrointestinal/Abdominal: Reports: no symptoms Allergies: Coded Allergies: No Known Allergies (Unverified , 10/18/19) Objective Last 24 Hour Vital Signs Date Time Temp Pulse Resp B/P (MAP) Pulse Ox O2 Delivery O2 Flow Rate FiO2 10/28/19 08:26 95 154/62 10/28/19 08:00 98.0 95 19 154/62 (92) 98 10/28/19 04:00 97.8 80 22 129/60 (83) 95 10/28/19 00:00 98.6 84 22 108/55 (72) 95 10/27/19 22:04 82 139/68 10/27/19 21:00 Nasal Cannula 3.0 10/27/19 20:01 98.9 86 23 131/55 (80) 95 10/27/19 19:36 97 Nasal Cannula 2.0 28 10/27/19 19:36 82 18 97 Nasal Cannula 2.0 28 10/27/19 16:00 98.5 88 20 139/68 (91) 99 10/27/19 12:00 98.7 97 20 131/62 (85) 99 Intake and Output 10/27/19 10/28/19 19:00 07:00 Intake Total 895 ml Output Total 700 ml Balance 195 ml Free Water 100 ml IV Total 300 ml Tube Feeding 495 ml Output Urine Total 700 ml # Voids 2 # Bowel Movements 2 General Appearance: no acute distress HEENT: normocephalic Respiratory/Chest: chest wall non-tender, lungs clear Cardiovascular: normal peripheral pulses, normal rate Abdomen: normal bowel sounds Laboratory Tests 10/28/19 06:32: White Blood Count 9.2, Red Blood Count 3.06L, Hemoglobin 9.0L, Hematocrit 26.8L , Mean Corpuscular Volume 88, Mean Corpuscular Hemoglobin 29.4, Mean Corpuscular Hemoglobin Concent 33.5, Red Cell Distribution Width 14.6, Platelet Count 326, Mean Platelet Volume 6.0L, Neutrophils (%) (Auto) 71.7, Lymphocytes ( %) (Auto) 19.2L, Monocytes (%) (Auto) 4.5, Eosinophils (%) (Auto) 3.2H, Basophils (%) (Auto) 1.4, Sodium Level 145, Potassium Level 4.3, Chloride Level 109H, Carbon Dioxide Level 32, Anion Gap 4L, Blood Urea Nitrogen 25H, Creatinine 0.7, Estimat Glomerular Filtration Rate > 60, Glucose Level 214H, Calcium Level 8.6, Phosphorus Level 2.4L, Magnesium Level 2.3, Total Bilirubin 0.3, Aspartate Amino Transf (AST/SGOT) 19, Alanine Aminotransferase (ALT/SGPT) 14, Alkaline Phosphatase 145H, Total Protein 5.5L, Albumin 1.9L, Globulin 3.6, Albumin/Globulin Ratio 0.5L Current Medications Medications (Trade) Dose Ordered Sig/Nitish Route PRN Reason Start Time Stop Time Status Last Admin Dose Admin Acetaminophen (Tylenol) 650 mg Q4H PRN GT Mild Pain (Pain Scale 1-3) 10/26/19 03:00 11/21/19 18:42 Dextrose (Dextrose 50%) 25 ml Q30M PRN IV Hypoglycemia 10/26/19 00:30 11/18/19 10:29 Dextrose (Dextrose 50%) 50 ml Q30M PRN IV Hypoglycemia 10/26/19 00:30 11/18/19 10:29 Docusate Sodium (Colace) 100 mg THREE TIMES A DAY NG 10/26/19 13:00 11/25/19 12:59 10/28/19 08:26 Gabapentin (Neurontin) 100 mg Q8HR GT 10/26/19 06:00 11/19/19 17:59 10/28/19 05:29 Heparin Sodium (Porcine) (Heparin 5000 units/ml) 5,000 units EVERY 12 HOURS SUBQ 10/26/19 09:00 11/18/19 10:59 10/28/19 08:27 Insulin Aspart (NovoLOG) Q6HR SUBQ 10/26/19 00:15 11/18/19 11:59 10/28/19 05:30 Lansoprazole (Prevacid) 30 mg Q12HR GT 10/26/19 09:00 11/23/19 20:59 10/28/19 08:26 Meropenem 1 gm/ Sodium Chloride 100 ml @ 200 mls/hr Q8HR IVPB 10/26/19 06:00 10/29/19 18:29 10/28/19 05:30 Metoprolol Tartrate (Lopressor) 25 mg Q12HR ORAL 10/26/19 09:00 11/24/19 20:59 10/28/19 08:26 Morphine Sulfate (Morphine 10mg/ 5ml Oral Soln) 5 mg Q4H PRN GT For Pain 10/27/19 18:00 11/03/19 17:59 10/28/19 10:19 Phosphorus (Phospha 250 Neutral) 500 mg THREE TIMES A DAY GT 10/28/19 13:00 11/26/19 12:59 Sodium Hypochlorite (Dakin's Quarter Strength) 1 applic BEDTIME TOPIC 10/26/19 21:00 11/21/19 08:59 10/27/19 22:06 Vancomycin HCl (Vanco rx to dose) 1 ea DAILY PRN MISC Per rx protocol 10/26/19 09:00 11/23/19 17:14 Vancomycin HCl 750 mg/Sodium Chloride 275 ml @ 183.333 mls/hr Q24H IVPB 10/26/19 20:30 10/29/19 20:29 10/27/19 22:04 Kam Grayson MD Oct 28, 2019 10:21
--- NOTE | 2019-10-28 10:40 | Nephrology Progress Note ---
Assessment/Plan Problem List: (1) Hyperkalemia (2) ODALYS (acute kidney injury) (3) UTI (urinary tract infection) (4) Anemia (5) Leukocytosis Assessment: today 21.3 K Assessment HyperKalemia resolved HypoNatremia resolved Renal failure resolving Sepsis UTI DM Anemia HypoAlbuminemia Plan D5 Bolus as needed K and Phos and Mag supplement as needed GT feeding antibiotics- per ID Avoid nephrotoxics: monitor renal parameters Anemia jimenez per order Subjective ROS Limited/Unobtainable: No Constitutional: Reports: malaise, weakness Objective Objective Last 24 Hour Vital Signs Date Time Temp Pulse Resp B/P (MAP) Pulse Ox O2 Delivery O2 Flow Rate FiO2 10/28/19 08:26 95 154/62 10/28/19 08:00 98.0 95 19 154/62 (92) 98 10/28/19 04:00 97.8 80 22 129/60 (83) 95 10/28/19 00:00 98.6 84 22 108/55 (72) 95 10/27/19 22:04 82 139/68 10/27/19 21:00 Nasal Cannula 3.0 10/27/19 20:01 98.9 86 23 131/55 (80) 95 10/27/19 19:36 97 Nasal Cannula 2.0 28 10/27/19 19:36 82 18 97 Nasal Cannula 2.0 28 10/27/19 16:00 98.5 88 20 139/68 (91) 99 10/27/19 12:00 98.7 97 20 131/62 (85) 99 Intake and Output 10/27/19 10/28/19 19:00 07:00 Intake Total 895 ml Output Total 700 ml Balance 195 ml Free Water 100 ml IV Total 300 ml Tube Feeding 495 ml Output Urine Total 700 ml # Voids 2 # Bowel Movements 2 Laboratory Tests 10/28/19 06:32: White Blood Count 9.2, Red Blood Count 3.06L, Hemoglobin 9.0L, Hematocrit 26.8L , Mean Corpuscular Volume 88, Mean Corpuscular Hemoglobin 29.4, Mean Corpuscular Hemoglobin Concent 33.5, Red Cell Distribution Width 14.6, Platelet Count 326, Mean Platelet Volume 6.0L, Neutrophils (%) (Auto) 71.7, Lymphocytes ( %) (Auto) 19.2L, Monocytes (%) (Auto) 4.5, Eosinophils (%) (Auto) 3.2H, Basophils (%) (Auto) 1.4, Sodium Level 145, Potassium Level 4.3, Chloride Level 109H, Carbon Dioxide Level 32, Anion Gap 4L, Blood Urea Nitrogen 25H, Creatinine 0.7, Estimat Glomerular Filtration Rate > 60, Glucose Level 214H, Calcium Level 8.6, Phosphorus Level 2.4L, Magnesium Level 2.3, Total Bilirubin 0.3, Aspartate Amino Transf (AST/SGOT) 19, Alanine Aminotransferase (ALT/SGPT) 14, Alkaline Phosphatase 145H, Total Protein 5.5L, Albumin 1.9L, Globulin 3.6, Albumin/Globulin Ratio 0.5L Height (Feet): 5 Height (Inches): 4.00 Weight (Pounds): 139 General Appearance: no apparent distress Cardiovascular: tachycardia Respiratory/Chest: decreased breath sounds Abdomen: soft Objective no change Ayo Pryor MD Oct 28, 2019 10:40
[2019-10-28 12:00] VITALS: BP 113/55
[2019-10-28] MEDS ORDERED: Phospha 250 Neutral tab GT SCH (13:00)
--- NOTE | 2019-10-28 13:29 | Surgery Progress Note ---
Surgery Progress Note Subjective Procedure Performed Excisional debridement of stage IV sacral decubitus ulcer 15 cm x 9 cm x 4 cm irregular shaped down to bone for potential closure primarily versus flap in future Additional Comments labs improved exam improved d/c planning Objective Last 24 Hour Vital Signs Date Time Temp Pulse Resp B/P (MAP) Pulse Ox O2 Delivery O2 Flow Rate FiO2 10/28/19 12:00 98.1 76 18 113/55 (74) 99 10/28/19 11:02 99 Nasal Cannula 2.0 28 10/28/19 11:01 74 16 99 Nasal Cannula 2.0 28 10/28/19 09:00 Nasal Cannula 3.0 10/28/19 08:26 95 154/62 10/28/19 08:00 98.0 95 19 154/62 (92) 98 10/28/19 04:00 97.8 80 22 129/60 (83) 95 10/28/19 00:00 98.6 84 22 108/55 (72) 95 10/27/19 22:04 82 139/68 10/27/19 21:00 Nasal Cannula 3.0 10/27/19 20:01 98.9 86 23 131/55 (80) 95 10/27/19 19:36 97 Nasal Cannula 2.0 28 10/27/19 19:36 82 18 97 Nasal Cannula 2.0 28 10/27/19 16:00 98.5 88 20 139/68 (91) 99 I&O Intake and Output 10/27/19 10/28/19 19:00 07:00 Intake Total 895 ml Output Total 700 ml Balance 195 ml Free Water 100 ml IV Total 300 ml Tube Feeding 495 ml Output Urine Total 700 ml # Voids 2 # Bowel Movements 2 Dressing: saturated Wound: clean Cardiovascular: RSR Respiratory: clear Abdomen: soft, non-tender, present bowel sounds Extremities: no cyanosis Laboratory Tests Test 10/28/19 06:32 White Blood Count 9.2 K/UL (4.8-10.8) Red Blood Count 3.06 M/UL (4.20-5.40) L Hemoglobin 9.0 G/DL (12.0-16.0) L Hematocrit 26.8 % (37.0-47.0) L Mean Corpuscular Volume 88 FL (80-99) Mean Corpuscular Hemoglobin 29.4 PG (27.0-31.0) Mean Corpuscular Hemoglobin Concent 33.5 G/DL (32.0-36.0) Red Cell Distribution Width 14.6 % (11.6-14.8) Platelet Count 326 K/UL (150-450) Mean Platelet Volume 6.0 FL (6.5-10.1) L Neutrophils (%) (Auto) 71.7 % (45.0-75.0) Lymphocytes (%) (Auto) 19.2 % (20.0-45.0) L Monocytes (%) (Auto) 4.5 % (1.0-10.0) Eosinophils (%) (Auto) 3.2 % (0.0-3.0) H Basophils (%) (Auto) 1.4 % (0.0-2.0) Sodium Level 145 MMOL/L (136-145) Potassium Level 4.3 MMOL/L (3.5-5.1) Chloride Level 109 MMOL/L (98-107) H Carbon Dioxide Level 32 MMOL/L (21-32) Anion Gap 4 mmol/L (5-15) L Blood Urea Nitrogen 25 mg/dL (7-18) H Creatinine 0.7 MG/DL (0.55-1.30) Estimat Glomerular Filtration Rate > 60 mL/min (>60) Glucose Level 214 MG/DL (74-106) H Calcium Level 8.6 MG/DL (8.5-10.1) Phosphorus Level 2.4 MG/DL (2.5-4.9) L Magnesium Level 2.3 MG/DL (1.8-2.4) Total Bilirubin 0.3 MG/DL (0.2-1.0) Aspartate Amino Transf (AST/SGOT) 19 U/L (15-37) Alanine Aminotransferase (ALT/SGPT) 14 U/L (12-78) Alkaline Phosphatase 145 U/L (46-116) H Total Protein 5.5 G/DL (6.4-8.2) L Albumin 1.9 G/DL (3.4-5.0) L Globulin 3.6 g/dL Albumin/Globulin Ratio 0.5 (1.0-2.7) L Plan Problems: (1) Decubitus ulcer of sacral region, stage 4 Assessment & Plan: Pt presented on admission with multiple pressure injuries and contractures. Partial thickness pressure injury secondary to open serous blister noted to R thoracic(L)2cm x(W)9cm. Base of wound is moist and pink. Edges moist but adherent to base of wound. Periwound without erythema or evidence of further skin breakdown. Full stage 4 thickness Unstageable Pressure Injury Sacrum(L)9cm x (W)15cm. Base of wound has 80% semi-detached necrotic cap with surrounding mixed erythema and slough. Edges adherent to base of wound. Wound is malodorous Scattered areas of non-blanching erythema and areas of hyperpigmentation noted periwound. DTPI noted to L trochanter(L)2cm x (W01cm. Base of wound is maroon and indurated. Periwound without erythema or fluctuance.An area of non-blanching erythema without induration noted to L hip.(L)3cm x (W)3.5cm. Non-blanching erythema without fluctuance or induration noted to L hallux(L) 1.5cm x (W)2.5cm.No evidence of skin breakdown periwound. L heel boggy with non-blanching erythema.Tender when minimally palpated. Areas of non-blanching erythema noted to medial and distal lateral aspects of L foot. Non-blanching erythema with dry peeling skin noted to R achilles(L)1cm x (W)1cm. R heel is boggy with an area of non-blanching erythema medially (L)3cm x (W) 2cm. Areas of non-blanching erythema noted to medial and distal aspects of R foot. s/p debridement d/cplanning Tx.Plan: Cleanse sacral wound with Dakin's yessenia 0.125%. Apply Dakin's moistened 4x4 gauze to wound. Apply Triad Paste periwound. Cover with Optifoam drsg Daily and prn. Cleanse wound R thoracic. Cover with Optifoam drsg. Change every 3 days and prn. Apply Cavilon Skin Barrier to areas of erythema R and L feet. Cover each area with Optifoam drsg. Change every 7 days and prn. APM/AUGUSTINE Mattress overlay. Reposition at least every 2hours or as tolerated. Place pillow between knees. Off-load heels with pillow. We will follow with recommendations Nutritional optimization thank you will follow with recommendations (2) Anemia (3) Proteinuria (4) Toxic metabolic encephalopathy (5) Septic shock Assessment & Plan: Patient needs intensive care unit, leukocytosis, abnormal labs, septic. Full physical examination performed an area of concern identified. Unlikely etiology of patient's sepsis. Likely septic from pneumonia versus potential UTI IV antibiotics per infectious disease We will follow with recommendations (6) Hyperkalemia (7) UTI (urinary tract infection) (8) ODALYS (acute kidney injury) Mikael Shepherd Oct 28, 2019 13:29
--- NOTE | 2019-10-28 13:30 | NUR ---
NURSE NOTES: Patient discharged to [facility] in stable condition via ambulance, report given to Josiah. ID bracelet removed. Weiner catheter removed as ordered. IV line removed. Wound pictures taken, dressings changed. No belongings. Family contacted, left message, awaiting callback. No new skin issues. Transported by ambulance personnel.
--- NOTE | 2019-10-28 16:49 | NUR ---
*-* INSURANCE *-* ALL AVAILABLE CLINICALS AND REVIEWS HAVE BEEN FAXED TO: [facility] AUTH TRACKING#: [id number] CM: ANUJ TEL: [phone] FAX CLINICALS: [phone]
--- NOTE | 2019-10-28 22:45 | Progress Note ---
DATE: 10/28/2019 CARDIOLOGY PROGRESS NOTE SUBJECTIVE: No shortness of breath. No chest pain. Blood pressure parameters are overall controlled. Monitored rhythm sinus with rare atrial ectopy nonsustained. PHYSICAL EXAMINATION: VITAL SIGNS: Blood pressure 113/55 to 154/62, heart rate 76, respiratory rate 18, afebrile, oxygen saturation on 2 liters 99%. LUNGS: Bilateral breath sounds. No wheezing. CARDIAC: Regular rhythm and rate. Normal S1, S2. ABDOMEN: Soft. EXTREMITIES: No edema. LABORATORY DATA: White count 9.2, hemoglobin 9. Sodium 145, potassium 4.3, bicarb 32, BUN 25, creatinine 0.7. Phosphorus 2.4. Magnesium 2.3. Albumin 1.9. IMPRESSION: 1. Resolved septic shock. 2. Hypophosphatemia, on replacement therapy. 3. Hypomagnesemia, corrected. 4. Severe protein-calorie malnutrition, on supplemental nutrition. 5. Dehydration and hypernatremia with free water deficit, corrected. 6. Anemia, status post transfusion. 7. Hypertensive heart disease without overall adequate blood pressure control. PLAN: 1. Stable from cardiovascular standpoint to transition to alf facility. 2. Continue phosphorus replacement. 3. Maintain low-dose beta-lotus and titrate for blood pressure optimization as needed at the alf facility. Ronak Carranza M.D. DR: PRITESH JOB#: [id number] CC:
--- NOTE | 2019-10-29 09:01 | Discharge Summary ---
Discharge Summary Discharge Summary _ DATE OF ADMISSION: 10/19/2019 DATE OF DISCHARGE: 10/28/2019 DISCHARGED BY: Dr. Grayson REASON FOR ADMISSION: 84 years old female with past medical history of CVA, diabetes mellitus, dysphagia, hypertension, hyperlipidemia, dementia, decubitus ulcer, was sent from the halfway facility due to altered mental status and hypotension. Upon evaluation patient was tachycardic with heart rate 150, tachypneic with respiratory rate 26, blood pressure was 75/59 and hypoxic requiring 100% nonrebreathing mask . Laboratory work-up revealed significant leukocytosis WBC 23.9, hemoglobin 11.5, hematocrit 34.3. Sodium 127. Potassium 7.1. BUN 69, creatinine 1.4. Lactic acid 5.6. Glucose 201. AST 90, ALT 26. Troponin negative. Urinalysis revealed gross evidence of urinary tract infection . CT of the head demonstrated no acute intracranial hemorrhage or cortical ischemia. Chronic small vessel ischemic changes noted. EKG revealed sinus tachycardia ,no acute ischemic changes Chest x-ray demonstrated left basilar atelectasis versus infiltrate. Combination of pleural effusion and /or airspace disease in right lower hemithorax. Septic work-up initiated. Patient received fluid challenge , however blood pressure did not respond to fluids. Central line was placed for pressors . Patient admitted to ICU for further management. CONSULTANTS: [employer] construction worker Dr.Kattan THORPE specialist Dr. Stevens educational administration teacher Dr. Pryor [facility] COURSE: Patient admitted to ICU. Patient started on aggressive fluid resuscitation with hypotonic solution and pressors. Pressors titrated to keep mean arterial blood pressure above 65. Patient started on empiric antibiotics. Venous duplex bilateral lower extremity revealed no evidence of acute DVT. TSH within normal limits. Blood culture revealed Pseudomonas and Alcaligenes species. Urine culture revealed Pseudomonas aeruginosa. Sputum culture was negative. Stool for C. difficile was negative. Antibiotic regimen was optimized as per ID specialist recommendation. Repeated blood culture on 10/23 were negative. Echocardiogram demonstrated preserved ejection fraction 65% with mild left ventricular hypertrophy. No evidence of wall motion abnormalities. Right ventricular systolic pressure of 28. Patient was able to be weaned from pressor on . Hemodynamic status was closely monitored. Patient presented on admission with sacral decubitus ulcer stage IV, infected. Patient subsequently undergone excisional debridement of stage IV sacral decubitus ulcer with plan for potential closure primarily versus flap in future. Wound care provided as per surgeon recommendation. Continue wound care at the facility. As patient clinically improved , she was able to be weaned from nonrebreathing mask to Venturi mask and then subsequently to nasal cannula. Supplemental oxygen provided and titrated to keep oximetry above 92%. Bronchodilator treatment via HHN provided. Patient followed-up with chest x-ray. Renal parameters and electrolytes were closely monitored, electrolytes corrected as needed, and nephrotoxic's were avoided. All electrolytes stable prior to discharge, and renal failure resolved. Acute kidney injury was thought to be due to sepsis and dehydration. Hemoglobin and hematocrit were closely monitored with goal to keep hemoglobin above 7. Anemia work-up was consistent with anemia of chronic disease. Patient noted to have a low iron of 10. Patient received 1 bag of IV venofer. Supportive care provided. Pain management addressed as needed. DVT and GI prophylaxis provided. Blood sugar was managed with sliding scale of insulin. Patient clinically stabilized and was ready for transfer back to halfway facility for continuation of care. FINAL DIAGNOSES: Septic shock Sepsis with Pseudomonas and Alcaligenes bacteremia Pseudomonas UTI Pneumonia Toxic metabolic encephalopathy Acute kidney injury-resolved Hyperkalemia-resolved Cerebrovascular disease with dementia Bradyarrhythmia due to elevated potassium and acidosis Diabetes mellitus type 2 History of hypertension Sacral decubitus ulcer stage IV present on admission with necrotic tissue Status post excisional debridement of stage IV sacral decubitus ulcer down to bone DISCHARGE MEDICATIONS: See Medication Reconciliation list. DISCHARGE INSTRUCTIONS: Patient was discharged to the halfway facility. Follow up with medical doctor at the facility. I have been assigned to dictate discharge summary for this account. I was not involved in the patient's management. Merly Hairston NP Oct 29, 2019 09:01
== END 2019-10-28 13:30 | DRG 853 ==
LOC: EDBD 23:26 → EMR 23:40 → ICU 10-19 01:22 → EDBEDREQ 10-19 05:53 → 2W 10-22 19:30 → 4E 10-25 23:43
PROC: 06HM33Z Insertion of Infusion Device into Right Femoral Vein, Percutaneous Approach (ICD-10-PCS; principal; 2019-10-19)
PROC: 0QB10ZZ Excision of Sacrum, Open Approach (ICD-10-PCS; 2019-10-25)
DX: A41.52 Sepsis due to Pseudomonas (principal); L89.154 Pressure ulcer of sacral region, stage 4; R65.21 Severe sepsis with septic shock; I50.33 Acute on chronic diastolic (congestive) heart failure; G92 Toxic encephalopathy; E43 Unspecified severe protein-calorie malnutrition; N39.0 Urinary tract infection, site not specified; E87.1 Hypo-osmolality and hyponatremia; N17.9 Acute kidney failure, unspecified; Z86.73 Personal history of transient ischemic attack (TIA), and cerebral infarction without residual deficits; R68.0 Hypothermia, not associated with low environmental temperature; I11.0 Hypertensive heart disease with heart failure; E11.9 Type 2 diabetes mellitus without complications; E78.5 Hyperlipidemia, unspecified; F03.90 Unspecified dementia, unspecified severity, without behavioral disturbance, psychotic disturbance, mood disturbance, and anxiety; R09.02 Hypoxemia; E87.5 Hyperkalemia; D64.9 Anemia, unspecified; E83.39 Other disorders of phosphorus metabolism; E83.42 Hypomagnesemia; Z68.23 Body mass index [BMI] 23.0-23.9, adult; Z93.1 Gastrostomy status; R13.10 Dysphagia, unspecified; R00.1 Bradycardia, unspecified
CPT/HCPCS: 36415; 36600; 70450; 71045; 74018; 80048; 80053; 80061; 80076; 80150; 80202; 81003; 82270; 82550; 82553; 82607; 82728; 82746; 82803; 82962; 82977; 83036; 83540; 83550; 83605; 83735; 83880; 83930; 84100; 84300; 84443; 84484; 84550; 85007; 85025; 85610; 85730; 86140; 87040; 87070; 87081; 87086; 87181; 87205; 87324; 93005; 93306; 93970; 94640; 94664; 96365; 99291; 99292; C9399; J1815; J7030; J7620

== ENCOUNTER 2020-01-30 02:15 | Inpatient (IN) | payer MEDICARE, MEDICAID ==
[2020-01-30] VITALS (8 sets, daily range): BP systolic 92–145; BP diastolic 48–85
[~2020-01-30] VITALS: Ht 165.1 cm; Wt 59.0 kg
[~2020-01-30 02:15] MED LIST: AMLODIPINE BESYL5 MG GT; ASPIRIN EC81 MG GT; ATORVASTATIN CA40 MG GT; CARVEDILOL12.5 MG GT; DESYREL50 MG GT; DONEPEZIL HCL10 MG GT; FAMOTIDINE20 MG GT; GABAPENTIN300 MG GT; HUMALOG100 UNIT/4 SUBQ; HYDRALAZINE HCL10 MG GT; LOVENOX10 M4 SUBQ; MERREM MONIT1 EA IV; MORPHINE S10 MG/0.5 PO; MORPHINE S10 MG/1 M3 GT; PRINIVIL10 MG ORAL
--- NOTE | 2020-01-30 02:15 | NUR ---
Note undone in EDM - 01/30/20 at 0801 by [email or web address] ED Nurse Note: Pt brought into ED by YADIRA FLORES 62 from [facility] [place] for respiratory distress, unknown onset time. Per YADIRA pt was short of breath and 82% oxygen saturation on scene. Pt arrived to ED on 15L oxygen via NRB. Pt is positive COVID per YADIRA. Pt is tachypneic and unable to speak at this time due to shortness of breath, she does make moaning sounds and is awake and alert. Pt connected to cardiac sonographer and HR is elevated in 130's. ERMD bedside. ISO precuations taken. Will cont. to monitor and safety measures in place.
--- NOTE | 2020-01-30 02:20 | NUR ---
ED Nurse Note: Pt has G tube and beard in place at this time. Pt has multiple open wounds to sacrum, R and L legs/ankles and skin tears to bilat arms. IV line established, blood drawn by RN. Blood and urine specimen collected and sent to lab.
--- NOTE | 2020-01-30 02:25 | NUR ---
ED Nurse Note: Pt has cough with large amounts of yellow sputum. RT bedside, suctioned patient.
--- NOTE | 2020-01-30 02:27 | Emergency Room Report ---
History of Present Illness General Chief Complaint: Dyspnea/Respdistress Source: Medical Record, EMS Present Illness HPI This is an 84-year-old female with multiple medical problems. She is bedbound and has G-tube feeding. She is from [facility] and is positive for COVID-19. She presents with chief complaint of shortness of breath. Onset for last couple of days. Increasing oxygen requirement. A lot of sputum from suctioning. [facility] called 911. Per EMS she was hypoxic they placed on her percent nonrebreather and brought her here. Unable any other history from this patient. Patient does have a low-grade fever. Patient does have a history of sepsis from UTI. 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 COVID-19 Screening: Positive COVID-19 Patient History Past Medical History: see triage record, old chart reviewed Past Surgical History: other Pertinent Family History: none Social History: Denies: smoking Now: No Immunizations: other Reviewed Nursing Documentation: PMH: Agreed; PSxH: Agreed Nursing Documentation-PMH Hx Cardiac Problems: Yes Hx Hypertension: Yes Hx Diabetes: Yes - TYPE 2 Hx Cancer: No Hx Gastrointestinal Problems: No Hx Neurological Problems: Yes Hx Cerebrovascular Accident: Yes Hx Dementia: Yes Hx Dysphasia: Yes Review of Systems Constitutional: Reports: chills, fever, malaise, weakness Respiratory: Reports: cough, shortness of breath All Other Systems: limited - secondary to condition Physical Exam Vitals with fever, tachycardia and hypoxia Sp02 EP Interpretation: abnormal General Appearance: severe distress, cachetic, Chronically Ill Head: normocephalic, atraumatic Eyes: bilateral eye PERRL, bilateral eye EOMI ENT: dry mucus membranes Neck: full range of motion, supple, no meningismus Respiratory: chest non-tender, respiratory distress, decreased breath sounds, rhonchi Cardiovascular #1: regular rate, rhythm, no murmur, tachycardia Gastrointestinal: normal bowel sounds, non tender, no mass, no organomegaly, no bruit, non-distended Musculoskeletal: back normal, other - Very contracted Neurologic: grossly normal Procedures Critical Care Time Critical Care Time Critical care is mandated in this patient who presented with sepsis from pneumonia and UTI. Patient require my urgent intervention to attenuate the risks of the metabolic collapse which may lead to cardiovascular collapse and . Critical care time is 35 minutes excluding any reportable procedure. Critical care time included evaluation, multiple reevaluation, looking at old charts, interpreting laboratory and diagnostic data, discussing case with patient and family and consultants, and charting. Medical Decision Making Diagnostic Impression: Primary Impression: Severe sepsis with acute organ dysfunction Additional Impressions: HCAP (healthcare-associated pneumonia) Pneumonia due to COVID-19 virus UTI (urinary tract infection) Qualified Codes: N30.00 - Acute cystitis without hematuria ARF (acute renal failure) Qualified Codes: N17.9 - Acute kidney failure, unspecified Hyperglycemia due to type 2 diabetes mellitus Qualified Codes: E11.65 - Type 2 diabetes mellitus with hyperglycemia; Z79.4 - group home (current) use of insulin Anemia Qualified Codes: D64.9 - Anemia, unspecified Acute metabolic encephalopathy Respiratory failure with hypoxia Qualified Codes: J96.01 - Acute respiratory failure with hypoxia ER Course This is an unfortunate elderly female presents with respiratory distress and severe sepsis. She is hypoxic on nonrebreather. She most likely has COVID pneumonia. She is [facility] at the [facility]. She may also has hospital-acquired pneumonia. Wide spectrum antibiotic given. Prognosis is poor. Patient has healthcare partner. Therefore she will be admitted under the service of Dr. Grayson. I discussed the case with him and since her blood pressure is stable and she is not on pressors, she will be admitted to stepdown unit. EKG Diagnostic Results Rate: tachycardiac Rhythm: NSR ST Segments: other - NSST changes Rhythm Strip Diag. Results EP Interpretation: yes Rate: 120 Rhythm: NSR, no PVC's, no ectopy Chest X-Ray Diagnostic Results Chest X-Ray Diagnostic Results : Chest X-Ray Ordered: Yes # of Views/Limited/Complete: 1 View Indication: Shortness of Breath EP Interpretation: Yes Interpretation: no effusion, no pneumothorax, other - Bilateral infiltrates Impression: Other - Bilateral infiltrates Electronically Signed by: Alex Main MD Status: improved Disposition: ADMITTED INPATIENT Condition: Critical Referrals: Martin Salgado MD (PCP) Alex Main MD January 30, 2020 02:26
[2020-01-30] MEDS ORDERED: Acetaminophen 650 MG SUPP RECTAL ONE (02:30)
[2020-01-30 02:37] LABS: HEMATOCRIT 27.7 % (37.0-47.0); HEMOGLOBIN 8.3 G/DL (12.0-16.0); MEAN CORPUSCULAR VOLUME 82 FL (80-99); PLATELET COUNT 393 K/UL (150-450); RED BLOOD COUNT 3.38 M/UL (4.20-5.40); RED CELL DISTRIBUTION WIDTH 18.6 % (11.6-14.8)
[2020-01-30 02:54] LABS: WHITE BLOOD COUNT 36.1 K/UL (4.8-10.8)
[2020-01-30 02:58] LABS: ALANINE AMINOTRANSFERASE 19 U/L (12-78); ALBUMIN 1.4 G/DL (3.4-5.0); ALBUMIN/GLOBULIN RATIO 0.2 (1.0-2.7); ALKALINE PHOSPHATASE 187 U/L (46-116); ANION GAP 12 mmol/L (5-15); ASPARTATE AMINO TRANSFERASE 63 U/L (15-37); BILIRUBIN,TOTAL 0.4 MG/DL (0.2-1.0); BLOOD UREA NITROGEN 73 mg/dL (7-18); CALCIUM 7.9 MG/DL (8.5-10.1); CARBON DIOXIDE 26 MMOL/L (21-32); CHLORIDE 93 MMOL/L (98-107); CREATININE 1.9 MG/DL (0.55-1.30); POTASSIUM 5.7 MMOL/L (3.5-5.1); SODIUM 131 MMOL/L (136-145)
[2020-01-30] MEDS ORDERED: Cefepime HCl 1 GM in D5W 55 ML IVPB ONE (03:15)
[2020-01-30 03:22] LABS: APPEARANCE,URINE CLOUDY; BILIRUBIN, URINE NEGATIVE (NEGATIVE); GLUCOSE, URINE (UA) NEGATIVE (NEGATIVE); KETONES,URINE NEGATIVE (NEGATIVE); LEUKOCYTE ESTERASE ,URINE 3+ (NEGATIVE); NITRITE,URINE NEGATIVE (NEGATIVE); PH,URINE 9 (4.5-8.0); PROTEIN,URINE 3+ (NEGATIVE); UROBILINOGEN,URINE NORMAL MG/DL (0.0-1.0)
[2020-01-30] MEDS ORDERED: Enoxaparin 60mg Inj SUBQ ONE (03:30)
[2020-01-30 03:53] LABS: COLOR,URINE YELLOW
--- NOTE | 2020-01-30 04:30 | NUR ---
ED Nurse Note: Pt reamins tachypneic at this time with labored breathing and respirations in the high 20's. ERMD aware of pt status. Pt repositioned and appears very restless.
--- NOTE | 2020-01-30 05:00 | NUR ---
ED Nurse Note: Blood sugar is 421, ERMD aware. Will carry out medication order.
--- NOTE | 2020-01-30 05:00 | NUR ---
ED Nurse Note: Repeat lactic drawn and sent to lab.
[2020-01-30] MEDS ORDERED: HEPARIN SO5000 UNIT2 SUBQ (05:23)
[2020-01-30] MEDS ORDERED: NOVOLOG100 UNIT/4 SQ (05:23)
[2020-01-30] MEDS ORDERED: COLACE100 MG ORAL (05:23)
[2020-01-30] MEDS ORDERED: LOPRESSOR5 MG/5 ML PO (05:23)
[2020-01-30] MEDS ORDERED: PREVACID30 MG GT (05:23)
[2020-01-30] MEDS ORDERED: Insulin Human Regular 100units/ml 3ml IV ONE (05:30)
--- NOTE | 2020-01-30 05:42 | Emergency Room Report ---
Sepsis Event Note Evaluation Current Stage of Sepsis: Severe Sepsis Possible Source: Pulmonary Focused Exam Allergies: Coded Allergies: No Known Allergies (Unverified , 10/18/19) Date Exam Occurred: January 30, 2020 Time Exam Occurred: 05:41 Laboratory Studies Laboratory Tests Test 01/30/20 02:05 01/30/20 02:15 01/30/20 02:24 01/30/20 05:00 White Blood Count 36.1 K/UL (4.8-10.8) *H Red Blood Count 3.38 M/UL (4.20-5.40) L Hemoglobin 8.3 G/DL (12.0-16.0) L Hematocrit 27.7 % (37.0-47.0) L Mean Corpuscular Volume 82 FL (80-99) Mean Corpuscular Hemoglobin 24.5 PG (27.0-31.0) L Mean Corpuscular Hemoglobin Concent 29.9 G/DL (32.0-36.0) L Red Cell Distribution Width 18.6 % (11.6-14.8) H Platelet Count 393 K/UL (150-450) Mean Platelet Volume 6.3 FL (6.5-10.1) L Neutrophils (%) (Auto) % (45.0-75.0) Lymphocytes (%) (Auto) % (20.0-45.0) Monocytes (%) (Auto) % (1.0-10.0) Eosinophils (%) (Auto) % (0.0-3.0) Basophils (%) (Auto) % (0.0-2.0) Differential Total Cells Counted 100 Neutrophils % (Manual) 90 % (45-75) H Lymphocytes % (Manual) 7 % (20-45) L Monocytes % (Manual) 3 % (1-10) Eosinophils % (Manual) 0 % (0-3) Basophils % (Manual) 0 % (0-2) Band Neutrophils 0 % (0-8) Platelet Estimate Adequate Platelet Morphology Normal Erythrocyte Sedimentation Rate 117 MM/HR (0-30) H D-Dimer 7.19 mg/L FEU (0.00-0.49) H Sodium Level 131 MMOL/L (136-145) L Potassium Level 5.7 MMOL/L (3.5-5.1) H Chloride Level 93 MMOL/L (98-107) L Carbon Dioxide Level 26 MMOL/L (21-32) Anion Gap 12 mmol/L (5-15) Blood Urea Nitrogen 73 mg/dL (7-18) H Creatinine 1.9 MG/DL (0.55-1.30) H Estimat Glomerular Filtration Rate 25.2 mL/min (>60) Glucose Level 509 MG/DL (74-106) *H Lactic Acid Level 8.10 mmol/L (0.4-2.0) H 3.80 mmol/L (0.66-2.22) H Calcium Level 7.9 MG/DL (8.5-10.1) L Total Bilirubin 0.4 MG/DL (0.2-1.0) Aspartate Amino Transf (AST/SGOT) 63 U/L (15-37) H Alanine Aminotransferase (ALT/SGPT) 19 U/L (12-78) Alkaline Phosphatase 187 U/L (46-116) H C-Reactive Protein, Quantitative 44.3 mg/dL (0.00-0.90) H Total Protein 7.1 G/DL (6.4-8.2) Albumin 1.4 G/DL (3.4-5.0) L Globulin 5.7 g/dL Albumin/Globulin Ratio 0.2 (1.0-2.7) L Urine Color Yellow Urine Appearance Cloudy Urine pH 9 (4.5-8.0) Urine Specific [place] 1.015 (1.005-1.035) Urine Protein 3+ (NEGATIVE) H Urine Glucose (UA) Negative (NEGATIVE) Urine Ketones Negative (NEGATIVE) Urine Blood 4+ (NEGATIVE) H Urine Nitrite Negative (NEGATIVE) Urine Bilirubin Negative (NEGATIVE) Urine Urobilinogen Normal MG/DL (0.0-1.0) Urine Leukocyte Esterase 3+ (NEGATIVE) H Urine RBC 10-15 /HPF (0 - 2) H Urine WBC 15-20 /HPF (0 - 2) H Urine Squamous Epithelial Cells Few /LPF (NONE/OCC) Urine Bacteria Many /HPF (NONE) H Arterial Blood pH 7.470 (7.350-7.450) Arterial Blood Partial Pressure CO2 29.6 mmHg (35.0-45.0) L Arterial Blood Partial Pressure O2 79.3 mmHg (75.0-100.0) Arterial Blood HCO3 21.1 mmol/L (22.0-26.0) L Arterial Blood Oxygen Saturation 95.0 % (95-100) Arterial Blood Base Excess -2.1 (-2-2) L Gerald Test Positive Vital Signs Last 24 Hour Vital Signs Date Time Temp Pulse Resp B/P (MAP) Pulse Ox O2 Delivery O2 Flow Rate FiO2 01/30/20 04:30 101.3 122 27 145/75 100 Non-Rebreather 15.0 01/30/20 03:03 101.3 01/30/20 02:20 102.4 130 30 120/58 100 Non-Rebreather 15.0 01/30/20 02:20 130 30 Non-Rebreather 15.0 01/30/20 02:15 102.4 130 30 120/58 (78) 100 Non-Rebreather 15.0 Respiratory Exam: Crackles Cardiovascular Exam: RRR Capillary Refill: Less Than 2 Seconds Peripheral Pulse: Strong Pulse Location: Radial Skin Exam: Normal Berniegor Alex Main MD January 30, 2020 05:42
--- NOTE | 2020-01-30 06:30 | NUR ---
ED Nurse Note: Accu check done and blood sugar is 350. See vitals flow sheet. Pt repositioned and linens changed.
--- NOTE | 2020-01-30 07:05 | NUR ---
ED Nurse Note: Received report from Nita JOSUE.
--- NOTE | 2020-01-30 07:05 | NUR ---
HAND-OFF: Report given to LIAT Gonzales and LIAT Kerr.
--- NOTE | 2020-01-30 07:10 | NUR ---
Note marciaone in EDM - 01/30/20 at 0801 by [email or web address] ED Nurse Note: Patient is in resp distress. O2 sat at 85% on 15L NR.Patient is presenting agonal respiration ERMD notified. Patient put on bipap per RT at 12/6, FIo2 100%, BUR 14
--- NOTE | 2020-01-30 07:38 | NUR ---
ED Nurse Note: Patient is in resp distress. O2 sat at 85% on 15L NR.Patient is presenting agonal respiration ERMD notified. Patient put on bipap per RT at 12/6, FIo2 100%, BUR 14
--- NOTE | 2020-01-30 08:21 | NUR ---
ED Nurse Note: RT at bedside taking ABG
--- NOTE | 2020-01-30 08:39 | NUR ---
ED Nurse Note: Zoë, nurse from [facility], they cannot fax over the test result for covid because they get a list of patients in their facility with their all tests reults together
--- NOTE | 2020-01-30 09:34 | Diagnostic Imaging Report ---
Procedure: XRAY Chest 1v Reason for study: Reason For Exam: COUGH Comparison films: 10/27/2019. FINDINGS: Patient is rotated. Vascularity is normal. There is a peripheral alveolar opacity in the lateral aspect of the left midlung. Linear atelectasis noted right lung base. Cardiomegaly noted. No significant effusion seen. The bony thorax appear unremarkable. IMPRESSION: Left mid lung peripheral opacity perhaps focal infiltrate.
--- NOTE | 2020-01-30 10:20 | NUR ---
NURSE NOTES: Received report from LIAT Zamora in ED. Pt. arrived in bed and transferred to room 239. Admitted with dx of sepsis, PNA. On droplet precautions; positive for COVID-19. DNI status upon admission. Pt is nonverbal, on BiPap with 12 / 16 on 100% FiO2. Low saturation at 84%. RR 28. RT (Tory) at bedside. 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 Bilateral skin tears on arms. Placed telephone call to Dr. Grayson in regards to new admission. Made aware of low O2 saturation and BiPap with current settings 12 / 16 and 100% FiO2. MD states he will come to see patient. No new order at this time. Will continue to monitor.
--- NOTE | 2020-01-30 10:34 | NUR ---
TRANSFER TO FLOOR: Patient transferred to SDU as ordered, per ERMD. Report given to Kristina JOSUE. No belongings.
--- NOTE | 2020-01-30 10:46 | NUR ---
*-* INSURANCE *-* ALL AVAILABLE CLINICALS HAVE BEEN FAXED TO: [facility] P: [phone] F: [phone]
--- NOTE | 2020-01-30 11:50 | NUR ---
NURSE NOTES:DR BROOKS CAME TO SEE THE PT AND MADE AWARE AND NOTIFIED REGARDING PT IS DESATURATING TO 86% ,DR BROOKS ORDER ABG,S AND PLACED THE PT ON BIPAP 20/16 AND 100% SAT.PT O2 SAT INCREASED TO 92 T0 94%,AND NEW ABG,S RESULT ENDORSED TO DR BROOKS. WILL CONT TO MONITOR.
--- NOTE | 2020-01-30 12:34 | NUR ---
CASE MANAGEMENT: REVIEW 84 YEAR OLD FEMALE BIBA FROM [facility] CC: FLU-LIKE SYMPTOMS . SOB IS: PNA . SEPSIS . COVID-19 T 102.4 HR 130 RR 30 BP 120/58 SAT 100% NON-REBREATHER FLOW RATE 15.0 WBC 36.1 H/H 8.3/27.7 NA 131 K 5.7 CHLORIDE 93 GLUCOSE 509 LACTIC ACID 8.10 SI: NS IVF BOLUS X1 TYLENOL 1,000 RECTAL X1 LEVOFLOXACIN IV X1 CEFEPIME IV X1 NOVOLIN-R 7 UNITS X1 LOVENOX SUBQ X1 PATIENT ADMITTED TO STEP DOWN UNIT 01/30/2020 DCP: PATIENT IS FROM [facility]
--- NOTE | 2020-01-30 14:00 | NUR ---
NURSE NOTES:DR BROOKS PLACED A TELEPHONE CALL TO LAVONNE LEUNG AND MADE AWARE & NOTIFIED REGARDING PT CONDITION IS VERY UNSTABLE .PT STATED THAT SHE WANTS A FULL TREATMENT IN CASE SHE CODE. PT IS FULL CODE PER LAVONNE REQUEST. WILL CONT TO MONITOR.
[2020-01-30 17:45] LABS: ANION GAP 28 mmol/L (5-15); BLOOD UREA NITROGEN 76 mg/dL (7-18); CALCIUM 7.8 MG/DL (8.5-10.1); CARBON DIOXIDE 11 MMOL/L (21-32); CHLORIDE 98 MMOL/L (98-107); CREATININE 2.4 MG/DL (0.55-1.30); SODIUM 137 MMOL/L (136-145)
[2020-01-30 17:49] LABS: POTASSIUM 6.2 MMOL/L (3.5-5.1)
--- NOTE | 2020-01-30 18:40 | NUR ---
NURSE NOTES: HAND-OFF: Report given to .REPORT GIVEN TO CARLOS JOSUE .
--- NOTE | 2020-01-30 19:00 | History and Physical Report ---
DATE OF ADMISSION: 01/30/2020 HISTORY OF PRESENT ILLNESS: This is an 84-year-old female with history of multiple medical problems. She is a halfway resident, who is bed-bound, cachectic with a G-tube feeding. She is a halfway resident. Apparently has been positive for COVID-19. She is found to be short of breath and has had oxygen requirements increased at the halfway. She was admitted to the hospital. She is noted to be DNR/DNI. PAST MEDICAL HISTORY: As discussed above notable for diabetes mellitus, advanced age, previous CVA, dementia, dysphagia, chronic G-tube. SOCIAL HISTORY: halfway resident. REVIEW OF SYSTEMS: Not obtainable. PHYSICAL EXAMINATION: GENERAL: Reveals an elderly female. HEENT: Unremarkable. CHEST: Clear breath sounds bilaterally. ABDOMEN: Soft. She has G-tube in place. EXTREMITIES: There is no edema. VITAL SIGNS: Blood pressure is 140/50, heart rate is 95, respirations are 20, O2 saturation 100% on BiPAP. LABORATORY DATA: White count 36,000, hemoglobin of 8, Glucose 509, potassium 5.7, sodium 131, creatinine 1.9. Lactic acid 8.1. Coags show D-dimer 7.1. ABG set, pH 7.3, pCO2 28, pO2 86. Urinalysis shows multiple pus cells. IMAGING STUDIES: X-ray chest was obtained, which shows left lung pneumonia. IMPRESSION: 1. COVID-19 positive. 2. Left lung pneumonia. 3. Marked leukocytosis. 4. Dementia. 5. Dysphagia. 6. Chronic G-tube. 7. Diabetes mellitus. 8. DNR. DISCUSSION: Admit to the hospital. I will continue home medications. Patient has a history of decubitus as well. I will follow carefully. Discussed code status (full code) with niece. Consult ID, General Surgery, and Nephrology. Start IV fluids with diabetes management, hyperglycemia. Follow carefully. Kam Grayson M.D. DR: WILL JOB#: [id number] CC: HENRIETTA
--- NOTE | 2020-01-30 19:45 | NUR ---
NURSE NOTES: Received patient from LIAT Mcgrath Patient is aaox 1, saturating at 89%, on celery packer, potassium 6.2, and the patient has labored breathing. RT at bed side. Patient is on bapap 18/12 at 100%, NPO, and G-tube. No tube feeding running at thia time. Weiner in pace and draining with out put of 100ml for the previous shift. Skin issues noted and pictures taken. Right hand 22g and left forarm 22g patent with no signs of infection. Bed at its lowest position, call light in reach, and x3 bed rails are up. Will continue to monitor.
--- NOTE | 2020-01-30 19:53 | NUR ---
NURSE NOTES: Left a message with Dr Grayson for urgent order needed for the patient. Waiting for call back.
--- NOTE | 2020-01-30 20:15 | Consultation ---
DATE OF CONSULTATION: 01/30/2020 CONSULTING PHYSICIAN: Demetrio Baxter MD. REFERRING PHYSICIAN: Kam Grayson MD. REASON FOR CONSULTATION: 1. Acute kidney injury. 2. Hyperkalemia. 3. Dehydration. HISTORY OF PRESENT ILLNESS: Patient is an 84-year-old female who is bedbound with a G-tube. She was [facility] from her detention facility, found to be positive COVID-19. She had presented with some shortness of breath. Noted to have electrolyte abnormalities with a white cell count of 36.1. Sodium 131, potassium 5.7, creatinine 1.9. Currently in isolation and is being treated for her underlying sepsis. Her serum glucose was also elevated at 509. PAST MEDICAL HISTORY: 1. Diabetes mellitus. 2. GERD. 3. UTI. 4. Hypertension PAST SURGICAL HISTORY: G-tube. FAMILY HISTORY: Positive for hypertension, diabetes. SOCIAL HISTORY: No tobacco, alcohol, or illicit drug use. Patient is a detention home facility resident. REVIEW OF SYSTEMS: Cannot be obtained. Patient is currently isolated. LABORATORY DATA: Labs dated 01/30/2020, sodium 131, potassium 5.7, creatinine 1.9, glucose 509. White cell count 36.1, hemoglobin 8.3. Many urinary bacteria with 20 wbc's. PHYSICAL EXAMINATION: VITAL SIGNS: Blood pressure 140/50, pulse 105, temperature 96.6, blood pressure 140/53. Patient currently in COVID-19 isolation, preservation of PPEs. ASSESSMENT AND PLAN: 1. Acute kidney injury. At this time, most likely secondary to severe volume depletion from hyperglycemia along with component of inflammatory cytokine damage to proximal tubules from sepsis. We will continue IV fluids. Avoid nephrotoxins and correction of hyperglycemia. 2. Hyperkalemia. Potassium 5.7. At this time, we will continue hydration and recheck serum BMP as with hydration both potassium and creatinine should improve. 3. Sepsis. IV antibiotic management per Infectious Disease. Continue IV fluids. Currently in COVID-19 isolation. 4. Hyponatremia. This is pseudohyponatremia due to severe hyperglycemia. Once corrected for serum glucose level, patient has normal sodium. Continue normal saline. Let me take this opportunity to thank Dr. Kam Grayson. I will continue to follow this patient on daily basis. Demetrio Baxter MD DR: NATACHA JOB#: [id number] CC:
--- NOTE | 2020-01-30 20:52 | NUR ---
NURSE NOTES: Second call Dr Grayson. Dr Grayson is aware of the patients condition and will put in orders for varnisher consult per Dr. Grayson.
[2020-01-30] MEDS ORDERED: Sodium Polystyrene Sulfonate 15gm Powder GT ONE (21:00)
--- NOTE | 2020-01-30 21:00 | NUR ---
NURSE NOTES: Dr. Baxter call to order 30g Kayexalate G-tube once and 40mg Furosemide IV once.
--- NOTE | 2020-01-30 21:11 | NUR ---
NURSE NOTES: No further orders at this time. All MD notified and aware of patients condition at this time. Will continue to monitor patient.
[2020-01-31] VITALS: BP 133/72
[2020-01-31 04:00] VITALS: BP 56/27
[2020-01-31 04:20] VITALS: BP 54/30
[2020-01-31 04:35] VITALS: BP 73/37
[2020-01-31 04:55] VITALS: BP 113/67
--- NOTE | 2020-01-31 05:00 | NUR ---
NURSE NOTES: Patient desaturating to 70% with bipap secured to patient. Patient hypotensive 56/30 and HR of 44. IV bolus of 300ml given IV. Patient is lethargic. Will call MD with lab results.
[2020-01-31 07:38] LABS: ANION GAP 30 mmol/L (5-15); BLOOD UREA NITROGEN 85 mg/dL (7-18); CALCIUM 7.9 MG/DL (8.5-10.1); CHLORIDE 101 MMOL/L (98-107); CREATININE 2.5 MG/DL (0.55-1.30); SODIUM 140 MMOL/L (136-145)
--- NOTE | 2020-01-31 07:40 | NUR ---
HAND-OFF: Report given to LIAT Jay.
--- NOTE | 2020-01-31 07:40 | NUR ---
NURSE NOTES: Received handoff report from Daron JOSUE. Patient AxO x 0, O2 Sat of 92%. Patient on BiPap at 18/12 at 100%. G/J-Tube intact. Weiner catheter intact, poor output per nightshift RN. Right hand 22 g patent and intact, 22 g left forearm patent and intact. Skin issues noted. Patient on the data examination clerk, bed in lowest position, bed alarm on, call light within reach, rails up x 3. Will continue to monitor.
[2020-01-31 08:00] VITALS: BP 103/62
[2020-01-31 08:06] LABS: CARBON DIOXIDE 9 MMOL/L (21-32); POTASSIUM 7.2 MMOL/L (3.5-5.1)
--- NOTE | 2020-01-31 08:09 | Nephrology Progress Note ---
Assessment/Plan Assessment/Plan: A/P 1. ODALYS. -secondary to severe volume depletion from hyperglycemia along with component of inflammatory cytokine damage to proximal tubules from sepsis/hypotension. -We will continue IV fluids. Avoid nephrotoxins and correction of hyperglycemia. - avoid profound hypotensive episodes - AM LABS PENDING 2. Hyperkalemia. Treated medically yesterday - AM LABS PENDING 3. Sepsis/UTI. IV antibiotic management per Infectious Disease. Continue IV fluids. Currently in COVID-19 isolation. 4. Hyponatremia. This is pseudohyponatremia due to severe hyperglycemia. Once corrected for serum glucose level, patient has normal sodium. Subjective Date patient seen: January 31, 2020 ROS Limited/Unobtainable: Yes Allergies: Coded Allergies: No Known Allergies (Unverified , 10/18/19) Subjective PATIENT IN COVID ISOALTION PRESERVATION OF PPEs Objective Last 24 Hour Vital Signs Date Time Temp Pulse Resp B/P (MAP) Pulse Ox O2 Delivery O2 Flow Rate FiO2 01/31/20 07:03 63 28 93 100 01/31/20 04:55 97.2 92 29 113/67 (82) 81 01/31/20 04:35 63 30 73/37 (49) 70 01/31/20 04:20 57 35 54/30 (38) 71 01/31/20 04:00 44 35 56/27 (37) 70 01/31/20 04:00 Bi-pap 100.0 01/31/20 04:00 93 01/31/20 04:00 100 01/31/20 00:00 Bi-pap 100.0 01/31/20 00:00 100 01/31/20 00:00 97 01/31/20 00:00 97.0 95 30 133/72 (92) 85 01/30/20 23:30 101 23 93 100 01/30/20 20:00 Bi-pap 100.0 01/30/20 20:00 96.8 63 30 144/85 (104) 87 01/30/20 20:00 100 01/30/20 19:30 102 24 94 100 01/30/20 19:22 110 01/30/20 16:00 97.0 76 30 112/63 (79) 91 01/30/20 16:00 100 01/30/20 16:00 99 01/30/20 15:40 Bi-pap 100.0 01/30/20 15:12 99 35 91 100 01/30/20 12:00 99 01/30/20 11:24 Bi-Pap 100.0 01/30/20 11:24 100 01/30/20 11:24 96.6 105 28 140/53 (82) 95 105 01/30/20 10:53 123 34 93 100 01/30/20 10:31 100.8 108 39 101/66 94 Bi-pap 14.0 100 108 01/30/20 09:55 14.0 100 01/30/20 08:12 113 39 92 Bi-Pap 100 01/30/20 08:10 113 39 92 100 Intake and Output 01/30/20 01/31/20 19:00 07:00 Intake Total 125 ml 906.25 ml Output Total 100 ml 50 ml Balance 25 ml 856.25 ml Intake Oral 50 ml Free Water 60 ml IV Total 75 ml 846.25 ml Output Urine Total 100 ml 50 ml # Bowel Movements 1 Laboratory Tests 01/30/20 08:22: Arterial Blood pH 7.388, Arterial Blood Partial Pressure CO2 28.4L, Arterial Blood Partial Pressure O2 86.9, Arterial Blood HCO3 16.7*L, Arterial Blood Oxygen Saturation 95.8, Arterial Blood Base Excess -7.3L, Gerald Test N/a 01/30/20 17:00: Sodium Level 137, Potassium Level 6.2*H, Chloride Level 98, Carbon Dioxide Level 11L, Anion Gap 28H, Blood Urea Nitrogen 76H, Creatinine 2.4H, Estimat Glomerular Filtration Rate 19.3, Glucose Level 229#H, Calcium Level 7.8L 01/31/20 05:48: Arterial Blood pH 7.162*L, Arterial Blood Partial Pressure CO2 21.2*L, Arterial Blood Partial Pressure O2 142.7H, Arterial Blood HCO3 7.4*L, Arterial Blood Oxygen Saturation 97.9, Arterial Blood Base Excess -19.5*L, Gerald Test Positive 01/31/20 06:20: Sodium Level [Pending], Potassium Level [Pending], Chloride Level [Pending], Carbon Dioxide Level [Pending], Blood Urea Nitrogen [Pending], Creatinine [ Pending], Estimat Glomerular Filtration Rate [Pending], Glucose Level [Pending] , Calcium Level [Pending] Height (Feet): 5 Height (Inches): 5.00 Weight (Pounds): 130 Demetrio Baxter MD January 31, 2020 08:09
--- NOTE | 2020-01-31 09:00 | NUR ---
NURSE NOTES: Called and spoke to Dr Baxter regarding K+ of 7.2 and CO2 of 9. New orders received and read back to verify.
[2020-01-31] MEDS ORDERED: Sodium Polystyrene Sulfonate 15gm Powder ORAL SCH (09:15)
--- NOTE | 2020-01-31 09:35 | NUR ---
NURSE NOTES: Dr. Grayson notified we called Julissa roy,he is coming
--- NOTE | 2020-01-31 09:57 | Emergency Room Report ---
History of Present Illness General Chief Complaint: Dyspnea/Respdistress Source: Medical Record Present Illness HPI 84-year-old female recently admitted for sepsis, COVID 19/suspected, presents with bradycardia, ultimately coding in the stepdown unit, I was called to bedside for code management. Allergies: Coded Allergies: No Known Allergies (Unverified , 10/18/19) COVID-19 Screening Contact w/high risk pt: Yes Recent Travel to affected area: Yes Experienced COVID-19 symptoms?: Yes COVID-19 symptoms experienced: Fever (T>100.4F or >38C), Shortness of Breath COVID-19 Testing performed SUSTAINABILITY DIRECTOR: Yes COVID-19 Screening: Positive COVID-19 COVID-19 Testing Source: [facility] Patient History Limited by: medical condition - Unresponsive Past Medical History: see triage record Now: No Reviewed Nursing Documentation: PMH: Agreed; PSxH: Agreed Nursing Documentation-PMH Past Medical History: No History, Except For Hx Cardiac Problems: Yes Hx Hypertension: Yes Hx Diabetes: Yes - TYPE 2 Hx Cancer: No Hx Gastrointestinal Problems: No Hx Neurological Problems: Yes Hx Cerebrovascular Accident: Yes Hx Dementia: Yes Hx Dysphasia: Yes Review of Systems All Other Systems: limited - Unresponsive Physical Exam Vital Signs Date Time Temp Pulse Resp B/P (MAP) Pulse Ox O2 Delivery O2 Flow Rate FiO2 01/30/20 02:15 102.4 130 30 120/58 (78) 100 Non-Rebreather 15.0 01/30/20 07:53 100 Sp02 EP Interpretation: reviewed, abnormal General Appearance: severe distress, cachetic, Chronically Ill Head: normocephalic, atraumatic Respiratory: respiratory distress Cardiovascular #1: bradycardia Neuologic: Unresponsive Procedures Critical Care Time Critical Care Time Given the critical condition in which the patient arrived, the patient was immediately assessed by myself and the nurse, and cardiac monitoring initiated due to the potential for rapid decompensation of the patient's clinical condition. During the course of the patient's stay, I spent a considerable amount of time at the bedside performing serial re-evaluations of the patient's hemodynamic and clinical status because of the recognized potential threat to life or limb in this condition. I then had a chance to review not only all of the available current laboratory and radiographic studies obtained today, but I also reviewed old records available to me at the time. Additionally, any ancillary information available including benzene operator records were reviewed. Sequential vital signs were obtained. Critical Care time of 32 minutes was performed exclusive of billable procedures. CPR/Code Blue CPR/Code Blue Narrative Refer to CODE BLUE sheet/MDM Medical Decision Making Diagnostic Impression: Primary Impression: Severe sepsis with acute organ dysfunction Additional Impressions: Pneumonia due to COVID-19 virus Respiratory failure with hypoxia Qualified Codes: J96.01 - Acute respiratory failure with hypoxia HCAP (healthcare-associated pneumonia) ARF (acute renal failure) Qualified Codes: N17.9 - Acute kidney failure, unspecified Anemia Qualified Codes: D64.9 - Anemia, unspecified Hyperglycemia due to type 2 diabetes mellitus Qualified Codes: E11.65 - Type 2 diabetes mellitus with hyperglycemia; Z79.4 - superintendent marine 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 Which was subsequently reversed in the morning by family, patient was coded, patient found to have hypoglycemia patient given 4 Amps of D50 patient also found to have hyperkalemia, as well as worsening acidosis. Patient given calcium, patient was coded, patient's ribs started breaking, patient initially bradycardic down to asystole. Patient's outlook was guarded. Patient found to have worsening acidosis and acidemia. Reversible causes were attempted to be treated with calcium chloride, bicarb, glucose. Patient then subsequently passed without any ROSC. Laboratory Tests Test 01/30/20 02:05 01/30/20 02:15 01/30/20 02:24 01/30/20 05:00 White Blood Count 36.1 K/UL (4.8-10.8) *H Red Blood Count 3.38 M/UL (4.20-5.40) L Hemoglobin 8.3 G/DL (12.0-16.0) L Hematocrit 27.7 % (37.0-47.0) L Mean Corpuscular Volume 82 FL (80-99) Mean Corpuscular Hemoglobin 24.5 PG (27.0-31.0) L Mean Corpuscular Hemoglobin Concent 29.9 G/DL (32.0-36.0) L Red Cell Distribution Width 18.6 % (11.6-14.8) H Platelet Count 393 K/UL (150-450) Mean Platelet Volume 6.3 FL (6.5-10.1) L Neutrophils (%) (Auto) % (45.0-75.0) Lymphocytes (%) (Auto) % (20.0-45.0) Monocytes (%) (Auto) % (1.0-10.0) Eosinophils (%) (Auto) % (0.0-3.0) Basophils (%) (Auto) % (0.0-2.0) Differential Total Cells Counted 100 Neutrophils % (Manual) 90 % (45-75) H Lymphocytes % (Manual) 7 % (20-45) L Monocytes % (Manual) 3 % (1-10) Eosinophils % (Manual) 0 % (0-3) Basophils % (Manual) 0 % (0-2) Band Neutrophils 0 % (0-8) Platelet Estimate Adequate Platelet Morphology Normal Erythrocyte Sedimentation Rate 117 MM/HR (0-30) H D-Dimer 7.19 mg/L FEU (0.00-0.49) H Sodium Level 131 MMOL/L (136-145) L Potassium Level 5.7 MMOL/L (3.5-5.1) H Chloride Level 93 MMOL/L (98-107) L Carbon Dioxide Level 26 MMOL/L (21-32) Anion Gap 12 mmol/L (5-15) Blood Urea Nitrogen 73 mg/dL (7-18) H Creatinine 1.9 MG/DL (0.55-1.30) H Estimated Glomerular Filtration Rate 25.2 mL/min (>60) Glucose Level 509 MG/DL (74-106) *H Lactic Acid Level 8.10 mmol/L (0.4-2.0) H 3.80 mmol/L (0.66-2.22) H Calcium Level 7.9 MG/DL (8.5-10.1) L Total Bilirubin 0.4 MG/DL (0.2-1.0) Aspartate Amino Transferase (AST) 63 U/L (15-37) H Alanine Aminotransferase (ALT) 19 U/L (12-78) Alkaline Phosphatase 187 U/L (46-116) H C-Reactive Protein, Quantitative 44.3 mg/dL (0.00-0.90) H Total Protein 7.1 G/DL (6.4-8.2) Albumin 1.4 G/DL (3.4-5.0) L Globulin 5.7 g/dL Albumin/Globulin Ratio 0.2 (1.0-2.7) L Urine Color Yellow Urine Appearance Cloudy Urine pH 9 (4.5-8.0) Urine Specific [place] 1.015 (1.005-1.035) Urine Protein 3+ (NEGATIVE) H Urine Glucose (UA) Negative (NEGATIVE) Urine Ketones Negative (NEGATIVE) Urine Blood 4+ (NEGATIVE) H Urine Nitrite Negative (NEGATIVE) Urine Bilirubin Negative (NEGATIVE) Urine Urobilinogen Normal MG/DL (0.0-1.0) Urine Leukocyte Esterase 3+ (NEGATIVE) H Urine RBC 10-15 /HPF (0 - 2) H Urine WBC 15-20 /HPF (0 - 2) H Urine Squamous Epithelial Cells Few /LPF (NONE/OCC) Urine Bacteria Many /HPF (NONE) H Arterial Blood pH 7.470 (7.350-7.450) Arterial Blood Partial Pressure CO2 29.6 mmHg (35.0-45.0) L Arterial Blood Partial Pressure O2 79.3 mmHg (75.0-100.0) Arterial Blood HCO3 21.1 mmol/L (22.0-26.0) L Arterial Blood Oxygen Saturation 95.0 % (95-100) Arterial Blood Base Excess -2.1 (-2-2) L Gerald Test Positive Test 01/30/20 08:22 01/30/20 17:00 01/31/20 05:48 01/31/20 06:20 Arterial Blood pH 7.388 (7.350-7.450) 7.162 (7.350-7.450) Arterial Blood Partial Pressure CO2 28.4 mmHg (35.0-45.0) L 21.2 mmHg (35.0-45.0) *L Arterial Blood Partial Pressure O2 86.9 mmHg (75.0-100.0) 142.7 mmHg (75.0-100.0) H Arterial Blood HCO3 16.7 mmol/L (22.0-26.0) *L 7.4 mmol/L (22.0-26.0) *L Arterial Blood Oxygen Saturation 95.8 % (95-100) 97.9 % (95-100) Arterial Blood Base Excess -7.3 (-2-2) L -19.5 (-2-2) *L Gerald Test N/a Positive Sodium Level 137 MMOL/L (136-145) 140 MMOL/L (136-145) Potassium Level 6.2 MMOL/L (3.5-5.1) *H 7.2 MMOL/L (3.5-5.1) *H Chloride Level 98 MMOL/L (98-107) 101 MMOL/L (98-107) Carbon Dioxide Level 11 MMOL/L (21-32) L 9 MMOL/L (21-32) *L Anion Gap 28 mmol/L (5-15) H 30 mmol/L (5-15) H Blood Urea Nitrogen 76 mg/dL (7-18) H 85 mg/dL (7-18) H Creatinine 2.4 MG/DL (0.55-1.30) H 2.5 MG/DL (0.55-1.30) H Estimated Glomerular Filtration Rate 19.3 mL/min (>60) 18.4 mL/min (>60) Glucose Level 229 MG/DL (74-106) #H 88 MG/DL (74-106) # Calcium Level 7.8 MG/DL (8.5-10.1) L 7.9 MG/DL (8.5-10.1) L Microbiology Date/Time Source Procedure Growth Status 01/30/20 02:30 Nasal Nares MRSA Culture - Final Staphylococcus Aureus - Mrsa Complete Last Vital Signs Date Time Temp Pulse Resp B/P (MAP) Pulse Ox O2 Delivery O2 Flow Rate FiO2 01/31/20 07:03 63 28 93 100 01/31/20 04:55 97.2 113/67 (82) 01/31/20 04:00 Bi-pap 100.0 Disposition: Condition: Referrals: Martin Salgado MD (PCP) Fadi Painting MD January 31, 2020 09:57
[2020-01-31] MEDS ORDERED: Insulin Human Regular 100units/ml 3ml IV SCH (10:00)
[2020-01-31] MEDS ORDERED: Calcium Gluconate 1gm/10ml vial IVP SCH (10:00)
--- NOTE | 2020-01-31 10:29 | NUR ---
NURSE NOTES: 0916: Received call from [facility] [employer] [facility] that patient HR is bradycardic at 37. Rapid Response called and Rapid Response team arrived. 924: Code Blue called. Refer to code blue sheet.
[2020-01-31] MEDS ORDERED: Atropine Inj 1mg/10ml Syr IVP SCH (10:33)
--- NOTE | 2020-01-31 10:50 | NUR ---
NURSE NOTES: [facility] called, spoke to Halley. Case # [id number]
--- NOTE | 2020-01-31 11:11 | NUR ---
NURSE NOTES: Received call from Zara at [facility] advising that [facility] will not be moving forward with the case and gave the OK to release the patient.
--- NOTE | 2020-01-31 11:30 | NUR ---
NURSE NOTES: Post-mortem care done.
--- NOTE | 2020-01-31 14:30 | NUR ---
NURSE NOTES: Spoke with Reva FIGUEREDO, notified me I can release patients body to [facility],air cargo specialist supervisor Jayla Sutton aware, 1500 Picked up by all [facility] ,release papers with air cargo specialist supervisor Addendum: 01/31/20 at 1557 by Una Humphrey RN No lidias
[2020-01-31] MEDS ORDERED: Calcium Chloride 10% 10ml carpuject IVP ONE (14:59)
[2020-01-31] MEDS ORDERED: Atropine Inj 1mg/10ml Syr ONE (14:59)
--- NOTE | 2020-01-31 15:30 | Consultation ---
History of Present Illness General Date patient seen: January 31, 2020 Chief Complaint: Dyspnea/Respdistress Present Illness HPI 84-year-old female presents [facility] emergency department shortness of breath respiratory distress admitted for further care and management. Abnormal labs low body weight skin concerns respiratory insufficiency. Surgery called to evaluate and assist with care. Patient seen, patient evaluated, chart reviewed. Of note this is a late entry as patient was seen earlier and since has deteriorated ACLS and past Allergies: Coded Allergies: No Known Allergies (Unverified , 10/18/19) Medication History Scheduled Docusate Sodium* (Colace*), 100 MG ORAL THREE TIMES A DAY, (Reported) Famotidine* (Pepcid 20mg tablet*), 20 MG GT BID, (Reported) Gabapentin* (Gabapentin*), 300 MG GT TID, (Reported) Heparin Sod (Porcine) (Heparin Sodium*), 5,000 UNITS SUBQ EVERY 12 HOURS, ( Reported) Insulin Aspart (Novolog), 100 UNIT SQ EVERY 6 HOURS, (Reported) Lansoprazole* (Prevacid*), 30 MG GT Q12HR, (Reported) Meropenem (Merrem), 1 EA IV Q12HR, (Reported) Scheduled PRN Morphine Sulfate (Morphine Sulfate), 10 MG GT Q6HR PRN for Pain Scale (6-10), ( Reported) Miscellaneous Medications Metoprolol Tartrate* (Lopressor*), 25 MG PO, (Reported) Discontinued Medications Amlodipine Besylate* (Amlodipine Besylate*), 5 MG GT DAILY, (Reported) Discontinued Reason: MD discontinued med Aspirin Ec* (Aspirin Ec*), 81 MG GT DAILY, (Reported) Discontinued Reason: MD discontinued med Atorvastatin Calcium* (Atorvastatin Calcium*), 40 MG GT BEDTIME, (Reported) Discontinued Reason: MD discontinued med Carvedilol* (Carvedilol*), 12.5 MG GT EVERY 12 HOURS, (Reported) Discontinued Reason: MD discontinued med Donepezil Hcl* (Donepezil Hcl*), 10 MG GT BEDTIME, (Reported) Discontinued Reason: MD discontinued med Enoxaparin* (Lovenox*), 40 MG SUBQ DAILY, (Reported) Discontinued Reason: MD discontinued med Hydralazine Hcl* (Hydralazine Hcl*), 10 MG GT EVERY 6 HOURS, (Reported) Discontinued Reason: MD discontinued med Insulin Lispro (Humalog), 0 SUBQ per sliding scale , (Reported) Discontinued Reason: MD discontinued med Lisinopril* (Prinivil*), 10 MG ORAL DAILY, (Reported) Discontinued Reason: MD discontinued med Trazodone Hcl (Desyrel), 50 MG GT QHS, (Reported) Discontinued Reason: MD discontinued med Patient History History Provided By: Medical Record, PMD Healthcare decision maker Resuscitation status Advanced Directive on File Past Medical/Surgical History Past Medical/Surgical History: (1) Decubitus ulcer of sacral region, stage 4 (2) Dysphagia (3) Iron (Fe) deficiency anemia (4) Gt dependent (5) DM (6) Leukocytosis (7) Anemia (8) UTI (urinary tract infection) (9) ARF (acute renal failure) (10) Respiratory failure with hypoxia (11) HCAP (healthcare-associated pneumonia) (12) Severe sepsis with acute organ dysfunction (13) Hyperglycemia due to type 2 diabetes mellitus (14) Acute metabolic encephalopathy (15) Pneumonia due to COVID-19 virus Review of Systems ROS Narrative Unable to obtain given patient's medical condition Physical Exam General Appearance: mild distress Lines, tubes and drains: peripheral HEENT: mucous membranes moist Neck: normal inspection Respiratory/Chest: decreased breath sounds, accessory muscle use Cardiovascular/Chest: regularly irregular Abdomen: soft, no organomegaly, no mass, other Extremities: inflammation, slow capillary refill Skin Exam: warm/dry Neurologic: unresponsiveness Last 24 Hour Vital Signs Date Time Temp Pulse Resp B/P (MAP) Pulse Ox O2 Delivery O2 Flow Rate FiO2 01/31/20 08:00 97.6 89 27 103/62 (76) 86 01/31/20 08:00 100 01/31/20 08:00 Bi-pap 100.0 01/31/20 07:46 89 01/31/20 07:03 63 28 93 100 01/31/20 04:55 97.2 92 29 113/67 (82) 81 01/31/20 04:35 63 30 73/37 (49) 70 01/31/20 04:20 57 35 54/30 (38) 71 01/31/20 04:00 44 35 56/27 (37) 70 01/31/20 04:00 Bi-pap 100.0 01/31/20 04:00 93 01/31/20 04:00 100 01/31/20 00:00 Bi-pap 100.0 01/31/20 00:00 100 01/31/20 00:00 97 01/31/20 00:00 97.0 95 30 133/72 (92) 85 01/30/20 23:30 101 23 93 100 01/30/20 20:00 Bi-pap 100.0 01/30/20 20:00 96.8 63 30 144/85 (104) 87 01/30/20 20:00 100 01/30/20 19:30 102 24 94 100 01/30/20 19:22 110 01/30/20 16:00 97.0 76 30 112/63 (79) 91 01/30/20 16:00 100 01/30/20 16:00 99 01/30/20 15:40 Bi-pap 100.0 Intake and Output 01/30/20 01/31/20 19:00 07:00 Intake Total 125 ml 906.25 ml Output Total 100 ml 50 ml Balance 25 ml 856.25 ml Intake Oral 50 ml Free Water 60 ml IV Total 75 ml 846.25 ml Output Urine Total 100 ml 50 ml # Bowel Movements 1 Laboratory Tests Test 01/30/20 17:00 01/31/20 05:48 01/31/20 06:20 Sodium Level 137 MMOL/L (136-145) 140 MMOL/L (136-145) Potassium Level 6.2 MMOL/L (3.5-5.1) *H 7.2 MMOL/L (3.5-5.1) *H Chloride Level 98 MMOL/L (98-107) 101 MMOL/L (98-107) Carbon Dioxide Level 11 MMOL/L (21-32) L 9 MMOL/L (21-32) *L Anion Gap 28 mmol/L (5-15) H 30 mmol/L (5-15) H Blood Urea Nitrogen 76 mg/dL (7-18) H 85 mg/dL (7-18) H Creatinine 2.4 MG/DL (0.55-1.30) H 2.5 MG/DL (0.55-1.30) H Estimat Glomerular Filtration Rate 19.3 mL/min (>60) 18.4 mL/min (>60) Glucose Level 229 MG/DL (74-106) #H 88 MG/DL (74-106) # Calcium Level 7.8 MG/DL (8.5-10.1) L 7.9 MG/DL (8.5-10.1) L Arterial Blood pH 7.162 (7.350-7.450) Arterial Blood Partial Pressure CO2 21.2 mmHg (35.0-45.0) *L Arterial Blood Partial Pressure O2 142.7 mmHg (75.0-100.0) H Arterial Blood HCO3 7.4 mmol/L (22.0-26.0) *L Arterial Blood Oxygen Saturation 97.9 % (95-100) Arterial Blood Base Excess -19.5 (-2-2) *L Gerald Test Positive Height (Feet): 5 Height (Inches): 5.00 Weight (Pounds): 130 Medications Current Medications Medications (Trade) Dose Ordered Sig/Nitish Route PRN Reason Start Time Stop Time Status Last Admin Dose Admin Sodium Chloride 1,000 ml @ 75 mls/hr [id number] IV 01/30/20 14:30 02/29/20 14:29 01/31/20 03:43 Assessment/Plan Problem List: (1) Anemia ICD Codes: D64.9 - Anemia, unspecified SNOMED: 473813496, 543461609 Qualifiers: Qualified Codes: D64.9 - Anemia, unspecified (2) UTI (urinary tract infection) ICD Codes: N39.0 - Urinary tract infection, site not specified SNOMED: 16309848, 713109438 Qualifiers: Qualified Codes: N30.00 - Acute cystitis without hematuria (3) ARF (acute renal failure) ICD Codes: N17.9 - Acute kidney failure, unspecified SNOMED: 48227825, 756034928 Qualifiers: Qualified Codes: N17.9 - Acute kidney failure, unspecified (4) Respiratory failure with hypoxia ICD Codes: J96.91 - Respiratory failure, unspecified with hypoxia SNOMED: 61189967362265832, 456988163 Qualifiers: Qualified Codes: J96.01 - Acute respiratory failure with hypoxia (5) HCAP (healthcare-associated pneumonia) ICD Codes: J18.9 - Pneumonia, unspecified organism SNOMED: 540956849, 789704526 (6) Severe sepsis with acute organ dysfunction Assessment & Plan: 84 female leukocytosis febrile COVID eval ESR CRP elevated lactic acidosis respiratory insufficiency Decubitus skin ulcer stage IV Malnutrition Prognosis is fairly guarded given patient's overall condition and clinical condition. Case was discussed with staff and team. Unfortunately initial evaluation performed care plan initiated but since patient has deteriorated coded in past. Thank you for let me participate in patient's care ICD Codes: A41.9 - Sepsis, unspecified organism; R65.20 - Severe sepsis without septic shock SNOMED: 39196566, 816630891 (7) Hyperglycemia due to type 2 diabetes mellitus ICD Codes: E11.65 - Type 2 diabetes mellitus with hyperglycemia SNOMED: 388172969648187, 22419222 Qualifiers: Qualified Codes: E11.65 - Type 2 diabetes mellitus with hyperglycemia; Z79.4 - terminal clerk (current) use of insulin (8) Acute metabolic encephalopathy ICD Codes: G93.41 - Metabolic encephalopathy SNOMED: 23825695, 754639181 (9) Pneumonia due to COVID-19 virus Assessment & Plan: Imaging reviewed testing noted labs noted See respiratory ICD Codes: U07.1 - COVID-19; J12.89 - Other viral pneumonia SNOMED: 051006475, 742203177 (10) Dysphagia ICD Codes: R13.10 - Dysphagia, unspecified SNOMED: 72597961, 347113228 (11) Leukocytosis ICD Codes: D72.829 - Elevated white blood cell count, unspecified SNOMED: 748968230, 191837677 (12) Iron (Fe) deficiency anemia ICD Codes: D50.9 - Iron deficiency anemia, unspecified SNOMED: 51753197 (13) Decubitus ulcer of sacral region, stage 4 ICD Codes: L89.154 - Pressure ulcer of sacral region, stage 4 SNOMED: 968457644, 862317518 (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
--- NOTE | 2020-01-31 16:29 | NUR ---
*-* INSURANCE *-* ALL AVAILABLE CLINICALS HAVE BEEN FAXED TO: [employer] P: [phone] F: [phone] Addendum: 02/03/20 at 1616 by CESAR SHI CM discharge summary has been faxed
--- NOTE | 2020-02-02 23:41 | Discharge Summary ---
Discharge Summary Discharge Summary _ DATE OF ADMISSION: 01/30/2020 DATE OF DISCHARGE: 01/31/2020 BRIEF SUMMARY: Patient is an unfortunate 84-year-old female, who is a [facility] resident, bedbound, cachectic with G-tube feeding. Patient has been diagnosed with COVID- 19. She presented to ED due to shortness of breath and increased oxygen requirement. She required a lot of suctioning. [facility] called 911. Per EMS, she was hypoxic and was placed on 100% nonrebreather. Patient has history of sepsis from UTI. Upon evaluation at the ED, patient was in respiratory distress. Patient was hypoxic on nonrebreather. Chest x-ray showed left lung pneumonia. WBC elevated to 36. Hemoglobin 8, hematocrit 27. Platelet count 393. Sodium was 131, potassium 5.7. BUN 73, creatinine 1.9. D-dimer was elevated to 7. Lactic acid 8.1. CRP elevated to 44. Glucose 509. She was started on wide spectrum antibiotic. Prognosis poor. She was placed on isolation. She was then admitted to stepdown unit for COVID-19. CODE STATUS was discussed with the niece. Patient was initially DNR. Family wanted full code. She was given IV hydration. Kidney function was monitored. Patient had acute kidney injury, most likely secondary to severe volume depletion from hyperglycemia along with inflammatory cytokine damage to proximal to use from sepsis. Patient presented with pseudohyponatremia due to severe hyperglycemia. Patient came in with multiple stage IV wounds at the sacrum and bilateral lower extremities. She was provided with wound care. Potassium went up to 7.2. Carbon dioxide 9. She was given Kayexalate, Lasix. She was given calcium gluconate, insulin and dextrose. Patient became bradycardic. CODE BLUE was called. Resuscitative efforts failed. Patient eventually . FINAL DIAGNOSES: Cardiorespiratory arrest COVID-19 left lower lobe pneumonia Severe sepsis with acute organ dysfunction Acute respiratory failure with hypoxia Hyperglycemia due to type 2 diabetes mellitus Acute metabolic encephalopathy Acute kidney injury due to severe volume depletion from hyperglycemia along with component of inflammatory cytokine damage to proximal tubules from sepsis/ hypotension Hyperkalemia Pseudohyponatremia due to severe hyperglycemia Marked leukocytosis Dementia Dysphagia Chronic G-tube Diabetes mellitus Multiple stage IV pressure ulcer on sacrum and bilateral lower extremity, present on admission DISPOSITION: Patient . I have been assigned to complete a discharge summary on this account, I was not involved with the patient's management.--AMPARO Hilario Jacqueline Robles NP February 02, 2020 23:40
== END 2020-01-31 15:00 | disposition expired | DRG 871 ==
LOC: EMR 02:15 → 2W 04:09 → EDBEDREQ 05:05 → EDBEDREQSVC 05:22 → EDBEDREQ 05:22 → 2W 01-31 09:00
DX: A41.89 Other specified sepsis (principal); L89.894 Pressure ulcer of other site, stage 4; U07.1 COVID-19; J12.89 Other viral pneumonia; G93.41 Metabolic encephalopathy; L89.154 Pressure ulcer of sacral region, stage 4; J96.01 Acute respiratory failure with hypoxia; N17.9 Acute kidney failure, unspecified; E87.1 Hypo-osmolality and hyponatremia; Z43.1 Encounter for attention to gastrostomy; R65.20 Severe sepsis without septic shock; F03.90 Unspecified dementia, unspecified severity, without behavioral disturbance, psychotic disturbance, mood disturbance, and anxiety; Z66 Do not resuscitate; E87.5 Hyperkalemia; R13.10 Dysphagia, unspecified; E11.65 Type 2 diabetes mellitus with hyperglycemia; K21.9 Gastro-esophageal reflux disease without esophagitis
CPT/HCPCS: 36415; 36600; 71045; 80048; 80053; 81003; 82803; 82962; 83605; 85007; 85025; 85379; 85651; 86140; 87040; 87081; 87086; 87181; 94660; 94664; 96361; 96365; 96368; 96372; 96375; 99291; J7030